=== PATIENT | female | born 1990 | race Two or more races ===

== ENCOUNTER 2023-11-06 07:32 | Outpatient (RCR) | payer MEDICARE, SELFPAY ==
[2023-10-24 14:57] LABS: Basophils Percent Auto 0.4 % (0.2-2.0); Eosinophils Absolute Auto 0.1 10^3/uL (0.0-0.7); Hematocrit 25.8 % (36.0-48.0); Immature Granulocytes Abs Auto 0.04 10^3/uL (0.00-0.03); Immature Granulocytes Pct Auto 0.5 % (0.0-0.5); Lymphocytes Absolute Auto 1.9 10^3/uL (1.2-3.8); Lymphocytes Percent Auto 24.7 % (20.5-60.0); Mean Corpuscular HGB Conc 27.1 g/dL (29.9-35.2); Mean Corpuscular Hemoglobin 18.6 pg (26.7-34.0); Mean Corpuscular Volume 68.6 fL (81.0-99.0); Mean Platelet Volume 9.3 fL (9.5-13.5); Monocytes Absolute Auto 0.7 10^3/uL (0.3-0.8); Monocytes Percent Auto 8.5 % (1.7-12.0); Neutrophils Absolute Auto 5.1 10^3/uL (1.4-6.5); Neutrophils Percent Auto 64.9 % (43.0-75.0); Platelet Count 327 10^3/uL (150-450); Red Blood Count 3.76 10^6/uL (4.20-5.40); Red Cell Distribution Width 21.9 % (11.0-15.0); White Blood Count 7.8 10^3/uL (4.0-11.0)
[2023-10-24 15:08] LABS: Anion Gap 12.4; BUN Creatinine Ratio 12.2; Calcium 8.6 mg/dL (8.5-10.1); Carbon Dioxide 25.1 mmol/L (21.0-32.0); Chloride 103 mmol/L (98-107); Estimated GFR (African America >60 (>=60); Estimated GFR (Non-African Ame >60 (>=60); Glucose 77 mg/dL (74-106); Potassium 3.5 mmol/L (3.5-5.1); Sodium 137 mmol/L (136-145)
[2023-10-24 15:23] LABS: Percent Iron Saturation 3.4 %
[2023-10-25 15:09] LABS: Hgb A 98.2 % (96.4-98.8); Hgb A2 1.8 % (1.8-3.2)
[2023-11-06] MEDS: FERUMOXYTOL 510 MG in 0.9 % SODIUM CHLORIDE 100 ML 234 MG IV (13:17)
[2023-11-06 13:23] VITALS: BP 118/77; PULSE 74; TEMP 37.1; O2SAT 99
== END 2023-11-10 10:50 | disposition home or self-care (01) ==
LOC: INF 07:32
PROVIDERS: Visit Provider Internal Medicine Hematology & Oncology
DX: D64.9 Anemia, unspecified (principal); D50.9 Iron deficiency anemia, unspecified; D51.9 Vitamin B12 deficiency anemia, unspecified; K90.9 Intestinal malabsorption, unspecified
CPT/HCPCS: 36415; 80048; 82306; 82607; 82728; 83020; 83540; 83550; 85025; 96365; G0463; Q0138

== ENCOUNTER 2023-11-21 07:30 | Outpatient (RCR) | payer OTHER, SELFPAY ==
[2023-11-13 13:06] VITALS: BP 104/57; PULSE 75; TEMP 36.8; O2SAT 99
[2023-11-13] MEDS: FERUMOXYTOL 510 MG in 0.9 % SODIUM CHLORIDE 100 ML 234 MG IV (13:12)
[2023-11-21 15:28] LABS: Basophils Percent Auto 0.3 % (0.2-2.0); Eosinophils Percent Auto 0.6 % (0.9-7.0); Hematocrit 31.9 % (36.0-48.0); Hemoglobin 9.3 g/dL (12.0-16.0); Immature Granulocytes Abs Auto 0.03 10^3/uL (0.00-0.03); Immature Granulocytes Pct Auto 0.4 % (0.0-0.5); Lymphocytes Absolute Auto 1.3 10^3/uL (1.2-3.8); Lymphocytes Percent Auto 18.9 % (20.5-60.0); Mean Corpuscular HGB Conc 29.2 g/dL (29.9-35.2); Mean Corpuscular Hemoglobin 22.9 pg (26.7-34.0); Mean Corpuscular Volume 78.6 fL (81.0-99.0); Mean Platelet Volume 9.4 fL (9.5-13.5); Monocytes Absolute Auto 0.5 10^3/uL (0.3-0.8); Monocytes Percent Auto 7.2 % (1.7-12.0); Neutrophils Percent Auto 72.6 % (43.0-75.0); Platelet Count 278 10^3/uL (150-450); White Blood Count 6.8 10^3/uL (4.0-11.0)
[2023-11-21 15:32] LABS: C Reactive Protein <0.50 mg/dL (<=0.50)
[2023-11-21 15:36] LABS: Percent Iron Saturation 22.3 %
[2023-11-21 15:55] LABS: Erythrocyte Sedimentation Rate 74 mm/hr (<=20)
[2023-11-21 16:14] LABS: Red Blood Count 4.06 10^6/uL (4.20-5.40)
== END 2023-11-23 15:29 | disposition home or self-care (01) ==
LOC: HEMC 07:30
PROVIDERS: Visit Provider Internal Medicine Hematology & Oncology
DX: O99.013 Anemia complicating pregnancy, third trimester (principal); D64.9 Anemia, unspecified; D50.9 Iron deficiency anemia, unspecified; D51.9 Vitamin B12 deficiency anemia, unspecified; K90.9 Intestinal malabsorption, unspecified; Z3A.00 Weeks of gestation of pregnancy not specified; Z3A.30 30 weeks gestation of pregnancy; O26.893 Other specified pregnancy related conditions, third trimester
CPT/HCPCS: 36415; 82728; 83540; 83550; 85025; 85652; 86140; G0463; Q0138

== ENCOUNTER 2023-12-16 08:23 | Observation (INO) | payer OTHER, SELFPAY ==
--- OUTSIDE RECORDS SUMMARY | 2023-12-16 08:30 | XMS_ITS | CCD ---
Author Organization [facility] Care Team Providers Care Media Producer Name Role Phone MISC, DOCTOR Admitting Unavailable MISC, DOCTOR Attending Unavailable MISC, DOCTOR Admitting Unavailable MISC, DOCTOR Attending Unavailable SERVICES, [facility] Services, [facility] Primary Care Provider DOCHEVA NIKOLINA P Attending Unavailable SERVICES, [facility] SHIVAM, MOE Referring Unavailable DOCHEVA, NIKOLINA P Referring Unavailable SERVICES, [facility] SHIVAM, MOE Attending Unavailable FLORO, MARIS Referring Unavailable SERVICES, [facility] FLORO, MARIS Referring Unavailable SERVICES, [facility] SHIVAM, MOE Attending Unavailable FLORO, MARIS Referring Unavailable SERVICES, [facility] FLORO, MARIS L Referring Unavailable FLORO, MARIS L Attending Unavailable FLORO, MARIS L Attending Unavailable FLORO, MARIS L Attending Unavailable FLORO, MRAIS L Attending Unavailable FLORO, MARIS L Attending Unavailable FLORO, MARIS L Referring Unavailable FLORO, MARIS L Attending Unavailable Medications Current Medications Medication Drug Class(es) Dates Sig (Normalized) Sig (Original) vit 38-sbnq-pngkg-dha 18-1-350 mg capsule (8 sources) Start: 08-10-2022 take 1 tablet by mouth in the morning vit 76-sahr-tvzhs-dha 18-1-350 mg capsule Indications: Patient desires Take 1 tablet by mouth in the morning. 90 capsule 4 08/10/2022 Active Problems Active Problems Problem Classification Problem Date Documented Da te Episodic/Chronic Deficiency and other anemia (8 sources) Iron deficiency anemia; Translations: [Iron deficiency anemia, unspecified] Onset: 07-04-2023 07-04-2023 Episodic Deficiency and other anemia (2 sources) Anemia Onset: 08-15-2023 Episodic Other complications of (2 sources) Anemia in mother complicating , childbirth AND/OR puerperium; Translations: [Anemia complicating , second trimester] 07-04-2023 Chronic Other complications of (2 sources) Anemia complicating , second trimester; Translations: [Anemia complicating , second trimester] Onset: 07-04-2023 Chronic Other complications of (1 source) Iron deficiency anemia of ; Translations: [Anemia complicating , unspecified trimester] 08-17-2023 Chronic Other complications of (1 source) Anemia complicating , unspecified trimester; Translations: [Anemia complicating , unspecified trimester] Onset: 07-04-2023 Chronic Residual codes; unclassified (1 source) Gestation period, 20 weeks; Translations: [20 weeks gestation of ] 08-14-2023 Episodic Thyroid disorders (2 sources) Hyperthyroidism; Translations: [Hypothyroidism] Onset: 08-15-2023 Chronic Thyroid disorders (1 source) Disorder of thyroid gland; Translations: [Disorder of thyroid, unspecified] 08-17-2023 Episodic Unclassified (1 source) Abnormal Lab Onset: 06-12-2023 Unclassified (1 source) Abnormal Lab, 12 wks preg Onset: 06-12-2023 Past or Other Problems Problem Classification Problem Date Documented Da te Episodic/Chronic Deficiency and other anemia (1 source) Other iron deficiency anemias; Translations: [Other iron deficiency anemias] Onset: 07-04-2023 Episodic Other screening for suspected conditions (not mental disorders or infectious disease) (5 sources) Unspecified abnormal finding in specimens from other organs, systems and tissues; Translations: [Decreased thyroid stimulating hormone level] Onset: 06-12-2023 08-15-2023 Episodic Residual codes; unclassified (2 sources) 20 weeks gestation of ; Translations: [20 weeks gestation of ] Onset: 08-15-2023 Episodic NEGATED: Highlighted row has been ruled out!Unclassified (1 source) No known active problems 08-10-2022 Results Test Name Value Interpretation Reference Range Facility US OB FOLLOW UP TRANSABDOMIN AL APPROACHon 10-23-2023 US OB FOLLOW UP TRANSABDOMINAL APPROACH FINDINGS: A single, live intrauterine is present with normal cardiac rate of 132 beats per minute. Normal activity and amniotic fluid volume. Amniotic fluid index is 14 cm. Morphology is grossly normal. The cervix is long and closed, 4.8 cm. The placenta is anterior, not associated with the cervical os. The current sonographic age is 31 weeks and 3 days, based on the following measurements: BPD 8.0 cm (32 weeks, 0 days) Head Circumference 28.4 cm (31 weeks, 2 days) Abdominal Circumference 27.5 cm (31 weeks, 4 days) Femur Length 5.9 cm (30 weeks, 5 days) Presentation Cephalic Placenta Anterior Grade I Weight (g) by Percentile 59.1 % * These measurements result in an estimated date of delivery of December 22, 2023. The current estimated weight is 1747 grams (3 pounds, 14 ounces). IMPRESSION: Single, live intrauterine , current sonographic age of 31 weeks and 3 days, with an estimated date of delivery of December 22, 2023. * Estimated Weight (g) by Percentile is based upon an accurate estimated age based on last menstrual period. TRANSCRIBED BY: ELECTRONICALLY SIGNED BY: Ravinder Merchant MD Normal Not Available CBC without diffon Erythrocyte distribution width (RBC) [Ratio] 18.9 % High 11.5 - 15.0 % [facility] Hematocrit (Bld) [Volume fraction] 23.1 % Low 35 - 47 % [facility] Hemoglobin (Bld) [Mass/Vol] 7.2 g/dL Low 11.7 - 15.5 g/dL [facility] Interpretation and review of laboratory results Abnormal [facility] MCH (RBC) [Entitic mass] 19.8 pg Low 27 - 34 pg [facility] MCHC (RBC) [Mass/Vol] 31.1 g/dL Low 32 - 36 g/dL [facility] MCV (RBC) [Entitic vol] 64 fL Low 80 - 100 fL [facility] Platelet mean volume (Bld) [Entitic vol] 7.4 fL 7 - 12 fL [facility] Platelets (Bld) [#/Vol] 342 10*3/uL [facility] RBC (Bld) [#/Vol] 3.64 10*6/uL Low [facility] WBC corrected for nucl RBC Auto (Bld) [#/Vol] 7.2 [facility] COMPLETE BLOOD COUNTon 08-14 Erythrocyte distribution width (RBC) [Ratio] 18.9 % High 11.5-15.0 [facility] Comment on above: Performed By: #### C BC, THYR, 3051-0, 2276-4, 2284-8, 2132-01 #### [facility] ([id number]) [address], [address] [place] [address] Hematocrit (Bld) [Volume fraction] 23.1 % Low 35-47 [facility] Comment on above: Performed By: #### C BC, THYR, 3051-0, 2276-4, 2283-8, 2132-01 #### [facility] ([id number]) [address], [address] [place] [address] Hemoglobin (Bld) [Mass/Vol] 7.2 g/dL Low 11.7-15.5 [facility] Comment on above: Performed By: #### C BC, THYR, 3051-0, 2276-4, 2283-8, 2132-01 #### [facility] ([id number]) [address], [address] [place] [address] MCH (RBC) [Entitic mass] 19.8 pg Low 27-34 [facility] Comment on above: Performed By: #### C BC, THYR, 3051-0, 2276-4, 228-8, 2132-01 #### [facility] ([id number]) [address], [address] [place] [address] MCHC (RBC) [Mass/Vol] 31.1 g/dL Low 32-36 [facility] Comment on above: Performed By: #### C BC, THYR, 3051-0, 2276-4, 2284-8, 2132-01 #### [facility] ([id number]) [address], [address] [place] [address] MCV (RBC) [Entitic vol] 64 fL Low 80-100 [facility] Comment on above: Performed By: #### C BC, THYR, 3051-0, 2276-4, 4-8, 2132-01 #### [facility] ([id number]) [address], [address] [place] [address] Platelet mean volume (Bld) [Entitic vol] 7.4 fL Normal 7-12 [facility] Comment on above: Performed By: #### C BC, THYR, 3051-0, 2276-4, 2283-8, 2132-01 #### [facility] ([id number]) [address] [place] [address] Platelets (Bld) [#/Vol] 342 10*3/uL Normal 150-450 [facility] Comment on above: Performed By: #### Anderson BC, THYR, 3051-0, 2276-4, 2283-8, 2132-01 #### [facility] ([id number]) [address] [place] [address] RBC COUNT 3.64 X10E12/L Low 3.80-5.20 [facility] Comment on above: Performed By: #### C BC, THYR, 3051-0, 2276-4, 2283-8, 2132-01 #### [facility] ([id number]) [address] [place] [address] WBC (Bld) [#/Vol] 7.2 10*3/uL Normal 4.0-11.0 [facility] Comment on above: Performed By: #### C BC, THYR, 3051-0, 2276-4, 2284-8, 2132-01 #### [facility] ([id number]) [address], [address] [place] [address] Cobalamin (Vitamin B12) [Mas s/Vol]on 08-15-2023 [facility] FERRITINon 08-15-2023 Ferritin [Mass/Vol] 3 ng/mL Low 11-307 [facility] Comment on above: Performed By: #### C BC, THYR, 3051-0, 2276-4, 2284-8, 9 #### [facility] ([id number]) [address], [address] [place] [address] FREE T3on 08-15-2023 Free T3 [Mass/Vol] 3.96 pg/mL High 2.50-3.90 [facility] Comment on above: Performed By: #### C BC, THYR, 3051-0, 2276-4, 2283-8, 2132-01 #### [facility] ([id number]) [address] [address] [facility] [place] [address] Ferritinon 08-15-2023 Ferritin [Mass/Vol] 3 ng/mL Low 11 - 307 ng/mL [facility] Ferritin [Mass/Vol]on 2023 Interpretation and review of laboratory results Abnormal [facility] Folateon 08-15-2023 Folate [Mass/Vol] ng/mL 5.8 - PINF ng/mL [facility] Comment on above: NEW REFERENCE RANGE Folate [Mass/Vol]on 08-15-19 24 [facility] FOLIC ACID >25.0 Normal >5.8 [facility] Comment on above: Result Comment: NEW REFERENCE RANGE Performed By: #### C BC, THYR, 3051-0, 2276-4, 4-8, 2132-01 #### [facility] ([id number]) [address] [place] [address] Free T3 [Mass/Vol]on Interpretation and review of laboratory results Abnormal [facility] HGB ELECTRO INTERPon HGB ELECTRO INTERP See below Normal [facility] Comment on above: Result Comment: NOTE Hemoglobins were analyzed by capillary electrophoresis. There is a normal hemoglobin capillary electrophoresis pattern. Alpha thalassemia trait is not excluded by the testing performed. Suggest correlation with clinical information, red blood cell indices and serum ferritin test results, if applicable. Performed By: #### C BC, THYR, 3051-0, 2276-4, 2284-8, 9 #### [facility] ([id number]) [address] [place] [address] STAFF REVIEW See below Normal [facility] Comment on above: Result Comment: NOTE Reviewed by Angi Horvath DO Test Performed By: [place] [address] Fire Tower Keeper: Modesto Martin III, M.D. CLIA #[id number] Performed By: #### Anderson BC, THYR, 3051-0, 2276-4, 4-8, 2132-01 #### [facility] ([id number]) [address], [address] [place] [address] HGB ELECTROPHORESISon 2023 Abnormal Hb See below Normal No abnormal hemoglobin identified. [facility] Comment on above: Result Comment: NOTE No abnormal hemoglobin identified. Test Performed By: [place] [address] Fire Tower Keeper: Modesto Martin III, M.D. CLIA #[id number] Performed By: #### Anderson BC, THYR, 3051-0, 2276-4, 2284-8, 2132-01 #### [facility] ([id number]) [address] [facility] [place] [address] Hb A Percent 98.1 % High 96.2-98.0 [facility] Comment on above: Performed By: #### C BC, THYR, 3051-0, 2276-4, 2284-8, 9 #### [facility] ([id number]) [address], [address] [place] [address] Hb A2 Percent 1.9 % Low 2.0-3.1 [facility] Comment on above: Performed By: #### C BC, THYR, 3051-0, 6-4, 8, 2132-01 #### [facility] ([id number]) [address], [address] [place] [address] T3, freeon 08-15-2023 Free T3 [Mass/Vol] 3.96 pg/mL High 2.50 - 3. 90 pg/mL [facility] THYROID PROFILEon 08-15-2023 Free T4 [Mass/Vol] 0.54 ng/dL Low 0.61-1.60 [facility] Comment on above: Performed By: #### C BC, THYR, 3051-0, 2275-4, 8, 2132-01 #### [facility] ([id number]) [address], [address] [place] [address] TSH 0.67 uIU/mL Normal 0.49-4.67 [facility] Comment on above: Performed By: #### C BC, THYR, 3051-0, 2275-4, 2283-12, 2132-01 #### [facility] ([id number]) [address], [address] [place] [address] Thyroid profile includes TSH FT4on 08-15-2023 Free T4 [Mass/Vol] 0.54 ng/dL Low 0.61 - 1. 60 ng/dL [facility] Interpretation and review of laboratory results Abnormal [facility] TSH Qn 0.67 m[IU]/L [facility] VITAMIN B12on 08-15-2023 Cobalamin (Vitamin B12) [Mass/Vol] 183 pg/mL Normal 180-914 [facility] Comment on above: Performed By: #### C BC, THYR, 3051-0, 2276-4, 8, 2132-01 #### [facility] ([id number]) [address], [address] [place] [address] Vitamin B12on 08-15-2023 Cobalamin (Vitamin B12) [Mass/Vol] 183 pg/mL 180 - 914 pg/mL [facility] BASIC METABOLIC PANLon 06-12 Anion gap [Moles/Vol] 9 mmol/L Normal 5-15 [facility] Comment on above: Performed By: #### C BCA, BMP #### [facility] ([id number]) [address] [place] [address] Calcium [Mass/Vol] 9.1 mg/dL Normal 8.5-10.5 [facility] Comment on above: Performed By: #### C NITIN, BMP #### [facility] ([id number]) [address] [place] [address] Chloride [Moles/Vol] 105 mmol/L Normal 98-109 [facility] Comment on above: Performed By: #### C BCA, BMP #### [facility] ([id number]) [address] [place] [address] CO2 [Moles/Vol] 22 mmol/L Normal 22-32 [facility] Comment on above: Performed By: #### C BCA, BMP #### [facility] ([id number]) [address] [place] [address] Creatinine [Mass/Vol] 0.48 mg/dL Normal 0.40-1.00 [facility] Comment on above: Result Comment: METH OD TRACEABLE TO IDMS STANDARD Performed By: #### C BCA, BMP #### [facility] ([id number]) [address] [place] [address] eGFR (CKD-EPI) NON-RACE DEPENDENT >90 Normal >59 [facility] Comment on above: Result Comment: Reported eGFR is based on the CKD-EPI 2020 equation that does not use a race coefficient. Performed By: #### C BCA, BMP #### [facility] ([id number]) [address] [place] [address] Glucose [Mass/Vol] 94 mg/dL Normal 65-99 [facility] Comment on above: Performed By: #### C NITIN, BMP #### [facility] ([id number]) [address] [place] [address] Potassium [Moles/Vol] 3.7 mmol/L Normal 3.5-5.0 [facility] Comment on above: Performed By: #### C NITIN, BMP #### [facility] ([id number]) [address] [place] [address] Sodium [Moles/Vol] 136 mmol/L Normal 134-146 [facility] Comment on above: Performed By: #### C NITIN, BMP #### [facility] ([id number]) [address] [place] [address] Urea nitrogen [Mass/Vol] 11 mg/dL Normal 5-23 [facility] Comment on above: Performed By: #### C NITIN, BMP #### [facility] ([id number]) [address] [place] [address] CBC AND AUTO DIFFon 06-12-19 24 ABSOLUTE BASOPHIL 0.0 X10E9/L Normal 0.0-0.2 [facility] Comment on above: Performed By: #### C NITIN, BMP #### [facility] ([id number]) [address] [place] [address] ABSOLUTE NEUTROPHIL 4.5 X10E9/L Normal 1.5-6.6 [facility] Comment on above: Performed By: #### C BCA, BMP #### [facility] ([id number]) [address] [place] [address] Basophils/100 WBC (Bld) 0.4 % Normal [facility] Comment on above: Performed By: #### C NITIN, BMP #### [facility] ([id number]) [address] [place] [address] Eosinophils (Bld) [#/Vol] 0.1 10*3/uL Normal 0.0-0.4 [facility] Comment on above: Performed By: #### C NITIN, BMP #### [facility] ([id number]) [address] [place] [address] Eosinophils/100 WBC (Bld) 1.0 % Normal [facility] Comment on above: Performed By: #### C NITIN, BMP #### [facility] ([id number]) [address] [place] [address] Erythrocyte distribution width (RBC) [Ratio] 19.3 % High 11.5-15.0 [facility] Comment on above: Performed By: #### C NITIN, BMP #### [facility] ([id number]) [address] [place] [address] Hematocrit (Bld) [Volume fraction] 26.6 % Low 35-47 [facility] Comment on above: Performed By: #### C NITIN, BMP #### [facility] ([id number]) [address] [place] [address] Hemoglobin (Bld) [Mass/Vol] 8.0 g/dL Low 11.7-15.5 [facility] Comment on above: Performed By: #### C NITIN, BMP #### [facility] ([id number]) [address] [place] [address] Lymphocytes (Bld) [#/Vol] 2.0 10*3/uL Normal 1.0-3.5 [facility] Comment on above: Performed By: #### C BCA, BMP #### [facility] ([id number]) [address] [place] [address] Lymphocytes/100 WBC (Bld) 27.5 % Normal [facility] Comment on above: Performed By: #### C NITIN, BMP #### [facility] ([id number]) [address] [place] [address]67 MCH (RBC) [Entitic mass] 19.1 pg Low 27-34 [facility] Comment on above: Performed By: #### C NITIN, BMP #### [facility] ([id number]) [address] [place] [address] MCHC (RBC) [Mass/Vol] 30.2 g/dL Low 32-36 [facility] Comment on above: Performed By: #### C NITIN, BMP #### [facility] ([id number]) [address] [place] [address] MCV (RBC) [Entitic vol] 63 fL Low 80-100 [facility] Comment on above: Performed By: #### C NITIN, BMP #### [facility] ([id number]) [address] [place] [address] Monocytes (Bld) [#/Vol] 0.6 10*3/uL Normal 0-0.9 [facility] Comment on above: Performed By: #### C NITIN, BMP #### [facility] ([id number]) [address] [place] [address]190 Monocytes/100 WBC (Bld) 8.6 % Normal [facility] Comment on above: Performed By: #### C NITIN, BMP #### [facility] ([id number]) [address] [place] [address]154 Neutrophils/100 WBC (Bld) 62.5 % Normal [facility] Comment on above: Performed By: #### C NITIN, BMP #### [facility] ([id number]) [address] [place] [address] [place] [address] Platelet mean volume (Bld) [Entitic vol] 7.6 fL Normal 7-12 [facility] Comment on above: Performed By: #### C NITIN, BMP #### [facility] ([id number]) [address] [place] [address] Platelets (Bld) [#/Vol] 334 10*3/uL Normal 150-450 [facility] Comment on above: Performed By: #### Anderson TAVERAS, BMP #### [facility] ([id number]) [address] [place] [address]40 RBC COUNT 4.20 X10E12/L Normal 3.80-5.20 [facility] Comment on above: Performed By: #### Anderson TAVERAS, BMP #### [facility] ([id number]) [address] [place] [address] WBC (Bld) [#/Vol] 7.3 10*3/uL Normal 4.0-11.0 [facility] Comment on above: Performed By: #### Anderson TAVERAS, BMP #### [facility] ([id number]) [address] [place] [address]72 HIV 1&2 AB/AG Screen (P24 AG )on 05-17-2023 HIV 1&2 AB/AG Non-Reactive [facility] Hepatitis B surface antigeno n 05-17-2023 Hepatitis B Surface Antigen Non-Reactive [facility] Hepatitis C(HCV) Ab w/ Refle x to PCRon 05-17-2023 HCV Ab Ql (S) Non-Reactive [facility] No Panel InformationOrdered By: Riya Veloz on 05-17-2023 [facility] Rubella IGG immune statuson 05-17-2023 Rubella immune IgG [facility] Syphilis Total(Unknown Syphi lis Status)Ordered By: Riya Veloz on 05-17-2023 Syphilis Non-Reactive [facility] US OB < 14 WEEKS EARLYon 01- 03-2024 US OB < 14 WEEKS EARLY CLINICAL HISTORY: Dating. Age by LMP of 8 weeks 0 days COMPARISON: None available for this . TECHNIQUE: Transabdominal and transvaginal ultrasound was performed of the pelvis. RESULT: An approximately 3.08 cm in average dimension gestational sac is present within the central aspect of the uterine body/fundus, without significant surrounding subchorionic hemorrhage. Yolk sac present. Alleman rump length measures 1.85 cm, which corresponds to 8 weeks 2 days. The estimated date of delivery by measurements is: 12/25/2023. The estimated date of delivery by LMP is: 12/27/2023. cardiac activity measures approximately 165, without visualized arrhythmia. The cervix appears closed, measuring approximately 4.0 cm. There is no significant free fluid, or other findings of concern. The uterus measures: 10.6 x 6.8 x 5.4 cm. Ovaries not visualized, obscured by bowel gas. IMPRESSION: SINGLE LIVE INTRAUTERINE CORRESPONDING TO 8 weeks 2 days NO OTHER FINDINGS OF CONCERN. ELECTRONICALLY SIGNED BY: Hi Santiago MD Normal Not Available Vital Signs Date Time Vital Sign Value Performing Clinician Courtney collins 08-15-2023 09:140400 Body height 170.2 cm Glory Rivera MD Work Phone: [facility] Happy [facility] 08-15-2023 09:14-0400 Body mass index (BMI) [Ratio] 21.77 kg/m2 Glory Rivera MD Work Phone: [facility] 08-15-2023 09:14-0400 Body weight 63.05 kg Glory Rivera MD Work Phone: [facility] 08-15-2023 09:14-0400 Diastolic blood pressure 62 mm[Hg] Glory Rivera MD Work Phone: [facility] 08-15-2023 09:14-0400 Heart rate 68 /min Glory Rivera MD Work Phone: [facility] 08-15-2023 09:14-0400 Systolic blood pressure 102 mm[Hg] Glory Rivera MD Work Phone: [facility] 07-04-2023 08:55-0500 Body mass index (BMI) [Ratio] 20.55 kg/m2 Moe Langley MD Work Phone: [facility] 07-04-2023 08:55-0500 Body weight 59.51 kg Moe Langley MD Work Phone: [facility] 07-04-2023 08:55-0500 Diastolic blood pressure 55 mm[Hg] Moe Langley MD Work Phone: [facility] 07-04-2023 08:55-0500 Heart rate 67 /min Moe Langley MD Work Phone: [facility] 07-04-2023 08:55-0500 Systolic blood pressure 100 mm[Hg] Moe Langley MD Work Phone: [facility] Encounters Encounter Date Encounter Type Care Provider Facility Start: 11-14-2023 End: 11-14-[address] [facility] Start: 11-13-2023 End: 11-13-2023 ambulatory MARIS L FLORO Not Available Start: 10-23-2023 End: 10-23-2023 ambulatory MARIS L FLORO Not Available Start: 09-04-2023 End: 09-04-2023 ambulatory MARIS L FLORO Not Available Start: 08-21-2023 Telephone encounter Gladys Cortés RN [facility] Start: 08-18-2023 Telephone encounter Glory Rivera MD Work Phone: [facility] Comment on above: Results Start: 08-17-2023 Orders Only Glory stewart MD Work Phone: [facility] [place] Comment on above: Iron deficiency anem ia during (Primary Dx); Thyroid disease Start: 08-15-2023 End: 08-15-2023 ambulatory GLORY RIVERA [facility] Start: 08-15-2023 End: 08-15-2023 Office outpatient visit 25 minutes Glory Rivera MD Work Phone: [facility] [place] Comment on above: 20 weeks gestation o f (Primary Dx); Low TSH level Start: 08-07-2023 End: 08-07-2023 ambulatory MARIS L FLORO Not Available Start: 07-10-2023 End: 07-10-2023 ambulatory MARIS L FLORO Not Available Start: 07-04-2023 End: 07-04-2023 Orders Only Grace Davis RN Maternal- Medicine at [facility] Comment on above: Anemia affecting pre gnancy in second trimester (Primary Dx) Start: 07-04-2023 End: 07-04-2023 Office consultation new/estab patient 60 min Moe Langlye MD Work Phone: Maternal- Medicine at [facility] Comment on above: Anemia affecting pre gnancy in second trimester (Primary Dx); Other iron deficiency anemia Start: 06-19-2023 Chart abstracting Moe mccormack MD Work Phone: Maternal- Medicine at [facility] Start: 06-13-2023 End: 06-13-2023 ambulatory MARIS L FLORO Not Available Start: 06-12-2023 End: 06-12-2023 Emergency department patient visit [facility] Start: 05-17-2023 End: 05-17-2023 ambulatory MARIS L FLORO Not Available Start: 01-10-2019 Patient encounter procedure DOCTOR MISC Facility:H1 Start: 12-27-2018 Patient encounter procedure DOCTOR MISC Facility:H1 Procedures Date Procedure Procedure Detail Performing Clinician Start: 05-17-2023 Hepatitis c antibody No t In System Ref Prov Start: 05-17-2023 HIV 1&2 AB/AG SCREEN (P24 AG) Not In System Ref Prov Start: 05-17-2023 Iaad ia hepatitis b surface antigen Not In System Ref Prov Start: 08-10-2022 Microscopic observat ion [Identifier] in Cervix by Cyto stain Moe Langley MD Work Phone: Plan of Treatment Date Care Activity Detail Author Start: 08-10-2025 Screening for malign ant neoplasm of cervix Pap Smear [facility] Start: 08-14-2024 Adult BMI Screening Adult BMI Screen ing [facility] Start: 08-14-2024 Tobacco Screening Tobacco Screening [facility] Start: 07-04-2024 Adult BMI Screening Adult BMI Screen ing [facility] Start: 07-04-2024 Tobacco Screening Tobacco Screening [facility] Start: 07-04-2024 End: 07-04-2024 US MFM with or without consult US MFM with or without consult Imaging Routine Anemia affecting in second trimester Expected: 07/04/2024 (Approximate), Expires: 07/04/2024 SET Work Phone: Comment on above: Expected: 07/04/2024 (Approximate), Expires: 07/04/2024 Start: 06-12-2024 Adult BMI Screening Adult BMI Screen ing [facility] Start: 06-12-2024 DTaP,Tdap and Td Vac cines (2 - Td or Tdap) DTaP,Tdap and Td Vaccines (2 - Td or Tdap) [facility] Start: 01-14-2024 Influenza vaccination Influenza Vacc ine [facility] Start: 10-30-2023 End: 10-30-2023 Telemedicine consultation with patient 10/30/2023 11:30 AM EDT Telemedicine Maternal- Medicine at [facility] [address] [place] [id number] Osbaldo Alamo MD [address], [address] [place] [address] [facility] Start: 08-15-2023 End: 08-15-2023 Patient encounter procedure [facility] [place] Start: 08-11-2023 Tobacco Screening Tobacco Screening [facility] Start: 07-04-2023 End: 07-04-2023 Patient encounter procedure [facility] - MFM US Imaging Start: 01-13-2023 COVID-19 Vaccine ( season) COVID-19 Vaccine ( season) [facility] Start: 01-13-2023 Influenza vaccination Influenza Vacc ine [facility] Start: 2004 Depression Screening Depression Scre ening [facility] End: 07-04-2024 Ferritin [Mass/volume] in Serum or Plasma Ferritin Lab Routine Anemia affecting in second trimester 1 Occurrences starting 07/04/2023 until 07/04/2024 SET Work Phone: Comment on above: 1 Occurrences starti ng 07/04/2023 until 07/04/2024 End: 07-04-2024 Hemoglobin Electrophoresis Hemoglobin Electrophoresis Lab Routine Anemia affecting in second trimester 1 Occurrences starting 07/04/2023 until 07/04/2024 [facility] on [facility]: 1 Occurrences starti ng 07/04/2023 until 07/04/2024 End: 08-14-2024 Hemoglobin Electrophoresis Hemoglobin Electrophoresis Lab Routine 20 weeks gestation of 1 Occurrences starting 08/15/2023 until 08/14/2024 SET Work Phone: Comment on above: 1 Occurrences starti ng 08/15/2023 until 08/14/2024 Hemoglobin Electrophoresis Hemoglobin Electrophoresis Lab Routine 20 weeks gestation of 08/15/2023 10:11 AM EDT [facility] End: 10-17-2023 Thyroid profile includes TSH FT4 Thyroid profile includes TSH FT4 Lab Routine Thyroid disease 1 Occurrences starting 08/17/2023 until 10/17/2023 SET Work Phone: Comment on above: 1 Occurrences starti ng 08/17/2023 until 10/17/2023 End: 10-17-2023 Triiodothyronine (T3) Free [Mass/volume] in Serum or Plasma T3, free Lab Routine Thyroid disease 1 Occurrences starting 08/17/2023 until 10/17/2023 [facility] Comment on above: 1 Occurrences starti ng 08/17/2023 until 10/17/2023 End: 08-14-2024 Unlisted Lab Test Unlisted Lab Test Lab Routine 20 weeks gestation of 1 Occurrences starting 08/15/2023 until 08/14/2024 [facility] Comment on above: 1 Occurrences starti ng 08/15/2023 until 08/14/2024 Immunizations Immunization Date Immunization Notes Care Provider [facility] 02-24-2021 influenza virus vaccine, unspecified formulation Moe Langley MD Work Phone: [facility] 08-07-2020 COVID-19, mRNA, LNP- S, PF, 100mcg/0.5mL Dose Moe Langley MD Work Phone: [facility] 07-10-2020 COVID-19, mRNA, LNP- S, PF, 100mcg/0.5mL Dose Moe Langley MD Work Phone: [facility] Payers Date Payer Category Payer Medicaid [employer] [id number] 2023-Present [phone] [address] [place] [address] [id number] 2023 Medicaid [id number] 2022 Medicaid [id number] 1992 Unknown [id number] 1992 Unknown [id number] 1992 Unknown [id number] 1992 Unknown [id number] [id number] 1992 Unknown [id number] [id number] 1992 Unknown [id number] [id number] 1992 Unknown [id number] [id number] 1992 Unknown [id number] [id number] 1992 Unknown [id number] [id number] 1992 Unknown [id number] [id number] 1992 Unknown [id number] [id number] 1992 Unknown [id number] [id number] 1992 Unknown [id number] [id number] 1992 Unknown [id number] [id number] 1992 Unknown [id number] [id number] 1959 Unknown Social History Date Type Detail Facility Start: 12-21-2021 Tobacco smoking stat [facility] Never smoked tobacco [facility] Start: 12-21-2021 Tobacco use and exposure Smokeless tobacco non-user [facility] Start: 06-19-2023 Alcohol intake Current drinke r of alcohol (finding) [facility] Start: 06-25-2020 End: 06-19-2023 Alcohol intake [facility] Start: 06-25-2020 End: 08-10-2022 Tobacco use panel [facility] Childcare Unknown [facility] Start: 04-05-2023 [facility] Start: 1990 Sex Assigned At Not on file P [facility] Start: 07-04-2023 End: 08-15-2023 Alcohol intake Ex-drinker (finding) [facility] Clinical Notes 07-04-2023 to 08-21-2023 Telephone Encounter - Gladys Cortés RN - 08/21/2023 8:49 AM EDTTelephone Encounter - Gladys Cortés RN - 08/21/2023 8:49 AM EDTTelephone Encounter - Glory Rivera MD - 08/18/2023 5:28 PM EDT Note Date & Type Note Facility 08-21-2023 Miscellaneous Notes Formattin g of this note might be different from the original. Attempted to contact patient in regards to thyroid function results per Dr. Rivera. No answer, left VM to call back to office to discuss. documented in this encounter [facility] 08-21-2023 Telephone encount er Note Attempted to contact patient in regards to thyroid function results per Dr. Rivera. No answer, left VM to call back to office to discuss. [facility] 08-18-2023 Miscellaneous Notes Formattin g of this note might be different from the original. Attempted to call patient to discuss her results she did not answer GLORY RIVERA MD documented in this encounter [facility] 08-18-2023 Telephone encount er Note Attempted to call patient to discuss her results she did not answer GLORY RIVERA MD [facility] 08-17-2023 Miscellaneous Notes Formattin g of this note might be different from the original. Left voicemail for pt to call our office to schedule an appointment with Micaela Burnette labs needed documented in this encounter [facility] 08-17-2023 Telephone encount er Note Left voicemail for pt to call our office to schedule an appointment with Micaela Burnette labs needed ast [facility] 08-15-2023 History of Presen t illness Narrative REASON FOR OFFICE VISIT: Follow up HISTORY OF PRESENT ILLNESS: Trish Cardona is a pleasant 33 y.o. G 2 P1 001. at 20w6d due on Estimated Date of Delivery: 12/27/23 . Patient was seen today due to the following 1. Suspected hyperthyroidism based on low TSH performed early in the 1st trimester. This could be due to normal physiological changes. Repeat labs not done yet 2. Microcytic hypochromic anemia. Most likely iron deficiency anemia. Has not been screened for thalassemias or sickle cell. Denies family history Currently the patient has no complaints. The patient denies nausea, vomiting, abdominal pain, vaginal bleeding, SOB or chest pain. Reports good movement. Patient's PMH/PSH,SH,PSYCH Hx, MEDs, ALLERGIES, and ROS were all reviewed and updated in the appropriate sections. Patient Active Problem List Diagnosis Iron (Fe) deficiency anemia Past Medical History: Diagnosis Date Anemia Atypical squamous cells of undetermined significance on cytologic smear of cervix (ASC-US) 2012 Disease of thyroid gland PAST OBSTETRICAL HISTORY: OB History Para Term AB Living 2 1 1 1 SAB IAB Ectopic Multiple Live Births 1 # Outcome Date GA Lbr Holland/2nd Weight Sex Delivery Anes PTL Lv 2 Current 1 Term 2013 M Vag-Spont EPI [place] SURGICAL HISTORY: No past surgical history on file. ALLERGIES: No Known Allergies CURRENT MEDICATIONS: Current Outpatient Medications: vit 21-dzhs-kkars-dha 18-1-350 mg capsule, Take 1 tablet by mouth in the morning., Disp: 90 capsule, Rfl: 4 FAMILY/GENETIC HISTORY: No family history of VTE, cardiac defects and mental retardation . SOCIAL HISTORY:Patient denies tobacco use, alcohol use, or drug use. RECENT HOSPITALIZATION: none I did review all the labs results available in addition to labs which were ordered by the primary care physician, and the other consultants, we search on [employer] and all the available care everywhere epic I did review all the imaging studies of the patient available on EMR, ordered by the primary care physician and the other quality improvement consultant HABITS: Patient activity no restrictions, diet no restrictions REVIEW OF SYSTEM: Head and Neck: Negative for any dizziness and headaches. Cardiovascular and Respiratory System: Denies any chest pain, shortness of breath, and coughing. Abdominal and System: Denies any abdominal pain, nausea, vomiting, vaginal bleeding, and vaginal discharge Social Determinants of Health Financial Resource Strain: n Food Insecurity: n Transportation Needs: n Physical Activity: n Social Connections: y Intimate Partner Violence: n Housing Stability: y PHYSICAL EXAMINATION: LMP 03/22/2023 . Gravid abdomen, Respirations not labored. Well oriented time place person, normal gait Vitals: 08/15/23 0914 BP: 102/62 Pulse: 68 MFM Ultrasound please see report Trish Cardona is 33 y.o. at 20w6d Please refer to prior MFM notes 1. 20 weeks gestation of - Thyroid profile includes TSH FT4; Future - Ferritin; Future - Hemoglobin Electrophoresis; Future - Vitamin B12; Future - Folate; Future - CBC without diff; Future - Unlisted Lab Test; Future 2. Low TSH level - Thyroid profile includes TSH FT4; Future - T3, free; Future 3. Microcytic anemia Ultrasound results from today reviewed with the patient. Reviewed aneuploidy testing that could be performed during . I explained that definitive testing can be obtained by an amniocentesis, which has a 1/800 risk of loss. We also discussed noninvasive screening via cell free DNA testing and its limitations.. This test can be done on maternal blood and detects DNA. After consideration of risks versus benefits, she has declined amniocentesis. The patient declined cell free DNA. Desires evaluation. I recommended that she does repeat thyroid function labs Reviewed causes of anemia. Recommended testing ferritin, b12, folate, CBC, hemoglobin electrophoresis as well as testing for alpha thalasemia. We reviewed carrier screening in the as well. Patient agreed to be screened for CF, SMA and hemoglobinopathies. RECOMMENDATION: 1. Thyroid labs ordered. In case low TSH and high free T4 is noticed with hyperthyroidism and treated accordingly. 2. Anemia workup ordered 3. In case of low ferritin patient is a candidate for IV iron to be coordinated through her OB office. 4. Declined aneuploidy screening/testing 5. Carrier screen as above 6. Patient is low risk and vaginal delivery at or after 39 weeks at her local hospital is anticipated with C section reserve for routine obstetrical indications. 7. If she has hyperthyroidism please perform serial growth ultrasounds and start weekly NST and DVP from 32 weeks until delivery. All her questions and concerns were answered DISPOSITION: At this point the patient is in complete care of her statement services representative. Patient does have ultrasound office visit scheduled with us. Thank you for allowing me to participate in Trish Cardona . If there any questions please do not hesitate to contact us. Sincerely, Glory Rivera MD, FACOG (she/hers) Maternal- Medicine [facility] [address] [place] [address] Headache/epigastric pain/blurry vision/swelling? No Cramping/contractions? No Abnormal vaginal discharge? No Spotting or vaginal bleeding? No Loss of fluid like your water may have broken? No Recent ER visits or hospitalizations? No Any concerns that you would like me to mention to the provider today? Was diagnosed with a UTI by her OB in [place]. They prescribed her an antibiotic, but she lost the antibiotic and is inquiring if we can scientific technical writer her a new script. Blood drawn for carrier testing by PPE lab. Patient tolerated well. documented in this encounter [facility] 07-04-2023 History of Presen t illness Narrative Headache/epigastric pain/blurry vision/swelling? No Cramping/contractions? No Abnormal vaginal discharge? No Spotting/vaginal bleeding? No Loss of fluid like your water may have broken? No Cats in the home? No Do you change the litter box? N/A Flu vaccine? No Genetic testing done this here or other office? No Have you been seen here at [facility] in a previous ? No Recent ER visits or hospitalizations? 06/12/23 sent by primary OB to [place] ED for low hemoglobin Bring blood sugar log or meter with you today? (Please bring them with you for every visit at MFM) N/A Traveled outside the country in the past 6 month No Any concerns that you would like me to mention to the provider today? No REASON FOR CONSULTATION: Suspected hyperthyroidism. HISTORY OF PRESENT ILLNESS: Trish Cardona is a pleasant 33 y.o. G 2 P1 001. at 14w6d due on Estimated Date of Delivery: 12/27/23 . Patient was seen today due to the following 1. Suspected hyperthyroidism based on low TSH performed early in the 1st trimester. This could be due to normal physiological changes. 2. Microcytic hypochromic anemia. Most likely iron deficiency anemia. Currently the patient has no complaints. The patient denies nausea, vomiting, abdominal pain, vaginal bleeding, SOB or chest pain. Patient's PMH/PSH,SH,PSYCH Hx, MEDs, ALLERGIES, and ROS were all reviewed and updated in the appropriate sections. Patient Active Problem List Diagnosis Iron (Fe) deficiency anemia Past Medical History: Diagnosis Date Anemia Atypical squamous cells of undetermined significance on cytologic smear of cervix (ASC-US) 2011 Disease of thyroid gland PAST OBSTETRICAL HISTORY: OB History 2 Para 1 Term 1 AB Living 1 SAB IAB Ectopic Multiple Live Births 1 SURGICAL HISTORY: No past surgical history on file. ALLERGIES: No Known Allergies CURRENT MEDICATIONS: Current Outpatient Medications: vit 73-selj-djzgr-dha 18-1-350 mg capsule, Take 1 tablet by mouth in the morning., Disp: 90 capsule, Rfl: 4 FAMILY/GENETIC HISTORY: No family history of VTE, cardiac defects and mental retardation . SOCIAL HISTORY:Patient denies tobacco use, alcohol use, or drug use. RECENT HOSPITALIZATION: none I did review all the labs results available in addition to labs which were ordered by the primary care physician, and the other consultants, we search on [employer] and all the available care everywhere epic I did review all the imaging studies of the patient available on EMR, ordered by the primary care physician and the other quality improvement consultant HABITS: Patient activity no restrictions, diet no restrictions REVIEW OF SYSTEM: Head and Neck: Negative for any dizziness and headaches. Cardiovascular and Respiratory System: Denies any chest pain, shortness of breath, and coughing. Abdominal and System: Denies any abdominal pain, nausea, vomiting, vaginal bleeding, and vaginal discharge Social Determinants of Health Financial Resource Strain: n Food Insecurity: n Transportation Needs: n Physical Activity: n Social Connections: y Intimate Partner Violence: n Housing Stability: y PHYSICAL EXAMINATION: BP 100/55 Pulse 67 Wt 59.5 kg (131 lb 3.2 oz) LMP 03/22/2023 BMI 20.55 kg/m . Gravid abdomen, Respirations not labored. Well oriented time place person, normal gait MEDICAL DECISION MAKING DISCUSSION: I informed the patient based on hypochromic microcytic anemia most likely diagnosis is iron deficiency anemia. However will obtain hemoglobin electrophoresis along with iron studies. InCase low ferritin is diagnose patient is a candidate for IV iron infusion to be coordinated through her OB office and utilizing bloodless management department. We further discussed low TSH which could be due to normal physiological changes early . Thyroid function testing TSH and free T4 to be obtained through her OB office at 20 weeks gestation. RECOMMENDATION: 1. Normal first-trimester ultrasound. 2. Hemoglobin electrophoresis and ferritin was obtained today. 3. InCase of low ferritin patient is a candidate for IV iron to be coordinated through her OB office. 4. Repeat TSH and free T4 at 20 weeks gestation. InCase low TSH and high free T4 is noticed with hyperthyroidism and treated accordingly. 5. Patient understands first-trimester early TSH can be abnormal due to normal physiological changes of 6. Targeted anatomy at 20 weeks at [facility] office 7. Patient is low risk and vaginal delivery at term at her local hospital is anticipated with C section reserve for routine obstetrical indications. DISPOSITION: At this point the patient is in complete care of her statement services representative. Patient does have ultrasound office visit scheduled with us. Thank you for allowing me to participate in Trish Cardona . If there any questions please do not hesitate to contact us. Sincerely, MOE LANGLEY MD documented in this encounter [facility] Evaluation note Diagnosis Anemia affecting in second trimester- Primary [facility] Diagnosis Anemia affecting in second trimester- Primary Other iron deficiency anemia [facility] Diagnosis 20 weeks gestation of - Primary Low TSH level [facility] Diagnosis Iron deficiency anemia during - Primary Thyroid disease Unspecified disorder of thyroid [facility] filedocumented in this encounter [facility] filedocumented in this encounter [facility] filedocumented in this encounter [facility] on filedocumented in this encounter [facility] on filedocumented in this encounter [facility] (narrative)* Consultation (Routine) - Pending Review Specialty Diagnoses / Procedures Referred By Contac t Referred To Contact Hematology Diagnoses Iron deficiency anemia during Glory Rivera MD [address], [address] [place] [address] [facility] [address] [address] [place] [address] Referral ID Status Reason Start Date Expiration Date V isits Requested Visits Authorized [id number] Pending Review 08/17/2023 08/16/2024 1 1 [facility] Summary Purpose Family History No Family History Records FoundNo Family History Records FoundNo Family History Records FoundNo Family History Records FoundNo Family History Records Found Advance Directives No Advanced Directives Records FoundNo Advanced Directives Records FoundNo Advanced Directives Records FoundNo Advanced Directives Records FoundNo Advanced Directives Records Found Reason for Referral Specialty Diagnoses / Procedures Referred By Contac t Referred To Contact Maternal and Medicine Diagnoses Anemia affecting in second trimester Procedures US MFM with or without consult Moe Langley MD [address] [place] [address] [facility]aternal [facility] [address] [place] [address] Referral ID Status Reason Start Date Expiration Date V isits Requested Visits Authorized [id number] Pending Review 07/04/2023 07/03/2024 1 1 Additional Source Comments INFORMATION SOURCE (unrecogn ized section and content) DATE CREATED AUTHOR 12/26/2018 [facility] DATE CREATED AUTHOR AUTHOR'S ORGANIZ ATION 06/16/2023 [facility] DATE CREATED AUTHOR AUTHOR'S ORGANIZ ATION 08/16/2023 [facility] DATE CREATED AUTHOR AUTHOR'S ORGANIZ ATION 11/15/2023 [facility] DATE CREATED AUTHOR AUTHOR'S ORGANIZ ATION 11/17/[address] [facility] dical Specialists [employer] Care Teams (unrecognized sec tion and content) Media Producer Relationship Specialty Start Date End Date Services, [facility] [address] [place] PCP - General Family Medicine 06/12/23 Media Producer Relationship Specialty Start Date End Date Services, [facility] [address] [place] PCP - General Family Medicine 06/12/23 Media Producer Relationship Specialty Start Date End Date Services, [facility] [address] [place], [place] PCP - General Family Medicine 06/12/23 Media Producer Relationship Specialty Start Date End Date Services, [facility] [address] [place] PCP - General Family Medicine 06/12/23 Media Producer Relationship Specialty Start Date End Date Services, [facility] [address] [place] PCP - General Family Medicine 06/12/23 Media Producer Relationship Specialty Start Date End Date Services, [facility] [address] [place] PCP - General Family Medicine 06/12/23 Reason for Visit (unrecogniz ed section and content) Reason Comments Anemia Hypothyroidism Reason Comments Hyperthyroidism anemia Reason Onset Date Comments Results 08/18/2023 FOR RECORDS PERTAINING TO PATIENTS WHO ARE OR HAVE BEEN ENROLLED IN A CHEMICAL DEPENDENCY/SUBSTANCEABUSE PROGRAM, SOME INFORMATION MAY BE OMITTED. This clinical summary was aggregated from multiple sources. Caution should be exercised in using it in the provision of clinical care. This summary normalizes information from multiple sources, and as a consequence, information in this document may materially change the coding, format and clinical context of patient data. In addition, data may be omitted in some cases. CLINICAL DECISIONS SHOULD BE BASED ON THE PRIMARY CLINICAL RECORDS. [employer] [facility]. provides no warranty or guarantee of the accuracy or completeness of information in this document.
[2023-12-16 09:14] VITALS: BP 112/76; PULSE 66
[2023-12-16 10:26] LABS: Bilirubin Urine NEGATIVE (NEGATIVE); Blood Urine SMALL (NEGATIVE); Clarity Urine CLOUDY (CLEAR); Color Urine LT. YELLOW (YELLOW); Glucose Urine UA NEGATIVE (NEGATIVE); Ketones Urine 15 mg/dL (NEGATIVE); Leukocyte Esterase Urine MODERATE (NEGATIVE); Nitrite Urine POSITIVE (NEGATIVE); Protein Urine NEGATIVE (NEG/TRACE); Urobilinogen Urine 0.2 EU/dL (0.2-1.0); pH Urine 6.5 (5.0-9.0)
[2023-12-16 10:28] LABS: Urine Microscopic Indicated YES
[2023-12-16 10:53] LABS: Bacteria Urine LARGE #/HPF (NONE SEEN); Crystals Seen? None Seen #/HPF (None Seen); Mucus Urine SMALL (NONE SEEN); Squamous Epithelial Cell Urine FEW #/LPF (NONE/RARE); WBC Urine 50-75 #/HPF (NONE SEEN)
[2023-12-16 10:54] LABS: Cast Seen? NONE SEEN #/LPF (NONE SEEN); Urine Culture Indicated YES
[2023-12-16] MEDS: CEFAZOLIN SODIUM/DEXTROSE,ISO 1 GM/50 ML IV.SOLN IV (11:16)
[2023-12-16] MEDS: 0.9 % SODIUM CHLORIDE 500 ML 1000 ML IV (11:16)
[2023-12-16 11:28] LABS: Basophils Percent Auto 0.5 % (0.2-2.0); Eosinophils Absolute Auto 0.1 10^3/uL (0.0-0.7); Eosinophils Percent Auto 0.9 % (0.9-7.0); Hemoglobin 10.8 g/dL (12.0-16.0); Immature Granulocytes Abs Auto 0.04 10^3/uL (0.00-0.03); Immature Granulocytes Pct Auto 0.5 % (0.0-0.5); Lymphocytes Absolute Auto 1.5 10^3/uL (1.2-3.8); Lymphocytes Percent Auto 19.6 % (20.5-60.0); Mean Corpuscular HGB Conc 30.9 g/dL (29.9-35.2); Mean Corpuscular Hemoglobin 25.4 pg (26.7-34.0); Mean Corpuscular Volume 82.4 fL (81.0-99.0); Mean Platelet Volume 9.6 fL (9.5-13.5); Monocytes Absolute Auto 0.5 10^3/uL (0.3-0.8); Monocytes Percent Auto 6.8 % (1.7-12.0); Neutrophils Absolute Auto 5.6 10^3/uL (1.4-6.5); Neutrophils Percent Auto 71.7 % (43.0-75.0); Platelet Count 256 10^3/uL (150-450); White Blood Count 7.8 10^3/uL (4.0-11.0)
[2023-12-16] MEDS: 0.9 % SODIUM CHLORIDE 1,000 ML 125 ML IV (11:46)
[2023-12-16 12:22] LABS: Red Blood Count 4.25 10^6/uL (4.20-5.40)
--- NOTE | 2023-12-16 15:44 | PC.NURSE ---
1518- Pt discharged home. Discharge instructions given and signed per pt.
== END 2023-12-16 15:18 | disposition home or self-care (01) ==
PROVIDERS: Admitting Provider Obstetrics & Gynecology; Visit Provider Obstetrics & Gynecology
DX: O46.93 Antepartum hemorrhage, unspecified, third trimester (principal); Z3A.37 37 weeks gestation of pregnancy
CPT/HCPCS: 36415; 81001; 85025; 86850; 86900; 86901; 87086; 96365; G0378; G0379; J0690

== ENCOUNTER 2023-12-19 09:37 | Observation (INO) | payer OTHER, SELFPAY ==
--- OUTSIDE RECORDS SUMMARY | 2023-12-19 09:43 | XMS_ITS ---
Patient Summarization (C-CDA 2.1 CCD) Created on: December 19, 2023 TRISH CARDONA : 1990 Sex: Undifferentiated Author Organization Sample organization Care Team Providers Care Machine Whitener Name Role Phone MISC, DOCTOR Admitting Unavailable MISC, DOCTOR Attending Unavailable MISC, DOCTOR Admitting Unavailable MISC, DOCTOR Attending Unavailable SERVICES, [facility] Unava ilable Services, [facility] Primary Care Provider GLORY RIVERA Attending Unavailable SERVICES, [facility] Un[facility] il[facility] SHIVAM, MOE Referring Unavailable DOCHEVAGLORY Referring Unavailable SERVICES, [facility] Un[facility] il[facility] SHIVAM, MOE Attending Unavailable FLORO, MARIS Referring Unavailable SERVICES, [facility] FLORO, MARIS Referring Unavailable SERVICES, [facility] SHIVAM, MOE Attending Unavailable FLORO, MARIS Referring Unavailable SERVICES, [facility] FLORO, MARIS L Referring Unavailable FLORO, MARIS L Attending Unavailable FLORO, MARIS L Attending Unavailable FLORO, MARIS L Attending Unavailable FLORO, MARIS L Attending Unavailable FLORO, MARIS L Attending Unavailable FLORO, MARIS L Referring Unavailable FLORO, MARIS L Attending Unavailable Encounters Encounter Date Encounter Type Care Provider Facility Start: 11-14-2023 End: 11-14-2023 ambulatory MOE LANGLEY [facility] Start: 11-13-2023 End: 11-13-2023 ambulatory MARIS L FLORO Not Available Start: 10-23-2023 End: 10-23-2023 ambulatory MARIS L FLORO Not Available Start: 09-04-2023 End: 09-04-2023 ambulatory MARIS L FLORO Not Available Start: 08-21-2023 Telephone encounter Gladys Cortés RN [facility] at [facility] Start: 08-18-2023 Telephone encounter Glory Rivera MD Work Phone: [facility] Comment on above: Results Start: 08-17-2023 Orders Only Glory stewart MD Work Phone: [facility] [place] Comment on above: Iron deficiency anem ia during (Primary Dx); Thyroid disease Start: 08-15-2023 End: 08-15-2023 ambulatory [facility] Adela RIVERA [facility] Start: 08-15-2023 End: 08-15-2023 Office outpatient visit 25 minutes Glory Rivera MD Work Phone: [facility] [place] Comment on above: 20 weeks gestation o f (Primary Dx); Low TSH level Start: 08-07-2023 End: 08-07-2023 ambulatory MARIS L FLORO Not Available Start: 07-10-2023 End: 07-10-2023 ambulatory MARIS L FLORO Not Available Start: 07-04-2023 End: 07-04-2023 Orders Only Grace Davis RN [facility] Comment on above: Anemia affecting pre gnancy in second trimester (Primary Dx) Start: 07-04-2023 End: 07-04-2023 Office consultation new/estab patient 60 min Moe Langley MD Work Phone: [facility] Comment on above: Anemia affecting pre gnancy in second trimester (Primary Dx); Other iron deficiency anemia Start: 06-19-2023 Chart abstracting Moe mccormack MD Work Phone: [facility] Start: 06-13-2023 End: 06-13-2023 ambulatory MARIS L FLORO Not Available Start: 06-12-2023 End: 06-12-2023 Emergency department patient visit [facility] Start: 05-17-2023 End: 05-17-2023 ambulatory MARIS L FLORO Not Available Start: 01-10-2019 Patient encounter procedure DOCTOR MISC Facility: Start: 12-27-2018 Patient encounter procedure DOCTOR MISC Facility:H1 Immunizations Immunization Date Immunization Notes Care Provider Audrey sara 02-24-2021 influenza virus vaccine, unspecified formulation Moe Langley MD Work Phone: [facility] 08-07-2020 COVID-19, mRNA, LNP- S, PF, 100mcg/0.5mL Dose Moe Langley MD Work Phone: [facility] 07-10-2020 COVID-19, mRNA, LNP- S, PF, 100mcg/0.5mL Dose Moe Langley MD Work Phone: [facility] Medications Current Medications Medication Drug Class(es) Dates Sig (Normalized) Sig (Original) vit 67-lkdl-mueyu-dha 18-1-350 mg capsule (8 sources) Start: 08-10-2022 take 1 tablet by mouth in the morning vit 70-aaue-zoflm-dha 18-1-350 mg capsule Indications: Patient desires Take 1 tablet by mouth in the morning. 90 capsule 4 08/10/2022 Active Payers Date Payer Category Payer Medicaid [place] [employer] [place] [employer] [id number] 2023-Present [phone] [place] [id number] 2023 Medicaid [id number] 2022 Medicaid [id number] 1990 Unknown [id number] 1990 Unknown [id number] 2.16.840.1.337883.3.579.2.593 1990 Unknown [id number] 2.16.840.1.278506.3.579.2.1286 1990 Unknown [id number] 2.16.840.1.001200.3.579.2.1286 1990 Unknown [id number] 2.16.840.1.623603.3.579.2.1286 1990 Unknown [id number] 2.16.840.1.037487.3.579.2.6 1990 Unknown [id number] 2.16.840.1.156927.3.579.2.6 1990 Unknown [id number] 2.16.840.1.135396.3.579.2.9 1990 Unknown [id number] 2.16.840.1.035622.3.579.2.9 1990 Unknown [id number] 2.16.840.1.796660.3.579.2.9 1990 Unknown [id number] 2.16.840.1.996075.3.579.2.9 1992 Unknown [id number] 2.16.840.1.517534.3.579.2.9 1990 Unknown [id number] 2.16.840.1.422241.3.579.2.9 1990 Unknown [id number] 2.16.840.1.383540.3.579.2.9 1992 Unknown [id number] 2.16.840.1.790390.3.579.2.1259 1959 Unknown Plan of Treatment Date Care Activity Detail Author Start: 08-10-2025 Screening for malign ant neoplasm of cervix Pap Smear [facility] Start: 08-14-2024 Adult BMI Screening Adult BMI Screen ing [facility] Start: 08-14-2024 Tobacco Screening Tobacco Screening [facility] Start: 07-04-2024 Adult BMI Screening Adult BMI Screen ing [facility] Start: 07-04-2024 Tobacco Screening Tobacco Screening [facility] Start: 07-04-2024 End: 07-04-2024 US MFM with or without consult US MFM with or without consult Imaging Routine Anemia affecting in second trimester Expected: 07/04/2024 (Approximate), Expires: 07/04/2024 [employer] Work Phone: Comment on above: Expected: 07/04/2024 (Approximate), Expires: 07/04/2024 Start: 06-12-2024 Adult BMI Screening Adult BMI Screen ing [facility] Start: 06-12-2024 DTaP,Tdap and Td Vac cines (2 - Td or Tdap) DTaP,Tdap and Td Vaccines (2 - Td or Tdap) [facility] Start: 01-14-2024 Influenza vaccination Influenza Vacc ine [facility] Start: 10-30-2023 End: 10-30-2023 Telemedicine consultation with patient 10/30/2023 11:30 AM EDT Telemedicine [facility] at [facility] [address] [place] [id number] Osbaldo Alamo MD [address] [facility], [address] [place] [address] [phone] [facility] Start: 08-15-2023 End: 08-15-2023 Patient encounter procedure [facility] [place] Start: 08-11-2023 Tobacco Screening Tobacco Screening [facility] Start: 07-04-2023 End: 07-04-2023 Patient encounter procedure [facility] - [facility] Start: 01-13-2023 COVID-19 Vaccine ( season) COVID-19 Vaccine ( season) [facility] Start: 01-13-2023 Influenza vaccination Influenza Vacc ine [facility] Start: 2004 Depression Screening Depression Scre ening [facility] End: 07-04-2024 Ferritin [Mass/volume] in Serum or Plasma Ferritin Lab Routine Anemia affecting in second trimester 1 Occurrences starting 07/04/2023 until 07/04/2024 [employer] Work Phone: Comment on above: 1 Occurrences starti ng 07/04/2023 until 07/04/2024 End: 07-04-2024 Hemoglobin Electrophoresis Hemoglobin Electrophoresis Lab Routine Anemia affecting in second trimester 1 Occurrences starting 07/04/2023 until 07/04/2024 [employer] Comment on above: 1 Occurrences starti ng 07/04/2023 until 07/04/2024 End: 08-14-2024 Hemoglobin Electrophoresis Hemoglobin Electrophoresis Lab Routine 20 weeks gestation of 1 Occurrences starting 08/15/2023 until 08/14/2024 [employer] Work Phone: Comment on above: 1 Occurrences starti ng 08/15/2023 until 08/14/2024 Hemoglobin Electrophoresis Hemoglobin Electrophoresis Lab Routine 20 weeks gestation of 08/15/2023 10:11 AM EDT [employer] End: 10-17-2023 Thyroid profile includes TSH FT4 Thyroid profile includes TSH FT4 Lab Routine Thyroid disease 1 Occurrences starting 08/17/2023 until 10/17/2023 [employer] Work Phone: Comment on above: 1 Occurrences starti ng 08/17/2023 until 10/17/2023 End: 10-17-2023 Triiodothyronine (T3) Free [Mass/volume] in Serum or Plasma T3, free Lab Routine Thyroid disease 1 Occurrences starting 08/17/2023 until 10/17/2023 [employer] Comment on above: 1 Occurrences starti ng 08/17/2023 until 10/17/2023 End: 08-14-2024 Unlisted Lab Test Unlisted Lab Test Lab Routine 20 weeks gestation of 1 Occurrences starting 08/15/2023 until 08/14/2024 [employer] Comment on above: 1 Occurrences starti ng 08/15/2023 until 08/14/2024 Problems Active Problems Problem Classification Problem Date [...] (1 source) No known active problems 08-10-2022 Procedures Date Procedure Procedure Detail Performing Clinician Start: 05-17-2023 Hepatitis c antibody No t In System Ref Prov Start: 05-17-2023 HIV 1&2 AB/AG SCREEN (P24 AG) Not In System Ref Prov Start: 05-17-2023 Iaad ia hepatitis b surface antigen Not In System Ref Prov Start: 08-10-2022 Microscopic observat ion [Identifier] in Cervix by Cyto stain Moe Langley MD Work Phone: Results Test Name Value Interpretation Reference Range Facility US OB FOLLOW UP TRANSABDOMIN AL APPROACHon 06-10-2024 OB FOLLOW UP TRANSABDOMINAL APPROACH FINDINGS: A [...] 18.9 % High 11.5 - 15.0 % [facility] Hematocrit (Bld) [Volume fraction] 23.1 % Low 35 - 47 % [facility] Hemoglobin (Bld) [Mass/Vol] 7.2 g/dL Low 11.7 - 15.5 g/dL [facility] MCH (RBC) [Entitic mass] 19.8 pg Low 27 - 34 pg [facility] MCHC (RBC) [Mass/Vol] 31.1 g/dL Low 32 - 36 g/dL [facility] MCV (RBC) [Entitic vol] 64 fL Low 80 - 100 fL [facility] Platelet mean volume (Bld) [Entitic vol] 7.4 fL 7 - 12 fL [facility] Platelets (Bld) [#/Vol] 342 10*3/uL [facility] RBC (Bld) [#/Vol] 3.64 10*6/uL Low [facility] WBC corrected for nucl RBC Auto (Bld) [#/Vol] 7.2 [facility] COMPLETE BLOOD COUNTon 08-14 Erythrocyte distribution width (RBC) [Ratio] 18.9 % High 11.5-15.0 [facility] Comment on above: Performed By: #### C BC, THYR, 3051-0, 2276-4, 4-8, 2132-01 #### [facility] ([id number]) [address], [address] [place] [address] Hematocrit (Bld) [Volume fraction] 23.1 % Low 35-47 [facility] Comment on above: Performed By: #### C BC, THYR, 3051-0, 2276-4, 2283-8, 2132-01 #### [facility] ([id number]) [address], [address] [place] [address] Hemoglobin (Bld) [Mass/Vol] 7.2 g/dL Low 11.7-15.5 [facility] Comment on above: Performed By: #### C BC, THYR, 3051-0, 2276-4, 2283-, 2132-01 #### [facility] ([id number]) [address], [address] [place] [address] MCH (RBC) [Entitic mass] 19.8 pg Low 27-34 [facility] Comment on above: Performed By: #### C BC, THYR, 3051-0, 2276-4, 2283-8, 2132-01 #### [facility] ([id number]) [address], [address] [place] [address] MCHC (RBC) [Mass/Vol] 31.1 g/dL Low 32-36 [facility] Comment on above: Performed By: #### C BC, THYR, 3051-0, 2276-4, 2283-8, 2132-01 #### [facility] ([id number]) [address], [address] [place] [address] MCV (RBC) [Entitic vol] 64 fL Low 80-100 [facility] Comment on above: Performed By: #### C BC, THYR, 3051-0, 2276-4, 2283-8, 2132-01 #### [facility] ([id number]) [address], [address] [place] [address] Platelet mean volume (Bld) [Entitic vol] 7.4 fL Normal 7-12 [facility] Comment on above: Performed By: #### C BC, THYR, 3051-0, 2275-4, 2283-12, 2132-01 #### [facility] ([id number]) [address], [address] [place] [address] Platelets (Bld) [#/Vol] 342 10*3/uL Normal 150-450 [facility] Comment on above: Performed By: #### C BC, THYR, 3051-0, 6-4, 2283-12, 2132-01 #### [facility] ([id number]) [address], [address] [place] [address] RBC COUNT 3.64 X10E12/L Low 3.80-5.20 [facility] Comment on above: Performed By: #### C BC, THYR, 3051-0, 6-4, 2283-12, 2132-01 #### [facility] ([id number]) [address], [address] [place] [address] WBC (Bld) [#/Vol] 7.2 10*3/uL Normal 4.0-11.0 [facility] Comment on above: Performed By: #### C BC, THYR, 3051-0, 2276-4, 2283-12, 2132-01 #### [facility] ([id number]) [address], [address] [place] [address] FERRITINon 08-15-2023 Ferritin [Mass/Vol] 3 ng/mL Low 11-307 [facility] Comment on above: Performed By: #### C BC, THYR, 3051-0, 6-4, 2283-8, 2132-01 #### [facility] ([id number]) [address], [address] [place] [address] FREE T3on 08-15-2023 Free T3 [Mass/Vol] 3.96 pg/mL High 2.50-3.90 [facility] Comment on above: Performed By: #### C BC, THYR, 3051-0, 2275-4, 8, 2132-01 #### [facility] ([id number]) [address], [address] [place] [address] Ferritinon 08-15-2023 Ferritin [Mass/Vol] 3 ng/mL Low 11 - 307 ng/mL [facility] Folateon 08-15-2023 Folate [Mass/Vol] ng/mL 5.8 - PINF ng/mL [facility] Comment on above: NEW REFERENCE RANGE Folate [Mass/Vol]on 08-15-19 24 FOLIC ACID >25.0 Normal >5.8 [facility] Comment on above: Result Comment: NEW REFERENCE RANGE Performed By: #### C BC, THYR, 3051-0, 2275-4, 8, 2132-01 #### [facility] ([id number]) [address], [address] [place] [address] HGB ELECTRO INTERPon 024 HGB ELECTRO INTERP See below Normal [facility] Comment on above: Result Comment: NOTE Hemoglobins were analyzed by capillary electrophoresis. There is a normal hemoglobin capillary electrophoresis pattern. Alpha thalassemia trait is not excluded by the testing performed. Suggest correlation with clinical information, red blood cell indices and serum ferritin test results, if applicable. Performed By: #### C BC, THYR, 3051-0, 2276-4, 2284-8, 2132-01 #### [facility] ([id number]) [address] [place] [address], [address] [place] [address] STAFF REVIEW See below Normal [facility] Comment on above: Result Comment: NOTE Reviewed by Angi Horvath DO Test Performed By: [place] [address] Stitch Separator: Modesto Martin III, M.D. CLIA #[id number] Performed By: #### C BC, THYR, 3051-0, 2276-4, 2284-8, 2132-01 #### [facility] ([id number]) [address] [place] [address], [address] [address] HGB ELECTROPHORESISon 2023 Abnormal Hb See below Normal No abnormal hemoglobin identified. [facility] Comment on above: Result Comment: NOTE No abnormal hemoglobin identified. Test Performed By: [place] [address] Stitch Separator: Modesto Martin III, M.D. CLIA #[id number] Performed By: #### C BC, THYR, 3051-0, 2276-4, 2283-8, 2132-01 #### [facility] ([id number]) [address] [place] [address], [address] [address] Hb A Percent 98.1 % High 96.2-98.0 [facility] Comment on above: Performed By: #### C BC, THYR, 3051-0, 2276-4, 2284-8, 2132-01 #### [facility] ([id number]) [address] [place] [address], [address] [place] [address] Hb A2 Percent 1.9 % Low 2.0-3.1 [facility] Comment on above: Performed By: #### C BC, THYR, 3051-0, 2276-4, 2284-8, 2132-01 #### [facility] ([id number]) [address], [address] [place] [address] No Panel Informationon 08-14 Interpretation and review of laboratory results Abnormal [facility] T3, freeon 08-15-2023 Free T3 [Mass/Vol] 3.96 pg/mL High 2.50 - 3. 90 pg/mL [facility] THYROID PROFILEon 08-15-2023 Free T4 [Mass/Vol] 0.54 ng/dL Low 0.61-1.60 [facility] Comment on above: Performed By: #### C BC, THYR, 3051-0, 2276-4, 228-8, 2132-01 #### [facility] ([id number]) [address], [address] [place] [address] TSH 0.67 uIU/mL Normal 0.49-4.67 [facility] Comment on above: Performed By: #### C BC, THYR, 3051-0, 2276-4, 2283-8, 2132-01 #### [facility] ([id number]) [address], [address] [place] [address] Thyroid profile includes TSH FT4on 08-15-2023 Free T4 [Mass/Vol] 0.54 ng/dL Low 0.61 - 1. 60 ng/dL [facility] TSH Qn 0.67 m[IU]/L [facility] VITAMIN B12on 08-15-2023 Cobalamin (Vitamin B12) [Mass/Vol] 183 pg/mL Normal 180-914 [facility] Comment on above: Performed By: #### C BC, THYR, 3051-0, 2276-4, 2284-8, 9 #### [facility] ([id number]) [address], [address] [place] [address] Vitamin B12on 08-15-2023 Cobalamin (Vitamin B12) [Mass/Vol] 183 pg/mL 180 - 914 pg/mL [facility] BASIC METABOLIC PANLon 06-12 Anion gap [Moles/Vol] 9 mmol/L Normal 5-15 [facility] Comment on above: Performed By: #### C NITIN, BMP #### [facility] ([id number]) [address] [place] [address] Calcium [Mass/Vol] 9.1 mg/dL Normal 8.5-10.5 [facility] Comment on above: Performed By: #### C NITIN, BMP #### [facility] ([id number]) [address] [place] [address] Chloride [Moles/Vol] 105 mmol/L Normal 98-109 [facility] Comment on above: Performed By: #### C NITIN, BMP #### [facility] ([id number]) [address] [place] [address] CO2 [Moles/Vol] 22 mmol/L Normal 22-32 [facility] Comment on above: Performed By: #### C NITIN, BMP #### [facility] ([id number]) [address] [place] [address] Creatinine [Mass/Vol] 0.48 mg/dL Normal 0.40-1.00 [facility] Comment on above: Result Comment: METH OD TRACEABLE TO IDMS STANDARD Performed By: #### C NITIN, BMP #### [facility] ([id number]) [address] [place] [address] eGFR (CKD-EPI) NON-RACE DEPENDENT >90 Normal >59 [facility] Comment on above: Result Comment: Reported eGFR is based on the CKD-EPI 2020 equation that does not use a race coefficient. Performed By: #### C NITIN, BMP #### [facility] ([id number]) [address] [place] [address] Glucose [Mass/Vol] 94 mg/dL Normal 65-99 [facility] Comment on above: Performed By: #### C BCA, BMP #### [facility] ([id number]) [address] [place] [address] Potassium [Moles/Vol] 3.7 mmol/L Normal 3.5-5.0 [facility] Comment on above: Performed By: #### C NITIN, BMP #### [facility] ([id number]) [address] [place] [address] Sodium [Moles/Vol] 136 mmol/L Normal 134-146 [facility] Comment on above: Performed By: #### C NITIN, BMP #### [facility] ([id number]) [address] [place] [address] Urea nitrogen [Mass/Vol] 11 mg/dL Normal 5-23 [facility] Comment on above: Performed By: #### C NITIN, BMP #### [facility] ([id number]) [address] [place] [address] CBC AND AUTO DIFFon 06-12-19 24 ABSOLUTE BASOPHIL 0.0 X10E9/L Normal 0.0-0.2 [facility] Comment on above: Performed By: #### C NITIN, BMP #### [facility] ([id number]) [address] [place] [address] ABSOLUTE NEUTROPHIL 4.5 X10E9/L Normal 1.5-6.6 [facility] Comment on above: Performed By: #### C NITIN, BMP #### [facility] ([id number]) [address] [place] [address] Basophils/100 WBC (Bld) 0.4 % Normal [facility] Comment on above: Performed By: #### C NITIN, BMP #### [facility] ([id number]) [address] [place] [address] Eosinophils (Bld) [#/Vol] 0.1 10*3/uL Normal 0.0-0.4 [facility] Comment on above: Performed By: #### C NITIN, BMP #### [facility] ([id number]) [address] [place] [address] Eosinophils/100 WBC (Bld) 1.0 % Normal [facility] Comment on above: Performed By: #### C NITIN, BMP #### [facility] ([id number]) [address] [place] [address] Erythrocyte distribution width (RBC) [Ratio] 19.3 % High 11.5-15.0 [facility] Comment on above: Performed By: #### C NTIIN, BMP #### [facility] ([id number]) [address] [place] [address] Hematocrit (Bld) [Volume fraction] 26.6 % Low 35-47 [facility] Comment on above: Performed By: #### C NITIN, BMP #### [facility] ([id number]) [address] [place] [address] Hemoglobin (Bld) [Mass/Vol] 8.0 g/dL Low 11.7-15.5 [facility] Comment on above: Performed By: #### C NITIN, BMP #### [facility] ([id number]) [address] [place] [address] Lymphocytes (Bld) [#/Vol] 2.0 10*3/uL Normal 1.0-3.5 [facility] Comment on above: Performed By: #### C NITIN, BMP #### [facility] ([id number]) [address] [place] [address] Lymphocytes/100 WBC (Bld) 27.5 % Normal [facility] Comment on above: Performed By: #### C BCA, BMP #### [facility] ([id number]) [address] [place] [address] MCH (RBC) [Entitic mass] 19.1 pg Low 27-34 [facility] Comment on above: Performed By: #### C NITIN, BMP #### [facility] ([id number]) [address] [place] [address] MCHC (RBC) [Mass/Vol] 30.2 g/dL Low 32-36 [facility] Comment on above: Performed By: #### C NITIN, BMP #### [facility] ([id number]) [address] [place] [address] MCV (RBC) [Entitic vol] 63 fL Low 80-100 P [facility] Comment on above: Performed By: #### C NITIN, BMP #### [facility] ([id number]) [address] [place] [address] Monocytes (Bld) [#/Vol] 0.6 10*3/uL Normal 0-0.9 [facility] Comment on above: Performed By: #### C NITIN, BMP #### [facility] ([id number]) [address] [place] [address] Monocytes/100 WBC (Bld) 8.6 % Normal [facility] Comment on above: Performed By: #### C NITIN, BMP #### [facility] ([id number]) [address] [place] [address] Neutrophils/100 WBC (Bld) 62.5 % Normal [facility] Comment on above: Performed By: #### C NITIN, BMP #### [facility] ([id number]) [address] [place] [address] Platelet mean volume (Bld) [Entitic vol] 7.6 fL Normal 7-12 [facility] Comment on above: Performed By: #### C NITIN, BMP #### [facility] ([id number]) [address] [place] [id number] Platelets (Bld) [#/Vol] 334 10*3/uL Normal 150-450 [facility] Comment on above: Performed By: #### C NITIN, BMP #### [facility] ([id number]) [address] [place] [id number] RBC COUNT 4.20 X10E12/L Normal 3.80-5.20 [facility] Comment on above: Performed By: #### C NITIN, BMP #### [facility] ([id number]) [address] [place] [id number] WBC (Bld) [#/Vol] 7.3 10*3/uL Normal 4.0-11.0 [facility] Comment on above: Performed By: #### Anderson TAVERAS, BMP #### [facility] ([id number]) [address] [place] [id number] HIV 1&2 AB/AG Screen (P24 AG )on 05-17-2023 HIV 1&2 AB/AG Non-Reactive [facility] Hepatitis B surface antigeno n 05-17-2023 Hepatitis B Surface Antigen Non-Reactive [facility] Hepatitis C(HCV) Ab w/ Refle x to PCRon 05-17-2023 HCV Ab Ql (S) Non-Reactive [facility] No Panel InformationOrdered By: Riya Veloz on 05-17-2023 [facility] Rubella IGG immune statuson 05-17-2023 Rubella immune IgG [facility] Syphilis Total(Unknown Syphi lis Status)Ordered By: Riya Veloz on 05-17-2023 Syphilis Non-Reactive [facility] US OB < 14 WEEKS EARLYon US OB < 14 WEEKS EARLY CLINICAL HISTORY: Dating. Age by LMP of 8 weeks 0 days COMPARISON: None available for this . TECHNIQUE: Transabdominal and transvaginal ultrasound was performed of the pelvis. RESULT: An approximately 3.08 cm in average dimension gestational sac is present within the central aspect of the uterine body/fundus, without significant surrounding subchorionic hemorrhage. Yolk sac present. [place] rump length measures 1.85 cm, which corresponds [...] BY: Hi Santiago MD Normal Not Available Social History Date Type Detail Facility Start: 07-04-2023 End: 08-15-2023 Alcohol intake Ex-drinker (finding) [facility] Start: 06-19-2023 Alcohol intake Current drinke r of alcohol (finding) [facility] Start: 06-25-2020 End: 06-19-2023 Alcohol intake [facility] Start: 04-05-2023 [facility] Start: 06-25-2020 End: 08-10-2022 Tobacco use panel [facility] Start: 12-21-2021 Tobacco smoking stat [facility] Never smoked tobacco [facility] Start: 12-21-2021 Tobacco use and exposure Smokeless tobacco non-user [facility] Start: 1990 Sex Assigned At Not on file P [facility] Childcare Unknown [facility] Vital Signs Date Time Vital Sign Value Performing Clinician Faci lity 08-15-2023 09:140400 Body height 170.2 cm Glory Rivera MD Work Phone: [facility] 08-15-2023 09:14-0400 Body mass index (BMI) [Ratio] 21.77 kg/m2 Glory Rivera MD Work Phone: [facility] 08-15-2023 09:14-0400 Body weight 63.05 kg Glory iRvera MD Work Phone: [facility] 08-15-2023 09:14-0400 Diastolic blood pressure 62 mm[Hg] Glory Rivera MD Work Phone: [facility] 08-15-2023 09:14-0400 Heart rate 68 /min Glory Rivera MD Work Phone: [facility] 08-15-2023 09:14-0400 Systolic blood pressure 102 mm[Hg] Glory Rivera MD Work Phone: [facility] 07-04-2023 08:55-0500 Body mass index (BMI) [Ratio] 20.55 kg/m2 Moe Langley MD Work Phone: [facility] 07-04-2023 08:55-0500 Body weight 59.51 kg Moe Langley MD Work Phone: [facility] 07-04-2023 08:55-0500 Diastolic blood pressure 55 mm[Hg] Moe Langley MD Work Phone: [facility] 07-04-2023 08:55-0500 Heart rate 67 /min Moe Langley MD Work Phone: [facility] 07-04-2023 08:55-0500 Systolic blood pressure 100 mm[Hg] Moe Langley MD Work Phone: [facility] Clinical Notes 07-04-2023 to 08-21-2023 Telephone [...] office to discuss. documented in this encounter [facility] 08-21-2023 Telephone encount er Note Attempted to contact patient in regards to thyroid function results per Dr. Rivera. No answer, left VM to call back to office to discuss. [facility] 08-18-2023 Miscellaneous Notes Formattin g of this note might be different from the original. Attempted to call patient to discuss her results she did not answer GLORY RIVERA MD documented in this encounter [facility] 08-18-2023 Telephone encount er Note Attempted to call patient to discuss her results she did not answer GLORY RIVERA MD [facility] 08-17-2023 Miscellaneous Notes Formattin g of this note might be different from the original. Left voicemail for pt to call our office to schedule an appointment with Micaela solorio needed documented in this encounter [facility] 08-17-2023 Telephone encount er Note Left voicemail for pt to call our office to schedule an appointment with Micaela solorio needed [facility] 08-15-2023 History of Presen t illness Narrative REASON FOR OFFICE VISIT: Follow up HISTORY OF PRESENT ILLNESS: Trish Katelynn Cardona is a pleasant 33 y.o. G [...] Allergies CURRENT MEDICATIONS: Current Outpatient Medications: vit 00-ocwp-ewzde-dha 18-1-350 mg capsule, Take 1 tablet by [...] and the other consultants, we search on [employer] and all the available care everywhere epic I did review all the imaging studies of the patient available on EMR, ordered by the primary care physician and the other training consultant HABITS: Patient activity no restrictions, diet [...] y.o. at 20w6d Please refer to prior [facility] notes 1. 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 Patient does have ultrasound office visit scheduled with us. Thank you for allowing me to participate in Trish Cardona . If there any questions please do not hesitate to contact us. Sincerely, Glory Rivera MD, FACOG (she/hers) Maternal- Medicine [facility] [address] [place] [address] Headache/epigastric pain/blurry vision/swelling? No Cramping/contractions? No Abnormal vaginal discharge? No Spotting or vaginal bleeding? No Loss of fluid like your water may have broken? No Recent ER visits or hospitalizations? No Any concerns that you would like me to mention to the provider today? Was diagnosed with a UTI by her OB in [place]. They prescribed her an antibiotic, but she lost the antibiotic and is inquiring if we can promotion writer her a new script. Blood drawn for carrier testing by PPE lab. Patient tolerated well. documented in this encounter [facility] [employer] 07-04-2023 History of Presen t illness Narrative Headache/epigastric pain/blurry vision/swelling? No Cramping/contractions? No Abnormal vaginal discharge? No Spotting/vaginal bleeding? No Loss of fluid like your water may have broken? No Cats in the home? No Do you change the litter box? N/A Flu vaccine? No Genetic testing done this here or other office? No Have you been seen here at [facility] in a previous ? No Recent ER visits or hospitalizations? 06/12/23 sent by primary OB to [place] ED for low hemoglobin Bring blood sugar log or meter with you today? (Please bring them with you for every visit at [facility]) N/A Traveled outside the country in the [...] Allergies CURRENT MEDICATIONS: Current Outpatient Medications: vit 50-utbw-wnihc-dha 18-1-350 mg capsule, Take 1 tablet by [...] and the other consultants, we search on [employer] and all the available care everywhere epic I did review all the imaging studies of the patient available on EMR, ordered by the primary care physician and the other training consultant HABITS: Patient activity no restrictions, diet [...] 6. Targeted anatomy at 20 weeks at [facility] office 7. Patient is low risk and vaginal delivery at term at her local hospital is anticipated with C section reserve for routine obstetrical indications. 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 Patient does have ultrasound office visit scheduled with us. Thank you for allowing me to participate in Trish Cardona . If there any questions please do not hesitate to contact us. Sincerely, MOE LANGLEY MD documented in this encounter [facility] Evaluation note Diagnosis Anemia affecting in second trimester- Primary [facility]* Diagnosis Anemia affecting in second trimester- Primary Other iron deficiency anemia [facility] in this [facility]* Diagnosis 20 weeks gestation of - Primary Low TSH level documented in this [facility]* Diagnosis Iron deficiency anemia during - Primary Thyroid disease Unspecified disorder of thyroid documented in this encounter [facility] SystemInstructionsNot on filedocumented in this encounter [facility] System[facility]ructionsNot on filedocumented in this encounter [facility] SystemInstructionsNot on filedocumented in this encounter [facility] SystemInstructionsNot on filedocumented in this encounter [facility] SystemInstructionsNot on filedocumented in this encounter [facility] SystemInstructionsNot on filedocumented in this encounter [facility] SystemReason for referral (narrative)* Consultation (Routine) - Pending Review Specialty Diagnoses / Procedures Referred By Contac t Referred To Contact Hematology Diagnoses Iron deficiency anemia during Glory Rivera MD [address] [place] [address] [facility] [address] [place] [address] Referral ID Status Reason Start Date Expiration Date V isits Requested Visits Authorized [id number] Pending Review 08/17/2023 08/16/2024 1 1 [facility] Summary Purpose Family History No Family [...] Anemia affecting in second trimester Procedures US MF with or without consult Moe Langley MD [address] [place] [address] [facility] Maternal Med [address] [place] [address] Referral ID Status Reason Start Date Expiration Date V isits Requested Visits Authorized [id number] Pending Review 07/04/2023 07/03/2024 1 1 Additional Source Comments INFORMATION SOURCE (unrecogn ized section and content) DATE CREATED AUTHOR 12/26/2018 [facility] DATE CREATED AUTHOR AUTHOR'S ORGANIZ ATION 06/16/2023 [facility] DATE CREATED AUTHOR AUTHOR'S ORGANIZ ATION 08/16/2023 [facility] DATE CREATED AUTHOR AUTHOR'S ORGANIZ ATION 11/15/2023 [facility] DATE CREATED AUTHOR AUTHOR'S ORGANIZ ATION 11/17/2023 [facility] [employer] Care Teams (unrecognized sec tion and content) Machine Whitener Relationship Specialty Start Date End Date Services, [facility] [address] [place] PCP - General Family Medicine 06/12/23 Machine Whitener Relationship Specialty Start Date End Date Services, [facility] [address] [place] PCP - General Family Medicine 06/12/23 Machine Whitener Relationship Specialty Start Date End Date Services, [facility] [address] [place] PCP [facility] Family Medicine 06/12/23 Machine Whitener Relationship Specialty Start Date End Date Services, [facility] [address] [place] PCP General Family Medicine 06/12/23 Machine Whitener Relationship Specialty Start Date End Date Services, [facility] [address] [place] PCP - General Family Medicine 06/12/23 Machine Whitener Relationship Specialty Start Date End Date Services, [facility] [address] [place] PCP - General Family Medicine 06/12/23 [...] BE BASED ON THE PRIMARY CLINICAL RECORDS. [employer] [facility]. provides no warranty or guarantee of the accuracy or completeness of information in this document.
[2023-12-19 09:56] VITALS: TEMP 36.7
[2023-12-19 10:08] VITALS: BP 116/66; PULSE 68
[2023-12-19 10:27] LABS: Bilirubin Urine NEGATIVE (NEGATIVE); Blood Urine SMALL (NEGATIVE); Clarity Urine CLEAR (CLEAR); Color Urine YELLOW (YELLOW); Glucose Urine UA NEGATIVE (NEGATIVE); Ketones Urine TRACE mg/dL (NEGATIVE); Leukocyte Esterase Urine TRACE (NEGATIVE); Nitrite Urine NEGATIVE (NEGATIVE); Protein Urine NEGATIVE (NEG/TRACE); Specific Gravity Urine 1.015 (1.005-1.025); pH Urine 6.5 (5.0-9.0)
[2023-12-19 10:28] LABS: Amnisure POSITIVE (NEGATIVE); Internal Control Within Normal Limits
[2023-12-19 10:29] LABS: Urine Microscopic Indicated YES
[2023-12-19 10:44] LABS: Mucus Urine LARGE (NONE SEEN)
[2023-12-19 10:45] LABS: Squamous Epithelial Cell Urine MODERATE #/LPF (NONE/RARE)
[2023-12-19 10:47] LABS: Bacteria Urine TRACE #/HPF (NONE SEEN); Cast Seen? NONE SEEN #/LPF (NONE SEEN); Crystals Seen? None Seen #/HPF (None Seen)
[2023-12-19 10:48] LABS: Urine Culture Indicated NO
[2023-12-19 11:16] VITALS: TEMP 36.4
--- NOTE | 2023-12-19 12:15 | PC.NURSE ---
up in room ambulating and sitting on the birthing ball intermittently, states ctxs unchanged, may be leaking a little
--- NOTE | 2023-12-19 13:43 | US_ITS ---
[address] [address] Patient Name: OLIVERIO CARDONA MRN: [id number] date: 1990 Sex: F Assigned Patient Location: [facility] Current Patient Location: [facility] Accession/Order Number: [id number] Exam Date: 12/19/2023 13:45 Report Date: 12/19/2023 14:13 At the request of: MARIS DYER Procedure: US OB amniotic fluid vol EXAMINATION: US OB amniotic fluid vol HISTORY: possible rupture of membranes COMPARISON: No relevant comparison available. TECHNIQUE: Limited sonographic examination for amniotic fluid volume FINDINGS: Heart rate: 140 bpm Amniotic fluid: 20.1 cm; normal range Presentation: Cephalic GA: 38 weeks 6 days NANCY: 12/27/2023 US/US OB amniotic fluid vol IMPRESSION: 1. Single live intrauterine . 2. Normal amniotic fluid volume. Electronically authenticated by: MANE SCHWARZ Date: 12/19/2023 14:13
--- NOTE | 2023-12-19 14:18 | PM.EN ---
Event Note Event Note: Assessment, SVE performed closed/100/O station. No obvious leaking fluid visualized, small amount of mucous noted with scant amount of blood noted. No active bleeding noted. Patient has category 1 tracing noted. I will observe for a couple more hours.
--- NOTE | 2023-12-19 18:25 | PC.NURSE ---
1700 SVE done, unchanged at closed, 100% and 0 station. Small amt blood noted on chux, no fluid noted. up in room on birthing ball
--- NOTE | 2023-12-19 18:30 | PC.NURSE ---
1745 Alena Tristan CNM in and talks with pt, pt given dc instructions
== END 2023-12-19 17:45 | disposition home or self-care (01) ==
PROVIDERS: Obstetrics & Gynecology; Admitting Provider Midwife; Visit Provider Midwife
DX: Z03.71 Encounter for suspected problem with amniotic cavity and membrane ruled out (principal); Z3A.38 38 weeks gestation of pregnancy
CPT/HCPCS: 76815; 81001; 84112; G0378; G0379

== ENCOUNTER 2023-12-20 13:11 | Inpatient (IN) | payer OTHER, SELFPAY ==
[2023-12-20] VITALS (19 sets, daily range): BP systolic 106–121; BP diastolic 55–73; PULSE 55–85; TEMP 36.1–36.5; O2SAT 100
[2023-12-20 14:26] LABS: Hematocrit 30.9 % (36.0-48.0); Hemoglobin 9.7 g/dL (12.0-16.0); Mean Corpuscular HGB Conc 31.4 g/dL (29.9-35.2); Mean Corpuscular Hemoglobin 25.6 pg (26.7-34.0); Mean Corpuscular Volume 81.5 fL (81.0-99.0); Platelet Count 286 10^3/uL (150-450); Red Blood Count 3.79 10^6/uL (4.20-5.40)
[2023-12-20 14:38] LABS: Amphetamine Screen Urine NEGATIVE (NEGATIVE); Barbiturates Screen Urine NEGATIVE (NEGATIVE); Benzodiazepines Screen Urine NEGATIVE (NEGATIVE); Buprenorphine Screen Urine NEGATIVE (NEGATIVE); Cannabinoid Screen Urine NEGATIVE (NEGATIVE); Cocaine Screen Urine NEGATIVE (NEGATIVE); Methadone Screen Urine NEGATIVE (NEGATIVE); Methamphetamines Screen Urine NEGATIVE (NEGATIVE); Opiate Screen Urine NEGATIVE (NEGATIVE); Oxycodone Screen Urine NEGATIVE (NEGATIVE); Phencyclidine Screen Urine NEGATIVE (NEGATIVE); Tricyclic Antidepressant Urine NEGATIVE (NEGATIVE)
[2023-12-20 14:43] LABS: White Blood Count 5.6 10^3/uL (4.0-11.0)
--- OUTSIDE RECORDS SUMMARY | 2023-12-20 15:17 | XMS_ITS | CCD ---
Author Organization [facility] Care Team Providers Care Inside Upholsterer Name Role Phone MISC, DOCTOR Admitting Unavailable MISC, DOCTOR Attending Unavailable MISC, DOCTOR Admitting Unavailable MISC, DOCTOR Attending Unavailable SERVICES, [facility] Unava ilable Services, Formerly [facility], [facility] Primary Care Provider DOCHEVA NIKOLINA P Attending Unavailable SERVICES, [facility] Unava ilable SHIVAM, MOE Referring Unavailable DOCHEVA, NIKOLINA P Referring Unavailable SERVICES, [facility] Unava ilable SHIVAM, MOE Attending Unavailable FLORO, MARIS Referring Unavailable SERVICES, [facility] Unava ilable FLORO, MARIS Referring Unavailable SERVICES, [facility] Un[facility] il[facility] SHIVAM, MOE Attending Unavailable FLORO, MARIS Referring Unavailable SERVICES, [facility] Unava ilable FLORO, MARIS L Referring Unavailable FLORO, MARIS L Attending Unavailable FLORO, MARIS L Attending Unavailable FLORO, MARIS L Attending Unavailable FLORO, MARIS L Attending Unavailable FLORO, MARIS L Attending Unavailable FLORO, MARIS L Referring Unavailable FLORO, MARIS L Attending Unavailable Medications Current Medications Medication Drug Class(es) Dates Sig (Normalized) Sig (Original) vit 99-noez-iasde-dha 18-1-350 mg capsule (8 sources) Start: 08-10-2022 take 1 tablet by mouth in the morning vit 18-hbqa-nezwz-dha 18-1-350 mg capsule Indications: Patient desires Take [...] 18.9 % High 11.5 - 15.0 % [facility] Hematocrit (Bld) [Volume fraction] 23.1 % Low 35 - 47 % [facility] Hemoglobin (Bld) [Mass/Vol] 7.2 g/dL Low 11.7 - 15.5 g/dL [facility] Interpretation and review of laboratory results Abnormal [facility] MCH (RBC) [Entitic mass] 19.8 pg Low 27 - [address] [facility] MCHC (RBC) [Mass/Vol] 31.1 g/dL Low 32 - 36 g/dL [facility] MCV (RBC) [Entitic vol] 64 fL Low 80 - [address] [facility] Platelet mean volume (Bld) [Entitic vol] 7.4 fL 7 - [address] [facility] Platelets (Bld) [#/Vol] 342 10*3/uL [facility] RBC (Bld) [#/Vol] 3.64 10*6/uL Low [facility] WBC corrected for nucl RBC Auto (Bld) [#/Vol] 7.2 [facility] COMPLETE BLOOD COUNTon 08-14 Erythrocyte distribution width (RBC) [Ratio] 18.9 % High 11.5-15.0 [facility] Comment on above: Performed By: #### C BC, THYR, 3051-0, 2276-4, 2284-8, 2132-01 #### [facility] ([id number]) [address], [address] [place] [address] Hematocrit (Bld) [Volume fraction] 23.1 % Low 35-47 [facility] Comment on above: Performed By: #### C BC, THYR, 3051-0, 2276-4, 2283-8, 2132-01 #### [facility] ([id number]) [address], [address] [place] [address] Hemoglobin (Bld) [Mass/Vol] 7.2 g/dL Low 11.7-15.5 [facility] Comment on above: Performed By: #### C BC, THYR, 3051-0, 2276-4, 2283-8, 2132-01 #### [facility] ([id number]) [address], [address] [place] [address] MCH (RBC) [Entitic mass] 19.8 pg Low 27-34 [facility] Comment on above: Performed By: #### C BC, THYR, 3051-0, 2276-4, 228-8, 2132-01 #### [facility] ([id number]) [address], [address] [place] [address] MCHC (RBC) [Mass/Vol] 31.1 g/dL Low 32-36 [facility] Comment on above: Performed By: #### C BC, THYR, 3051-0, 2276-4, 2284-8, 2132-01 #### [facility] ([id number]) [address], [address] [place] [address] MCV (RBC) [Entitic vol] 64 fL Low 80-100 [facility] Comment on above: Performed By: #### C BC, THYR, 3051-0, 2276-4, 4-8, 2132-01 #### [facility] ([id number]) [address], [address] [place] [address] Platelet mean volume (Bld) [Entitic vol] 7.4 fL Normal 7-12 [facility] Comment on above: Performed By: #### C BC, THYR, 3051-0, 2276-4, 2283-8, 2132-01 #### [facility] ([id number]) [address] [address] [place] [address] Platelets (Bld) [#/Vol] 342 10*3/uL Normal 150-450 [facility] Comment on above: Performed By: #### Anderson BC, THYR, 3051-0, 2276-4, 2283-8, 2132-01 #### [facility] ([id number]) [address] [address] [place] [address] RBC COUNT 3.64 X10E12/L Low 3.80-5.20 [facility] Comment on above: Performed By: #### C BC, THYR, 3051-0, 2276-4, 2283-8, 2132-01 #### [facility] ([id number]) [address] [address] [place] [address] WBC (Bld) [#/Vol] 7.2 10*3/uL Normal 4.0-11.0 [facility] Comment on above: Performed By: #### C BC, THYR, 3051-0, 2276-4, 2284-8, 2132-01 #### [facility] ([id number]) [address] [facility], [address] [place] [address] Cobalamin (Vitamin B12) [Mas s/Vol]on 08-15-2023 [facility] FERRITINon 08-15-2023 Ferritin [Mass/Vol] 3 ng/mL Low 11-307 [facility] Comment on above: Performed By: #### C BC, THYR, 3051-0, 2276-4, 2284-8, 9 #### [facility] ([id number]) [address] [facility], [address] [place] [address] FREE T3on 08-15-2023 Free T3 [Mass/Vol] 3.96 pg/mL High 2.50-3.90 [facility] Comment on above: Performed By: #### C BC, THYR, 3051-0, 2276-4, 2283-8, 2132-01 #### [facility] ([id number]) [address] [facility], [facility] [address] [place] [address] Ferritinon 08-15-2023 Ferritin [Mass/Vol] 3 ng/mL Low 11 - 307 ng/mL [facility] Ferritin [Mass/Vol]on 2023 Interpretation and review of laboratory results Abnormal [facility] Folateon 08-15-2023 Folate [Mass/Vol] ng/mL 5.8 - PINF ng/mL [facility] Comment on above: NEW REFERENCE RANGE Folate [Mass/Vol]on 08-15-[address] [facility] FOLIC ACID >25.0 Normal >5.8 [facility] Comment on above: Result Comment: NEW REFERENCE RANGE Performed By: #### C BC, THYR, 3051-0, 2276-4, 4-8, 2132-01 #### [facility] ([id number]) [address] [facility], [address] [place] [address] Free T3 [Mass/Vol]on Interpretation and review of laboratory results Abnormal [facility] HGB ELECTRO INTERPon HGB ELECTRO INTERP See below Normal [facility] Comment on above: Result Comment: NOTE Hemoglobins were analyzed by capillary electrophoresis. There is a normal hemoglobin capillary electrophoresis pattern. Alpha thalassemia trait is not excluded by the testing performed. Suggest correlation with clinical information, red blood cell indices and serum ferritin test results, if applicable. Performed By: #### C BC, THYR, 3051-0, 2276-4, 2284-8, 9 #### [facility] ([id number]) [address] [facility], [address] [place] [address] STAFF REVIEW See below Normal [facility] Comment on above: Result Comment: NOTE Reviewed by Angi Horvath DO Test Performed By: [place] [address] Pharmacist Manager: Modesto Martin III, M.D. CLIA #[id number] Performed By: #### Anderson BC, THYR, 3051-0, 2276-4, 4-8, 2132-01 #### [facility] ([id number]) [address] [facility], [address] [place] [address] HGB ELECTROPHORESISon 2023 Abnormal Hb See below Normal No abnormal hemoglobin identified. [facility] Comment on above: Result Comment: NOTE No abnormal hemoglobin identified. Test Performed By: [place] [address] Pharmacist Manager: Modesto Martin III, M.D. CLIA #[id number] Performed By: #### Anderson BC, THYR, 3051-0, 2276-4, 2284-8, 2132-01 #### [facility] ([id number]) [address] [facility], [facility] [address] [place] [address] Hb A Percent 98.1 % High 96.2-98.0 [facility] Comment on above: Performed By: #### C BC, THYR, 3051-0, 2276-4, 2284-8, 9 #### [facility] ([id number]) [address], [address] [place] [address] Hb A2 Percent 1.9 % Low 2.0-3.1 [facility] Comment on above: Performed By: #### C BC, THYR, 3051-0, 6-4, 8, 2132-01 #### [facility] ([id number]) [address], [address] [place] [address] T3, freeon 08-15-2023 Free T3 [Mass/Vol] 3.96 pg/mL High 2.50 - 3. 90 pg/mL [facility] THYROID PROFILEon 08-15-2023 Free T4 [Mass/Vol] 0.54 ng/dL Low 0.61-1.60 [facility] Comment on above: Performed By: #### C BC, THYR, 3051-0, 2275-4, 8, 2132-01 #### [facility] ([id number]) [address], [address] [place] [address] TSH 0.67 uIU/mL Normal 0.49-4.67 [facility] Comment on above: Performed By: #### C BC, THYR, 3051-0, 2275-4, 2283-12, 2132-01 #### [facility] ([id number]) [address], [address] [place] [address] Thyroid profile includes TSH FT4on 08-15-2023 Free T4 [Mass/Vol] 0.54 ng/dL Low 0.61 - 1. 60 ng/dL [facility] Interpretation and review of laboratory results Abnormal [facility] TSH Qn 0.67 m[IU]/L [facility] VITAMIN B12on 08-15-2023 Cobalamin (Vitamin B12) [Mass/Vol] 183 pg/mL Normal 180-914 [facility] Comment on above: Performed By: #### C BC, THYR, 3051-0, 2276-4, 8, 2132-01 #### [facility] ([id number]) [address] [facility], [address] [place] [address] Vitamin B12on 08-15-2023 Cobalamin (Vitamin B12) [Mass/Vol] 183 pg/mL 180 - 914 pg/mL [facility] BASIC METABOLIC PANLon 06-12 Anion gap [Moles/Vol] 9 mmol/L Normal 5-15 [facility] Comment on above: Performed By: #### C BCA, BMP #### [facility] ([id number]) [address] [place] [address] Calcium [Mass/Vol] 9.1 mg/dL Normal 8.5-10.5 [facility] Comment on above: Performed By: #### C NITIN, BMP #### [facility] ([id number]) [address] [place] [address] Chloride [Moles/Vol] 105 mmol/L Normal 98-109 [facility] Comment on above: Performed By: #### C BCA, BMP #### [facility] ([id number]) [address] [place] [address] CO2 [Moles/Vol] 22 mmol/L Normal 22-32 [facility] Comment on above: Performed By: #### C BCA, BMP #### [facility] ([id number]) [address] [place] [address] Creatinine [Mass/Vol] 0.48 mg/dL Normal 0.40-1.00 [facility] Comment on above: Result Comment: METH OD TRACEABLE TO IDMS STANDARD Performed By: #### C BCA, BMP #### [facility] ([id number]) [address] [place] [address] eGFR (CKD-EPI) NON-RACE DEPENDENT >90 Normal >59 [facility] Comment on above: Result Comment: Reported eGFR is based on the CKD-EPI 2020 equation that does not use a race coefficient. Performed By: #### C BCA, BMP #### [facility] ([id number]) [address] [place] [address] Glucose [Mass/Vol] 94 mg/dL Normal 65-99 [facility] Comment on above: Performed By: #### C NITIN, BMP #### [facility] ([id number]) [address] [place] [address] Potassium [Moles/Vol] 3.7 mmol/L Normal 3.5-5.0 [facility] Comment on above: Performed By: #### C NITIN, BMP #### [facility] ([id number]) [address] [place] [address] Sodium [Moles/Vol] 136 mmol/L Normal 134-146 [facility] Comment on above: Performed By: #### C NITIN, BMP #### [facility] ([id number]) [address] [place] [address] Urea nitrogen [Mass/Vol] 11 mg/dL Normal 5-23 [facility] Comment on above: Performed By: #### C NITIN, BMP #### [facility] ([id number]) [address] [place] [address] CBC AND AUTO DIFFon 06-12-19 24 ABSOLUTE BASOPHIL 0.0 X10E9/L Normal 0.0-0.2 [facility] Comment on above: Performed By: #### C NITIN, BMP #### [facility] ([id number]) [address] [place] [address] ABSOLUTE NEUTROPHIL 4.5 X10E9/L Normal 1.5-6.6 [facility] Comment on above: Performed By: #### C BCA, BMP #### [facility] ([id number]) [address] [place] [address] Basophils/100 WBC (Bld) 0.4 % Normal [facility] Comment on above: Performed By: #### C NITIN, BMP #### [facility] ([id number]) [address] [place] [address] Eosinophils (Bld) [#/Vol] 0.1 10*3/uL Normal 0.0-0.4 [facility] Comment on above: Performed By: #### C NITIN, BMP #### [facility] ([id number]) [address] [place] [address] Eosinophils/100 WBC (Bld) 1.0 % Normal [facility] Comment on above: Performed By: #### C NITIN, BMP #### [facility] ([id number]) [address] [place] [address] Erythrocyte distribution width (RBC) [Ratio] 19.3 % High 11.5-15.0 [facility] Comment on above: Performed By: #### C NITIN, BMP #### [facility] ([id number]) [address] [place] [address] Hematocrit (Bld) [Volume fraction] 26.6 % Low 35-47 [facility] Comment on above: Performed By: #### C NITIN, BMP #### [facility] ([id number]) [address] [place] [address] Hemoglobin (Bld) [Mass/Vol] 8.0 g/dL Low 11.7-15.5 [facility] Comment on above: Performed By: #### C NITIN, BMP #### [facility] ([id number]) [address] [place] [address] Lymphocytes (Bld) [#/Vol] 2.0 10*3/uL Normal 1.0-3.5 [facility] Comment on above: Performed By: #### C BCA, BMP #### [facility] ([id number]) [address] [place] [address] Lymphocytes/100 WBC (Bld) 27.5 % Normal [facility] Comment on above: Performed By: #### C NITIN, BMP #### [facility] ([id number]) [address] [place] [address] MCH (RBC) [Entitic mass] 19.1 pg Low 27-34 [facility] Comment on above: Performed By: #### C NITIN, BMP #### [facility] ([id number]) [address] [place] [address] MCHC (RBC) [Mass/Vol] 30.2 g/dL Low 32-36 [facility] Comment on above: Performed By: #### C NITIN, BMP #### [facility] ([id number]) [address] [place] [address] MCV (RBC) [Entitic vol] 63 fL Low 80-100 P [facility] Comment on above: Performed By: #### C NITIN, BMP #### [facility] ([id number]) [address] [place] [address] Monocytes (Bld) [#/Vol] 0.6 10*3/uL Normal 0-0.9 [facility] Comment on above: Performed By: #### C NITIN, BMP #### [facility] ([id number]) [address] [place] [address] Monocytes/100 WBC (Bld) 8.6 % Normal [facility] Comment on above: Performed By: #### C NITIN, BMP #### [facility] ([id number]) [address] [place] [address] Neutrophils/100 WBC (Bld) 62.5 % Normal [facility] Comment on above: Performed By: #### C NITIN, BMP #### [facility] ([id number]) [address] [place] [address] [place] [address] Platelet mean volume (Bld) [Entitic vol] 7.6 fL Normal 7-12 [facility] Comment on above: Performed By: #### C NITIN, BMP #### [facility] ([id number]) [address] [place] [address] Platelets (Bld) [#/Vol] 334 10*3/uL Normal 150-450 [facility] Comment on above: Performed By: #### Anderson TAVERAS, BMP #### [facility] ([id number]) [address] [place] [address] RBC COUNT 4.20 X10E12/L Normal 3.80-5.20 [facility] Comment on above: Performed By: #### Anderson TAVERAS, BMP #### [facility] ([id number]) [address] [place] [address] WBC (Bld) [#/Vol] 7.3 10*3/uL Normal 4.0-11.0 [facility] Comment on above: Performed By: #### Anderson TAVERAS, BMP #### [facility] ([id number]) [address] [place] [address] HIV 1&2 AB/AG Screen (P24 AG )on 05-17-2023 HIV 1&2 AB/AG Non-Reactive [facility] Hepatitis B surface antigeno n 05-17-2023 Hepatitis B Surface Antigen Non-Reactive [facility] Hepatitis C(HCV) Ab w/ Refle x to PCRon 05-17-2023 HCV Ab Ql (S) Non-Reactive [facility] No Panel InformationOrdered By: Riya Veloz on 05-17-2023 [facility] Rubella IGG immune statuson 05-17-2023 Rubella immune IgG [facility] Syphilis Total(Unknown Syphi lis Status)Ordered By: Riya Veloz on 05-17-[address] Syphilis Non-Reactive [facility] US OB < 14 WEEKS EARLYon 01- [...] significant surrounding subchorionic hemorrhage. Yolk sac present. [place] rump length measures 1.85 cm, which corresponds [...] 170.2 cm Glory Rivera MD Work Phone: [facility] [facility] 08-15-2023 09:14-0400 Body mass index (BMI) [Ratio] 21.77 kg/m2 Glory Rivera MD Work Phone: [facility] 08-15-2023 09:14-0400 Body weight 63.05 kg Glory Rivera MD Work Phone: [facility] 08-15-2023 09:14-0400 Diastolic blood pressure 62 mm[Hg] Glory Rivera MD Work Phone: [facility] 08-15-2023 09:14-0400 Heart rate 68 /min Glory Rivera MD Work Phone: [facility] 08-15-2023 09:14-0400 Systolic blood pressure 102 mm[Hg] Glory Rivera MD Work Phone: [facility] 07-04-2023 08:55-0500 Body mass index (BMI) [Ratio] 20.55 kg/m2 Moe Langley MD Work Phone: [facility] 07-04-2023 08:55-0500 Body weight 59.51 kg Moe Langley MD Work Phone: [facility] 07-04-2023 08:55-0500 Diastolic blood pressure 55 mm[Hg] Moe Langley MD Work Phone: [facility] 07-04-2023 08:55-0500 Heart rate 67 /min Moe Langley MD Work Phone: [facility] 07-04-2023 08:55-0500 Systolic blood pressure 100 mm[Hg] Moe Langley MD Work Phone: [facility] Encounters Encounter Date Encounter Type Care Provider Facility Start: 11-14-2023 End: 11-14-2023 ambulatory [facility] Start: 11-13-2023 End: 11-13-2023 ambulatory MARIS L FLORO Not Available Start: 10-23-2023 End: 10-23-2023 ambulatory MARIS L FLORO Not Available Start: 09-04-2023 End: 09-04-2023 ambulatory MARIS L FLORO Not Available Start: 08-21-2023 Telephone encounter Gladys Cortés RN [facility] Start: 08-18-2023 Telephone encounter Glory Rivera MD Work Phone: [facility] Comment on above: Results Start: 08-17-2023 Orders Only Glory stewart MD Work Phone: [facility] [place] Comment on above: Iron deficiency anem ia during (Primary Dx); Thyroid disease Start: 08-15-2023 End: 08-15-2023 ambulatory GLORY RIVERA [facility] Start: 08-15-2023 End: 08-15-2023 [...] Only Grace Davis RN [facility] Comment on above: Anemia affecting pre gnancy in second trimester (Primary Dx) Start: 07-04-2023 End: 07-04-2023 Office consultation new/estab patient 60 min Moe Langley MD Work Phone: [facility] Comment on above: Anemia affecting pre gnancy in second trimester (Primary Dx); Other iron deficiency anemia Start: 06-19-2023 Chart abstracting Moe mccormack MD Work Phone: [facility] Start: 06-13-2023 End: 06-13-2023 ambulatory MARIS L FLORO Not Available Start: 06-12-2023 End: 06-12-2023 Emergency department patient visit [facility] Start: 05-17-2023 End: 05-17-2023 ambulatory MARIS L [...] malign ant neoplasm of cervix Pap Smear [facility] Start: 08-14-2024 Adult BMI Screening Adult BMI Screen ing [facility] Start: 08-14-2024 Tobacco Screening Tobacco Screening [facility] Start: 07-04-2024 Adult BMI Screening Adult BMI Screen ing [facility] Start: 07-04-2024 Tobacco Screening Tobacco Screening [facility] Start: 07-04-2024 End: 07-04-2024 US MFM with or without consult US MFM with or without consult Imaging Routine Anemia affecting in second trimester Expected: 07/04/2024 (Approximate), Expires: 07/04/2024 [employer] Work Phone: Comment on above: Expected: 07/04/2024 (Approximate), Expires: 07/04/2024 Start: 06-12-2024 Adult BMI Screening Adult BMI Screen ing [facility] Start: 06-12-2024 DTaP,Tdap and Td Vac cines (2 - Td or Tdap) DTaP,Tdap and Td Vaccines (2 - Td or Tdap) [facility] Start: 01-14-2024 Influenza vaccination Influenza Vacc ine [facility] Start: 10-30-2023 End: 10-30-2023 Telemedicine consultation with patient 10/30/2023 11:30 AM EDT Telemedicine [facility] [address] [place] [id number] Osbaldo Alamo MD [address], [address] [place] [address] [facility] Start: 08-15-2023 End: 08-15-2023 Patient encounter procedure [facility] [place] Start: 08-11-2023 Tobacco Screening Tobacco Screening [facility] Start: 07-04-2023 End: 07-04-2023 Patient encounter procedure [facility] - [facility] Start: 01-13-2023 COVID-19 Vaccine ( season) COVID-19 Vaccine ( season) [facility] Start: 01-13-2023 Influenza vaccination Influenza Vacc ine [facility] Start: 2004 Depression Screening Depression Scre ening [facility] End: 07-04-2024 Ferritin [Mass/volume] in Serum or Plasma Ferritin Lab Routine Anemia affecting in second trimester 1 Occurrences starting 07/04/2023 until 07/04/2024 [employer] Work Phone: Comment on above: 1 Occurrences starti ng 07/04/2023 until 07/04/2024 End: 07-04-2024 Hemoglobin Electrophoresis Hemoglobin Electrophoresis Lab Routine Anemia affecting in second trimester 1 Occurrences starting 07/04/2023 until 07/04/2024 [facility]: 1 Occurrences starti ng 07/04/2023 until 07/04/2024 End: 08-14-2024 Hemoglobin Electrophoresis Hemoglobin Electrophoresis Lab Routine 20 weeks gestation of 1 Occurrences starting 08/15/2023 until 08/14/2024 [employer] Work Phone: Comment on above: 1 Occurrences starti ng 08/15/2023 until 08/14/2024 Hemoglobin Electrophoresis Hemoglobin Electrophoresis Lab Routine 20 weeks gestation of 08/15/2023 10:11 AM EDT [facility] End: 10-17-2023 Thyroid profile includes TSH FT4 Thyroid profile includes TSH FT4 Lab Routine Thyroid disease 1 Occurrences starting 08/17/2023 until 10/17/2023 [employer] Work Phone: Comment on above: 1 Occurrences starti ng 08/17/2023 until 10/17/2023 End: 10-17-2023 Triiodothyronine (T3) Free [Mass/volume] in Serum or Plasma T3, free Lab Routine Thyroid disease 1 Occurrences starting 08/17/2023 until 10/17/[facility]23 [facility]: 1 Occurrences starti ng 08/17/2023 until 10/17/2023 End: 08-14-2024 Unlisted Lab Test Unlisted Lab Test Lab Routine 20 weeks gestation of 1 Occurrences starting 08/15/2023 until 08/14/2024 [facility]: 1 Occurrences starti ng 08/15/2023 until 08/14/2024 Immunizations Immunization Date Immunization Notes Care Provider [facility] 02-24-2021 influenza virus vaccine, unspecified formulation Moe Langley MD Work Phone: [facility] 08-07-2020 COVID-19, mRNA, LNP- S, PF, 100mcg/0.5mL Dose Moe Langley MD Work Phone: [facility] 07-10-2020 COVID-19, mRNA, LNP- S, PF, 100mcg/0.5mL Dose Moe Langley MD Work Phone: [facility] Payers Date Payer Category Payer Medicaid [place] [employer] [place] [employer] [id number] 2023-Present [phone] [address] [place] [address] [id number] 2023 Medicaid [id number] 2022 Medicaid [id number] 1992 Unknown [id number] 1992 Unknown [id number] 1992 Unknown [id number] [id number] 1992 Unknown [id number] [id number]86 1992 Unknown [id number] [id number] 1992 Unknown [id number] [id number] 1992 Unknown [id number] [id number] 1992 Unknown [id number] 2.16.840.1.078561.3.579.2.9 1992 Unknown [id number] 2.16.840.1.515820.3.579.2.9 1992 Unknown [id number] 2.16.840.1.078998.3.579.2.9 1992 Unknown [id number] 2.16.840.1.487683.3.579.2.9 1992 Unknown [id number] 2.16.840.1.124341.3.579.2.9 1992 Unknown [id number] 2.16.840.1.655173.3.579.2.9 1992 Unknown [id number] [id number] 1992 Unknown [id number] 1959 Unknown Social History Date Type Detail Facility Start: 12-21-2021 Tobacco smoking stat [facility] Never smoked tobacco [facility] Start: 12-21-2021 Tobacco use and exposure Smokeless tobacco non-user [facility] Start: 06-19-2023 Alcohol intake Current drinke r of alcohol (finding) [facility] Start: 06-25-2020 End: 06-19-[address] [facility] Start: 06-25-2020 End: 08-10-[address] [facility] Childcare Unknown [facility] Start: 04-05-2023 [facility] Start: 1990 Sex Assigned At Not on file P [facility] Start: 07-04-2023 End: 08-15-2023 Alcohol intake Ex-drinker (finding) [facility] Clinical Notes 07-04-2023 to 08-21-2023 Telephone Encounter [...] office to discuss. documented in this encounter [facility] 08-21-2023 Telephone encount er Note Attempted to contact patient in regards to thyroid function results per Dr. Rivera. No answer, left VM to call back to office to discuss. [facility] 08-18-2023 Miscellaneous Notes Formattin g of this note might be different from the original. Attempted to call patient to discuss her results she did not answer GLORY RIVERA MD documented in this encounter [facility] 08-18-2023 Telephone encount er Note Attempted to call patient to discuss her results she did not answer GLORY RIVERA MD [facility] 08-17-2023 Miscellaneous Notes Formattin g of this note might be different from the original. Left voicemail for pt to call our office to schedule an appointment with Micaela Burnette labs needed documented in this encounter [facility] 08-17-2023 Telephone encount er Note Left voicemail for pt to call our office to schedule an appointment with Micaela Burnette labs needed [facility] 08-15-2023 History of Presen t illness Narrative [...] Allergies CURRENT MEDICATIONS: Current Outpatient Medications: vit 01-kktp-znuwd-dha 18-1-350 mg capsule, Take 1 tablet by [...] and the other consultants, we search on [id number] and all the available care everywhere epic I did review all the imaging studies of the patient available on EMR, ordered by the primary care physician and the other qm consultant HABITS: Patient activity no restrictions, diet [...] 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 Patient does have ultrasound office visit scheduled with us. Thank you for allowing me to participate in Trish Cardona . If there any questions please do not hesitate to contact us. Sincerely, Glory Rivera MD, FACOG (she/hers) Maternal- Medicine [facility] [address] [place] [address] Headache/epigastric pain/blurry vision/swelling? No Cramping/contractions? No Abnormal vaginal discharge? No Spotting or vaginal bleeding? No Loss of fluid like your water may have broken? No Recent ER visits or hospitalizations? No Any concerns that you would like me to mention to the provider today? Was diagnosed with a UTI by her OB in [place]. They prescribed her an antibiotic, but she lost the antibiotic and is inquiring if we can travel writer her a new script. Blood drawn for carrier testing by PPE lab. Patient tolerated well. documented in this encounter [facility] 07-04-2023 History of Presen t illness Narrative Headache/epigastric pain/blurry vision/swelling? No Cramping/contractions? No Abnormal vaginal discharge? No Spotting/vaginal bleeding? No Loss of fluid like your water may have broken? No Cats in the home? No Do you change the litter box? N/A Flu vaccine? No Genetic testing done this here or other office? No Have you been seen here at [facility] in a previous ? No Recent ER visits or hospitalizations? 06/12/23 sent by primary OB to [place] ED for low hemoglobin Bring blood sugar [...] Allergies CURRENT MEDICATIONS: Current Outpatient Medications: vit 06-mkjf-hozks-dha 18-1-350 mg capsule, Take 1 tablet by [...] and the other consultants, we search on [id number] and all the available care everywhere epic I did review all the imaging studies of the patient available on EMR, ordered by the primary care physician and the other qm consultant HABITS: Patient activity no restrictions, diet [...] 6. Targeted anatomy at 20 weeks at [facility] office 7. Patient is low risk and vaginal delivery at term at her local hospital is anticipated with C section reserve for routine obstetrical indications. DISPOSITION: At this point the 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 Patient does have ultrasound office visit scheduled with us. Thank you for allowing me to participate in Trish Cardona . If there any questions please do not hesitate to contact us. Sincerely, MOE LANGLEY MD documented in this encounter [facility] Evaluation note Diagnosis Anemia affecting in second trimester- Primary [facility] Diagnosis Anemia affecting in second trimester- Primary Other iron deficiency anemia [facility] Diagnosis 20 weeks gestation of - Primary Low TSH level [facility]* Diagnosis Iron deficiency anemia [...] Glory Rivera MD [address], [address] [place] [id number] [facility] [address] [facility] [address] [place] [address] Referral ID Status Reason Start Date Expiration Date V isits Requested Visits Authorized [id number] Pending Review 08/17/2023 08/16/[address] [facility] Summary Purpose Family History No Family History [...] Langley MD [address] [place] [address] [facility] [address] [place] [address] Referral ID Status Reason Start Date Expiration Date V isits Requested Visits Authorized [id number] Pending Review 07/04/2023 07/03/2024 1 1 Additional Source Comments INFORMATION SOURCE (unrecogn ized section and content) DATE CREATED AUTHOR 12/26/2018 [facility] DATE CREATED AUTHOR AUTHOR'S ORGANIZ ATION 06/16/2023 [facility] DATE CREATED AUTHOR AUTHOR'S ORGANIZ ATION 08/16/2023 [facility] DATE CREATED AUTHOR AUTHOR'S ORGANIZ ATION 11/15/2023 [facility] DATE CREATED AUTHOR AUTHOR'S ORGANIZ ATION 11/17/2023 [facility] EPIC Care Teams (unrecognized sec tion and content) Inside Upholsterer Relationship Specialty Start Date End Date Services, [facility] [address] [place] PCP - General Family Medicine 06/12/23 Inside Upholsterer Relationship Specialty Start Date End Date Services, [facility] [address] [place] PCP - General Family Medicine 06/12/23 Inside Upholsterer Relationship Specialty Start Date End Date Services, [facility] [address] [place] PCP - General Family Medicine 06/12/23 Inside Upholsterer Relationship Specialty Start Date End Date Services, [facility] [address] [place], [place] PCP - General Family Medicine 06/12/23 Inside Upholsterer Relationship Specialty Start Date End Date Services, [facility] [address] [place] PCP - General Family Medicine 06/12/23 Inside Upholsterer Relationship Specialty Start Date End Date Services, [facility] [address] [place], [place] PCP - General Family Medicine 06/12/23 [...] BE BASED ON THE PRIMARY CLINICAL RECORDS. [facility] [employer] [facility]. provides no warranty or guarantee of the accuracy or completeness of information in this document.
[2023-12-20] MEDS: LACTATED RINGER'S SOLUTION 1,000 ML 125 ML IV ×2 (15:33→19:43)
[2023-12-20] MEDS: OXYTOCIN/0.9 % SODIUM CHLORIDE 10 UNITS/500 ML PLAST..BAG 6 UNIT IV (15:34)
[2023-12-20] MEDS: NALBUPHINE HCL 10 MG/ML AMPULE IV (18:50)
[2023-12-20] MEDS: CEFAZOLIN SODIUM/DEXTROSE,ISO 2 GM/50 ML PIGGYBACK IV (19:30)
--- NOTE | 2023-12-20 20:09 | PM.ONB ---
Brief Operative Note Date of procedure: 12/20/23 Pre-op diagnosis general: iup at 39wks, suspected rom, cervical scar tissue unable to assess dilation, cervical laceration Post-op diagnosis: same as pre-op Procedure: NAME OF PROCEDURE: [ section ] PROCEDURE: Patient was taken back to the Operating Room where she was given a spinal anesthesia with Duramorph without difficulty. She was prepped and draped in the normal sterile fashion. A Pfannenstiel skin incision was then made 2 cm above the symphysis pubis and carried down to underlying rectus fascia using a Bovie. The fascia was incised in the midline and extended laterally using Mota scissors. Two Steve clamps were placed on the superior aspect of the fascia and dissected off the underlying rectus muscles. The same was performed on the inferior aspect as well. The muscles were then in the midline. Peritoneum was identified and entered bluntly. The peritoneum was then extended superiorly and inferiorly with good visualization of the bladder. The bladder blade was inserted. A low transverse incision was made on the patient's uterus and extended laterally digitally. The infant was then delivered atraumatically after the bladder blade was removed in the cephalic position. The cord was clamped and cut. Cord blood was obtained. The infant was handed off to awaiting team. The patient's placenta was spontaneously delivered. The uterus was then exteriorized. The uterus was cleared of all clots and debris. The bladder blade was reinserted. The patient's uterine incision was closed using #0 Vicryl in a running lock fashion. Excellent hemostasis was assured. The uterus was then returned to the patient's abdomen. The patient's abdomen was copiously irrigated using warm saline. Peritoneal gutters were cleared of all clots and debris. Again excellent hemostasis was assured. The patient's peritoneum was closed using 3-0 Vicryl in a running fashion. The patient's fascia was closed using #0 Vicryl in a running fashion. The patient's skin was closed using 4-0 Vicryl subcuticularly. The patient tolerated the procedure well. Sponge, lap, and needle counts were correct x2. The patient was taken to the Recovery Room in stable condition. Anesthesia: spinal Surgeon: Luigi Miguel Shake Loader: Azeb Diaz Estimated blood loss (mL): 575 Pathology: other Condition: stable Disposition: PACU
--- NOTE | 2023-12-20 20:11 | PM.OBPRCCS ---
Procedure Pre-op/Post-op diagnoses: Pre-Op/Post-Op Diagnoses Operation Date: 12/20/23 19:30 <No data on this case meets the specified criteria> Procedure: Procedures Operation Date: 12/20/23 19:30 Actual Procedure Side Surgeon p Not Applicable Luigi Miguel DO Meat Cooler: Azeb Diaz Estimated blood loss (mL): 575 Disposition: PACU Anesthesia type: Spinal
[2023-12-20] MEDS: BUPIVACAINE LIPOSOME/PF 266 MG/13.3 ML VIAL INJ (20:25)
[2023-12-20] MEDS: BUPIVACAINE HCL 0.5% PF 50 MG/10 ML VIAL 20 ML INJ (20:25)
[2023-12-20] MEDS: 0.9 % SODIUM CHLORIDE 10 ML VIAL 20 ML INJ (20:25)
--- NOTE | 2023-12-20 20:45 | PM.EN ---
Event Note Event Note: Container Finisher Note: i first assisted Dr Miguel with primary section as directed. I independently closed the SQ layer with 3-0 vicryl without difficulty. I then independently closed the incision with 4-0 vicryl without difficulty. Hemostasis noted at completion of closure. Patient tolerated procedure well.
[2023-12-20] MEDS: OXYTOCIN/0.9 % SODIUM CHLORIDE 20 UNITS/1,000 ML PLAST..BAG 125 UNIT IV (21:18)
--- NOTE | 2023-12-20 21:26 | PC.NURSE ---
No vaginal drainage noted with fundus check.
--- NOTE | 2023-12-20 21:34 | PC.NURSE ---
No vaginal drainage noted with fundus check
--- NOTE | 2023-12-20 23:56 | W.PC.ACHO ---
Registration Status: ADM IN Primary Language: Gibraltarian Preferred Language: Gibraltarian Report given to Janel HARRIS. Care relinquished. Active Medications Generic Name Dose Route Start Last Admin Trade Name Meghan PRN Reason Stop Dose Admin Carboprost Tromethamine 250 mcg 12/20/23 14:01 Carboprost Tromethamine 250 Mcg/Ml 1 Ml Vial IM 12/22/23 14:01 Q15M PRN Bleeding Tranexamic Acid 1,000 mg/ 110 mls @ 440 mls/hr 12/20/23 14:01 Sodium Chloride IV 12/22/23 14:01 ONCE PRN Uterine Bleeding Lactated Ringer's 1,000 mls @ 125 mls/hr 12/20/23 14:30 12/20/23 19:43 Lactated Ringers IV 125 mls/hr .Q8H KAROLINE Administration Oxytocin/Sodium Chloride 10 units in 500 mls @ 6 mls/hr 12/20/23 14:15 12/20/23 19:18 Pitocin 10 Unit/500 Ml-Ns IV 0 milliunit/min TITR KAROLINE 0 mls/hr Infusion Protocol 2 MILLIUNIT/MIN Lidocaine 1 ml 12/20/23 14:01 Lidocaine Hcl 1% 200 Mg/20 Ml Mdv INJ 12/22/23 14:03 ONCE PRN Pain Lidocaine 5 ml 12/20/23 14:01 Lidocaine Viscous 2% 15 Ml Solution TOPICAL 12/22/23 14:03 ONCE PRN Pain Methylergonovine Maleate 0.2 mg 12/20/23 14:01 Methylergonovine Maleate 0.2 Mg/Ml Ampule IM 12/22/23 14:01 ONCE PRN Uterine Contractility/Contract Methylergonovine Maleate 0.2 mg 12/20/23 14:01 Methylergonovine Maleate 0.2 Mg Tablet PO 12/22/23 14:01 Q4H PRN Uterine Contractility/Contract Misoprostol 600 mcg 12/20/23 14:01 Misoprostol 100 Mcg Tablet PO 12/22/23 14:01 ONCE PRN Uterine Bleeding Misoprostol 800 mcg 12/20/23 14:01 Misoprostol 100 Mcg Tablet SL 12/22/23 14:01 ONCE PRN Uterine Bleeding Misoprostol 1,000 mcg 12/20/23 14:01 Misoprostol 100 Mcg Tablet WV 12/22/23 14:01 ONCE PRN Uterine Bleeding Nalbuphine HCl 10 mg 12/20/23 14:01 Nalbuphine Hcl 10 Mg/Ml Ampule IV Q3H PRN Pain Ondansetron HCl 4 mg 12/20/23 14:01 Ondansetron Pf 4 Mg/2 Ml Vial IV Q6H PRN Nausea And Vomiting Ondansetron HCl 4 mg 12/20/23 14:01 Ondansetron 4 Mg Rapdis Tablet SL Q6H PRN Nausea And Vomiting Oxytocin 10 unit 12/20/23 14:01 Oxytocin 10 Unit/Ml Vial IM 12/22/23 14:01 ONCE PRN Bleeding Diet Category Date Time Status Regular Consistency Diet Diet 12/20/23 14:02 Active Consults Category Date Time Status Consult to Anesthesiology Routine Cons 12/20/23 Ordered IV Insertion/Site Date of IV Line Insertion [ 12/20/23 Short PIV (<1.75 in) 20g left Forearm] IV Insertion Time [Short PIV ( 14:00 <1.75 in) 20g left Forearm] Neurology Patient orientation (short person,place,time,situation list) Respiratory Pulse Oximetry 100 Pulse Oximetry 100 Pulse Oximetry 100 Pulse Oximetry 100 Pulse Oximetry 100 Pulse Oximetry 100 Oxygen Delivery Method Room Air Oxygen Delivery Method Room Air Oxygen Delivery Method Room Air Oxygen Delivery Method Room Air Oxygen Delivery Method Room Air Oxygen Delivery Method Room Air Catheter Urinary Catheter Date of 12/20/23 Insertion [Urethral] Urinary Catheter Date of 12/20/23 Insertion [Urethral] Urinary Catheter Time of 19:20 Insertion [Urethral]
[2023-12-21] VITALS (13 sets, daily range): BP systolic 86–108; BP diastolic 48–57; PULSE 59–71; TEMP 36.3–37.3
[2023-12-21] MEDS: CEFAZOLIN SODIUM/DEXTROSE,ISO 2 GM/50 ML PIGGYBACK IV (02:30)
[2023-12-21] MEDS: KETOROLAC TROMETHAMINE 30 MG/ML VIAL IVP ×3 (02:51→16:19)
--- NOTE | 2023-12-21 08:00 | PM.OBPN ---
OB - PN: Subj Subjective Patient comments: no complaints [place] status: doing well Exam Constitutional Vital Signs, click to edit/add: Last Vital Signs Temp 96.9 F L 12/20/23 20:32 Pulse 59 L 12/21/23 03:06 Resp 16 12/21/23 03:05 BP 103/57 12/21/23 03:06 Pulse Ox 100 12/20/23 21:02 O2 Del Method Room Air 12/21/23 03:05 Documenting provider has reviewed patient's vital signs: yes Common normals: no apparent distress, average body habitus, oriented x3, no limitations, healthy appearing, alert and well nourished HENAK Common normals: normocephalic Eye Common normals: EOMs intact bilaterally Neck & C-Spine Common normals: full ROM General: normal visual inspection Lymph Lymphatic: no lymphadenopathy noted Chest Common normals: inspection of chest normal Respiratory Common normals: normal respiratory effort, no retractions, no use of accessory muscles, clear to auscultation bilaterally and percussion normal Effort & inspection: able to speak in complete sentences Cardio Common normals: regular rate Rate: regular rate Rhythm: regular rhythm GI Common normals: Normal to inspection, nondistended, normoactive bowel sounds present Inspection: normal to inspection Palpation: soft Common normals: no CVA tenderness Back & Pelvis Common normals: no CVA tenderness Extremity Common normals: normal to inspection, full ROM, normal capillary refill, no joint enlargement, no clubbing, cyanosis or edema, no calf tenderness and no pedal edema Neuro Common normals: oriented x3 Sensorium/orientation: awake, alert, oriented to person, oriented to place and oriented to time Psych Common normals: mental status grossly normal, thought process normal and cooperative Appearance: grossly normal Attitude: calm Results Labs Labs: Short CBC 12/20/23 Range/Units 14:08 WBC 5.6 (4.0-11.0) 10^3/uL Hgb 9.7 L (12.0-16.0) g/dL Hct 30.9 L (36.0-48.0) % Plt Count 286 (150-450) 10^3/uL Urinary Catheter Management Urinary Catheter Management Urethral: Cath placed during this visit: yes Urethral indwelling: Yes Reason for continuing: prolonged immobilization Insertion date: 12/20/23 Insertion time: 19:20 OB - PN: A/P Plan - day: 1 Plan: routine postop care Time Spent with Patient Time: Total time spent is greater than 50% in coordination of care (as documented) at patient's floor/unit and/or counseling patient: Total time spent with greater than 50% in coordination of care (as documented) at patient's floor/unit and/or counseling patient: less than 15 minutes
[2023-12-21] MEDS: ENOXAPARIN SODIUM 40 MG/0.4 ML SYRINGE SUBQ (08:12)
[2023-12-21] MEDS: DOCUSATE SODIUM 100 MG CAPSULE PO ×2 (08:12→21:14)
[2023-12-21 09:26] LABS: Basophils Percent Auto 0.2 % (0.2-2.0); Hematocrit 24.8 % (36.0-48.0); Hemoglobin 7.9 g/dL (12.0-16.0); Immature Granulocytes Abs Auto 0.04 10^3/uL (0.00-0.03); Immature Granulocytes Pct Auto 0.4 % (0.0-0.5); Lymphocytes Percent Auto 9.4 % (20.5-60.0); Mean Corpuscular HGB Conc 31.9 g/dL (29.9-35.2); Mean Corpuscular Hemoglobin 26.2 pg (26.7-34.0); Mean Corpuscular Volume 82.1 fL (81.0-99.0); Monocytes Absolute Auto 0.7 10^3/uL (0.3-0.8); Monocytes Percent Auto 6.4 % (1.7-12.0); Neutrophils Absolute Auto 8.7 10^3/uL (1.4-6.5); Neutrophils Percent Auto 83.6 % (43.0-75.0); Platelet Count 232 10^3/uL (150-450); Red Blood Count 3.02 10^6/uL (4.20-5.40)
[2023-12-21 09:56] LABS: White Blood Count 10.4 10^3/uL (4.0-11.0)
[2023-12-21] MEDS: IBUPROFEN 400 MG TABLET 800 MG PO (22:51)
[2023-12-21] MEDS: ACETAMINOPHEN 500 MG TABLET 1000 MG PO (23:55)
[2023-12-22 04:38] VITALS: BP 90/55; PULSE 74; TEMP 36.9
[2023-12-22 07:45] VITALS: TEMP 36.2
[2023-12-22 07:48] VITALS: BP 91/50; PULSE 68
[2023-12-22] MEDS: IBUPROFEN 400 MG TABLET 800 MG PO ×2 (07:48→15:57)
[2023-12-22] MEDS: ACETAMINOPHEN 500 MG TABLET 1000 MG PO ×3 (07:48→22:39)
[2023-12-22] MEDS: ENOXAPARIN SODIUM 40 MG/0.4 ML SYRINGE SUBQ (07:49)
[2023-12-22] MEDS: DOCUSATE SODIUM 100 MG CAPSULE PO ×2 (07:49→22:40)
--- NOTE | 2023-12-22 07:49 | PM.OBPN ---
OB - PN: Subj Subjective Patient comments: no complaints [place] status: doing well [place] feeding status: exclusively Exam Constitutional Vital Signs, click to edit/add: Last Vital Signs Temp 98.5 F 12/22/23 04:38 Pulse 68 12/22/23 07:48 Resp 12 12/22/23 04:38 BP 91/50 12/22/23 07:48 Pulse Ox 100 12/20/23 21:02 O2 Del Method Room Air 12/22/23 04:38 Documenting provider has reviewed patient's vital signs: yes Common normals: no apparent distress General appearance: cooperative and comfortable Orientation/consciousness: Yes awake, Yes oriented to person, Yes oriented to place and Yes oriented to time HENMT Common normals: normocephalic Eye Common normals: EOMs intact bilaterally General eye: normal appearance of both eyes Neck & C-Spine Common normals: full ROM Lymph Lymphatic: no lymphadenopathy noted Chest Common normals: inspection of chest normal Respiratory Common normals: normal respiratory effort Auscultation: clear to auscultation bilaterally Cardio Common normals: regular rate and regular rhythm Rate: regular rate Rhythm: regular rhythm GI Common normals: Normal to inspection, nondistended, normoactive bowel sounds present Palpation: soft, firm and tender Common normals: no CVA tenderness Back & Pelvis Common normals: no CVA tenderness Extremity Common normals: normal to inspection Neuro Common normals: oriented x3 Sensorium/orientation: awake, alert, oriented to person, oriented to place and oriented to time Psych Common normals: mental status grossly normal, thought process normal, cooperative, affect normal, speech normal, activity/motor behavior normal, denies hallucinations, denies homicidal ideation and denies suicidal ideation Appearance: grossly normal Attitude: calm Speech: normal speech Results Labs Labs: Short CBC 12/21/23 Range/Units 09:07 WBC 10.4 (4.0-11.0) 10^3/uL Hgb 7.9 L (12.0-16.0) g/dL Hct 24.8 L (36.0-48.0) % Plt Count 232 (150-450) 10^3/uL Urinary Catheter Management Urinary Catheter Management Urethral: Cath placed during this visit: yes, but has since been removed by the nurse Urethral indwelling: Yes Insertion date: 12/20/23 Insertion time: 19:20 Removal date: 12/21/23 Removal time: 16:20 OB - PN: A/P Assessment and Plan (1) Delivery by section: Plan - day: 2 Plan: routine postop care Time Spent with Patient Time: Total time spent is greater than 50% in coordination of care (as documented) at patient's floor/unit and/or counseling patient: Total time spent with greater than 50% in coordination of care (as documented) at patient's floor/unit and/or counseling patient: less than 15 minutes
[2023-12-22] MEDS: FERROUS SULFATE 325 MG TABLET PO ×2 (10:06→22:40)
[2023-12-22 15:55] VITALS: TEMP 36.4
[2023-12-22 15:57] VITALS: BP 108/58; PULSE 76
[2023-12-23 00:54] VITALS: BP 116/59; PULSE 68
[2023-12-23] MEDS: IBUPROFEN 400 MG TABLET 800 MG PO ×2 (00:54→08:12)
[2023-12-23 08:05] VITALS: BP 112/59; PULSE 62; TEMP 36.6
[2023-12-23 08:09] VITALS: BP 112/59; PULSE 62
[2023-12-23] MEDS: ENOXAPARIN SODIUM 40 MG/0.4 ML SYRINGE SUBQ (08:10)
[2023-12-23] MEDS: FERROUS SULFATE 325 MG TABLET PO (08:10)
[2023-12-23] MEDS: DOCUSATE SODIUM 100 MG CAPSULE PO (08:10)
--- NOTE | 2023-12-23 09:14 | PM.OBPN ---
OB - PN: Subj Subjective Patient comments: no complaints and pain well controlled [place] status: doing well Exam Constitutional Vital Signs, click to edit/add: Last Vital Signs Temp 97.6 F 12/22/23 15:55 Pulse 62 12/23/23 08:09 Resp 16 12/23/23 00:50 BP 112/59 12/23/23 08:09 Pulse Ox 100 12/20/23 21:02 O2 Del Method Room Air 12/23/23 00:50 Documenting provider has reviewed patient's vital signs: yes Common normals: no apparent distress Respiratory Common normals: normal respiratory effort and clear to auscultation bilaterally Cardio Common normals: regular rate and regular rhythm GI Common normals: Normal to inspection, nondistended, normoactive bowel sounds present Extremity Common normals: normal to inspection and no clubbing, cyanosis or edema Urinary Catheter Management Urinary Catheter Management Urethral: Cath placed during this visit: yes, but has since been removed by the nurse Urethral indwelling: Yes Insertion date: 12/20/23 Insertion time: 19:20 Removal date: 12/21/23 Removal time: 16:20 OB - PN: A/P Assessment and Plan (1) Delivery by section: Plan - day: 3 Plan: routine postop care, discharge home and other (fu 1wk) Time Spent with Patient Time: Total time spent is greater than 50% in coordination of care (as documented) at patient's floor/unit and/or counseling patient: Total time spent with greater than 50% in coordination of care (as documented) at patient's floor/unit and/or counseling patient: less than 15 minutes
== END 2023-12-23 13:30 | disposition home or self-care (01) | DRG 540 ==
PROVIDERS: Obstetrics & Gynecology; Admitting Provider Midwife; Visit Provider Midwife
PROC: 10D00Z1 Extraction of Products of Conception, Low, Open Approach (ICD-10-PCS; CPT 59514; principal; 2023-12-20 19:30)
DX: O34.43 Maternal care for other abnormalities of cervix, third trimester (principal); N88.1 Old laceration of cervix uteri; Z3A.39 39 weeks gestation of pregnancy; Z37.0 Single live birth
CPT/HCPCS: 36415; 51702; 59050; 64488; 76815; 80307; 81001; 84112; 85025; 85027; 86850; 86900; 86901; 96365; 96366; 96372; 96375; 96376; G0378; G0379; J0665; J0690; J1100; J1650; J1885; J2274; J2300; J2405; J2590

== ENCOUNTER 2023-12-27 08:10 | Outpatient (OUT) | payer OTHER, SELFPAY ==
--- OUTSIDE RECORDS SUMMARY | 2023-12-27 08:20 | XMS_ITS | CCD ---
Author Organization [facility] Care Team Providers Care Equestrian Trainer Name Role Phone MISC, DOCTOR Admitting Unavailable MISC, DOCTOR Attending Unavailable MISC, DOCTOR Admitting Unavailable MISC, DOCTOR Attending Unavailable SERVICES, [facility] Care Unava ilable Services, [facility] Primary Care Provider MARI RIVERAOLINA P Attending Unavailable SERVICES, [facility] Unava ilable SHIVAM, MOE Referring Unavailable DOCHEVA, NIKOLINA P Referring Unavailable SERVICES, [facility] Unava ilable SHIVAM, MOE Attending Unavailable FLORO, MARIS Referring Unavailable SERVICES, [facility] Care Unava ilable FLORO, MARIS Referring Unavailable SERVICES, [facility] Care Unava ilable SHIVAM, MOE Attending Unavailable FLORO, MARIS Referring Unavailable SERVICES, [facility] Unava ilable FLORO, MARIS L Referring Unavailable FLORO, MARIS L Attending Unavailable FLORO, MARIS L Attending Unavailable FLORO, MARIS L Attending Unavailable FLORO, MARIS L Attending Unavailable FLORO, MARIS L Attending Unavailable FLORO, MARIS L Referring Unavailable FLORO, MARIS L Attending Unavailable FLORO, MARIS L Attending Unavailable FLORO, MARIS L Referring Unavailable Medications Current Medications Medication Drug Class(es) Dates Sig (Normalized) Sig (Original) vit 50-urls-fqnhb-dha 18-1-350 mg capsule (8 sources) Start: 08-10-2022 take 1 tablet by mouth in the morning vit 83-bigj-foyyz-dha 18-1-350 mg capsule Indications: Patient desires Take [...] Value Interpretation Reference Range Facility US OB LIMITED 1+ FETUSESon 0 12-20-2023 US OB LIMITED 1+ FETUSES TITLE OF EXAM: US - US OB LIMITED 1 PLUS FETUS REASON FOR EXAM: Leaking fluid TECHNIQUE: Grayscale, color, and M-mode Doppler sonographic evaluation of the fetus and maternal pelvis. COMPARISON: None. FINDINGS: LMP: 03/22/2023 Gestational age by LMP: 39 weeks, 0 days Estimated date of delivery by LMP: 12/27/2023 Single live intrauterine gestation in cephalic position. Heart rate 134 bpm. Amniotic fluid index 12.3 cm (45%). Anteriorly positioned placenta, features consistent with grade 2, which appears to be remote from the internal cervical os. Cervical length 2.7 cm. IMPRESSION: Single live intrauterine gestation. Normal amniotic fluid index, 12.3 cm. DICTATED ON: 12/20/2023 10:55 AM This report has been electronically signed and approved by the interpreting radiologist. Electronically Signed Luis Alberto Mcfadden M.D. 2023-12-20 10:57:39 Normal Not Available US OB FOLLOW UP TRANSABDOMIN AL APPROACHon [...] 18.9 % High 11.5 - 15.0 % [facility] Hematocrit (Bld) [Volume fraction] 23.1 % Low 35 - 47 % [facility] Hemoglobin (Bld) [Mass/Vol] 7.2 g/dL Low 11.7 - 15.5 g/dL [facility] Interpretation and review of laboratory results Abnormal [facility] MCH (RBC) [Entitic mass] 19.8 pg Low 27 - 34 pg [facility] MCHC (RBC) [Mass/Vol] 31.1 g/dL Low 32 - 36 g/dL [facility] MCV (RBC) [Entitic vol] 64 fL Low 80 - 100 fL [facility] Platelet mean volume (Bld) [Entitic vol] 7.4 fL 7 - 12 fL [facility] Platelets (Bld) [#/Vol] 342 10*3/uL [facility] RBC (Bld) [#/Vol] 3.64 10*6/uL Low [facility] WBC corrected for nucl RBC Auto (Bld) [#/Vol] 7.2 [facility] COMPLETE BLOOD COUNTon 08-14 Erythrocyte distribution width (RBC) [Ratio] 18.9 % High 11.5-15.0 [facility] Comment on above: Performed By: #### C BC, THYR, 3051-0, 6-4, 2283-8, 2132-01 #### [facility] ([id number]) [address], [address] [place] [address] Hematocrit (Bld) [Volume fraction] 23.1 % Low 35-47 [facility] Comment on above: Performed By: #### C BC, THYR, 3051-0, 6-4, 2283-8, 2132-01 #### [facility] ([id number]) [address], [address] [place] [address] Hemoglobin (Bld) [Mass/Vol] 7.2 g/dL Low 11.7-15.5 [facility] Comment on above: Performed By: #### C BC, THYR, 3051-0, 6-4, 8, 2132-01 #### [facility] ([id number]) [address], [address] [place] [address] MCH (RBC) [Entitic mass] 19.8 pg Low 27-34 [facility] Comment on above: Performed By: #### C BC, THYR, 3051-0, 6-4, 8, 2132-01 #### [facility] ([id number]) [address], [address] [place] [address] MCHC (RBC) [Mass/Vol] 31.1 g/dL Low 32-36 [facility] Comment on above: Performed By: #### C BC, THYR, 305-0, 2275-4, 2283-12, 2132-01 #### [facility] ([id number]) [address], [address] [place] [address] MCV (RBC) [Entitic vol] 64 fL Low 80-100 [facility] Comment on above: Performed By: #### C BC, THYR, 3051-0, 2275-4, 2283-12, 2132-01 #### [facility] ([id number]) [address], [address] [place] [address] Platelet mean volume (Bld) [Entitic vol] 7.4 fL Normal 7-12 [facility] Comment on above: Performed By: #### C BC, THYR, 3051-0, 6-4, 2283-12, 2132-01 #### [facility] ([id number]) [address], [address] [place] [address] Platelets (Bld) [#/Vol] 342 10*3/uL Normal 150-450 [facility] Comment on above: Performed By: #### C BC, THYR, 3051-0, 2276-4, 2283-8, 2132-01 #### [facility] ([id number]) [address], [address] [place] [address] RBC COUNT 3.64 X10E12/L Low 3.80-5.20 [facility] Comment on above: Performed By: #### C BC, THYR, 3051-0, 2276-4, 2283-8, 2132-01 #### [facility] ([id number]) [address], [address] [place] [address] WBC (Bld) [#/Vol] 7.2 10*3/uL Normal 4.0-11.0 [facility] Comment on above: Performed By: #### C BC, THYR, 3051-0, 6-4, 2283-12, 2132-01 #### [facility] ([id number]) [address], [address] [place] [address] Cobalamin (Vitamin B12) [Mas s/Vol]on 08-15-2023 [facility] FERRITINon 08-15-2023 Ferritin [Mass/Vol] 3 ng/mL Low 11-307 [facility] Comment on above: Performed By: #### C BC, THYR, 3051-0, 6-4, 2283-12, 2132-01 #### [facility] ([id number]) [address], [address] [place] [address] FREE T3on 08-15-2023 Free T3 [Mass/Vol] 3.96 pg/mL High 2.50-3.90 [facility] Comment on above: Performed By: #### C BC, THYR, 3051-0, 2276-4, 2283-8, 2132-01 #### [facility] ([id number]) [address], [address] [place] [address] Ferritinon 08-15-2023 Ferritin [Mass/Vol] 3 ng/mL Low 11 - 307 ng/mL [facility] Ferritin [Mass/Vol]on 2023 Interpretation and review of laboratory results Abnormal [facility] Folateon 08-15-2023 Folate [Mass/Vol] ng/mL 5.8 - PINF ng/mL [facility] Comment on above: NEW REFERENCE RANGE Folate [Mass/Vol]on 08-15-19 [facility] FOLIC ACID >25.0 Normal >5.8 [facility] Comment on above: Result Comment: NEW REFERENCE RANGE Performed By: #### C BC, THYR, 3051-0, 2276-4, 2283-8, 2132-01 #### [facility] ([id number]) [address] [place] [address], [facility] [address] [place] [address] Free T3 [Mass/Vol]on Interpretation and review of laboratory results Abnormal [facility] HGB ELECTRO INTERPon HGB ELECTRO INTERP See below Normal [facility] Comment on above: Result Comment: NOTE Hemoglobins were analyzed by capillary electrophoresis. There is a normal hemoglobin capillary electrophoresis pattern. Alpha thalassemia trait is not excluded by the testing performed. Suggest correlation with clinical information, red blood cell indices and serum ferritin test results, if applicable. Performed By: #### C BC, THYR, 3051-0, 2276-4, 2283-8, 2132-01 #### [facility] ([id number]) [address] [place] [address], [address] [place] [address] STAFF REVIEW See below Normal [facility] Comment on above: Result Comment: NOTE Reviewed by Angi Horvath DO Test Performed By: [facility] [employer] [address] [place] [address] Mechanical Test Engineer: Lyle Abel III #[id number] Performed By: #### C BC, THYR, 3051-0, 2276-4, 2283-8, 2132-01 #### [facility] ([id number]) [address], [address] [place] [address] HGB ELECTROPHORESISon 2023 Abnormal Hb See below Normal No abnormal hemoglobin identified. [facility] Comment on above: Result Comment: NOTE No abnormal hemoglobin identified. Test Performed By: [facility] [address] [place] [address] Mechanical Test Engineer: Lyle Abel IIIIA #[id number] Performed By: #### C BC, THYR, 3051-0, 2276-4, 2284-8, 2132-01 #### [facility] ([id number]) [address] [facility] [place] [address] Hb A Percent 98.1 % High 96.2-98.0 [facility] Comment on above: Performed By: #### C BC, THYR, 3051-0, 2276-4, 2283-8, 2132-01 #### [facility] ([id number]) [address], [address] [place] [address] Hb A2 Percent 1.9 % Low 2.0-3.1 [facility] Comment on above: Performed By: #### C BC, THYR, 3051-0, 2276-4, 4-8, 2132-01 #### [facility] ([id number]) [address], [address] [place] [address] T3, freeon 08-15-2023 Free T3 [Mass/Vol] 3.96 pg/mL High 2.50 - 3. 90 pg/mL [facility] THYROID PROFILEon 08-15-2023 Free T4 [Mass/Vol] 0.54 ng/dL Low 0.61-1.60 [facility] Comment on above: Performed By: #### C BC, THYR, 3051-0, 2276-4, 4-8, 2132-01 #### [facility] ([id number]) [address], [address] [place] [address] TSH 0.67 uIU/mL Normal 0.49-4.67 [facility] Comment on above: Performed By: #### C BC, THYR, 3051-0, 6-4, 2283-8, 2132-01 #### [facility] ([id number]) [address] [facility], [address] [place] [address] Thyroid profile includes TSH FT4on 08-15-2023 Free T4 [Mass/Vol] 0.54 ng/dL Low 0.61 - 1. 60 ng/dL [facility] Interpretation and review of laboratory results Abnormal [facility] TSH Qn 0.67 m[IU]/L [facility] VITAMIN B12on 08-15-2023 Cobalamin (Vitamin B12) [Mass/Vol] 183 pg/mL Normal 180-914 [facility] Comment on above: Performed By: #### C BC, THYR, 3051-0, 6-4, 8, 2132-01 #### [facility] ([id number]) [address] [facility], [address] [place] [address] Vitamin B12on 08-15-2023 Cobalamin (Vitamin B12) [Mass/Vol] 183 pg/mL 180 - 914 pg/mL [facility] BASIC METABOLIC PANLon 06-12 Anion gap [Moles/Vol] 9 mmol/L Normal 5-15 [facility] Comment on above: Performed By: #### C NITIN, BMP #### [facility] ([id number]) [address] [place] [address] Calcium [Mass/Vol] 9.1 mg/dL Normal 8.5-10.5 [facility] Comment on above: Performed By: #### C NITIN, BMP #### [facility] ([id number]) [address] [place] [address] Chloride [Moles/Vol] 105 mmol/L Normal 98-109 [facility] Comment on above: Performed By: #### C NITIN, BMP #### [facility] ([id number]) [address] [place] [address] CO2 [Moles/Vol] 22 mmol/L Normal 22-32 [facility] Comment on above: Performed By: #### C BCA, BMP #### [facility] ([id number]) [address] [place] [address] Creatinine [Mass/Vol] 0.48 mg/dL Normal 0.40-1.00 [facility] Comment on above: Result Comment: METH OD TRACEABLE TO IDMS STANDARD Performed By: #### C NITIN, BMP #### [facility] ([id number]) [address] [place] [address] eGFR (CKD-EPI) NON-RACE DEPENDENT >90 Normal >59 [facility] Comment on above: Result Comment: Reported eGFR is based on the CKD-EPI 2020 equation that does not use a race coefficient. Performed By: #### C BCA, BMP #### [facility] ([id number]) [address] [place] [address] Glucose [Mass/Vol] 94 mg/dL Normal 65-99 [facility] Comment on above: Performed By: #### C BCA, BMP #### [facility] ([id number]) [address] [place] [address] Potassium [Moles/Vol] 3.7 mmol/L Normal 3.5-5.0 [facility] Comment on above: Performed By: #### C BCA, BMP #### [facility] ([id number]) [address] [place] [address] Sodium [Moles/Vol] 136 mmol/L Normal 134-146 [facility] Comment on above: Performed By: #### C BCA, BMP #### [facility] ([id number]) [address] [place] [address] Urea nitrogen [Mass/Vol] 11 mg/dL Normal 5-23 [facility] Comment on above: Performed By: #### C NITIN, BMP #### [facility] ([id number]) [address] [place] [address] CBC AND AUTO DIFFon 06-12-19 24 ABSOLUTE BASOPHIL 0.0 X10E9/L Normal 0.0-0.2 [facility] Comment on above: Performed By: #### C NITIN, BMP #### [facility] ([id number]) [address] [place] [address] ABSOLUTE NEUTROPHIL 4.5 X10E9/L Normal 1.5-6.6 [facility] Comment on above: Performed By: #### C NITIN, BMP #### [facility] ([id number]) [address] [place] [address] Basophils/100 WBC (Bld) 0.4 % Normal [facility] Comment on above: Performed By: #### C NITIN, BMP #### [facility] ([id number]) [address] [place] [address] Eosinophils (Bld) [#/Vol] 0.1 10*3/uL Normal 0.0-0.4 [facility] Comment on above: Performed By: #### C NITIN, BMP #### [facility] ([id number]) [address] [place] [address] Eosinophils/100 WBC (Bld) 1.0 % Normal [facility] Comment on above: Performed By: #### C NITIN, BMP #### [facility] ([id number]) [address] [place] [address] Erythrocyte distribution width (RBC) [Ratio] 19.3 % High 11.5-15.0 [facility] Comment on above: Performed By: #### C NITIN, BMP #### [facility] ([id number]) [address] [place] [address] Hematocrit (Bld) [Volume fraction] 26.6 % Low 35-47 [facility] Comment on above: Performed By: #### C NITIN, BMP #### [facility] ([id number]) [address] [place] [address] Hemoglobin (Bld) [Mass/Vol] 8.0 g/dL Low 11.7-15.5 [facility] Comment on above: Performed By: #### C NITIN, BMP #### [facility] ([id number]) [address] [place] [address] Lymphocytes (Bld) [#/Vol] 2.0 10*3/uL Normal 1.0-3.5 [facility] Comment on above: Performed By: #### C NITIN, BMP #### [facility] ([id number]) [address] [place] [address] Lymphocytes/100 WBC (Bld) 27.5 % Normal [facility] Comment on above: Performed By: #### C NITIN, BMP #### [facility] ([id number]) [address] [place] [address] MCH (RBC) [Entitic mass] 19.1 pg Low 27-34 [facility] Comment on above: Performed By: #### C NITIN, BMP #### [facility] ([id number]) [address] [place] [address] MCHC (RBC) [Mass/Vol] 30.2 g/dL Low 32-36 [facility] Comment on above: Performed By: #### C NITIN, BMP #### [facility] ([id number]) [address] [place] [address] MCV (RBC) [Entitic vol] 63 fL Low 80-100 [facility] Comment on above: Performed By: #### C BCA, BMP #### [facility] ([id number]) [address] [place] [address] Monocytes (Bld) [#/Vol] 0.6 10*3/uL Normal 0-0.9 [facility] Comment on above: Performed By: #### C BCA, BMP #### [facility] ([id number]) [address] [place] [address]238 Monocytes/100 WBC (Bld) 8.6 % Normal [facility] Comment on above: Performed By: #### C NITIN, BMP #### [facility] ([id number]) [address] [place] [address] Neutrophils/100 WBC (Bld) 62.5 % Normal [facility] Comment on above: Performed By: #### C NITIN, BMP #### [facility] ([id number]) [address] [place] [address] Platelet mean volume (Bld) [Entitic vol] 7.6 fL Normal 7-12 [facility] Comment on above: Performed By: #### C NITIN, BMP #### [facility] ([id number]) [address] [place] [address] Platelets (Bld) [#/Vol] 334 10*3/uL Normal 150-450 [facility] Comment on above: Performed By: #### C BCA, BMP #### [facility] ([id number]) [address] [place] [address]12 RBC COUNT 4.20 X10E12/L Normal 3.80-5.20 [facility] Comment on above: Performed By: #### C BCA, BMP #### [facility] ([id number]) [address] [place] [address] WBC (Bld) [#/Vol] 7.3 10*3/uL Normal 4.0-11.0 [facility] Comment on above: Performed By: #### C NITIN, [facility] #### [facility] ([id number]) [address] [facility] [place] [address] HIV 1&2 AB/AG Screen (P24 AG )on 05-17-2023 HIV 1&2 AB/AG Non-Reactive [facility] Hepatitis B surface antigeno n 05-17-2023 Hepatitis B Surface Antigen Non-Reactive [facility] Hepatitis C(HCV) Ab w/ Refle x to PCRon 05-17-2023 HCV Ab Ql (S) Non-Reactive [facility] No Panel InformationOrdered By: Riya Veloz on 05-17-2023 [facility] Rubella IGG immune statuson 05-17-2023 Rubella immune IgG [facility] Syphilis Total(Unknown Syphi lis Status)Ordered By: Riya Veloz on 05-17-2023 Syphilis Non-Reactive [facility] US OB < 14 WEEKS EARLYon US [...] significant surrounding subchorionic hemorrhage. Yolk sac present. [place] rump length measures 1.85 cm, which corresponds [...] Sign Value Performing Clinician Faci lity 08-15-2023 09:14-0400 Body height 170.2 cm Glory Rivera MD Work Phone: [facility] 08-15-2023 09:14-0400 Body mass index (BMI) [Ratio] 21.77 kg/m2 Glory Rivera MD Work Phone: [facility] 08-15-2023 09:14-0400 Body weight 63.05 kg Glory Rivera MD Work Phone: [facility] 08-15-2023 09:14-0400 Diastolic blood pressure 62 mm[Hg] Glory Rivera MD Work Phone: [facility] 08-15-2023 09:14-0400 Heart rate 68 /min Glory Rivera MD Work Phone: [facility] 08-15-2023 09:14-0400 Systolic blood pressure 102 mm[Hg] Glory Rivera MD Work Phone: [facility] 07-04-2023 08:55-0500 Body mass index (BMI) [Ratio] 20.55 kg/m2 Moe Langley MD Work Phone: [facility] 07-04-2023 08:55-0500 Body weight 59.51 kg Moe Langley MD Work Phone: [facility] 07-04-2023 08:55-0500 Diastolic blood pressure 55 mm[Hg] Moe Langley MD Work Phone: [facility] 07-04-2023 08:55-0500 Heart rate 67 /min Moe Langley MD Work Phone: [facility] 07-04-2023 08:55-0500 Systolic blood pressure 100 mm[Hg] Moe Langley MD Work Phone: [facility] Encounters Encounter Date Encounter Type Care Provider Facility Start: 12-20-2023 End: 12-20-2023 ambulatory MARIS DYER Not Available Start: 11-14-2023 End: 11-14-2023 ambulatory MOE WEINERHID [facility] Start: 11-13-2023 End: 11-13-2023 ambulatory MARIS L FLORO Not Available Start: 10-23-2023 End: 10-23-2023 ambulatory MARIS L FLORO Not Available Start: 09-04-2023 End: 09-04-2023 ambulatory MARIS L FLORO Not Available Start: 08-21-2023 Telephone encounter Gladys Cortés RN [facility] Start: 08-18-2023 Telephone encounter Glory Rivera MD Work Phone: [facility] Comment on above: Results Start: 08-17-2023 Orders Only Glory stewart MD Work Phone: [facility] [place] Comment on above: Iron deficiency anem ia during (Primary Dx); Thyroid disease Start: 08-15-2023 End: 08-15-2023 [facility] Start: 08-15-2023 End: 08-15-2023 Office outpatient visit 25 minutes Glory Rivera MD Work Phone: [facility] [place] Comment on above: 20 weeks gestation o f (Primary Dx); Low TSH level Start: 08-07-2023 End: 08-07-2023 ambulatory MARIS L FLORO Not Available Start: 07-10-2023 End: 07-10-2023 ambulatory MARIS L FLORO Not Available Start: 07-04-2023 End: 07-04-2023 Orders Only Grace Davis RN [facility] Comment on above: Anemia affecting pre gnancy in second trimester (Primary Dx) Start: 07-04-2023 End: 07-04-2023 Office consultation new/estab patient 60 min Moe Langley MD Work Phone: [facility] Comment on above: Anemia affecting pre gnancy in second trimester (Primary Dx); Other iron deficiency anemia Start: 06-19-2023 Chart abstracting Moe mccormack MD Work Phone: [facility] Start: 06-13-2023 End: 06-13-2023 ambulatory MARIS DYER Not Available Start: 06-12-2023 End: 06-12-2023 Emergency department patient visit [facility] Start: 05-17-2023 End: 05-17-2023 ambulatory MARIS Markie DYER Not Available Start: 01-10-2019 Patient encounter procedure DOCTOR MISC Facility:[facility] Start: 12-27-2018 Patient encounter procedure DOCTOR MIS Facility:[facility] Procedures Date Procedure Procedure Detail Performing [...] malign ant neoplasm of cervix Pap Smear [facility] Start: 08-14-2024 Adult BMI Screening Adult BMI Screen ing [facility] Start: 08-14-2024 Tobacco Screening Tobacco Screening [facility] Start: 07-04-2024 Adult BMI Screening Adult BMI Screen ing [facility] Start: 07-04-2024 Tobacco Screening Tobacco Screening [facility] Start: 07-04-2024 End: 07-04-2024 US MFM with or without consult US MFM with or without consult Imaging Routine Anemia affecting in second trimester Expected: 07/04/2024 (Approximate), Expires: 07/04/2024 [employer] Work Phone: Comment on above: Expected: 07/04/2024 (Approximate), Expires: 07/04/2024 Start: 06-12-2024 Adult BMI Screening Adult BMI Screen ing [facility] Start: 06-12-2024 DTaP,Tdap and Td Vac cines (2 - Td or Tdap) DTaP,Tdap and Td Vaccines (2 - Td or Tdap) [facility] Start: 01-14-2024 Influenza vaccination Influenza Vacc ine [facility] Start: 10-30-2023 End: 10-30-2023 Telemedicine consultation with patient 10/30/2023 11:30 AM EDT Telemedicine [facility] [address] [place] [id number] Osbaldo Alamo MD [address], [facility] [place] [address] [facility] Start: 08-15-2023 End: 08-15-2023 Patient encounter procedure [facility] [place] Start: 08-11-2023 Tobacco Screening Tobacco Screening [facility] Start: 07-04-2023 End: 07-04-2023 [facility] [facility] Start: 01-13-2023 COVID-19 Vaccine ( season) COVID-19 Vaccine ( season) [facility] Start: 01-13-2023 Influenza vaccination Influenza Vacc ine [facility] Start: 2004 Depression Screening Depression Scre [facility] End: 07-04-2024 Ferritin [Mass/volume] in Serum or Plasma Ferritin Lab Routine Anemia affecting in second trimester 1 Occurrences starting 07/04/2023 until 07/04/2024 [employer] Work Phone: Comment on above: 1 Occurrences starti ng 07/04/2023 until 07/04/2024 End: 07-04-2024 Hemoglobin Electrophoresis Hemoglobin Electrophoresis Lab Routine Anemia affecting in second trimester 1 Occurrences starting 07/04/2023 until 07/04/[facility]24 [facility] on [facility]: 1 Occurrences starti ng 07/04/2023 until 07/04/2024 End: 08-14-2024 Hemoglobin Electrophoresis Hemoglobin Electrophoresis Lab Routine 20 weeks gestation of 1 Occurrences starting 08/15/2023 until 08/14/2024 [employer] Work Phone: Comment on above: 1 Occurrences starti ng 08/15/2023 until 08/14/2024 Hemoglobin Electrophoresis Hemoglobin Electrophoresis Lab Routine 20 weeks gestation of 08/15/2023 10:11 AM EDT [facility] End: 10-17-2023 Thyroid profile includes TSH FT4 Thyroid profile includes TSH FT4 Lab Routine Thyroid disease 1 Occurrences starting 08/17/2023 until 10/17/2023 [employer] Work Phone: Comment on above: 1 Occurrences starti ng 08/17/2023 until 10/17/2023 End: 10-17-2023 Triiodothyronine (T3) Free [Mass/volume] in Serum or Plasma T3, free Lab Routine Thyroid disease 1 Occurrences starting 08/17/2023 until 10/17/2023 [facility] Comment on above: 1 Occurrences starti ng 08/17/2023 until 10/17/2023 End: 08-14-2024 Unlisted Lab Test Unlisted Lab Test Lab Routine 20 weeks gestation of 1 Occurrences starting 08/15/2023 until 08/14/2024 [facility] Comment on above: 1 Occurrences starti ng 08/15/2023 until 08/14/2024 Immunizations Immunization Date Immunization Notes Care Provider [facility] 02-24-2021 influenza virus vaccine, unspecified formulation Moe Langley MD [facility] 08-07-2020 COVID-19, mRNA, LNP- S, PF, 100mcg/0.5mL Dose Moe Langley MD [facility] 07-10-2020 COVID-19, mRNA, LNP- S, PF, 100mcg/0.5mL Dose Moe Langley MD Work Phone: [facility] Payers Date Payer Category Payer Medicaid [employer] [employer] [place] [employer] [id number] 2023-[facility] [phone] [place] [id number] 2023 Medicaid [id number] 2022 Medicaid [id number] 1992 Unknown [id number] [id number]3 1992 Unknown [id number] 2.16.840.1.198834.3.579.2.593 1992 Unknown [id number] 2.16.840.1.892379.3.579.2.1286 1992 Unknown [id number] 2.16.840.1.676013.3.579.2.1286 1992 Unknown [id number] 2.16.840.1.579688.3.579.2.1286 1992 Unknown [id number] 2.16840.1.301635.3.579.2.1286 1992 Unknown [id number] 2.16.840.1.202595.3.579.2.1286 1992 Unknown [id number] 2.16.840.1.940988.3.579.2.9 1992 Unknown [id number] 2.16.840.1.647442.3.579.2.1259 1992 Unknown [id number] 2.16840.1.162661.3.579.2.9 1992 Unknown [id number] 2.16.840.1.944601.3.579.2.1259 1992 Unknown [id number] 2.16.840.1.502856.3.579.2.9 1992 Unknown [id number] 2.16.840.1.126729.3.579.2.1259 1992 Unknown [id number] 2.16.840.1.560952.3.579.2.9 1992 Unknown [id number] 2.16.840.1.092406.3.579.2.1259 1992 Unknown [id number] 2.16.840.1.988167.3.579.2.1259 1992 Unknown [id number] 2.16.840.1.722445.3.579.2.1259 1959 Unknown Social History Date Type Detail Facility [facility] Start: 12-21-2021 Tobacco use and exposure Smokeless tobacco non-user [facility] Start: 06-19-2023 Alcohol intake Current drinke r of alcohol (finding) [facility] Start: 06-25-2020 End: 06-19-2023 Alcohol intake [facility] Start: 06-25-2020 End: 08-10-2022 Tobacco use panel [facility] Childcare Unknown [facility] Start: 04-05-2023 [facility] Start: 1990 Sex Assigned At Not on file [facility] Start: 07-04-2023 End: 08-15-2023 Alcohol intake Ex-drinker (finding) [facility] Clinical Notes 07-04-2023 to 08-21-2023 Telephone Encounter [...] office to discuss. documented in this encounter [facility] 08-21-2023 Telephone encount er Note Attempted to contact patient in regards to thyroid function results per Dr. Rivera. No answer, left VM to call back to office to discuss. [facility] 08-18-2023 Miscellaneous Notes Formattin g of this note might be different from the original. Attempted to call patient to discuss her results she did not answer GLORY RIVERA MD documented in this encounter [facility] 08-18-2023 Telephone encount er Note Attempted to call patient to discuss her results she did not answer GLORY RIVERA MD [facility] 08-17-2023 Miscellaneous Notes Formattin g of this note might be different from the original. Left voicemail for pt to call our office to schedule an appointment with Micaela solorio needed documented in this encounter [facility] 08-17-2023 Telephone encount er Note Left voicemail for pt to call our office to schedule an appointment with Micaela Burnette labs needed [facility] 08-15-2023 History of Presen t [...] Allergies CURRENT MEDICATIONS: Current Outpatient Medications: vit 29-[id number]-[id number]-dha 18-1-350 mg capsule, Take 1 tablet by [...] and the other consultants, we search on [employer] and all the available care everywhere epic I did review all the imaging studies of the patient available on EMR, ordered by the primary care physician and the other data consultant HABITS: Patient activity no restrictions, diet [...] patient is in complete care of her bench hand. Patient does have ultrasound office visit scheduled with us. Thank you for allowing me to participate in Trish Cardona . If there any questions please do not hesitate to contact us. Sincerely, Glory Rivera MD, FACOG (she/hers) Maternal- Medicine [place] [id number] [facility] [address] [place] [address] Headache/epigastric pain/blurry vision/swelling? No Cramping/contractions? No Abnormal vaginal discharge? No Spotting or vaginal bleeding? No Loss of fluid like your water may have broken? No Recent ER visits or hospitalizations? No Any concerns that you would like me to mention to the provider today? Was diagnosed with a UTI by her OB in [place]. They prescribed her an antibiotic, but she lost the antibiotic and is inquiring if we can group underwriter her a new script. Blood drawn for carrier testing by PPE lab. Patient tolerated well. documented in this encounter [facility] 07-04-2023 History of Presen t illness Narrative Headache/epigastric pain/blurry vision/swelling? No Cramping/contractions? No Abnormal vaginal discharge? No Spotting/vaginal bleeding? No Loss of fluid like your water may have broken? No Cats in the home? No Do you change the litter box? N/A Flu vaccine? No Genetic testing done this here or other office? No Have you been seen here at [facility] in a previous ? No Recent ER visits or hospitalizations? 06/12/23 sent by primary OB to [place] ED for low hemoglobin Bring blood sugar log or meter with you today? (Please bring them with you for every visit at [facility]) N/A Traveled outside the country in the [...] Allergies CURRENT MEDICATIONS: Current Outpatient Medications: vit 48-mxlk-[id number]-dha 18-1-350 mg capsule, Take 1 tablet by [...] and the other consultants, we search on [employer] and all the available care everywhere epic I did review all the imaging studies of the patient available on EMR, ordered by the primary care physician and the other data consultant HABITS: Patient activity no restrictions, diet [...] 6. Targeted anatomy at 20 weeks at [facility] office 7. Patient is low risk and vaginal delivery at term at her local hospital is anticipated with C section reserve for routine obstetrical indications. DISPOSITION: At this point the patient is in complete care of her bench hand. Patient does have ultrasound office visit scheduled with us. Thank you for allowing me to participate in Trish Katelynn Cardona . If there any questions please do not hesitate to contact us. Sincerely, MOE LANGLEY MD documented in this encounter [facility] Evaluation note Diagnosis Anemia affecting in second trimester- Primary [facility] Diagnosis Anemia affecting in second trimester- Primary Other iron deficiency anemia [facility] Diagnosis 20 weeks gestation of - Primary Low TSH level [facility] Diagnosis Iron deficiency anemia during - Primary Thyroid disease Unspecified disorder of thyroid documented in this [facility] filedocumented in this encounter [facility] System[facility]ructionsNot on filedocumented in this encounter [facility] filedocumented in this encounter [facility] on filedocumented in this encounter [facility] SystemInstructionsNot on filedocumented in this encounter [facility] SystemInstructionsNot on filedocumented in this encounter [facility] (narrative)* Consultation (Routine) - Pending Review Specialty Diagnoses / Procedures Referred By Floyd platt Referred To Contact Hematology Diagnoses Iron deficiency anemia during Glory Rivera MD [address] [place] [address] [facility] [address] [place] [address] Referral ID Status Reason Start Date Expiration Date V isits Requested Visits Authorized [id number] Pending Review 08/17/2023 08/16/2024 1 1 [facility] Summary Purpose Family History No Family History [...] with or without consult Moe Langley MD [address] [place] [address] [facility] [address] [place] [address] Referral ID Status Reason Start Date Expiration Date V isits Requested Visits Authorized [id number] Pending Review 07/04/2023 07/03/2024 1 1 Additional Source Comments INFORMATION SOURCE (unrecogn ized section and content) DATE CREATED AUTHOR 12/26/2018 [facility] DATE CREATED AUTHOR AUTHOR'S ORGANIZ ATION 06/16/2023 [facility] DATE CREATED AUTHOR AUTHOR'S ORGANIZ ATION 08/16/2023 [facility] DATE CREATED AUTHOR AUTHOR'S ORGANIZ ATION 11/15/2023 [facility] DATE CREATED AUTHOR AUTHOR'S ORGANIZ ATION 12/25/2023 [facility] EPIC Care Teams (unrecognized sec tion and content) [employer] Relationship Specialty Start Date End Date Services, [place] [address] [place], [place] PCP - General Family Medicine 06/12/23 [employer] Relationship Specialty Start Date End Date Services, [facility] [address] [place], [place] PCP - General Family Medicine 06/12/23 [employer]er Relationship Specialty Start Date End Date Services, [facility] [address] [place], [place] PCP - General Family Medicine 06/12/23 [employer]er Relationship Specialty Start Date End Date Services, [facility] [address] [place], [place] PCP General Family Medicine 06/12/23 [employer]rian Trainer Relationship Specialty Start Date End Date Services, [facility] [address] [place] PCP General Family Medicine 06/12/23 [employer]questrian Trainer Relationship Specialty Start Date End Date Services, [facility] [address] [place], [place] PCP - General Family Medicine 06/12/23 [...] BE BASED ON THE PRIMARY CLINICAL RECORDS. [employer] [facility]. provides no warranty or guarantee of the accuracy or completeness of information in this document.
--- NOTE | 2023-12-27 12:47 | PC.NURSE ---
Trish, and 7 day old Jas arrive for follow up visit. Trish walking slowly as right side of incision very tender and sore. Dad attends appointment with family. Trish with VSS and assessment unremarkable. Incision with steri strips intact , right 1/3 of area with increased old bloody drainage, minimal redness noted but pt winces and vocalizes discomfort. Pt to be seen later today by [facility] for post op visit. Baby Jas with VSS and assessment WNL. Baby eating every 2-3 hours, some breast and some pumped milk via bottle. Dad states just trying to help her because she is so sore, hurts when he feeds . Baby to breast, shallow latch as mom does not bring baby deeper onto breast. Demo of deeper latch and exclaims with surprise it doesn't hurt . Parents notice change in sucking and swallowing pattern of baby. Mom able to return demo deeper latch for increased comfort, better milk removal and healing nipples. Baby to Dr Kelsey office for 1st NB visit with PCP. Trish will then be seen by her own PCP. Prefers to return 01/03/2024 for support.
[2023-12-27 12:49] VITALS: BP 108/73; PULSE 83; TEMP 36.8; O2SAT 98
== END 2023-12-27 11:45 | disposition home or self-care (01) ==
LOC: FBCO 08:12
PROVIDERS: Visit Provider Midwife
DX: Z39.2 Encounter for routine postpartum follow-up (principal)

== ENCOUNTER 2024-01-03 08:08 | Outpatient (OUT) | payer OTHER, SELFPAY ==
--- OUTSIDE RECORDS SUMMARY | 2024-01-03 08:27 | XMS_ITS | CCD ---
Author Organization [facility] Care Team Providers Care 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 Name Role Phone MISC, DOCTOR Admitting Unavailable MISC, DOCTOR Attending Unavailable MISC, DOCTOR Admitting Unavailable MISC, DOCTOR Attending Unavailable SERVICES, [facility] Care Unava ilable Services, [facility] Primary Care Provider GLORY RIVERA Attending Unavailable SERVICES, [facility] Unava ilable SHIVAM, MOE Referring Unavailable DOCHEVA, NIKOLINA P Referring Unavailable SERVICES, [facility] Unava ilable SHIVAM, MOE Attending Unavailable FLORO, MARIS Referring Unavailable SERVICES, [facility] Care Unava ilable FLORO, MARIS Referring Unavailable SERVICES, [facility] Care Unava ilable SHIVAM, MOE Attending Unavailable FLORO, MARIS Referring Unavailable SERVICES, [facility] Care Unava ilable FLORO, MARIS L Referring Unavailable [...] Class(es) Dates Sig (Normalized) Sig (Original) vit 77-lpda-bngxy-dha 18-1-350 mg capsule (8 sources) Start: 08-10-2022 take 1 tablet by mouth in the morning vit 97-dkfi-teyzy-dha 18-1-350 mg capsule Indications: Patient desires Take [...] 18.9 % High 11.5 - 15.0 % [facility] Hematocrit (Bld) [Volume fraction] 23.1 % Low 35 - 47 % [facility] Hemoglobin (Bld) [Mass/Vol] 7.2 g/dL Low 11.7 - 15.5 g/dL [facility] Interpretation and review of laboratory results Abnormal [facility] MCH (RBC) [Entitic mass] 19.8 pg Low 27 - 34 pg [facility] MCHC (RBC) [Mass/Vol] 31.1 g/dL Low 32 - 36 g/dL P [facility] MCV (RBC) [Entitic vol] 64 fL Low 80 - 100 fL [facility] Platelet mean volume (Bld) [Entitic vol] 7.4 fL 7 - 12 fL [facility] Platelets (Bld) [#/Vol] 342 10*3/uL [facility] RBC (Bld) [#/Vol] 3.64 10*6/uL Low [facility] WBC corrected for nucl RBC Auto (Bld) [#/Vol] 7.2 [facility] COMPLETE BLOOD COUNTon 08-14 Erythrocyte distribution width (RBC) [Ratio] 18.9 % High 11.5-15.0 [facility] Comment on above: Performed By: #### C BC, THYR, 3051-0, 2276-4, 4-8, 2132-01 #### [facility] ([id number]) [address], [address] [place] [address] Hematocrit (Bld) [Volume fraction] 23.1 % Low 35-47 [facility] Comment on above: Performed By: #### C BC, THYR, 3051-0, 2276-4, 2284-8, 9 #### [facility] ([id number]) [address], [address] [place] [address] Hemoglobin (Bld) [Mass/Vol] 7.2 g/dL Low 11.7-15.5 [facility] Comment on above: Performed By: #### C BC, THYR, 3051-0, 6-4, 8, 2132-01 #### [facility] ([id number]) [address], [address] [place] [address] MCH (RBC) [Entitic mass] 19.8 pg Low 27-34 [facility] Comment on above: Performed By: #### C BC, THYR, 3051-0, 6-4, 8, 2132-01 #### [facility] ([id number]) [address], [address] [place] [address] MCHC (RBC) [Mass/Vol] 31.1 g/dL Low 32-36 [facility] Comment on above: Performed By: #### C BC, THYR, 3051-0, 2275-4, 2283-12, 2132-01 #### [facility] ([id number]) [address], [address] [place] [address] MCV (RBC) [Entitic vol] 64 fL Low 80-100 [facility] Comment on above: Performed By: #### C BC, THYR, 3051-0, 2275-4, 2283-12, 2132-01 #### [facility] ([id number]) [address], [address] [place] [address] Platelet mean volume (Bld) [Entitic vol] 7.4 fL Normal 7-12 [facility] Comment on above: Performed By: #### C BC, THYR, 3051-0, 2275-4, 2283-12, 2132-01 #### [facility] ([id number]) [address], [address] [place] [address] Platelets (Bld) [#/Vol] 342 10*3/uL Normal 150-450 [facility] Comment on above: Performed By: #### C BC, THYR, 3051-0, 2276-4, 2283-8, 2132-01 #### [facility] ([id number]) [address], [address] [place] [address] RBC COUNT 3.64 X10E12/L Low 3.80-5.20 [facility] Comment on above: Performed By: #### C BC, THYR, 3051-0, 2276-4, 2283-8, 2132-01 #### [facility] ([id number]) [address], [address] [place] [address] WBC (Bld) [#/Vol] 7.2 10*3/uL Normal 4.0-11.0 [facility] Comment on above: Performed By: #### C BC, THYR, 3051-0, 2275-4, 2283-12, 2132-01 #### [facility] ([id number]) [address], [address] [place] [address] Cobalamin (Vitamin B12) [Mas s/Vol]on 08-15-2023 [facility] FERRITINon 08-15-2023 Ferritin [Mass/Vol] 3 ng/mL Low 11-307 [facility] Comment on above: Performed By: #### C BC, THYR, 3051-0, 2275-4, 2283-12, 2132-01 #### [facility] ([id number]) [address], [address] [place] [address] FREE T3on 08-15-2023 Free T3 [Mass/Vol] 3.96 pg/mL High 2.50-3.90 [facility] Comment on above: Performed By: #### C BC, THYR, 3051-0, 2276-4, 2283-8, 2132-01 #### [facility] ([id number]) [address], [address] [place] [address] Ferritinon 08-15-2023 Ferritin [Mass/Vol] 3 ng/mL Low 11 - 307 ng/mL [facility] Ferritin [Mass/Vol]on 2023 Interpretation and review of laboratory results Abnormal [facility] Folateon 08-15-2023 Folate [Mass/Vol] ng/mL 5.8 - PINF ng/mL [facility] Comment on above: NEW REFERENCE RANGE Folate [Mass/Vol]on 08-15-19 24 [facility] FOLIC ACID >25.0 Normal >5.8 [facility] Comment on above: Result Comment: NEW REFERENCE RANGE Performed By: #### C JOANA, THYR, 3051-0, 6-4, 2283-12, 2132-01 #### [facility] ([id number]) [facility], [address] [address] Free T3 [Mass/Vol]on Interpretation and review of laboratory results Abnormal [facility] HGB ELECTRO INTERPon HGB ELECTRO INTERP See below Normal [facility] Comment on above: Result Comment: NOTE Hemoglobins were analyzed by capillary electrophoresis. There is a normal hemoglobin capillary electrophoresis pattern. Alpha thalassemia trait is not excluded by the testing performed. Suggest correlation with clinical information, red blood cell indices and serum ferritin test results, if applicable. Performed By: #### C BC, THYR, 3051-0, 2275-4, 8, 2132-01 #### [facility] ([id number]) [address] [facility] [address] [place] [address] STAFF REVIEW See below Normal [facility] Comment on above: Result Comment: NOTE Reviewed by Angi Horvath DO Test Performed By: [facility] [employer] (Inspect Manager) [address] [place] [address] Superintendent Operating: Modesto Martin III, M.D. CLIA #[id number] Performed By: #### Anderson BC, THYR, 3051-0, 6-4, 8, 2132-01 #### [facility] ([id number]) [address], [address] [place] [address] HGB ELECTROPHORESISon 2023 Abnormal Hb See below Normal No abnormal hemoglobin identified. [facility] Comment on above: Result Comment: NOTE No abnormal hemoglobin identified. Test Performed By: [place] [address] Superintendent Operating: Lyle Abel III #[id number] Performed By: #### C BC, THYR, 3051-0, 2276-4, 2283-8, 2132-01 #### [facility] ([id number]) [address] [place] [address] Hb A Percent 98.1 % High 96.2-98.0 [facility] Comment on above: Performed By: #### C BC, THYR, 3051-0, 2276-4, 8, 2132-01 #### [facility] ([id number]) [address] [place] [address] Hb A2 Percent 1.9 % Low 2.0-3.1 [facility] Comment on above: Performed By: #### C BC, THYR, 3051-0, 2276-4, 2283-8, 2132-01 #### [facility] ([id number]) [address], [address] [place] [address] T3, freeon 08-15-2023 Free T3 [Mass/Vol] 3.96 pg/mL High 2.50 - 3. 90 pg/mL [facility] THYROID PROFILEon 08-15-2023 Free T4 [Mass/Vol] 0.54 ng/dL Low 0.61-1.60 [facility] Comment on above: Performed By: #### C BC, THYR, 3051-0, 2276-4, 2283-8, 2132-01 #### [facility] ([id number]) [address], [address] [place] [address] TSH 0.67 uIU/mL Normal 0.49-4.67 [facility] Comment on above: Performed By: #### C BC, THYR, 3051-0, 6-4, 2283-8, 2132-01 #### [facility] ([id number]) [address] [place] [address] Thyroid profile includes TSH FT4on 08-15-2023 Free T4 [Mass/Vol] 0.54 ng/dL Low 0.61 - 1. 60 ng/dL [facility] Interpretation and review of laboratory results Abnormal [facility] TSH Qn 0.67 m[IU]/L [facility] VITAMIN B12on 08-15-2023 Cobalamin (Vitamin B12) [Mass/Vol] 183 pg/mL Normal 180-914 [facility] Comment on above: Performed By: #### C BC, THYR, 3051-0, 6-4, 2283-8, 2132-01 #### [facility] ([id number]) [address] [place] [address] Vitamin B12on 08-15-2023 Cobalamin (Vitamin B12) [Mass/Vol] 183 pg/mL 180 - 914 pg/mL [facility] BASIC METABOLIC PANLon 06-12 Anion gap [Moles/Vol] 9 mmol/L Normal 5-15 [facility] Comment on above: Performed By: #### C NITIN, BMP #### [facility] ([id number]) [address] [place] [address] Calcium [Mass/Vol] 9.1 mg/dL Normal 8.5-10.5 [facility] Comment on above: Performed By: #### C BCA, BMP #### [facility] ([id number]) [address] [place] [address] Chloride [Moles/Vol] 105 mmol/L Normal 98-109 [place] Comment on above: Performed By: #### C BCA, BMP #### [facility] ([id number]) [address] [place] [address] CO2 [Moles/Vol] 22 mmol/L Normal 22-32 [facility] Comment on above: Performed By: #### C BCA, BMP #### [facility] ([id number]) [address] [place] [address] Creatinine [Mass/Vol] 0.48 mg/dL Normal 0.40-1.00 [facility] Comment on above: Result Comment: METH OD TRACEABLE TO IDMS STANDARD Performed By: #### C NITIN, BMP #### [facility] ([id number]) [address] [place] [address] eGFR (CKD-EPI) NON-RACE DEPENDENT >90 Normal >59 [facility] Comment on above: Result Comment: Reported eGFR is based on the CKD-EPI 2020 equation that does not use a race coefficient. Performed By: #### C BCA, BMP #### [facility] ([id number]) [address] [place] [address] Glucose [Mass/Vol] 94 mg/dL Normal 65-99 [facility] Comment on above: Performed By: #### C BCA, BMP #### [facility] ([id number]) [address] [place] [address] Potassium [Moles/Vol] 3.7 mmol/L Normal 3.5-5.0 [facility] Comment on above: Performed By: #### C BCA, BMP #### [facility] ([id number]) [address] [place] [address] Sodium [Moles/Vol] 136 mmol/L Normal 134-146 [facility] Comment on above: Performed By: #### C BCA, BMP #### [facility] ([id number]) [address] [place] [address] Urea nitrogen [Mass/Vol] 11 mg/dL Normal 5-23 [facility] Comment on above: Performed By: #### C NITIN, BMP #### [facility] ([id number]) [address] [place] [address] CBC AND AUTO DIFFon 06-12-19 ABSOLUTE BASOPHIL 0.0 X10E9/L Normal 0.0-0.2 [facility] Comment on above: Performed By: #### C NITIN, BMP #### [facility] ([id number]) [address] [place] [address] ABSOLUTE NEUTROPHIL 4.5 X10E9/L Normal 1.5-6.6 [place] Comment on above: Performed By: #### C NITIN, BMP #### [facility] ([id number]) [address] [place] [address] Basophils/100 WBC (Bld) 0.4 % Normal [facility] Comment on above: Performed By: #### C NITIN, BMP #### [facility] ([id number]) [address] [place] [address] Eosinophils (Bld) [#/Vol] 0.1 10*3/uL Normal 0.0-0.4 [facility] Comment on above: Performed By: #### C NITIN, BMP #### [facility] ([id number]) [address] [place] [address] Eosinophils/100 WBC (Bld) 1.0 % Normal [facility] Comment on above: Performed By: #### C NITIN, BMP #### [facility] ([id number]) [address] [place] [address] Erythrocyte distribution width (RBC) [Ratio] 19.3 % High 11.5-15.0 [facility] Comment on above: Performed By: #### C NITIN, BMP #### [facility] ([id number]) [address] [place] [address] Hematocrit (Bld) [Volume fraction] 26.6 % Low 35-47 [facility] Comment on above: Performed By: #### C NITIN, BMP #### [facility] ([id number]) [address] [place] [address] Hemoglobin (Bld) [Mass/Vol] 8.0 g/dL Low 11.7-15.5 [facility] Comment on above: Performed By: #### C NITIN, BMP #### [facility] ([id number]) [address] [place] [address] Lymphocytes (Bld) [#/Vol] 2.0 10*3/uL Normal 1.0-3.5 [facility] Comment on above: Performed By: #### C NITIN, BMP #### [facility] ([id number]) [address] [place] [address] Lymphocytes/100 WBC (Bld) 27.5 % Normal [facility] Comment on above: Performed By: #### C NITIN, BMP #### [facility] ([id number]) [address] [place] [address] MCH (RBC) [Entitic mass] 19.1 pg Low 27-34 [facility] Comment on above: Performed By: #### C NITIN, BMP #### [facility] ([id number]) [address] [place] [address] MCHC (RBC) [Mass/Vol] 30.2 g/dL Low 32-36 [facility] Comment on above: Performed By: #### C NITIN, BMP #### [facility] ([id number]) [address] [place] [address] MCV (RBC) [Entitic vol] 63 fL Low 80-100 [facility] Comment on above: Performed By: #### C BCA, BMP #### [facility] ([id number]) [address] [place] [address] Monocytes (Bld) [#/Vol] 0.6 10*3/uL Normal 0-0.9 [facility] Comment on above: Performed By: #### C NITIN, BMP #### [facility] ([id number]) [address] [place] [address] Monocytes/100 WBC (Bld) 8.6 % Normal [facility] Comment on above: Performed By: #### C NITIN, BMP #### [facility] ([id number]) [address] [place] [address] Neutrophils/100 WBC (Bld) 62.5 % Normal [facility] Comment on above: Performed By: #### C NITIN, BMP #### [facility] ([id number]) [address] [place] [address] Platelet mean volume (Bld) [Entitic vol] 7.6 fL Normal 7-12 [facility] Comment on above: Performed By: #### C NITIN, BMP #### [facility] ([id number]) [address] [place] [address] Platelets (Bld) [#/Vol] 334 10*3/uL Normal 150-450 [facility] Comment on above: Performed By: #### C BCA, BMP #### [facility] ([id number]) [address] [place] [address] RBC COUNT 4.20 X10E12/L Normal 3.80-5.20 [facility] Comment on above: Performed By: #### C BCA, BMP #### [facility] ([id number]) [address] [place] [address] WBC (Bld) [#/Vol] 7.3 10*3/uL Normal 4.0-11.0 [facility] Comment on above: Performed By: #### C СВЕТЛАНА TAVERAS #### [facility] ([id number]) [address] [facility] [facility] [facility] [place] [address] HIV 1&2 AB/AG Screen (P24 AG )on 05-17-2023 HIV 1&2 AB/AG Non-Reactive [facility] Hepatitis B surface antigeno n 05-17-2023 Hepatitis B Surface Antigen Non-Reactive [facility] Hepatitis C(HCV) Ab w/ Refle x to PCRon 05-17-2023 HCV Ab Ql (S) Non-Reactive [facility] No Panel InformationOrdered By: Riya Veloz on 05-17-2023 [facility] Rubella IGG immune statuson 05-17-2023 Rubella immune IgG [facility] Syphilis Total(Unknown Syphi lis Status)Ordered By: Riya Veloz on 05-17-2023 Syphilis Non-Reactive [facility] US OB < 14 WEEKS EARLYon [...] significant surrounding subchorionic hemorrhage. Yolk sac present. [place] rump length measures 1.85 cm, which corresponds [...] 170.2 cm Glory Rivera MD Work Phone: [facility] 08-15-2023 09:14-0400 Body mass index (BMI) [Ratio] 21.77 kg/m2 Glory Rivera MD Work Phone: [facility] 08-15-2023 09:14-0400 Body weight 63.05 kg Glory Rivera MD Work Phone: [facility] 08-15-2023 09:14-0400 Diastolic blood pressure 62 mm[Hg] Glory Rivera MD Work Phone: [facility] 08-15-2023 09:14-0400 Heart rate 68 /min Glory Rivera MD Work Phone: [facility] 08-15-2023 09:14-0400 Systolic blood pressure 102 mm[Hg] Glory Rivera MD Work Phone: [facility] 07-04-2023 08:55-0500 Body mass index (BMI) [Ratio] 20.55 kg/m2 Moe Langley MD Work Phone: [facility] 07-04-2023 08:55-0500 Body weight 59.51 kg Moe Langley MD Work Phone: [facility] 07-04-2023 08:55-0500 Diastolic blood pressure 55 mm[Hg] Moe Langley MD Work Phone: [facility] 07-04-2023 08:55-0500 Heart rate 67 /min Meo Langley MD Work Phone: [facility] 07-04-2023 08:55-0500 Systolic blood pressure 100 mm[Hg] Moe Langley MD Work Phone: [facility] Encounters Encounter Date Encounter Type Care Provider Facility Start: 12-27-2023 End: 12-27-2023 ambulatory MARIS L FLORO Not Available Start: 12-20-2023 End: 12-20-2023 ambulatory MARIS L FLORO Not Available Start: 11-14-2023 End: 11-14-2023 ambulatory MOE WEINERHID [facility] Start: 11-13-2023 End: 11-13-2023 ambulatory MARIS L FLORO Not Available Start: 10-23-2023 End: 10-23-2023 ambulatory MARIS L FLORO Not Available Start: 09-04-2023 End: 09-04-2023 ambulatory MARIS L FLORO Not Available Start: 08-21-2023 Telephone encounter Gladys Cortés RN [facility] Start: 08-18-2023 Telephone encounter Glory Rivera MD Work Phone: [facility] Comment on above: Results Start: 08-17-2023 Orders Only Glory stewart MD Work Phone: [facility] Comment on above: Iron deficiency anem ia during (Primary Dx); Thyroid disease Start: 08-15-2023 End: 08-15-2023 ambulatory [facility] Start: 08-15-2023 End: 08-15-2023 Office outpatient visit 25 minutes Glory Rivera MD Work Phone: [facility] Comment on above: 20 weeks gestation o f (Primary Dx); Low TSH level Start: 08-07-2023 End: 08-07-2023 ambulatory MARIS L FLORO Not Available Start: 07-10-2023 End: 07-10-2023 ambulatory MARIS L FLORO Not Available Start: 07-04-2023 End: 07-04-2023 Orders Only Grace Davis RN [facility] Comment on above: Anemia affecting pre gnancy in second trimester (Primary Dx) Start: 07-04-2023 End: 07-04-2023 Office consultation new/estab patient 60 min Moe Langley MD Work Phone: [facility] Comment on above: Anemia affecting pre gnancy in second trimester (Primary Dx); Other iron deficiency anemia Start: 06-19-2023 Chart abstracting Moe mccormack MD Work Phone: [facility] Start: 06-13-2023 End: 06-13-2023 ambulatory MARIS L FLORO Not Available Start: 06-12-2023 End: 06-12-2023 Emergency department patient visit [facility] Start: 05-17-2023 End: 05-17-2023 ambulatory MARIS L FLORO Not Available Start: 01-10-2019 Patient encounter procedure DOCTOR MISC Facility:[facility] Start: 12-27-2018 Patient encounter procedure DOCTOR MISC Facility: Procedures Date Procedure Procedure Detail Performing Clinician [...] malign ant neoplasm of cervix Pap Smear [facility] Start: 08-14-2024 Adult BMI Screening Adult BMI Screen ing [facility] Start: 08-14-2024 Tobacco Screening Tobacco Screening [facility] Start: 07-04-2024 Adult BMI Screening Adult BMI Screen ing [facility] Start: 07-04-2024 Tobacco Screening Tobacco Screening [facility] Start: 07-04-2024 End: 07-04-2024 US MFM with or without consult US MFM with or without consult Imaging Routine Anemia affecting in second trimester Expected: 07/04/2024 (Approximate), Expires: 07/04/2024 [facility] Work Phone: Comment on above: Expected: 07/04/2024 (Approximate), Expires: 07/04/2024 Start: 06-12-2024 Adult BMI Screening Adult BMI Screen ing [facility] Start: 06-12-2024 DTaP,Tdap and Td Vac cines (2 - Td or Tdap) DTaP,Tdap and Td Vaccines (2 - Td or Tdap) [facility] Start: 01-14-2024 Influenza vaccination Influenza Vacc ine [facility] Start: 10-30-2023 End: 10-30-2023 Telemedicine consultation with patient 10/30/2023 11:30 AM EDT Telemedicine [facility] [address] [place] [id number] Osbaldo Alamo MD [address], [address] [place] [address] [facility] Start: 08-15-2023 End: 08-15-2023 Patient encounter procedure [facility] Start: 08-11-2023 Tobacco Screening Tobacco Screening [facility] Start: 07-04-2023 End: 07-04-2023 Patient encounter procedure [facility] Start: 01-13-2023 COVID-19 Vaccine ( season) COVID-19 Vaccine ( season) [facility] Start: 01-13-2023 Influenza vaccination Influenza Vacc ine [facility] Start: 2004 [facility] End: 07-04-2024 Ferritin [Mass/volume] in Serum or Plasma Ferritin Lab Routine Anemia affecting in second trimester 1 Occurrences starting 07/04/2023 until 07/04/2024 [employer] Work Phone: Comment on above: 1 Occurrences starti ng 07/04/2023 until 07/04/2024 End: 07-04-2024 Hemoglobin Electrophoresis Hemoglobin Electrophoresis Lab Routine Anemia affecting in second trimester 1 Occurrences starting 07/04/2023 until 07/04/2024 [facility] Comment on above: 1 Occurrences starti ng 07/04/2023 until 07/04/2024 End: 08-14-2024 Hemoglobin Electrophoresis Hemoglobin Electrophoresis Lab Routine 20 weeks gestation of 1 Occurrences starting 08/15/2023 until 08/14/2024 [employer] Work Phone: Comment on above: 1 Occurrences starti ng 08/15/2023 until 08/14/2024 Hemoglobin Electrophoresis Hemoglobin Electrophoresis Lab Routine 20 weeks gestation of 08/15/2023 10:11 AM EDT [facility] End: 10-17-2023 Thyroid profile includes TSH FT4 Thyroid profile includes TSH FT4 Lab Routine Thyroid disease 1 Occurrences starting 08/17/2023 until 10/17/2023 [employer] Work Phone: Comment on above: 1 Occurrences starti ng 08/17/2023 until 10/17/2023 End: 10-17-2023 Triiodothyronine (T3) Free [Mass/volume] in Serum or Plasma T3, free Lab Routine Thyroid disease 1 Occurrences starting 08/17/2023 until 10/17/2023 [facility] Comment on above: 1 Occurrences starti ng 08/17/2023 until 10/17/2023 End: 08-14-2024 Unlisted Lab Test Unlisted Lab Test Lab Routine 20 weeks gestation of 1 Occurrences starting 08/15/2023 until 08/14/2024 [facility]: 1 Occurrences starti ng 08/15/2023 until 08/14/2024 Immunizations Immunization Date Immunization Notes Care Provider [facility] 02-24-2021 influenza virus vaccine, unspecified formulation [facility]2020 COVID-19, mRNA, LNP- S, PF, 100mcg/0.5mL Dose Moe Langley MD Work Phone: [facility]2020 COVID-19, mRNA, LNP- S, PF, 100mcg/0.5mL Dose Moe Langley MD [facility] Phone[facility] Payers Date Payer Category Payer Medicaid [place] [employer] [place] [employer] [id number] 2023-Present [phone] [address] [place] [address] [id number] 2023 Medicaid [id number] 2022 Medicaid [id number] 1992 Unknown [id number] 2.16.840.1.843839.3.579.2.593 1992 Unknown [id number] 2.16.840.1.048028.3.579.2.593 1992 Unknown [id number] 2.16.840.1.158262.3.579.2.1286 1992 Unknown [id number] 2.16.840.1.486231.3.579.2.1286 1992 Unknown [id number] 2.16.840.1.322563.3.579.2.1286 1992 Unknown [id number] 2.16.840.1.928977.3.579.2.1286 1992 Unknown [id number] 2.16.840.1.865950.3.579.2.1286 1992 Unknown [id number] 2.16.840.1.447785.3.579.2.1259 1992 Unknown [id number] 2.16.840.1.912085.3.579.2.9 1992 Unknown [id number] 2.16.840.1.150880.3.579.2.1259 1992 Unknown [id number] 2.16.840.1.893080.3.579.2.9 1992 Unknown [id number] 2.16.840.1.540315.3.579.2.9 1992 Unknown [id number] 2.16.840.1.449237.3.579.2.9 1992 Unknown [id number] 2.16.840.1.627603.3.579.2.9 1992 Unknown [id number] 2.16.840.1.028011.3.579.2.9 1992 Unknown [id number] 2.16.840.1.467345.3.579.2.9 1992 Unknown [id number] 2.16.840.1.876642.3.579.2.9 1992 Unknown [id number] 2.16.840.1.387402.3.579.2.1259 1959 Unknown Social History Date Type Detail Facility Start: 12-21-2021 Tobacco smoking stat [facility] Never smoked tobacco [facility] Start: 12-21-2021 Tobacco use and exposure Smokeless tobacco non-user [facility] Start: 06-19-2023 Alcohol intake Current drinke r of alcohol (finding) [facility] Start: 06-25-2020 End: 06-19-2023 Alcohol intake [facility] Start: 06-25-2020 End: 08-10-2022 Tobacco use panel [facility] Childcare Unknown [facility] Start: 04-05-2023 [facility] Start: 1990 Sex Assigned At Not on file P [facility] Start: 07-04-2023 End: 08-15-2023 Alcohol intake Ex-drinker (finding) [facility] Clinical Notes 07-04-2023 to 08-21-2023 Telephone [...] office to discuss. documented in this encounter [facility] 08-21-2023 Telephone encount er Note Attempted to contact patient in regards to thyroid function results per Dr. Rivera. No answer, left VM to call back to office to discuss. [facility] 08-18-2023 Miscellaneous Notes Formattin g of this note might be different from the original. Attempted to call patient to discuss her results she did not answer GLORY RIVERA MD documented in this encounter [facility] 08-18-2023 Telephone encount er Note Attempted to call patient to discuss her results she did not answer GLORY RIVERA MD [facility] 08-17-2023 Miscellaneous Notes Formattin g of this note might be different from the original. Left voicemail for pt to call our office to schedule an appointment with Micaela solorio needed documented in this encounter [facility] 08-17-2023 Telephone encount er Note Left voicemail for pt to call our office to schedule an appointment with Micaela Burnette labs needed [facility] 08-15-2023 History of Presen t illness Narrative REASON FOR OFFICE VISIT: Follow up HISTORY OF PRESENT ILLNESS: Trish Esquivelpe Cordell is a pleasant 33 y.o. G 2 [...] Allergies CURRENT MEDICATIONS: Current Outpatient Medications: vit 75-tais-vukmz-dha 18-1-350 mg capsule, Take 1 tablet by [...] and the other consultants, we search on [employer] and all the available care everywhere epic I did review all the imaging studies of the patient available on EMR, ordered by the primary care physician and the other water resource consultant HABITS: Patient activity no restrictions, diet [...] y.o. at 20w6d Please refer to prior [facility] notes 1. 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 Patient does have ultrasound office visit scheduled with us. Thank you for allowing me to participate in Trish Carodna . If there any questions please do not hesitate to contact us. Sincerely, Glory Rivera MD, FACOG (she/hers) Maternal- Medicine [facility] [address] [place] [address] Headache/epigastric pain/blurry vision/swelling? No Cramping/contractions? No Abnormal vaginal discharge? No Spotting or vaginal bleeding? No Loss of fluid like your water may have broken? No Recent ER visits or hospitalizations? No Any concerns that you would like me to mention to the provider today? Was diagnosed with a UTI by her OB in [place]. They prescribed her an antibiotic, but she lost the antibiotic and is inquiring if we can law writer her a new script. Blood drawn for carrier testing by PPE lab. Patient tolerated well. documented in this encounter [facility] 07-04-2023 History of Presen t illness Narrative Headache/epigastric pain/blurry vision/swelling? No Cramping/contractions? No Abnormal vaginal discharge? No Spotting/vaginal bleeding? No Loss of fluid like your water may have broken? No Cats in the home? No Do you change the litter box? N/A Flu vaccine? No Genetic testing done this here or other office? No Have you been seen here at [facility] in a previous ? No Recent ER visits or hospitalizations? 06/12/23 sent by primary OB to [place] ED for low hemoglobin Bring blood sugar log or meter with you today? (Please bring them with you for every visit at [facility]) N/A Traveled outside the country in the past 6 month No Any concerns that you would like me to mention to the provider today? No REASON FOR CONSULTATION: Suspected hyperthyroidism. HISTORY OF PRESENT ILLNESS: Trish Katelynn Cardona [...] Allergies CURRENT MEDICATIONS: Current Outpatient Medications: vit 62-datd-kzjtw-dha 18-1-350 mg capsule, Take 1 tablet by [...] and the other consultants, we search on [employer] and all the available care everywhere epic I did review all the imaging studies of the patient available on EMR, ordered by the primary care physician and the other water resource consultant HABITS: Patient activity no restrictions, diet [...] 6. Targeted anatomy at 20 weeks at [facility] office 7. Patient is low risk and vaginal delivery at term at her local hospital is anticipated with C section reserve for routine obstetrical indications. 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 Patient does have ultrasound office visit scheduled with us. Thank you for allowing me to participate in Trish Cardona . If there any questions please do not hesitate to contact us. Sincerely, MOE LANGLEY MD documented in this encounter [facility] Evaluation note Diagnosis Anemia affecting in second trimester- Primary [facility] Diagnosis Anemia affecting in second trimester- Primary Other iron deficiency anemia [facility] Diagnosis 20 weeks gestation of - Primary Low TSH level [facility] Diagnosis Iron deficiency anemia during - Primary Thyroid disease Unspecified disorder of thyroid documented [facility] filedocumented in this encounter [facility] filedocumented in this encounter [facility] filedocumented in this encounter [facility] on filedocumented in this encounter [facility] on filedocumented in this encounter [facility] filedocumented [facility] Consultation (Routine) - Pending Review Specialty Diagnoses / Procedures Referred By Floyd platt Referred To Contact Hematology Diagnoses Iron deficiency anemia during Glory Rivera MD [address] [place] [address] [facility] [address] [place] [address] Referral ID Status Reason Start Date Expiration Date V isits Requested Visits Authorized [id number] Pending Review 08/17/2023 08/16/2024 1 1 [facility] Summary Purpose Family History No Family History Records FoundNo Family History Records FoundNo Family History Records FoundNo Family History Records FoundNo Family History Records Found Advance Directives No Advanced Directives Records FoundNo Advanced Directives Records FoundNo Advanced Directives Records FoundNo Advanced Directives Records FoundNo Advanced Directives Records Found Reason for Referral Specialty Diagnoses / Procedures Referred By Floyd platt Referred To Contact Maternal and Medicine Diagnoses Anemia affecting in second trimester Procedures [facility] with or without consult Moe Langley MD [address] [place] [address] [facility] Maternal Med [address] [place] [address] Referral ID Status Reason Start Date Expiration Date V isits Requested Visits Authorized [id number] Pending Review 07/04/2023 07/03/2024 1 1 Additional Source Comments INFORMATION SOURCE (unrecogn ized section and content) DATE CREATED AUTHOR [facility]/26/2018 [facility] DATE CREATED AUTHOR AUTHOR'S ORGANIZ ATION 06/16/2023 [facility] DATE CREATED AUTHOR AUTHOR'S ORGANIZ ATION 08/16/2023 [facility] DATE CREATED AUTHOR AUTHOR'S ORGANIZ ATION 11/15/2023 [facility] DATE CREATED AUTHOR AUTHOR'S ORGANIZ ATION 01/01/2024 [facility] Care Teams (unrecognized sec tion and content) 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 Relationship Specialty Start Date End Date Services, [facility] [address] [place] PCP - General Family Medicine 06/12/23 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 Relationship Specialty Start Date End Date Services, [facility] [address] [place] PCP - [facility] Family Medicine 06/12/23 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 Relationship Specialty Start Date End Date Services, [facility] [address] [place] PCP [facility] Medicine 06/12/23 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 Relationship Specialty Start Date End Date Services, [facility] [address] PCP [facility] Medicine 06/12/23 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 Relationship Specialty Start Date End Date Services, [facility] [address] PCP [facility] Medicine 06/12/23 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 Relationship Specialty Start Date End Date Services, [facility] [address] PCP - General Family Medicine 06/12/23 [...] BE BASED ON THE PRIMARY CLINICAL RECORDS. [facility] provides no warranty or guarantee of the accuracy or completeness of information in this document.
== END 2024-01-03 11:15 | disposition home or self-care (01) ==
LOC: FBCO 08:10
PROVIDERS: Visit Provider Midwife
DX: Z39.1 Encounter for care and examination of lactating mother (principal)

== ENCOUNTER 2024-02-07 12:05 | Outpatient (OUT) | payer OTHER, SELFPAY ==
--- OUTSIDE RECORDS SUMMARY | 2024-02-07 12:12 | XMS_ITS | CCD ---
Author Organization [facility] Care Team Providers Care Podopediatrician Name Role Phone MISC, DOCTOR Admitting Unavailable MISC, DOCTOR Attending Unavailable MISC, DOCTOR Admitting Unavailable MISC, DOCTOR Attending Unavailable SERVICES, [facility] Unava ilable Services, [facility] Primary Care Provider GLORY RIVERA Attending Unavailable SERVICES, [facility] Unava ilable SHIVAM, MOE Referring Unavailable DOCHEVA, NIKOLINA P Referring Unavailable SERVICES, [facility] SHIVAM, OME Attending Unavailable FLORO, MARIS Referring Unavailable SERVICES, [facility] FLORO, MARIS Referring Unavailable SERVICES, [facility] SHIVAM, MOE Attending Unavailable FLORO, MARIS Referring Unavailable SERVICES, [facility] FLORO, MARIS L Referring [...] Class(es) Dates Sig (Normalized) Sig (Original) vit 85-pnwu-msdou-dha 18-1-350 mg capsule (8 sources) Start: 08-10-2022 take 1 tablet by mouth in the morning vit 12-xnwe-gpsdb-dha 18-1-350 mg capsule Indications: Patient desires Take [...] 18.9 % High 11.5 - 15.0 % [facility] Hematocrit (Bld) [Volume fraction] 23.1 % Low 35 - 47 % [facility] Hemoglobin (Bld) [Mass/Vol] 7.2 g/dL Low 11.7 - 15.5 g/dL [facility] Interpretation and review of laboratory results Abnormal [facility] MCH (RBC) [Entitic mass] 19.8 pg Low 27 - 34 pg [facility] MCHC (RBC) [Mass/Vol] 31.1 g/dL Low 32 - 36 g/dL P [facility] MCV (RBC) [Entitic vol] 64 fL Low 80 - 100 fL [facility] Platelet mean volume (Bld) [Entitic vol] 7.4 fL 7 - 12 fL [facility] Platelets (Bld) [#/Vol] 342 10*3/uL [facility] RBC (Bld) [#/Vol] 3.64 10*6/uL Low [facility] WBC corrected for nucl RBC Auto (Bld) [#/Vol] 7.2 [facility] COMPLETE BLOOD COUNTon 08-14 Erythrocyte distribution width (RBC) [Ratio] 18.9 % High 11.5-15.0 [facility] Comment on above: Performed By: #### C BC, THYR, 3051-0, 2276-4, 4-8, 2132-01 #### [facility] ([id number]) [address], [address] [place] [address] Hematocrit (Bld) [Volume fraction] 23.1 % Low 35-47 [facility] Comment on above: Performed By: #### C BC, THYR, 3051-0, 2276-4, 2284-8, 9 #### [facility] ([id number]) [address], [address] [place] [address] Hemoglobin (Bld) [Mass/Vol] 7.2 g/dL Low 11.7-15.5 [facility] Comment on above: Performed By: #### C BC, THYR, 3051-0, 6-4, 8, 2132-01 #### [facility] ([id number]) [address], [address] [place] [address] MCH (RBC) [Entitic mass] 19.8 pg Low 27-34 [facility] Comment on above: Performed By: #### C BC, THYR, 3051-0, 6-4, 8, 2132-01 #### [facility] ([id number]) [address], [address] [place] [address] MCHC (RBC) [Mass/Vol] 31.1 g/dL Low 32-36 [facility] Comment on above: Performed By: #### C BC, THYR, 3051-0, 2275-4, 2283-12, 2132-01 #### [facility] ([id number]) [address], [address] [place] [address] MCV (RBC) [Entitic vol] 64 fL Low 80-100 P [facility] Comment on above: Performed By: #### C BC, THYR, 3051-0, 2275-4, 2283-12, 2132-01 #### [facility] ([id number]) [address], [address] [place] [address] Platelet mean volume (Bld) [Entitic vol] 7.4 fL Normal 7-12 [facility] Comment on above: Performed By: #### C BC, THYR, 3051-0, 2275-4, 2283-12, 2132-01 #### [facility] ([id number]) [address], [address] [place] [address] Platelets (Bld) [#/Vol] 342 10*3/uL Normal 150-450 [facility] Comment on above: Performed By: #### C BC, THYR, 3051-0, 2276-4, 2283-8, 2132-01 #### [facility] ([id number]) [address], [address] [place] [address] RBC COUNT 3.64 X10E12/L Low 3.80-5.20 [facility] Comment on above: Performed By: #### C BC, THYR, 3051-0, 2276-4, 2283-8, 2132-01 #### [facility] ([id number]) [address], [address] [place] [address] WBC (Bld) [#/Vol] 7.2 10*3/uL Normal 4.0-11.[address] [facility] Comment on above: Performed By: #### C BC, THYR, 3051-0, 2275-4, 2283-12, 2132-01 #### [facility] ([id number]) [address], [address] [place] [address] Cobalamin (Vitamin B12) [Mas s/Vol]on 08-15-2023 [facility] FERRITINon 08-15-2023 Ferritin [Mass/Vol] 3 ng/mL Low 11-307 [facility] Comment on above: Performed By: #### C BC, THYR, 3051-0, 2275-4, 2283-12, 2132-01 #### [facility] ([id number]) [address], [address] [place] [address] FREE T3on 08-15-2023 Free T3 [Mass/Vol] 3.96 pg/mL High 2.50-3.[address] [facility] Comment on above: Performed By: #### C BC, THYR, 3051-0, 2276-4, 2283-8, 2132-01 #### [facility] ([id number]) [address], [address] [place] [address] Ferritinon 08-15-2023 Ferritin [Mass/Vol] 3 ng/mL Low 11 - 307 ng/mL [facility] Ferritin [Mass/Vol]on 2023 Interpretation and review of laboratory results Abnormal [facility] Folateon 08-15-2023 Folate [Mass/Vol] ng/mL 5.8 - PINF ng/mL [facility] Comment on above: NEW REFERENCE RANGE Folate [Mass/Vol]on 08-15-19 24 [facility] FOLIC ACID >25.0 Normal >5.8 [facility] Comment on above: Result Comment: NEW REFERENCE RANGE Performed By: #### C JOANA, THYR, 3051-0, 6-4, 2283-12, 2132-01 #### [facility] ([id number]) On license of [facility], [address] [address] Free T3 [Mass/Vol]on Interpretation and review of laboratory results Abnormal [facility] HGB ELECTRO INTERPon HGB ELECTRO INTERP See below Normal [facility] Comment on above: Result Comment: NOTE Hemoglobins were analyzed by capillary electrophoresis. There is a normal hemoglobin capillary electrophoresis pattern. Alpha thalassemia trait is not excluded by the testing performed. Suggest correlation with clinical information, red blood cell indices and serum ferritin test results, if applicable. Performed By: #### C BC, THYR, 3051-0, 2275-4, 8, 2132-01 #### [facility] ([id number]) [address] [facility] [address] [place] [address] STAFF REVIEW See below Normal [facility] Comment on above: Result Comment: NOTE Reviewed by Angi Horvath DO Test Performed By: [facility] [employer] [address] [place] [address] [place] Operator: Modesto Martin III, M.D. CLIA #[id number] Performed By: #### Anderson BC, THYR, 3051-0, 6-4, 8, 2132-01 #### [facility] ([id number]) [address], [address] [place] [address] HGB ELECTROPHORESISon 2023 Abnormal Hb See below Normal No abnormal hemoglobin identified. [facility] Comment on above: Result Comment: NOTE No abnormal hemoglobin identified. Test Performed By: [place] [address] [place] Operator: Lyle Abel III #[id number] Performed By: #### C BC, THYR, 3051-0, 2276-4, 2283-8, 2132-01 #### [facility] ([id number]) [address] [facility], [address] [place] [address] Hb A Percent 98.1 % High 96.2-98.0 [facility] Comment on above: Performed By: #### C BC, THYR, 3051-0, 2276-4, 8, 2132-01 #### [facility] ([id number]) [address] [facility], [address] [place] [address] Hb A2 Percent 1.9 % Low 2.0-3.1 [facility] Comment on above: Performed By: #### C BC, THYR, 3051-0, 2276-4, 2283-8, 2132-01 #### [facility] ([id number]) [address], [address] [place] [address] T3, freeon 08-15-2023 Free T3 [Mass/Vol] 3.96 pg/mL High 2.50 - 3. 90 pg/mL [facility] THYROID PROFILEon 08-15-2023 Free T4 [Mass/Vol] 0.54 ng/dL Low 0.61-1.[address] [facility] Comment on above: Performed By: #### C BC, THYR, 3051-0, 2276-4, 2283-8, 2132-01 #### [facility] ([id number]) [address], [address] [place] [address] TSH 0.67 uIU/mL Normal 0.49-4.67 [facility] Comment on above: Performed By: #### C BC, THYR, 3051-0, 6-4, 2283-8, 2132-01 #### [facility] ([id number]) [address] [facility], [address] [place] [address] Thyroid profile includes TSH FT4on 08-15-2023 Free T4 [Mass/Vol] 0.54 ng/dL Low 0.61 - 1. 60 ng/dL [facility] Interpretation and review of laboratory results Abnormal [facility] TSH Qn 0.67 m[IU]/L [facility] VITAMIN B12on 08-15-2023 Cobalamin (Vitamin B12) [Mass/Vol] 183 pg/mL Normal 180-914 [facility] Comment on above: Performed By: #### C BC, THYR, 3051-0, 6-4, 2283-8, 2132-01 #### [facility] ([id number]) [address] [facility], [address] [place] [address] Vitamin B12on 08-15-2023 Cobalamin (Vitamin B12) [Mass/Vol] 183 pg/mL 180 - 914 pg/mL [facility] BASIC METABOLIC PANLon 06-12 Anion gap [Moles/Vol] 9 mmol/L Normal 5-15 [facility] Comment on above: Performed By: #### C NITIN, BMP #### [facility] ([id number]) [address] [place] [address] Calcium [Mass/Vol] 9.1 mg/dL Normal 8.5-10.5 [facility] Comment on above: Performed By: #### C BCA, BMP #### [facility] ([id number]) [address] [place] [address] Chloride [Moles/Vol] 105 mmol/L Normal 98-109 [facility] Comment on above: Performed By: #### C BCA, BMP #### [facility] ([id number]) [address] [place] [address] CO2 [Moles/Vol] 22 mmol/L Normal 22-32 [facility] Comment on above: Performed By: #### C BCA, BMP #### [facility] ([id number]) [address] [place] [address] Creatinine [Mass/Vol] 0.48 mg/dL Normal 0.40-1.00 [facility] Comment on above: Result Comment: METH OD TRACEABLE TO IDMS STANDARD Performed By: #### C NITIN, BMP #### [facility] ([id number]) [address] [place] [address] eGFR (CKD-EPI) NON-RACE DEPENDENT >90 Normal >59 [facility] Comment on above: Result Comment: Reported eGFR is based on the CKD-EPI 2020 equation that does not use a race coefficient. Performed By: #### C BCA, BMP #### [facility] ([id number]) [address] [place] [address] Glucose [Mass/Vol] 94 mg/dL Normal 65-99 [facility] Comment on above: Performed By: #### C BCA, BMP #### [facility] ([id number]) [address] [place] [address] Potassium [Moles/Vol] 3.7 mmol/L Normal 3.5-5.0 [facility] Comment on above: Performed By: #### C BCA, BMP #### [facility] ([id number]) [address] [place] [address] Sodium [Moles/Vol] 136 mmol/L Normal 134-146 [facility] Comment on above: Performed By: #### C BCA, BMP #### [facility] ([id number]) [address] [place] [address] Urea nitrogen [Mass/Vol] 11 mg/dL Normal 5-23 [facility] Comment on above: Performed By: #### C NITIN, BMP #### [facility] ([id number]) [address] [place] [address] CBC AND AUTO DIFFon 06-12-19 ABSOLUTE BASOPHIL 0.0 X10E9/L Normal 0.0-0.2 [facility] Comment on above: Performed By: #### C NITIN, BMP #### [facility] ([id number]) [address] [place] [address] ABSOLUTE NEUTROPHIL 4.5 X10E9/L Normal 1.5-6.6 [facility] Comment on above: Performed By: #### C NITIN, BMP #### [facility] ([id number]) [address] [place] [address] Basophils/100 WBC (Bld) 0.4 % Normal [facility] Comment on above: Performed By: #### C NITIN, BMP #### [facility] ([id number]) [address] [place] [address] Eosinophils (Bld) [#/Vol] 0.1 10*3/uL Normal 0.0-0.4 [facility] Comment on above: Performed By: #### C NITIN, BMP #### [facility] ([id number]) [address] [place] [address] Eosinophils/100 WBC (Bld) 1.0 % Normal [facility] Comment on above: Performed By: #### C NITIN, BMP #### [facility] ([id number]) [address] [place] [address] Erythrocyte distribution width (RBC) [Ratio] 19.3 % High 11.5-15.0 [facility] Comment on above: Performed By: #### C NITIN, BMP #### [facility] ([id number]) [address] [place] [address] Hematocrit (Bld) [Volume fraction] 26.6 % Low 35-47 [facility] Comment on above: Performed By: #### C NITIN, BMP #### [facility] ([id number]) [address] [place] [address] Hemoglobin (Bld) [Mass/Vol] 8.0 g/dL Low 11.7-15.5 [facility] Comment on above: Performed By: #### C NITIN, BMP #### [facility] ([id number]) [address] [place] [address] Lymphocytes (Bld) [#/Vol] 2.0 10*3/uL Normal 1.0-3.5 [facility] Comment on above: Performed By: #### C NITIN, BMP #### [facility] ([id number]) [address] [place] [address] Lymphocytes/100 WBC (Bld) 27.5 % Normal [facility] Comment on above: Performed By: #### C NITIN, BMP #### [facility] ([id number]) [address] [place] [address] MCH (RBC) [Entitic mass] 19.1 pg Low 27-34 [facility] Comment on above: Performed By: #### C NITIN, BMP #### [facility] ([id number]) [address] [place] [address] MCHC (RBC) [Mass/Vol] 30.2 g/dL Low 32-36 [facility] Comment on above: Performed By: #### C NITIN, BMP #### [facility] ([id number]) [address] [place] [address] MCV (RBC) [Entitic vol] 63 fL Low 80-100 [facility] Comment on above: Performed By: #### C BCA, BMP #### [facility] ([id number]) [address] [place] [address] Monocytes (Bld) [#/Vol] 0.6 10*3/uL Normal 0-0.9 [facility] Comment on above: Performed By: #### C NITIN, BMP #### [facility] ([id number]) [address] [place] [address] Monocytes/100 WBC (Bld) 8.6 % Normal [facility] Comment on above: Performed By: #### C NITIN, BMP #### [facility] ([id number]) [address] [place] [address] Neutrophils/100 WBC (Bld) 62.5 % Normal [facility] Comment on above: Performed By: #### C NITIN, BMP #### [facility] ([id number]) [address] [place] [address] Platelet mean volume (Bld) [Entitic vol] 7.6 fL Normal 7-12 [facility] Comment on above: Performed By: #### C NITIN, BMP #### [facility] ([id number]) [address] [place] [address] Platelets (Bld) [#/Vol] 334 10*3/uL Normal 150-450 [facility] Comment on above: Performed By: #### C BCA, BMP #### [facility] ([id number]) [address] [place] [address] RBC COUNT 4.20 X10E12/L Normal 3.80-5.20 [facility] Comment on above: Performed By: #### C BCA, BMP #### [facility] ([id number]) [address] [place] [address] WBC (Bld) [#/Vol] 7.3 10*3/uL Normal 4.0-11.0 [facility] Comment on above: Performed By: #### C СВЕТЛАНА TAVERAS #### [facility] ([id number]) [address] [facility] [place] [address] HIV 1&2 AB/AG Screen (P24 AG )on 05-17-2023 HIV 1&2 AB/AG Non-Reactive [facility] Hepatitis B surface antigeno n 05-17-2023 Hepatitis B Surface Antigen Non-Reactive [facility] Hepatitis C(HCV) Ab w/ Refle x to PCRon 05-17-2023 HCV Ab Ql (S) Non-Reactive [facility] No Panel InformationOrdered By: Riya Veloz on 05-17-2023 [facility] Rubella IGG immune statuson 05-17-2023 Rubella immune IgG [facility] Syphilis Total(Unknown Syphi lis Status)Ordered By: Riya Veloz on 05-17-2023 Syphilis Non-Reactive [facility] US OB < 14 WEEKS EARLYon US [...] significant surrounding subchorionic hemorrhage. Yolk sac present. Galliano rump length measures 1.85 cm, which corresponds [...] 170.2 cm Glory Rivera MD Work Phone: [facility] 08-15-2023 09:14-0400 Body mass index (BMI) [Ratio] 21.77 kg/m2 Glory Rivera MD Work Phone: [facility] 08-15-2023 09:14-0400 Body weight 63.05 kg Glory Rivera MD Work Phone: [facility] 08-15-2023 09:14-0400 Diastolic blood pressure 62 mm[Hg] Glory Rivera MD Work Phone: [facility] 08-15-2023 09:14-0400 Heart rate 68 /min Glory Rivera MD Work Phone: [facility] 08-15-2023 09:14-0400 Systolic blood pressure 102 mm[Hg] Glory Rivera MD Work Phone: [facility] 07-04-2023 08:55-0500 Body mass index (BMI) [Ratio] 20.55 kg/m2 Moe Langley MD Work Phone: [facility] 07-04-2023 08:55-0500 Body weight 59.51 kg Moe Langley MD Work Phone: [facility] 07-04-2023 08:55-0500 Diastolic blood pressure 55 mm[Hg] Moe Langley MD Work Phone: [facility] 07-04-2023 08:55-0500 Heart rate 67 /min Moe Langley MD Work Phone: [facility] 07-04-2023 08:55-0500 Systolic blood pressure 100 mm[Hg] Moe Langley MD Work Phone: [facility] Encounters Encounter Date Encounter Type Care Provider Facility Start: 12-27-2023 End: 12-27-2023 ambulatory MARIS L FLORO Not Available Start: 12-20-2023 End: 12-20-2023 ambulatory MARIS L FLORO Not Available Start: 11-14-2023 End: 11-14-2023 ambulatory MOE WEINERHID [facility] Start: 11-13-2023 End: 11-13-2023 ambulatory MARIS L FLORO Not Available Start: 10-23-2023 End: 10-23-2023 ambulatory MARIS L FLORO Not Available Start: 09-04-2023 End: 09-04-2023 ambulatory MARIS L FLORO Not Available Start: 08-21-2023 Telephone encounter Gladys Cortés RN [facility] Start: 08-18-2023 Telephone encounter Glory Rivera MD Work Phone: [facility] Comment on above: Results Start: 08-17-2023 Orders Only Glory stewart MD Work Phone: [facility] [place] Comment on above: Iron deficiency anem ia during (Primary Dx); Thyroid disease Start: 08-15-2023 End: 08-15-2023 ambulatory [facility] Start: 08-15-2023 End: 08-15-2023 Office outpatient visit 25 minutes Glory Rivera MD Work Phone: [facility] [place] Comment on above: 20 weeks gestation o f (Primary Dx); Low TSH level Start: 08-07-2023 End: 08-07-2023 ambulatory MARIS L FLORO Not Available Start: 07-10-2023 End: 07-10-2023 ambulatory MARIS L FLORO Not Available Start: 07-04-2023 End: 07-04-2023 Orders Only Grace Davis RN [facility] Comment on above: Anemia affecting pre gnancy in second trimester (Primary Dx) Start: 07-04-2023 End: 07-04-2023 Office consultation new/estab patient 60 min Moe Langley MD Work Phone: [facility] Comment on above: Anemia affecting pre gnancy in second trimester (Primary Dx); Other iron deficiency anemia Start: 06-19-2023 Chart abstracting Moe mccormack MD Work Phone: [facility] Start: 06-13-2023 End: 06-13-2023 ambulatory MARIS L FLORO Not Available Start: 06-12-2023 End: 06-12-2023 Emergency department patient visit [facility] Start: 05-17-2023 End: 05-17-2023 ambulatory MARIS [...] malign ant neoplasm of cervix Pap Smear [facility] Start: 08-14-2024 Adult BMI Screening Adult BMI Screen ing [facility] Start: 08-14-2024 Tobacco Screening Tobacco Screening [facility] Start: 07-04-2024 Adult BMI Screening Adult BMI Screen ing [facility] Start: 07-04-2024 Tobacco Screening Tobacco Screening [facility] Start: 07-04-2024 End: 07-04-2024 US MFM with or without consult US MFM with or without consult Imaging Routine Anemia affecting in second trimester Expected: 07/04/2024 (Approximate), Expires: 07/04/2024 [facility] Work Phone: Comment on above: Expected: 07/04/2024 (Approximate), Expires: 07/04/2024 Start: 06-12-2024 Adult BMI Screening Adult BMI Screen ing [facility] Start: 06-12-2024 DTaP,Tdap and Td Vac cines (2 - Td or Tdap) DTaP,Tdap and Td Vaccines (2 - Td or Tdap) [facility] Start: 01-14-2024 Influenza vaccination Influenza Vacc ine [facility] Start: 10-30-2023 End: 10-30-2023 Telemedicine consultation with patient 10/30/2023 11:30 AM EDT Telemedicine [facility] [address] [place] [id number] Osbaldo Alamo MD [address], [address] [place] [address] [facility] Start: 08-15-2023 End: 08-15-2023 Patient encounter procedure [facility] Start: 08-11-2023 Tobacco Screening Tobacco Screening [facility] Start: 07-04-2023 End: 07-04-2023 Patient encounter procedure [facility] Start: 01-13-2023 COVID-19 Vaccine ( season) COVID-19 Vaccine ( season) [facility] Start: 01-13-2023 Influenza vaccination Influenza Vacc ine [facility] Start: 2004 [facility] End: 07-04-2024 Ferritin [Mass/volume] in Serum or Plasma Ferritin Lab Routine Anemia affecting in second trimester 1 Occurrences starting 07/04/2023 until 07/04/2024 [employer] Work Phone: Comment on above: 1 Occurrences starti ng 07/04/2023 until 07/04/2024 End: 07-04-2024 Hemoglobin Electrophoresis Hemoglobin Electrophoresis Lab Routine Anemia affecting in second trimester 1 Occurrences starting 07/04/2023 until 07/04/2024 [facility] Comment on above: 1 Occurrences starti ng 07/04/2023 until 07/04/2024 End: 08-14-2024 Hemoglobin Electrophoresis Hemoglobin Electrophoresis Lab Routine 20 weeks gestation of 1 Occurrences starting 08/15/2023 until 08/14/2024 [employer] Work Phone: Comment on above: 1 Occurrences starti ng 08/15/2023 until 08/14/2024 Hemoglobin Electrophoresis Hemoglobin Electrophoresis Lab Routine 20 weeks gestation of 08/15/2023 10:11 AM EDT [employer] End: 10-17-2023 Thyroid profile includes TSH FT4 Thyroid profile includes TSH FT4 Lab Routine Thyroid disease 1 Occurrences starting 08/17/2023 until 10/17/2023 [employer] Work Phone: Comment on above: 1 Occurrences starti ng 08/17/2023 until 10/17/2023 End: 10-17-2023 Triiodothyronine (T3) Free [Mass/volume] in Serum or Plasma T3, free Lab Routine Thyroid disease 1 Occurrences starting 08/17/2023 until 10/17/2023 [facility] Comment on above: 1 Occurrences starti ng 08/17/2023 until 10/17/2023 End: 08-14-2024 Unlisted Lab Test Unlisted Lab Test Lab Routine 20 weeks gestation of 1 Occurrences starting 08/15/2023 until 08/14/2024 [facility]: 1 Occurrences starti ng 08/15/2023 until 08/14/2024 Immunizations Immunization Date Immunization Notes Care Provider [facility] 02-24-2021 influenza virus vaccine, unspecified formulation [facility] Langley MD [facility] 08-07-2020 COVID-19, mRNA, LNP- S, PF, 100mcg/0.5mL Dose Moe Langley MD [facility] 07-10-2020 COVID-19, mRNA, LNP- S, PF, 100mcg/0.5mL Dose Moe Langley MD [facility] Payers Date Payer Category Payer Medicaid [place] [employer] [employer] [id number] 2023-Present [phone] [address] [place] [address] [id number] 2023 Medicaid [id number] 2022 Medicaid [id number] 1992 Unknown [id number] 1992 Unknown [id number] 1992 Unknown [id number] 2.16.840.1.344764.3.579.2.1286 1990 Unknown [id number] 2.16.840.1.965253.3.579.2.1286 1990 Unknown [id number] 2.16.840.1.737595.3.579.2.1286 1992 Unknown [id number] 2.16.840.1.190606.3.579.2.1286 1992 Unknown [id number] 2.16.840.1.643521.3.579.2.1286 1992 Unknown [id number] 2.16.840.1.549701.3.579.2.1259 1992 Unknown [id number] 2.16.840.1.898069.3.579.2.9 1992 Unknown [id number] 2.16.840.1.562888.3.579.2.1259 1992 Unknown [id number] 2.16.840.1.919838.3.579.2.9 1992 Unknown [id number] 2.16.840.1.025822.3.579.2.9 1992 Unknown [id number] 2.16.840.1.375880.3.579.2.9 1992 Unknown [id number] 2.16.840.1.966634.3.579.2.9 1992 Unknown [id number] 2.16.840.1.464579.3.579.2.9 1992 Unknown [id number] 2.16.840.1.292994.3.579.2.9 1992 Unknown [id number] 2.16.840.1.099032.3.579.2.9 1992 Unknown [id number] 2.16.840.1.566987.3.579.2.1259 1957 Unknown Social History Date Type Detail Facility Start: 12-21-2021 Tobacco smoking stat [facility] Never smoked tobacco [facility] Start: 12-21-2021 Tobacco use and exposure Smokeless tobacco non-user [facility] Start: 06-19-2023 Alcohol intake Current drinke r of alcohol (finding) [facility] Start: 06-25-2020 End: 06-19-2023 Alcohol intake [facility] Start: 06-25-2020 End: 08-10-2022 Tobacco use panel [facility] Childcare Unknown [facility] Start: 04-05-2023 [facility] Start: 1990 Sex Assigned At Not on file P [facility] Start: 07-04-2023 End: 08-15-2023 Alcohol intake Ex-drinker (finding) [facility] Clinical Notes 07-04-2023 to 08-21-2023 Telephone Encounter [...] office to discuss. documented in this encounter [facility] 08-21-2023 Telephone encount er Note Attempted to contact patient in regards to thyroid function results per Dr. Rivera. No answer, left VM to call back to office to discuss. [facility] 08-18-2023 Miscellaneous Notes Formattin g of this note might be different from the original. Attempted to call patient to discuss her results she did not answer GLORY RIVERA MD documented in this encounter [facility] 08-18-2023 Telephone encount er Note Attempted to call patient to discuss her results she did not answer GLORY RIVERA MD [facility] 08-17-2023 Miscellaneous Notes Formattin g of this note might be different from the original. Left voicemail for pt to call our office to schedule an appointment with Micaela solorio needed documented in this encounter [facility] 08-17-2023 Telephone encount er Note Left voicemail for pt to call our office to schedule an appointment with Micaela Burnette labs needed [facility] 08-15-2023 History of Presen t illness Narrative [...] Allergies CURRENT MEDICATIONS: Current Outpatient Medications: vit 07-qsrr-yoxqc-dha 18-1-350 mg capsule, Take 1 tablet by [...] and the other consultants, we search on [employer] and all the available care everywhere epic I did review all the imaging studies of the patient available on EMR, ordered by the primary care physician and the other senior telecommunications consultant HABITS: Patient activity no restrictions, diet [...] y.o. at 20w6d Please refer to prior [facility] notes 1. 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 Patient does have ultrasound office visit scheduled with us. Thank you for allowing me to participate in Trish Cardona . If there any questions please do not hesitate to contact us. Sincerely, Glory Rivera MD, FACOG (she/hers) Maternal- Medicine [facility] [address] [facility] [address] [place] [address] Headache/epigastric pain/blurry vision/swelling? No Cramping/contractions? No Abnormal vaginal discharge? No Spotting or vaginal bleeding? No Loss of fluid like your water may have broken? No Recent ER visits or hospitalizations? No Any concerns that you would like me to mention to the provider today? Was diagnosed with a UTI by her OB in [place]. They prescribed her an antibiotic, but she lost the antibiotic and is inquiring if we can principal technical writer her a new script. Blood drawn for carrier testing by PPE lab. Patient tolerated well. documented in this encounter [facility] 07-04-2023 History of Presen t illness Narrative Headache/epigastric pain/blurry vision/swelling? No Cramping/contractions? No Abnormal vaginal discharge? No Spotting/vaginal bleeding? No Loss of fluid like your water may have broken? No Cats in the home? No Do you change the litter box? N/A Flu vaccine? No Genetic testing done this here or other office? No Have you been seen here at [facility] in a previous ? No Recent ER visits or hospitalizations? 06/12/23 sent by primary OB to [place] ED for low hemoglobin Bring blood sugar log or meter with you today? (Please bring them with you for every visit at [facility]) N/A Traveled outside the country in [...] Allergies CURRENT MEDICATIONS: Current Outpatient Medications: vit 66-gfzr-aryzc-dha 18-1-350 mg capsule, Take 1 tablet by [...] and the other consultants, we search on [employer] and all the available care everywhere epic I did review all the imaging studies of the patient available on EMR, ordered by the primary care physician and the other senior telecommunications consultant HABITS: Patient activity no restrictions, diet [...] 6. Targeted anatomy at 20 weeks at [facility] office 7. Patient is low risk and vaginal delivery at term at her local hospital is anticipated with C section reserve for routine obstetrical indications. 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 Patient does have ultrasound office visit scheduled with us. Thank you for allowing me to participate in Trish Cardona . If there any questions please do not hesitate to contact us. Sincerely, MOE LANGLEY MD documented in this encounter [facility] Evaluation note Diagnosis Anemia affecting in second trimester- Primary [facility] Diagnosis Anemia affecting in second trimester- Primary Other iron deficiency anemia documented [facility] Diagnosis 20 weeks gestation of - Primary Low TSH level documented in [facility] Diagnosis Iron deficiency anemia during - Primary Thyroid disease Unspecified disorder of thyroid documented in this encounter [facility] on filedocumented in this encounter [facility] on filedocumented in this encounter [facility]ructionsNot on filedocumented in this encounter [facility]ructionsNot on filedocumented in this encounter [facility]ructionsNot on filedocumented in this encounter [facility] filedocumented in [facility] Consultation (Routine) - Pending Review Specialty Diagnoses / Procedures Referred By Floyd platt Referred To Contact Hematology Diagnoses Iron deficiency anemia during Glory Rivera MD [address] [place] [address] [facility] [address] [place] [address] Referral ID Status Reason Start Date Expiration Date V isits Requested Visits Authorized [id number] Pending Review 08/17/2023 08/16/2024 1 1 [facility] Summary Purpose Family History No Family History [...] Diagnoses Anemia affecting in second trimester Procedures [facility] with or without consult Moe Langley MD [address] [place] [address] [facility] Maternal Med [address] [place] [address] Referral ID Status Reason Start Date Expiration Date V isits Requested Visits Authorized [id number] Pending Review 07/04/2023 07/03/2024 1 1 Additional Source Comments INFORMATION SOURCE (unrecogn ized section and content) DATE CREATED AUTHOR 12/26/2018 [facility] DATE CREATED AUTHOR AUTHOR'S ORGANIZ ATION 06/16/[address] [facility] DATE CREATED AUTHOR AUTHOR'S ORGANIZ ATION 08/16/2023 [facility] DATE CREATED AUTHOR AUTHOR'S ORGANIZ ATION 11/15/2023 [facility] DATE CREATED AUTHOR AUTHOR'S ORGANIZ ATION 01/01/2024 [facility] Care Teams (unrecognized sec tion and content) Podopediatrician Relationship Specialty Start Date End Date Services, [facility] [address] [place] PCP - General Family Medicine 06/12/23 Podopediatrician Relationship Specialty Start Date End Date Services, [facility] [address] [place] PCP - [facility] Family Medicine 06/12/23 Podopediatrician Relationship Specialty Start Date End Date Services, [facility] [address] [place] PCP [facility] Medicine 06/12/23 Podopediatrician Relationship Specialty Start Date End Date Services, [facility] [address] PCP [facility] Medicine 06/12/23 Podopediatrician Relationship Specialty Start Date End Date Services, [facility] [address] PCP [facility] Medicine 06/12/23 Podopediatrician Relationship Specialty Start Date End Date Services, [facility] [address] [place] PCP - General Family Medicine 06/12/23 [...] BE BASED ON THE PRIMARY CLINICAL RECORDS. [facility]. provides no warranty or guarantee of the accuracy or completeness of information in this document.
[2024-02-07 12:27] LABS: Basophils Percent Auto 0.5 % (0.2-2.0); Eosinophils Absolute Auto 0.1 10^3/uL (0.0-0.7); Eosinophils Percent Auto 1.4 % (0.9-7.0); Hemoglobin 12.1 g/dL (12.0-16.0); Immature Granulocytes Abs Auto 0.01 10^3/uL (0.00-0.03); Immature Granulocytes Pct Auto 0.2 % (0.0-0.5); Lymphocytes Absolute Auto 1.8 10^3/uL (1.2-3.8); Lymphocytes Percent Auto 31.2 % (20.5-60.0); Mean Corpuscular HGB Conc 31.8 g/dL (29.9-35.2); Mean Corpuscular Hemoglobin 27.6 pg (26.7-34.0); Mean Corpuscular Volume 86.6 fL (81.0-99.0); Mean Platelet Volume 9.2 fL (9.5-13.5); Monocytes Absolute Auto 0.4 10^3/uL (0.3-0.8); Monocytes Percent Auto 6.8 % (1.7-12.0); Neutrophils Absolute Auto 3.4 10^3/uL (1.4-6.5); Neutrophils Percent Auto 59.9 % (43.0-75.0); Platelet Count 215 10^3/uL (150-450); Red Blood Count 4.39 10^6/uL (4.20-5.40); Red Cell Distribution Width 16.8 % (11.0-15.0); White Blood Count 5.7 10^3/uL (4.0-11.0)
[2024-02-07 12:59] LABS: Anion Gap 7.4; BUN Creatinine Ratio 20.3; Calcium 9.9 mg/dL (8.5-10.1); Carbon Dioxide 31.2 mmol/L (21.0-32.0); Chloride 102 mmol/L (98-107); Estimated GFR (African America >60 (>=60); Estimated GFR (Non-African Ame >60 (>=60); Glucose 73 mg/dL (74-106); Potassium 3.6 mmol/L (3.5-5.1); Sodium 137 mmol/L (136-145)
[2024-02-07 14:02] LABS: Percent Iron Saturation 18.5 %
[2024-02-08 03:07] LABS: Vitamin B12 517 pg/mL (232-1245)
== END 2024-02-07 12:06 | disposition home or self-care (01) ==
LOC: LAB 12:08
PROVIDERS: Visit Provider Internal Medicine Hematology & Oncology
DX: D64.9 Anemia, unspecified (principal); D50.9 Iron deficiency anemia, unspecified; D51.9 Vitamin B12 deficiency anemia, unspecified; K90.9 Intestinal malabsorption, unspecified
CPT/HCPCS: 36415; 80048; 82306; 82607; 82728; 82746; 83540; 83550; 85025

== ENCOUNTER 2024-02-21 07:37 | Outpatient (RCR) | payer OTHER, SELFPAY ==
[2024-02-13 11:10] VITALS: BP 103/66; PULSE 61; TEMP 36.8; O2SAT 97
[2024-02-13] MEDS: FERUMOXYTOL 510 MG in 0.9 % SODIUM CHLORIDE 100 ML 234 MG IV (11:48)
--- NOTE | 2024-02-13 12:57 | PC.NURSE ---
1110: Pt. to [facility] amb. for M.D. visit and iron infusion. Weight obtained. Seated in recliner. VSS. IV initiated without difficulty, see documentation. Pt. denies c/o. 1135: Dr. Hernandez in to see pt. at chairside. 1148: IV Feraheme initiated at this time. Snack and beverage offered, pt. declines. 1125: Feraheme completed at this time without s&s of adverse reaction. IV d/c'd pressure to site. 1130: D/c'd amb. to home.
[2024-02-21 10:13] VITALS: BP 98/65; PULSE 56; TEMP 36.3; O2SAT 97
[2024-02-21] MEDS: FERUMOXYTOL 510 MG in 0.9 % SODIUM CHLORIDE 100 ML 351 MG IV (10:18)
== END 2024-03-14 23:59 | disposition home or self-care (01) ==
LOC: HEMC 07:37
PROVIDERS: Visit Provider Internal Medicine Hematology & Oncology
DX: D50.9 Iron deficiency anemia, unspecified (principal); D51.9 Vitamin B12 deficiency anemia, unspecified; K90.9 Intestinal malabsorption, unspecified
CPT/HCPCS: 96365; G0463; Q0138

== ENCOUNTER 2024-06-24 11:19 | Outpatient (OUT) | payer OTHER, SELFPAY ==
[2024-06-24 11:42] LABS: Basophils Percent Auto 0.3 % (0.2-2.0); Eosinophils Absolute Auto 0.1 10^3/uL (0.0-0.7); Hematocrit 36.9 % (36.0-48.0); Hemoglobin 12.9 g/dL (12.0-16.0); Immature Granulocytes Abs Auto 0.01 10^3/uL (0.00-0.03); Immature Granulocytes Pct Auto 0.2 % (0.0-0.5); Lymphocytes Absolute Auto 2.2 10^3/uL (1.2-3.8); Lymphocytes Percent Auto 36.3 % (20.5-60.0); Mean Corpuscular Hemoglobin 31.5 pg (26.7-34.0); Monocytes Absolute Auto 0.4 10^3/uL (0.3-0.8); Monocytes Percent Auto 6.9 % (1.7-12.0); Neutrophils Absolute Auto 3.3 10^3/uL (1.4-6.5); Neutrophils Percent Auto 55.3 % (43.0-75.0); Platelet Count 200 10^3/uL (150-450); Red Cell Distribution Width 12.8 % (11.0-15.0)
--- OUTSIDE RECORDS SUMMARY | 2024-06-24 11:43 | XMS_ITS | CCD ---
Author Organization [facility] Care Team Providers Care Archeology Faculty Member Name Role Phone MISC, DOCTOR Admitting Unavailable MISC, DOCTOR Attending Unavailable MISC, DOCTOR Admitting Unavailable MISC, DOCTOR Attending Unavailable SERVICES, [facility] Primary Care Unava ilable Services, [facility] Primary Care Provider GLORY RIVERA P Attending Unavailable SERVICES, [facility] Care Unava ilable SHIVAM, MOE Referring Unavailable DOCHEVA, NIKOLINA P Referring Unavailable SERVICES, [facility] Primary Care Unava ilable SHIVAM MOE Attending Unavailable FLORO, MARIELLE Referring Unavailable SERVICES, [facility] Primary Care Unava ilable FLORO, MARIELLE Referring Unavailable SERVICES, [facility] Primary Care Unava ilable SHIVAM, MOE Attending Unavailable FLORO, MARIELLE Referring Unavailable SERVICES, [facility] Care Unava ilable Jelly Santiago DO Primary Care Provider MANISHA MARIELLE L Referring Unavailable FLORO, MARIELLE L Attending Unavailable FLORO, MARIELLE L Attending Unavailable FLORO, MARIELLE L Attending Unavailable FLORO, MARIELLE L Attending Unavailable FLORO, MARIELLE L Attending Unavailable FLORO, MARIELLE L Referring Unavailable FLORO, MARIELLE L Attending Unavailable FLORO, MARIELLE L Attending Unavailable FLORO, MARIELLE L Referring Unavailable FLORO, MARIELLE L Attending Unavailable FLORO, MARIELLE L Attending Unavailable FLORO, MARIELLE L Attending Unavailable Medications Current Medications Medication Drug Class(es) Dates Sig (Normalized) Sig (Original) ferrous sulfate 325 mg delayed release oral tablet (11 sources) Start: 07-10-2023 take 1 tablet by mouth in the morning ferrous sulfate (Fe Tabs) 325 (65 Fe) MG EC tablet Indications: Other iron deficiency anemia Take 1 tablet (325 mg) by mouth in the morning and 1 tablet (325 mg) in the evening. Take after meals. Do not crush, chew, or split.. 60 tablet 4 07/10/2023 Active ibuprofen 800 mg oral tablet (9 sources) Nonsteroidal Anti-inflammatory Drug Start: 12-23-2023 take 1 tablet by mouth every eight hours ibuprofen 800 MG tablet Take 800 mg by mouth every 8 (eight) hours 12/23/2023 Active norethindrone 0.35 mg oral tablet (3 sources) Start: 03-05-2024 take 1 tablet by mouth once daily norethindrone (Micronor) 0.35 MG tablet Indications: Unwanted fertility Take 1 tablet (0.35 mg) by mouth Daily 90 tablet 3 03/05/2024 Active Start: 03-05-2024 take 1 tablet by kwesi th once daily norethindrone (Micronor) 0.35 MG tablet Indications: Unwanted fertility Take 1 tablet (0.35 mg) by mouth Daily 90 tablet 3 03/05/2024 Active vit 83-ksmf-ijhsp-dha 18-1-350 mg capsule (10 sources) Start: 08-10-2022 take 1 tablet by mouth in the morning vit 81-uuef-[id number]-dha 18-1-350 mg capsule Indications: Patient desires Take 1 tablet by mouth in the morning. 90 capsule 4 08/10/2022 Active vitamin (Prenatabs Rx) 29-1 MG tablet (11 sources) Start: 05-17-2023 take 1 tablet by mouth in the morning vitamin (Prenatabs Rx) 29-1 MG tablet Indications: examination or test, positive result Take 1 tablet by mouth in the morning. 30 tablet 11 05/17/2023 Active sertraline 50 mg oral tablet (4 sources) Serotonin Reuptake Inhibitor Start: 02-13-2024 End: 03-05-2024 take 1 tablet by mouth once daily sertraline (Zoloft) 50 MG tablet Indications: Current 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 (HCC) (CMS/HCC) , Post depression (CMS/HCC) Take 1 tablet (50 mg) by mouth Daily 30 tablet 1 02/13/2024 03/05/2024 Discontinued (Side effects) Problems Active Problems Problem Classification Problem Date Documented Da te Episodic/Chronic Contraceptive and procreative management (2 sources) Unwanted fertility ; Translations: [Encounter for other general counseling and advice on contraception] 03-05-2024 Episodic Deficiency and other anemia (12 sources) Iron deficiency anemia; Translations: [Iron deficiency anemia, unspecified] Onset: 07-04-2023 07-04-2023 Episodic Deficiency and other anemia (2 sources) Anemia Onset: 08-15-2023 Episodic Miscellaneous mental health disorders (4 sources) depression; Translations: [ depression] 02-13-2024 Episodic Mood disorders (2 sources) Mild major depression, single episode; Translations: [Major depressive disorder, single episode, mild] 02-13-2024 Chronic Other complications of (2 sources) Anemia in [...] complicating , unspecified trimester] Onset: 07-04-2023 Chronic Other and delivery including normal (10 sources) care status; Translations: [Encounter for routine follow-up] 02-13-2024 Episodic Residual codes; unclassified (1 source) Gestation period, [...] stimulating hormone level] Onset: 06-12-2023 08-15-2023 Episodic Polyhydramnios and other problems of amniotic cavity (2 sources) Amniotic fluid leaking; Translations: [Premature rupture of membranes, unspecified as to length of time between rupture and onset of labor, unspecified weeks of gestation] 12-20-2023 Episodic Residual codes; unclassified (2 sources) 20 [...] M.D. 2023-12-20 10:57:39 Normal Not Available US for pregnancyon TITLE OF EXAM: US - US OB [...] Signed Luis Alberto Mcfadden M.D. 2023-12-20 10:57:39 IMAGING John Mcfadden MD - 12/20/2023 TITLE OF EXAM: US - US OB [...] Signed Luis Alberto Mcfadden M.D. 2023-12-20 10:57:39 [facility] Radiology Study observation (narrative) [facility] US for pregnancyOrdered By: John Mcfadden on 12-20-2023 [facility] Real Time Tomography Work Phone: US OB FOLLOW UP TRANSABDOMIN AL APPROACHon [...] 18.9 % High 11.5 - 15.0 % [facility] Hematocrit (Bld) [Volume fraction] 23.1 % Low 35 - 47 % [facility] Hemoglobin (Bld) [Mass/Vol] 7.2 g/dL Low 11.7 - 15.5 g/dL [facility] Interpretation and review of laboratory results Abnormal [facility] MCH (RBC) [Entitic mass] 19.8 pg Low 27 - 34 pg [facility] MCHC (RBC) [Mass/Vol] 31.1 g/dL Low 32 - 36 g/dL [facility] MCV (RBC) [Entitic vol] 64 fL Low 80 - 100 fL [facility] Platelet mean volume (Bld) [Entitic vol] 7.4 fL 7 - 12 fL [facility] Platelets (Bld) [#/Vol] 342 10*3/uL [facility] RBC (Bld) [#/Vol] 3.64 10*6/uL Low [facility] WBC corrected for nucl RBC Auto (Bld) [#/Vol] 7.2 [facility] COMPLETE BLOOD COUNTon 08-14 Erythrocyte distribution width (RBC) [Ratio] 18.9 % High 11.5-15.0 [facility] Comment on above: Performed By: #### C BC, THYR, 3051-0, 6-4, 2283-8, 2132-01 #### [facility] ([id number]) [address], [address] [place] [address] Hematocrit (Bld) [Volume fraction] 23.1 % Low 35-47 [facility] Comment on above: Performed By: #### C BC, THYR, 3051-0, 6-4, 8, 2132-01 #### [facility] ([id number]) [address], [address] [place] [address] Hemoglobin (Bld) [Mass/Vol] 7.2 g/dL Low 11.7-15.5 [facility] Comment on above: Performed By: #### C BC, THYR, 305-0, 2275-4, 2283-12, 2132-01 #### [facility] ([id number]) [address], [address] [place] [address] MCH (RBC) [Entitic mass] 19.8 pg Low 27-34 [facility] Comment on above: Performed By: #### C BC, THYR, 305-0, 2275-4, 2283-12, 2132-01 #### [facility] ([id number]) [address], [address] [place] [address] MCHC (RBC) [Mass/Vol] 31.1 g/dL Low 32-36 [facility] Comment on above: Performed By: #### C BC, THYR, 3051-0, 2275-4, 2283-12, 2132-01 #### [facility] ([id number]) [address], [address] [place] [address] MCV (RBC) [Entitic vol] 64 fL Low 80-100 [facility] Comment on above: Performed By: #### C BC, THYR, 3051-0, 2276-4, 4-8, 2132-01 #### [facility] ([id number]) [address], [address] [place] [address] Platelet mean volume (Bld) [Entitic vol] 7.4 fL Normal 7-12 [facility] Comment on above: Performed By: #### C BC, THYR, 3051-0, 2276-4, 4-8, 2132-01 #### [facility] ([id number]) [address], [address] [place] [address] Platelets (Bld) [#/Vol] 342 10*3/uL Normal 150-450 [facility] Comment on above: Performed By: #### C BC, THYR, 3051-0, 2276-4, 2283-8, 2132-01 #### [facility] ([id number]) [address], [address] [place] [address] RBC COUNT 3.64 X10E12/L Low 3.80-5.20 [facility] Comment on above: Performed By: #### C BC, THYR, 3051-0, 2276-4, 2283-8, 2132-01 #### [facility] ([id number]) [address], [facility] [address] [place] [address] WBC (Bld) [#/Vol] 7.2 10*3/uL Normal 4.0-11.0 [facility] Comment on above: Performed By: #### C BC, THYR, 3051-0, 2276-4, 2284-8, 2132-01 #### [facility] ([id number]) [address], [address] [place] [address] Cobalamin (Vitamin B12) [Mas s/Vol]on 08-15-2023 [facility] FERRITINon 08-15-2023 Ferritin [Mass/Vol] 3 ng/mL Low 11-307 [facility] Comment on above: Performed By: #### C BC, THYR, 3051-0, 2276-4, 2284-8, 9 #### [facility] ([id number]) [address] [facility] [facility] [facility], [address] [place] [address] FREE T3on 08-15-2023 Free T3 [Mass/Vol] 3.96 pg/mL High 2.50-3.90 [facility] Comment on above: Performed By: #### C BC, THYR, 3051-0, 2276-4, 2284-8, 9 #### [facility] ([id number]) [address] [facility] [facility], [address] [place] [address] Ferritinon 08-15-2023 Ferritin [Mass/Vol] 3 ng/mL Low 11 - 307 ng/mL [facility] Ferritin [Mass/Vol]on 2023 Interpretation and review of laboratory results Abnormal [facility] Folateon 08-15-2023 Folate [Mass/Vol] ng/mL 5.8 - PINF ng/mL [facility] Comment on above: NEW REFERENCE RANGE Folate [Mass/Vol]on 08-15-19 [facility] FOLIC ACID >25.0 Normal >5.8 [facility] Comment on above: Result Comment: NEW REFERENCE RANGE Performed By: #### C BC, THYR, 3051-0, 2276-4, 4-8, 2132-01 #### [facility] ([id number]) [address] [facility] [facility], [address] [place] [address] Free T3 [Mass/Vol]on Interpretation and review of laboratory results Abnormal [facility] HGB ELECTRO INTERPon HGB ELECTRO INTERP See below Normal [facility] Comment on above: Result Comment: NOTE Hemoglobins were analyzed by capillary electrophoresis. There is a normal hemoglobin capillary electrophoresis pattern. Alpha thalassemia trait is not excluded by the testing performed. Suggest correlation with clinical information, red blood cell indices and serum ferritin test results, if applicable. Performed By: #### C BC, THYR, 3051-0, 2276-4, 2284-8, 2132-01 #### [facility] ([id number]) [address] [facility] [facility], [address] [place] [address] STAFF REVIEW See below Normal [facility] Comment on above: Result Comment: NOTE Reviewed by Angi Horvath DO Test Performed By: [place] [address] [employer] Carriage Operator: Modesto Martin III, M.D. CLIA #[id number] Performed By: #### C BC, THYR, 3051-0, 2276-4, 2283-8, 2132-01 #### [facility] ([id number]) [address] [facility], [address] [place] [address] HGB ELECTROPHORESISon 2023 Abnormal Hb See below Normal No abnormal hemoglobin identified. [facility] Comment on above: Result Comment: NOTE No abnormal hemoglobin identified. Test Performed By: [place] [address] [employer] Carriage Operator: Modesto Martin III, M.D. CLIA #[id number] Performed By: #### C BC, THYR, 3051-0, 2276-4, 2283-8, 2132-01 #### [facility] ([id number]) [address] [facility] [facility], [address] [place] [address] Hb A Percent 98.1 % High 96.2-98.0 [facility] Comment on above: Performed By: #### C BC, THYR, 3051-0, 2276-4, 2284-8, 2132-01 #### [facility] ([id number]) [address], [address] [place] [address] Hb A2 Percent 1.9 % Low 2.0-3.1 [facility] Comment on above: Performed By: #### C BC, THYR, 3051-0, 2276-4, 2284-8, 2132-01 #### [facility] ([id number]) [address], [address] [place] [address] T3, freeon 08-15-2023 Free T3 [Mass/Vol] 3.96 pg/mL High 2.50 - 3. 90 pg/mL [facility] THYROID PROFILEon 08-15-2023 Free T4 [Mass/Vol] 0.54 ng/dL Low 0.61-1.60 [facility] Comment on above: Performed By: #### C BC, THYR, 3051-0, 6-4, 2283-8, 2132-01 #### [facility] ([id number]) [address], [address] [place] [address] TSH 0.67 uIU/mL Normal 0.49-4.67 [facility] Comment on above: Performed By: #### C BC, THYR, 3051-0, 2275-4, 2283-12, 2132-01 #### [facility] ([id number]) [address], [address] [place] [address] Thyroid profile includes TSH FT4on 08-15-2023 Free T4 [Mass/Vol] 0.54 ng/dL Low 0.61 - 1. 60 ng/dL [facility] Interpretation and review of laboratory results Abnormal [facility] TSH Qn 0.67 m[IU]/L [facility] VITAMIN B12on 08-15-2023 Cobalamin (Vitamin B12) [Mass/Vol] 183 pg/mL Normal 180-914 [facility] Comment on above: Performed By: #### C BC, THYR, 3051-0, 2276-4, 2283-8, 2132-01 #### [facility] ([id number]) [address], [address] [place] [address] Vitamin B12on 08-15-2023 Cobalamin (Vitamin B12) [Mass/Vol] 183 pg/mL 180 - 914 pg/mL [facility] BASIC METABOLIC PANLon 06-12 Anion gap [Moles/Vol] 9 mmol/L Normal 5-15 [facility] Comment on above: Performed By: #### C NITIN, BMP #### [facility] ([id number]) [address] [place] [address] Calcium [Mass/Vol] 9.1 mg/dL Normal 8.5-10.5 [facility] Comment on above: Performed By: #### C NITIN, BMP #### [facility] ([id number]) [address] [place] [address] Chloride [Moles/Vol] 105 mmol/L Normal 98-109 [facility] Comment on above: Performed By: #### C NITIN, BMP #### [facility] ([id number]) [address] [place] [address] CO2 [Moles/Vol] 22 mmol/L Normal 22-32 [facility] Comment on above: Performed By: #### C NITIN, BMP #### [facility] ([id number]) [address] [place] [address] Creatinine [Mass/Vol] 0.48 mg/dL Normal 0.40-1.00 [facility] Comment on above: Result Comment: METH OD TRACEABLE TO IDMS STANDARD Performed By: #### C NITIN, BMP #### [facility] ([id number]) [address] [place] [address] eGFR (CKD-EPI) NON-RACE DEPENDENT >90 Normal >59 [facility] Comment on above: Result Comment: Reported eGFR is based on the CKD-EPI 2020 equation that does not use a race coefficient. Performed By: #### C NITIN, BMP #### [facility] ([id number]) [address] [place] [address] Glucose [Mass/Vol] 94 mg/dL Normal 65-99 [facility] Comment on above: Performed By: #### C BCA, BMP #### [facility] ([id number]) [address] [place] [address] Potassium [Moles/Vol] 3.7 mmol/L Normal 3.5-5.0 [facility] Comment on above: Performed By: #### C BCA, BMP #### [facility] ([id number]) [address] [place] [address] Sodium [Moles/Vol] 136 mmol/L Normal 134-146 [facility] Comment on above: Performed By: #### C NITIN, BMP #### [facility] ([id number]) [address] [place] [address] Urea nitrogen [Mass/Vol] 11 mg/dL Normal 5-23 [facility] Comment on above: Performed By: #### C NITIN, BMP #### [facility] ([id number]) [address] [place] [address] CBC AND AUTO DIFFon 06-12-19 24 ABSOLUTE BASOPHIL 0.0 X10E9/L Normal 0.0-0.2 [facility] Comment on above: Performed By: #### C NITIN, BMP #### [facility] ([id number]) [address] [place] [address] ABSOLUTE NEUTROPHIL 4.5 X10E9/L Normal 1.5-6.6 [facility] Comment on above: Performed By: #### C BCA, BMP #### [facility] ([id number]) [address] [place] [address] Basophils/100 WBC (Bld) 0.4 % Normal [facility] Comment on above: Performed By: #### C BCA, BMP #### [facility] ([id number]) [address] [place] [address] Eosinophils (Bld) [#/Vol] 0.1 10*3/uL Normal 0.0-0.4 [facility] Comment on above: Performed By: #### C NITIN, BMP #### [facility] ([id number]) [address] [place] [address] Eosinophils/100 WBC (Bld) 1.0 % Normal [facility] Comment on above: Performed By: #### C NITIN, BMP #### [facility] ([id number]) [address] [place] [address] Erythrocyte distribution width (RBC) [Ratio] 19.3 % High 11.5-15.0 [facility] Comment on above: Performed By: #### C NITIN, BMP #### [facility] ([id number]) [address] [place] [address] Hematocrit (Bld) [Volume fraction] 26.6 % Low 35-47 [facility] Comment on above: Performed By: #### C NITIN, BMP #### [facility] ([id number]) [address] [place] [address] Hemoglobin (Bld) [Mass/Vol] 8.0 g/dL Low 11.7-15.5 [facility] Comment on above: Performed By: #### C NITIN, BMP #### [facility] ([id number]) [address] [place] [address] Lymphocytes (Bld) [#/Vol] 2.0 10*3/uL Normal 1.0-3.5 [facility] Comment on above: Performed By: #### C NITIN, BMP #### [facility] ([id number]) [address] [place] [address]92 Lymphocytes/100 WBC (Bld) 27.5 % Normal [facility] Comment on above: Performed By: #### C NITIN, BMP #### [facility] ([id number]) [address] [place] [address] MCH (RBC) [Entitic mass] 19.1 pg Low 27-34 [facility] Comment on above: Performed By: #### C NITIN, BMP #### [facility] ([id number]) [address] [place] [address] MCHC (RBC) [Mass/Vol] 30.2 g/dL Low 32-36 [facility] Comment on above: Performed By: #### C NITIN, BMP #### [facility] ([id number]) [address] [place] [address] MCV (RBC) [Entitic vol] 63 fL Low 80-100 [facility] Comment on above: Performed By: #### Anderson TAVERAS, BMP #### [facility] ([id number]) [address] [place] [address] Monocytes (Bld) [#/Vol] 0.6 10*3/uL Normal 0-0.9 [facility] Comment on above: Performed By: #### C NITIN, BMP #### [facility] ([id number]) [address] [place] [address]055 Monocytes/100 WBC (Bld) 8.6 % Normal [facility] Comment on above: Performed By: #### Anderson TAVERAS, BMP #### [facility] ([id number]) [address] [place] [address] Neutrophils/100 WBC (Bld) 62.5 % Normal [facility] Comment on above: Performed By: #### C NITIN, BMP #### [facility] ([id number]) [address] [place] [address] Platelet mean volume (Bld) [Entitic vol] 7.6 fL Normal 7-12 [facility] Comment on above: Performed By: #### Anderson TAVERAS, BMP #### [facility] ([id number]) [address] [place] [address] Platelets (Bld) [#/Vol] 334 10*3/uL Normal 150-450 [facility] Comment on above: Performed By: #### C NITIN, BMP #### [facility] ([id number]) [address] [place] [address] RBC COUNT 4.20 X10E12/L Normal 3.80-5.20 [facility] Comment on above: Performed By: #### C NITIN, BMP #### [facility] ([id number]) [address] [place] [address] WBC (Bld) [#/Vol] 7.3 10*3/uL Normal 4.0-11.0 [facility] Comment on above: Performed By: #### Anderson TAVERAS, BMP #### [facility] ([id number]) [address] [place] [address] HIV 1&2 AB/AG Screen (P24 AG )on 05-17-2023 HIV 1&2 AB/AG Non-Reactive [facility] Hepatitis B surface antigeno n 05-17-2023 Hepatitis B Surface Antigen Non-Reactive [facility] Hepatitis C(HCV) Ab w/ Refle x to PCRon 05-17-2023 HCV Ab Ql (S) Non-Reactive [facility] No Panel InformationOrdered By: Riya Veloz on 05-17-2023 [facility] Rubella IGG immune statuson 05-17-2023 Rubella immune IgG [facility] Syphilis Total(Unknown Syphi lis Status)Ordered By: Riya Veloz on 05-17-2023 Syphilis Non-Reactive [facility] US OB < 14 WEEKS EARLYon [...] significant surrounding subchorionic hemorrhage. Yolk sac present. [place] rump length measures 1.85 cm, which corresponds [...] Vital Sign Value Performing Clinician Courtney collins 03-05-2024 09:05-0400 Body mass index (BMI) [Ratio] 20.2 kg/m2 Marielle [facility] Work Phone: [facility] 03-05-2024 09:05-0400 Body weight 58.51 kg Marielle [facility] Work Phone: [facility] 02-13-2024 08:35-0400 Body mass index (BMI) [Ratio] 20.36 kg/m2 [facility] Work Phone: [facility] 02-13-2024 08:35-0400 Body weight 58.97 kg [facility] Work Phone: [facility] 02-13-2024 08:35-0400 Diastolic blood pressure 60 mm[Hg] [facility] Work [facility]: [facility] 02-13-2024 08:35-0400 Systolic blood pressure 100 mm[Hg] [facility] Work Phone: [facility] 01-18-2024 11:43-0400 Body mass index (BMI) [Ratio] 19.89 kg/m2 [facility] Work [facility]: [facility] 01-18-2024 11:43-0400 Body weight 57.61 kg Marielle Reeveso CNM Work Phone: [facility] 01-18-2024 11:43-0400 Diastolic blood pressure 70 mm[Hg] Marielle Lalao CNM Work Phone: [facility] 01-18-2024 11:43-0400 Systolic blood pressure 108 mm[Hg] Marielle Lalao CNM Work Phone: [facility] 12-27-2023 13:04-0400 Body mass index (BMI) [Ratio] 20.83 kg/m2 Marielle Reeveso CNM Work Phone: [facility] 12-27-2023 13:04-0400 Body weight 60.33 kg Marielle Reeveso CNM Work Phone: [facility] 12-27-2023 13:04-0400 Diastolic blood pressure 70 mm[Hg] Marielle Lalao CNM Work Phone: [facility] 12-27-2023 13:04-0400 Systolic blood pressure 110 mm[Hg] Marielle Lalao CNM Work Phone: [facility] 08-15-2023 09:14-0400 Body height 170.2 cm Glory Rivera MD Work Phone: [facility] 08-15-2023 09:14-0400 Body mass index (BMI) [Ratio] 21.77 kg/m2 Glory Rivera MD Work Phone: [facility] 08-15-2023 09:14-0400 Body weight 63.05 kg Glory Rivera MD Work Phone: [facility] 08-15-2023 09:14-0400 Diastolic blood pressure 62 mm[Hg] Glory Rivera MD Work Phone: [facility] 08-15-2023 09:14-0400 Heart rate 68 /min Glory Rivera MD Work Phone: [facility] 08-15-2023 09:14-0400 Systolic blood pressure 102 mm[Hg] Glory Rivera MD Work Phone: [place] 07-04-2023 08:55-0500 Body mass index (BMI) [Ratio] 20.55 kg/m2 Moe Langley MD Work Phone: [facility] 07-04-2023 08:55-0500 Body weight 59.51 kg Moe Langley MD [facility] 07-04-2023 08:55-0500 Diastolic blood pressure 55 mm[Hg] Moe Langley MD Work Phone: [facility] 07-04-2023 08:55-0500 Heart rate 67 /min Moe Langley MD Work Phone: [place] 07-04-2023 08:55-0500 Systolic blood pressure 100 mm[Hg] Moe Langley MD [facility] En[facility] Encounter Date Encounter Type Care Provider Facility Start: 03-11-2024 End: 03-11-2024 Telephone encounter Marielle L Floro CNM Work Phone: [facility] Start: 03-05-2024 End: 03-05-2024 ambulatory MARIELLE L FLORO Not Available Start: 03-05-2024 End: 03-05-2024 Office outpatient visit 15 minutes Marielle L Floro CNM Work Phone: [facility] Comment on above: Unwanted fertility ( Primary Dx); Post depression (CMS/HCC); examination following delivery Start: 02-13-2024 End: 02-13-2024 ambulatory MARIELLE L FLORO Not Available Start: 02-13-2024 End: 02-13-2024 Office outpatient visit 15 minutes Marielle L Floro CNM Work Phone: [facility] Comment on above: Current 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 (HCC) (CMS/HCC) (Primary Dx); examination following delivery; Post depression (CMS/HCC); Other iron deficiency anemia Start: 01-18-2024 End: 01-18-2024 Office outpatient visit 15 minutes Marielle L Floro CNM Work Phone: [facility] Comment on above: examinati on following delivery (Primary Dx) Start: 12-27-2023 End: 12-27-2023 Office outpatient visit 15 minutes Marielle L Floro CNM Work Phone: [facility] Comment on above: examinati on following delivery (Primary Dx) Start: 12-27-2023 End: 12-27-2023 ambulatory MARIELLE L FLORO Not Available Start: 12-20-2023 End: 12-20-2023 Office outpatient visit 15 minutes Marielle L Floro CNM Work Phone: [facility] Comment on above: Encounter for superv ision of other normal , third trimester (Primary Dx); Amniotic fluid leaking Start: 12-20-2023 End: 12-20-2023 ambulatory MARIELLE L FLORO Not Available Start: 11-14-2023 End: 11-14-2023 ambulatory [facility] Start: 11-13-2023 End: 11-13-2023 ambulatory MARIELLE L FLORO Not Available Start: 10-23-2023 End: 10-23-2023 ambulatory MARIELLE L FLORO Not Available Start: 09-04-2023 End: 09-04-2023 ambulatory MARIELLE L FLORO Not Available Start: 08-28-2023 End: 08-28-2023 Telephone encounter Gladys Cortés RN [facility] Start: 08-22-2023 End: 08-22-2023 Telephone encounter Stephanie Garcia RN [facility] [place] Start: 08-21-2023 Telephone encounter Gladys Cortés RN Mat ernal- Medicine at [facility] Start: 08-18-2023 Telephone encounter Glory Rivera MD Work Phone: [facility] Comment on above: Results Start: 08-17-2023 Orders Only Glory stewart MD Work Phone: [facility] [place] Comment on above: Iron deficiency anem ia during (Primary Dx); Thyroid disease Start: 08-15-2023 End: 08-15-2023 ambulatory GLORY RIVERA [facility] Start: 08-15-2023 End: 08-15-2023 Office outpatient visit 25 minutes Glory Rivera MD Work Phone: [facility] [place] Comment on above: 20 weeks gestation o f (Primary Dx); Low TSH level Start: 08-07-2023 End: 08-07-2023 ambulatory MARIELLE L FLORO Not Available Start: 07-10-2023 End: 07-10-2023 ambulatory MARIELLE L FLORO Not Available Start: 07-04-2023 End: 07-04-2023 Orders Only Grace Davis RN [facility] at [facility] Comment on above: Anemia affecting pre gnancy in second trimester (Primary Dx) Start: 07-04-2023 End: 07-04-2023 Office consultation new/estab patient 60 min Moe Langley MD Work Phone: [facility] Comment on above: Anemia affecting pre gnancy in second trimester (Primary Dx); Other iron deficiency anemia Start: 06-19-2023 Chart abstracting Moe mccormack MD Work Phone: [facility] Start: 06-13-2023 End: 06-13-2023 ambulatory MARIELLE L FLORO Not Available Start: 06-12-2023 End: 06-12-2023 Emergency department patient visit [facility] Start: 05-17-2023 End: 05-17-2023 ambulatory MARIELLE L FLORO Not Available Start: 01-10-2019 Patient [...] Treatment Date Care Activity Detail Author Start: 08-11-2027 Screening for malign ant neoplasm of cervix [facility] Start: 08-10-2025 Screening for malign ant neoplasm of cervix Pap Smear [facility] Start: 08-14-2024 Adult BMI Screening [facility] Start: 08-14-2024 Tobacco Screening [facility] Start: 07-04-2024 Adult BMI Screening Adult [facility] Screen ing [facility] Start: 07-04-2024 Tobacco Screening [facility]ening [facility] Start: 07-04-2024 End: 07-04-2024 US MFM with or without consult US MFM with or without consult Imaging Routine Anemia affecting in second trimester Expected: 07/04/2024 (Approximate), Expires: 07/04/2024 [place] Work Phone: Comment on above: Expected: 07/04/2024 (Approximate), Expires: 07/04/2024 Start: 06-12-2024 Adult BMI Screening Adult [facility] ing [facility] Start: 06-12-2024 DTaP,Tdap and Td Vac cines (2 - Td or Tdap) DTaP,Tdap and Td Vaccines (2 - Td or Tdap) [facility] Start: 04-03-2024 End: 04-03-2024 ambulatory 04/03/2024 9:30 AM EST Visit [facility] [address] [place] [address] Marielle Tristan CNM [address] [place] [address] [facility] Start: 03-05-2024 End: 03-05-2024 ambulatory 03/05/2024 8:30 AM EDT Visit [facility] [address] [place] [id number] Marielle Tristan, CNM [address] [place] [address] [facility] Start: 02-13-2024 End: 02-12-2025 TSH W/REFLEX TO FT4 TSH W/REFLEX TO FT4 Lab Routine Other iron deficiency anemia Expected: 02/13/2024 (Approximate), Expires: 02/12/2025 [facility] Work Phone: Comment on above: Expected: 02/13/2024 (Approximate), Expires: 02/12/2025 Start: 02-13-2024 End: 02-13-2024 ambulatory 02/13/2024 10:30 AM EDT Visit [facility] [address] [facility] [place] [phone] Marielle Tristan, CN [address] [place] [address] [facility] Start: 01-18-2024 End: 01-18-2024 ambulatory 01/18/2024 11:30 AM EDT Visit [facility] [address] [facility] [place] [phone] Marielle Tristan, CN [address] [place] [address] [facility] Start: 01-14-2024 Influenza vaccination [facility] Start: 10-30-2023 End: 10-30-2023 Telemedicine consultation with patient 10/30/2023 11:30 AM EDT Telemedicine [facility] at [facility] [address] [place] [phone] Osbaldo Alamo MD [address] [facility], [address] [place] [address], [place] [id number] [facility] Start: 08-15-2023 End: 08-15-2023 Patient encounter procedure [facility] [place] Start: 08-11-2023 Tobacco Screening Tobacco Screening [facility] Start: 07-04-2023 End: 07-04-2023 Patient encounter procedure [facility] Start: 01-13-2023 COVID-19 Vaccine () COVID-19 Vaccine () [facility] Start: 01-13-2023 Influenza vaccination Influenza Vacc ine [facility] Start: 2013 Screening for malign ant neoplasm of cervix Pap Smear [facility] Start: 2004 [facility] - Blood by Automated count CBC Lab Routine Other iron deficiency anemia Ordered: 02/13/2024 [facility] Comment on above: Ordered: 02/13/2024 End: 07-04-2024 Ferritin [Mass/volume] in Serum or Plasma Ferritin Lab Routine Anemia affecting in second trimester 1 Occurrences starting 07/04/2023 until 07/04/2024 [employer] Phone: Comment on above: 1 Occurrences starti ng 07/04/2023 until 07/04/2024 End: 07-04-2024 Hemoglobin Electrophoresis Hemoglobin Electrophoresis Lab Routine Anemia affecting in second trimester 1 Occurrences starting 07/04/2023 until 07/04/2024 [facility] Comment on above: 1 Occurrences starti ng 07/04/2023 until 07/04/2024 End: 08-14-2024 Hemoglobin Electrophoresis Hemoglobin Electrophoresis Lab Routine 20 weeks gestation of 1 Occurrences starting 08/15/2023 until 08/14/2024 [employer] Phone: Comment on above: 1 Occurrences starti ng 08/15/2023 until 08/14/2024 Hemoglobin Electrophoresis Hemoglobin Electrophoresis Lab Routine 20 weeks gestation of 08/15/2023 10:11 AM EDT [facility] [employer] [facility] End: 10-17-2023 Thyroid profile includes TSH FT4 Thyroid profile includes TSH FT4 Lab Routine Thyroid disease 1 Occurrences starting 08/17/2023 until 10/17/2023 [employer] Phone: Comment on above: 1 Occurrences starti ng 08/17/2023 until 10/17/2023 End: 10-17-2023 Triiodothyronine (T3) Free [Mass/volume] in Serum or Plasma T3, free Lab Routine Thyroid disease 1 Occurrences starting 08/17/2023 until 10/17/2023 [facility] Comment on above: 1 Occurrences starti ng 08/17/2023 until 10/17/2023 End: 08-14-2024 Unlisted Lab Test Unlisted Lab Test Lab Routine 20 weeks gestation of 1 Occurrences starting 08/15/2023 until 08/14/2024 [email or web address] Comment on above: 1 Occurrences starti ng 08/15/2023 until 08/14/2024 Immunizations Immunization Date Immunization Notes Care Provider Fa [facility] 02-24-2021 influenza virus vaccine, unspecified formulation Moe Langley MD Work Phone: [facility] 08-07-2020 COVID-19, mRNA, LNP- S, PF, 100mcg/0.5mL Dose Moe Langley MD Work Phone: [facility] 07-10-2020 COVID-19, mRNA, LNP- S, PF, 100mcg/0.5mL Dose Moe Langley MD Work Phone: [facility] Payers Date Payer Category Payer Medicaid [id number] 2023 Medicaid (Managed Care) [facility] MEDICAID [id number] 2023 Medicaid [id number] 2022 Medicaid [id number] 1992 Unknown [id number] 2.16.840.1.991014.3.579.2. 593 1992 Unknown [id number] 2.16.840.1.472117.3.579.2. 593 1992 Unknown [id number] 2.16.840.1.990504.3.579.2. 1286 1992 Unknown [id number] 2.16.840.1.034751.3.579.2. 1286 1992 Unknown [id number] 2.16.840.1.655635.3.579.2. 1286 1992 Unknown [id number] 2.16840.1.851546.3.579.2. 1286 1992 Unknown [id number] 2.16.840.1.746564.3.579.2. 1286 1992 Unknown [id number] 2.16.840.1.839375.3.579.2. 1258 1992 Unknown [id number] 2.16.840.1.163605.3.579.2. 9 1992 Unknown [id number] 2.16.840.1.137036.3.579.2. 9 1992 Unknown [id number] 2.16.840.1.188696.3.579.2. 1259 1992 Unknown [id number] 2.16.840.1.978739.3.579.2. 9 1992 Unknown [id number] 2.16.840.1.423171.3.579.2. 9 1992 Unknown [id number] 2.16.840.1.495197.3.579.2. 9 1992 Unknown [id number] 2.16.840.1.443306.3.579.2. 1259 1992 Unknown [id number] 2.16.840.1.535593.3.579.2. 9 1992 Unknown [id number] 2.16.840.1.791241.3.579.2. 1259 1992 Unknown [id number] 2.16.840.1.502131.3.579.2. 9 1992 Unknown [id number] 2.16.840.1.216020.3.579.2. 1259 1992 Unknown [id number] 2.16.840.1.889163.3.579.2. 1259 1959 Unknown Social History Date Type Detail Facility Start: 12-21-2021 End: 05-17-2023 Tobacco smoking status NHIS Never smoked tobacco [facility] Start: 12-21-2021 End: 05-17-2023 Tobacco use and exposure Smokeless tobacco non-user [facility] Start: 06-19-2023 Alcohol intake Current drinker of alcohol (finding) [facility] Start: 06-25-2020 End: 06-19-2023 Alcohol intake [facility] Start: 06-25-2020 End: 08-10-2022 Tobacco use panel [facility] Childcare Unknown [facility] Start: 04-05-2023 [facility] Start: 1990 Sex Assigned At Not on file [facility] Start: 07-04-2023 End: 08-15-2023 Alcohol intake Ex-drinker (finding) [facility] Start: 1990 Sex assigned at Female [facility] Start: 05-17-2023 Gender identity Identifies as female gender (finding) [facility] Start: 05-17-2023 Sexual orientation Heterosexual (finding) [facility] The thought of harmi ng myself has occurred to me Never [facility] Clinical Notes 07-04-2023 to 03-11-2024 Telephone Encounter - Loyd Jeff - 03/11/2024 9:39 AM EDTTelephone Encounter - [facility] - 03/11/2024 9:39 AM EDTMarielle Tristan CNM - 03/05/2024 9:00 AM EDT Note Date & Type Note Facility 03-11-2024 Telephone encount er Note Pt called and left a vm at 9:35 am She said she *needs* to speak with Maricruz Ontiveros. [facility] 03-11-2024 Miscellaneous Notes Formattin g of this note might be different from the original. Pt called and left a vm at 9:35 am She said she *needs* to speak with Maricruz Ontiveros. documented in this encounter [facility] 03-05-2024 History of Presen t illness Narrative Trish Landa is here for visit. She is 10 weeks . Complaints: has no unusual complaints Weeks at delivery: 39 week Type of delivery: , Low Transverse; primary Gender: male Baby is healthy: yes Breast or bottle feeding: breast Complaints or complications: no complications mood: well EPDS score at 10 weeks pp Contraception: OCPs will send orthomicronor to pharmacy Resumed Sexual activity: yes Resumed Menses: no EXAM: GENERAL APPEARANCE: alert, well appearing, in no apparent distress Patient states she was having headaches taking the Zoloft and then the headaches went away after she discontinued the med. She is doing well and states she feels better and doesn't feel as anxious.l EPDS score today at 10 weeks pp is 5. I do want to see her in 4 weeks to reassess her and also follow up on the control. She denies post blues, crying, depression and also denies suicidal ideations and no homicidal ideations. ASSESSMENT/PLAN: There are no diagnoses linked to this encounter. Has follow up with hematology in May for anemia. Thyroid is coming up in post Patient has no c/o feels good, no c/o tired normal exam documented in this encounter [facility] 02-13-2024 History of Presen t illness Narrative Trish Landa is here for visit. She is 7 weeks . Complaints: has no unusual complaints Weeks at delivery: 39 week Type of delivery: , Low Transverse; primary Gender: male Baby is healthy: yes Breast or bottle feeding: breast Complaints or complications: no complications mood: well EPDS score at 6 weeks pp 13 Contraception: OCPs- ortho micronor sent to pharmacy patient is Resumed Sexual activity: yes Resumed Menses: no EXAM: GENERAL APPEARANCE: alert, well appearing, in no apparent distress ASSESSMENT/PLAN: There are no diagnoses linked to this encounter. Abdomen: Incision is healing and all edges are well approximated, no redness discharge or bleeding noted. Patient states after reviewing her EPDS score with her that she is feeling down and overwhelmed I feel like I'm trying to do more than I am able to do. She states she awoke one night at 5:00 am and couldn't breathe, chest heaviness, arms tingling and short of breath. Had her boyfriend take her to the hospital and on the way there she states that she felt better so they went home. She states she is bonding with her baby and loves her baby and her other child as well. She does not feel like she's disconnected from them. She denies suicidal ideations and denies homicidal ideations as well. We did discuss meds and counseling in great detail. At this time she is willing to start med but does not agree to counseling. I did discuss mental changes and a plan to go to the ER if needed. PVU and agrees with the plan of care. She is also seeing hematology in follow up for anemia and s/p iron infusion before delivery. I do want to order labs today and recheck her thyroid. Orders placed. Ortho micronor RX sent for control. Patient does want OCPs at this time normal exam documented in this encounter [facility] 01-18-2024 History of Presen t illness Narrative Trish Landa is here for visit. She is 4 weeks . Complaints: has no unusual complaints Weeks at delivery: 39 week Type of delivery: , Low Transverse; primary Gender: male Baby is healthy: yes Breast or bottle feeding: breast Complaints or complications: no complications mood: well She states she a day last week that she was irritable, frustrated and started to cry. She went into the bathroom and stayed for a few minutes and then returned to the family. She said she had not had much sleep, baby was fussy and her 9 yo son wouldn't do his homework and wouldn't listen to her. She just got frustrated and her boy friend asked if she was ok and what could he do. She has denied feeling like that since that time. She states she is happy, bonding well with her baby, and nursing well. She was a little constipated but that has resolved since she stopped the pain pills. Incision looks good, well healed, all edges well approximated, no discharge, drainage, bleeding or odor noted. Contraception: NA Resumed Sexual activity: no Resumed Menses: no EXAM: GENERAL APPEARANCE: alert, well appearing, in no apparent distress ASSESSMENT/PLAN: There are no diagnoses linked to this encounter. normal exam documented in this encounter [facility] 12-27-2023 History of Presen t illness Narrative Trish Landa is here for visit. She is 1 weeks . Complaints: has no unusual complaints Weeks at delivery: 39 week Type of delivery: , Low Transverse; primary Gender: male Baby is healthy: yes Breast or bottle feeding: breast and bottle Complaints or complications: no complications mood: well Incision: incisions looks great, healing nicely. All edges approximated, no redness, discharge, tenderness or bleeding noted Contraception: NA Resumed Sexual activity: no Resumed Menses: no EXAM: GENERAL APPEARANCE: alert, well appearing, in no apparent distress ASSESSMENT/PLAN: There are no diagnoses linked to this encounter. normal exam documented in this encounter [facility] 12-20-2023 History of Presen t illness Narrative Subjective No chief complaint on file. Trish Landa is a 33 y.o. at 39w0d with a working estimated date of delivery of 12/27/2023, by Last Menstrual Period who presents for a routine visit. She denies vaginal bleeding, leakage of fluid, decreased movements, or contractions. OB History Para Term AB Living 2 2 2 0 0 2 SAB IAB Ectopic Multiple Live Births 2 # Outcome Date GA Lbr Holland/2nd Weight Sex Type Anes PTL Lv 2 Term 12/20/23 39w0d 10 lb 2 oz M CS-LTranv ROCK 1 Term M Vag-Spont EPI N ROCK Comments: with ML episiotomy- Dr Mujica Obstetric Comments Childbirth Her is complicated by: anemia, low thyroid early Objective Physical Exam Expected Total Weight Gain: 25 lb-35 lb Pregravid BMI: 19.89 Urine protein negative Urine glucose negative Assessment/Plan Diagnoses and all orders for this visit: Encounter for supervision of other normal , third trimester Amniotic fluid leaking - US OB limited 1+ fetuses; Future Speculum exam performed, negative pooling, Nitrazine negative Continue vitamin. Labs reviewed. GBS taken. Expected mode of delivery Follow up in 1 week for a routine visit. documented in this encounter [facility] 08-28-2023 Miscellaneous Notes Formattin g of this note might be different from the original. Patient called back to office in regards to testing results. Updated on thyroid function and Dr. Rivera recommendations. Updated on carrier screen results. Patient verbalized understanding and no further questions. documented in this encounter [facility] 08-28-2023 Telephone encount er Note Patient called back to office in regards to testing results. Updated on thyroid function and Dr. Rivera recommendations. Updated on carrier screen results. Patient verbalized understanding and no further questions. [facility] 08-22-2023 Miscellaneous Notes Formattin g of this note might be different from the original. TC to patient to discuss Carrier screen testing results. Patient did not answer so a voicemail was left for her to call back to discuss her results. Office number was provided. documented in this encounter [facility] 08-22-2023 Telephone encount er Note TC to patient to discuss Carrier screen testing results. Patient did not answer so a voicemail was left for her to call back to discuss her results. Office number was provided. [facility] 08-21-2023 Miscellaneous Notes Formattin g of this note might be different from the original. Attempted to contact patient in regards to thyroid function results per Dr. Rivera. No answer, left VM to call back to office to discuss. documented in this encounter [facility] 08-21-2023 Telephone encount er Note Attempted to contact patient in regards to thyroid function results per Dr. Rivera. No answer, left VM to call back to office to discuss. [facility] 08-18-2023 Miscellaneous Notes Formattin g of this note might be different from the original. Attempted to call patient to discuss her results she did not answer GLORY RIVERA MD documented in this encounter [facility] 08-18-2023 Telephone encount er Note Attempted to call patient to discuss her results she did not answer GLORY RIVERA MD [facility] 08-17-2023 Miscellaneous Notes Formattin g of this note might be different from the original. Left voicemail for pt to call our office to schedule an appointment with Micaela Burnette labs needed documented in this encounter [facility] 08-17-2023 Telephone encount er Note Left voicemail for pt to call our office to schedule an appointment with Micaela Burnette labs needed [facility] 08-15-2023 History of Presen t illness Narrative REASON FOR OFFICE VISIT: Follow up HISTORY OF PRESENT ILLNESS: Trish Landa is a pleasant 33 y.o. G 2 [...] Allergies CURRENT MEDICATIONS: Current Outpatient Medications: vit [id number] 18-1-350 mg capsule, Take 1 tablet by [...] and the other consultants, we search on epic and all the available care everywhere epic I did review all the imaging studies of the patient available on EMR, ordered by the primary care physician and the other independent consultant HABITS: Patient activity no restrictions, diet [...] 68 MFM Ultrasound please see report Trish Landa is 33 y.o. at 20w6d Please refer to prior [facility] notes 1. 20 weeks gestation of [...] patient is in complete care of her senior tax manager. Patient does have ultrasound office visit scheduled with us. Thank you for allowing me to participate in Trish Lanad . If there any questions please do not hesitate to contact us. Sincerely, Glory Rivera MD, FACOG (she/hers) Maternal- Medicine [address] [place] [address] Headache/epigastric pain/blurry vision/swelling? No Cramping/contractions? No Abnormal vaginal discharge? No Spotting or vaginal bleeding? No Loss of fluid like your water may have broken? No Recent ER visits or hospitalizations? No Any concerns that you would like me to mention to the provider today? Was diagnosed with a UTI by her OB in [place]. They prescribed her an antibiotic, but she lost the antibiotic and is inquiring if we can typewriter repairer her a new script. Blood drawn for carrier testing by PPE lab. Patient tolerated well. documented in this encounter [facility] 07-04-2023 History of Presen t illness Narrative Headache/epigastric pain/blurry vision/swelling? No Cramping/contractions? No Abnormal vaginal discharge? No Spotting/vaginal bleeding? No Loss of fluid like your water may have broken? No Cats in the home? No Do you change the litter box? N/A Flu vaccine? No Genetic testing done this here or other office? No Have you been seen here at [facility] in a previous ? No Recent ER visits or hospitalizations? 06/12/23 sent by primary OB to [place] [facility] for low hemoglobin Bring blood sugar log or meter with you today? (Please bring them with you for every visit at [facility]) N/A Traveled outside the country in the past 6 month No Any concerns that you would like me to mention to the provider today? No REASON FOR CONSULTATION: Suspected hyperthyroidism. HISTORY OF PRESENT ILLNESS: Trish Landa is a pleasant 33 y.o. G 2 [...] Allergies CURRENT MEDICATIONS: Current Outpatient Medications: vit [id number] 18-1-350 mg capsule, Take 1 tablet by [...] and the other consultants, we search on epic and all the available care everywhere epic I did review all the imaging studies of the patient available on EMR, ordered by the primary care physician and the other independent consultant HABITS: Patient activity no restrictions, diet [...] 6. Targeted anatomy at 20 weeks at [facility] office 7. Patient is low risk and vaginal delivery at term at her local hospital is anticipated with C section reserve for routine obstetrical indications. DISPOSITION: At this point the patient is in complete care of her senior tax manager. Patient does have ultrasound office visit scheduled with us. Thank you for allowing me to participate in Trish Landa . If there any questions please do not hesitate to contact us. Sincerely, MOE LANGLEY MD documented in this encounter [facility] Evaluation note Diagnosis Anemia affecting in second trimester- Primary [facility] Diagnosis Anemia affecting in second trimester- Primary Other iron deficiency anemia [facility] Diagnosis 20 weeks gestation of - Primary Low TSH level documented in this [facility] Diagnosis Iron deficiency anemia during - Primary Thyroid disease Unspecified disorder of thyroid [facility] in this [facility] Diagnosis Current 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 (HCC) (CMS/HCC)- Primary examination following delivery Post depression (CMS/HCC) Mental disorders of mother, complicating , childbirth, or the puerperium, unspecified as to episode of care Other iron deficiency anemia documented in this encounter [facility] HealthcareEvaluation note* Diagnosis Unwanted fertility- Primary Post depression (CMS/HCC) Mental disorders of mother, complicating , childbirth, or the puerperium, unspecified as to episode of care examination following delivery [facility] Diagnosis Encounter for supervision of other normal , third trimester- Primary Amniotic fluid leaking Amniotic fluid leaking [facility]* Diagnosis examination following delivery- Primary documented in this encounter [facility] HealthcareInstructionsNot on filedocumented in this [facility]Pro[facility] SystemInstructionsNot on filedocumented in this encounterProDale [facility] SystemInstructionsNot on filedocumented in this encounterProPeoples [facility] SystemInstructionsNot on filedocumented in this encounterProPeoples Hospital System InstructionsNot on filedocumented in this encounterProPeoples [facility] InstructionsNot on filedocumented in this encounterProPeoples Hospital SystemReason for referral (narrative)* Consultation (Routine) - Pending Review Specialty Diagnoses / Procedures Referred By Floyd t Referred To Contact Hematology Diagnoses Iron deficiency anemia during Glory Rivera MD [address], [address] [place] [address] [facility] Hematology [address] [place] [address] Referral ID Status Reason Start Date Expiration Date V isits Requested Visits Authorized [id number] Pending Review 08/17/2023 08/16/2024 1 1 [facility] Summary Purpose Family History No Family [...] with or without consult Moe Langley MD [address] [place] [address] [facility]aternal [facility] [address] [place] [address] Referral ID Status Reason Start Date Expiration Date V isits Requested Visits Authorized [id number] Pending Review 07/04/2023 07/03/2024 1 1 Additional Source Comments INFORMATION SOURCE (unrecogn ized section and content) DATE CREATED AUTHOR 12/26/2018 [facility] DATE CREATED AUTHOR AUTHOR'S ORGANIZ ATION 06/16/2023 [facility] DATE CREATED AUTHOR AUTHOR'S ORGANIZ ATION 08/16/2023 [facility] Ambulatory [facility] DATE CREATED AUTHOR AUTHOR'S ORGANIZ ATION 11/15/2023 [facility] DATE CREATED AUTHOR AUTHOR'S ORGANIZ ATION 03/10/2024 [facility] dical Specialists EPIC Care Teams (unrecognized sec tion and content) Archeology Faculty Member Relationship Specialty Start Date End Date Services, [facility] [address] [place] PCP - General Family Medicine 06/12/23 Archeology Faculty Member Relationship Specialty Start Date End Date Services, [facility] [address] [place] PCP - General Family Medicine 06/12/23 Archeology Faculty Member Relationship Specialty Start Date End Date Services, [facility] [address] [place] PCP - General Family Medicine 06/12/23 Archeology Faculty Member Relationship Specialty Start Date End Date Services, [facility] [address] [place] PCP - General Family Medicine 06/12/23 Archeology Faculty Member Relationship Specialty Start Date End Date Services, [facility] [address] PCP - General Family Medicine 06/12/23 Archeology Faculty Member Relationship Specialty Start Date End Date Services, [facility] [address] PCP - General Family Medicine 06/12/23 Archeology Faculty Member Relationship Specialty Start Date End Date Jelly Santiago DO [address] [place] [address] PCP - General Family Medicine 07/10/23 Archeology Faculty Member Relationship Specialty Start Date End Date Jelly Santiago DO [address] [place] [address] PCP - General Family Medicine 07/10/23 Archeology Faculty Member Relationship Specialty Start Date End Date Jelly Santiago DO [address] [place] [address] PCP - General Family Medicine 07/10/23 Archeology Faculty Member Relationship Specialty Start Date End Date Jelly Santiago DO [address] [place] [address] PCP - General Family Medicine 07/10/23 Reason for Visit (unrecogniz ed section and content) Reason Comments Anemia Hypothyroidism Reason Comments Hyperthyroidism anemia Reason Onset Date Comments Results 08/18/2023 Reason Comments Care FOR RECORDS PERTAINING TO PATIENTS WHO ARE [...] BE BASED ON THE PRIMARY CLINICAL RECORDS. [facility] [employer] [facility]. provides no warranty or guarantee of the accuracy or completeness of information in this document.
[2024-06-24 12:31] LABS: Percent Iron Saturation 41.9 %
[2024-06-24 12:33] LABS: Alanine Aminotransferase 20 U/L (14-59); Albumin Globulin Ratio 1.1; Albumin Level 3.9 g/dL (3.4-5.0); Alkaline Phosphatase 84 U/L (46-116); Anion Gap 14.6; Aspartate Amino Transferase 11 U/L (15-37); BUN Creatinine Ratio 24.1; Bilirubin Total 0.4 mg/dL (0.2-1.0); Carbon Dioxide 27.2 mmol/L (21.0-32.0); Chloride 107 mmol/L (98-107); Estimated GFR (African America >60 (>=60 mL/min/1.73m^2); Estimated GFR (Non-African Ame >60 (>=60 mL/min/1.73m^2); Globulin 3.4 g/dL; Glucose 80 mg/dL (74-106); Potassium 3.8 mmol/L (3.5-5.1); Sodium 145 mmol/L (136-145); Total Protein 7.3 g/dL (6.4-8.2)
[2024-06-25 08:15] LABS: Vitamin B12 380 pg/mL (232-1245)
== END 2024-06-24 11:20 | disposition home or self-care (01) ==
PROVIDERS: Visit Provider Internal Medicine Hematology & Oncology
DX: D64.9 Anemia, unspecified (principal); D50.9 Iron deficiency anemia, unspecified; D51.9 Vitamin B12 deficiency anemia, unspecified; K90.9 Intestinal malabsorption, unspecified
CPT/HCPCS: 36415; 80053; 82607; 82728; 83540; 83550; 85025

== ENCOUNTER 2025-02-17 11:49 | Emergency (ER) | payer OTHER, SELFPAY ==
--- OUTSIDE RECORDS SUMMARY | 2024-02-13 07:15 | XMS_ITS ---
Author Organization [facility] in [place] Address [address] [place] [address] Care Team Providers Care Cotton Cleaner Name Role Phone None, Unknown or Primary Care Provider Unavailab Veronica Lyons Unavailable [phone] REASON FOR VISIT MD Encounters Encounter Location Date Provider Diagnosis [facility] Oncology [address] [place] [address] 02/13/2024 Veronica Hernandez Plan Of Treatment No Information Progress Notes * Trish CARDONADOB: 2 (34 yo F)Acc No.[id number]:02/13/2024 UNLOCKED PROGRESS NOTE Progress Notes Patient: Trish CUBA Provider: Zakia Hernandez M.D. :1990 A ge:33 Y S ex:Female Date:02/13/2024 Address:[address] [place], [place] [id number] Pcp:Unknown or None Subjective: * Chief Complaints: * 1 . MD. * Medical History: Objective: * Vitals: Assessment: Plan: * Treatment: * * Electronic signature of Jono Hernandez MD, [id number] on 02/17/2025 at 12:11 PM EDT Sign off status: Pending Visit Status: A [facility] (Voice) * Provider: Zakia Hernandez M.D. Date: Generated for Printi ng/Faxing/eTransmitting on: 12:11 PM EDT
--- OUTSIDE RECORDS SUMMARY | 2024-02-20 07:00 | XMS_ITS ---
Author Organization [facility] [place] Address [address] [place] [place] [address] Care Team Providers Care Occupational Health Nursing Director Name Role Phone None, Unknown or Primary Care Provider Unavailab Veronica Lyons Unavailable [phone] REASON FOR VISIT CL1 Encounters Encounter Location Date Provider Diagnosis [facility] On[facility] [place] [address] 02/20/2024 Veronica Hernandez Plan Of Treatment No Information Progress Notes * Trish LANDADOB: 2 (34 yo F)Acc No.[id number]:02/20/2024 UNLOCKED PROGRESS NOTE Progress Note Patient: Trish CUBA Provider: Zakia Hernandez M.D. :1990 A ge:33 Y S ex:Female Date:02/20/2024 Address:[address] [place], [place] [id number] Pcp:Unknown or None Subjective: * Chief Complaints: * 1 . CL1. * Medical History: Objective: * Vitals: Assessment: Plan: * Treatment: * * Electronic signature of Jono Hernandez MD, [id number] on 02/17/2025 at 12:12 PM EDT Sign off status: Pending Visit Status: C ANC (Cancelled) * Provider: Zakia Hernandez M.D. Date: Generated for Glenisi ng/Faabag/eTransmitting on: 1 12:12 PM EDT
--- OUTSIDE RECORDS SUMMARY | 2024-06-25 04:30 | XMS_ITS ---
Author Organization The [facility] [place] Address [address] [place] [place] [address] Care Team Providers Care Estimation Manager Name Role Phone None, Unknown or Primary Care Provider Unavailab Veronica Lyons Unavailable [phone] REASON FOR VISIT MD TELEHEALTH Encounters Encounter Location Date Provider Diagnosis [facility] Oncology [address] [place] [phone] 06/25/2024 Veronica Hernandez Plan Of Treatment No Information Progress Notes * Trish LANDADOB: 2 (34 yo F)Acc No.[id number]:06/25/2024 UNLOCKED PROGRESS NOTE Progress Notes Patient: Trish CUBA Provider: Zakia Hernandez M.D. :1990 A ge:34 Y S ex:Female Date:06/25/2024 Address:[address] [place], [place] [id number] Pcp:Unknown or None Subjective: * Chief Complaints: * 1 . TELEHEALTH. * Medical History: Objective: * Vitals: Assessment: Plan: * Treatment: * * Electronic signature of Jono Hernandez MD, [id number] on 02/17/2025 at 12:12 PM EDT Sign off status: Pending Visit Status: P EN (Pending) * Provider: Zakia Hernandez M.D. Date: 0 06/25/2024 Generated for Printi ng/Faabag/eTransmitting on: 1 12:12 PM EDT
--- OUTSIDE RECORDS SUMMARY | 2024-06-25 09:00 | XMS_ITS ---
Author Organization The [facility] in [place] Address [address] [place] [address] Care Team Providers Care Animal Caretaker Supervisor Name Role Phone None, Unknown or Primary Care Provider Unavailab Veronica Lyons Unavailable [phone] REASON FOR VISIT MD TELEHEALTH Encounters Encounter Location Date Provider Diagnosis [facility] Oncology [address] [place] [phone] 06/25/2024 Veronica Hernandez Plan Of Treatment No Information Progress Notes * Trish LANDADOB: 2 (34 yo F)Acc No.[id number]:06/25/2024 UNLOCKED PROGRESS NOTE Progress Notes Patient: Trish CUBA Provider: Zakia Hernandez M.D. :1990 A ge:34 Y S ex:Female Date:06/25/2024 Address:[address] [place], [place] [phone] Pcp:Unknown or None Subjective: * Chief Complaints: * 1 . TELEHEALTH. * Medical History: Objective: * Vitals: Assessment: Plan: * Treatment: * * Electronic signature of Jono Hernandez MD, [id number] on 02/17/2025 at 12:12 PM EDT Sign off status: Pending Visit Status: C ANC (Cancelled) * Provider: Zakia Hernandez M.D. Date: 0 06/25/2024 Generated for Printi ng/Faabag/eTransmitting on: 1 12:12 PM EDT
--- OUTSIDE RECORDS SUMMARY | 2024-12-31 11:15 | XMS_ITS ---
Author Organization The [facility] [place] Address [address] [place] [address] Care Team Providers Care Alcohol Law Enforcement Agent Name Role Phone None, Unknown or Primary Care Provider Unavailab Veronica Lyons Unavailable [phone] REASON FOR VISIT MD Encounters Encounter Location Date Provider Diagnosis The [facility] Oncology [address] [place] [address] 12/31/2024 Veronica Hernandez Plan Of Treatment No Information Progress Notes * Trish CARDONADOB: 2 (34 yo F)Acc No.[id number]:12/31/2024 UNLOCKED PROGRESS NOTE Progress Notes Patient: Trish CUBA Provider: Zakia Hernandez M.D. :1990 A ge:34 Y S ex:Female Date:12/31/2024 Address:[address] [place], [place] [phone] Pcp:Unknown or None Subjective: * Chief Complaints: * 1 . MD. * Medical History: Objective: * Vitals: Assessment: Plan: * Treatment: * * Electronic signature of Jono Hernandez MD, [id number] on 02/17/2025 at 12:12 PM EDT Sign off status: Pending Visit Status: C ANC (Cancelled) * Provider: Zakia Hernandez M.D. Date: 12/31/2024 Generated for Printi ng/Faabag/eTransmitting on: 1 12:12 PM EDT
[2025-02-17] VITALS (11 sets, daily range): BP systolic 107–130; BP diastolic 66–77; PULSE 52–72; TEMP 36.7; O2SAT 98–100; BMI 19.6
--- OUTSIDE RECORDS SUMMARY | 2025-02-17 12:12 | XMS_ITS | Patient Health Record ---
Author Organization The [facility] [place] Address [address] [place] [address] Care Team Providers Care Senior Net C Developer Name Role Phone None, Unknown or Primary Care Provider Unavailab Veronica Lyons Unavailable [phone] Results Component Value Reference Range Notes IRON AND TIBC (Not yet revie wed by provider) Interpretation: Performing Lab: Notes/Report: [facility] , Iron 103.0 50.0-170.0 ug/dL Total Iron Binding Capacity 246.0 250.0-450.0 u g/dL Percent Iron Saturation 41.9 Performing Lab: see note ML - [facility] LB PROF 14(COMP METB) (Not yet reviewed by provider) Interpretation: Performing Lab: Notes/Report: [facility] , Sodium 145 136-145 mmol/L Potassium 3.8 3.5-5.1 mmol/L Chloride 107 98-107 mmol/L Carbon Dioxide 27.2 21.0-32.0 mmol/L Anion Gap 14.6 Glucose 80 74-106 mg/dL Blood Urea Nitrogen 14.0 7.0-18.0 mg/dL Creatinine 0.58 0.55-1.02 mg/dL Estimated GFR ( Rhonda >60 >=60 mL/mi n/1.73m 2 Estimated GFR (Non- Daija >60 >=60 mL/mi n/1.73m 2 BUN Creatinine Ratio 24.1 Calcium 9.0 8.5-10.1 mg/dL Bilirubin Total 0.4 0.2-1.0 mg/dL Aspartate Amino Transferase 11 15-37 U/L Alanine Aminotransferase 20 14-59 U/L Alkaline Phosphatase 84 46-116 U/L Total Protein 7.3 6.4-8.2 g/dL Albumin Level 3.9 3.4-5.0 g/dL Globulin 3.4 Albumin Globulin Ratio 1.1 Performing Lab: see note ML - [facility] LB Vitamin B12 (Not yet reviewe d by provider) Interpretation: Performing Lab: Notes/Report: [facility] , Vitamin B12 927 701-7577 pg/mL [facility]formed at: [facility] Track Surfacing Machine Operator: Turner Locke PhD, Phone: [phone] [address] [place], [place] [id number] Performing Lab: see note - [facility] LB FERRITIN (Not yet reviewed b y provider) Interpretation: Performing Lab: Notes/Report: [facility] , Ferritin 159.0 8.0-252.0 ng/mL Performing Lab: see note - [facility] LB CBC AUTO DIFF (Not yet revie wed by provider) Interpretation: Performing Lab: Notes/Report: [facility] , White Blood Count 6.0 4.0-11.0 10 3/uL Red Blood Count 4.10 4.20-5.40 10 6/uL Hemoglobin 12.9 12.0-16.0 g/dL Hematocrit 36.9 36.0-48.0 % Mean Corpuscular Volume 90.0 81.0-99.0 fL Mean Corpuscular Hemoglobin 31.5 26.7-34.0 pg Mean Corpuscular HGB Conc 35.0 29.9-35.2 g/dL Red Cell Distribution Width 12.8 11.0-15.0 % Platelet Count 200 150-450 10 3/uL Mean Platelet Volume 10.0 9.5-13.5 fL Neutrophils Percent Auto 55.3 43.0-75.0 % Lymphocytes Percent Auto 36.3 20.5-60.0 % Monocytes Percent Auto 6.9 1.7-12.0 % Eosinophils Percent Auto 1.0 0.9-7.0 % Basophils Percent Auto 0.3 0.2-2.0 % Immature Granulocytes Pct Auto 0.2 0.0-0.5 % Neutrophils Absolute Auto 3.3 1.4-6.5 10 3/uL Lymphocytes Absolute Auto 2.2 1.2-3.8 10 3/uL Monocytes Absolute Auto 0.4 0.3-0.8 10 3/uL Eosinophils Absolute Auto 0.1 0.0-0.7 10 3/uL Basophils Absolute Auto 0.0 0.0-0.1 10 3/uL Immature Granulocytes Abs Auto 0.01 0.00-0.03 10 3/uL Performing Lab: see note ML - [facility] LB Reason For Referral No Information Encounters Encounter Location Date Provider Diagnosis [facility] Oncology [address] [place] [address] 06/25/2024 Veronica Mary Plan Of Treatment Pending Test Test Name Order Date CBC AUTO DIFF 10/24/2023 CBC AUTO DIFF 11/21/2023 CBC AUTO DIFF 02/07/2024 CBC AUTO DIFF 06/24/2024 CRP 11/21/2023 FERRITIN 10/24/2023 FERRITIN 11/21/2023 FERRITIN 02/07/2024 FERRITIN 06/24/2024 FOLATE 02/07/2024 IRON AND TIBC 06/24/2024 IRON AND TIBC 10/24/2023 IRON AND TIBC 02/07/2024 IRON AND TIBC 11/21/2023 PROF 14(COMP METB) 06/24/2024 PROF CHEM 8 (BAS METB) 10/24/2023 PROF CHEM 8 (BAS METB) 02/07/2024 VITAMIN D 25 [place] 02/07/2024 VITAMIN D 25 [place] 10/24/2023 Erythrocyte Sedimentation Rate Vitamin B12 10/24/2023 Hgb Fractionation [place] 10/24/2023 Vitamin B12 02/07/2024 Vitamin B12 06/24/2024 Insurance Providers Payer Name Payer Address Payer Phone Subscriber Number Group Number Insured Name Patient Relationship to Insured Coverage Start Date Coverage End Date [employer] [place] [employer] [address] [place] [address] [id number] Trish Landa Self - patient is the insured
--- OUTSIDE RECORDS SUMMARY | 2025-02-17 12:12 | XMS_ITS | Encounter Summary ---
Author Organization [facility] Address [address] [place] [address] Care Team Providers Care Financial Services Internship Name Role Phone Jelly Santiago DO Primary Care Provider [phone] Encounter Details Date Type Department Care Team (Late st Contact Info) Description 12/20/2023 Abstract SAMI Barron OBAKILAHN [address] [place] [phone] Marielle Tristan CNM [address] [place] [address] Social History Tobacco Use Types Packs/Day Years Used Date Smoking Tobacco: Never Smokeless Tobacco: Never Alcohol Use Standard Drinks/Week Comments Not Currently 0 (1 standard drink = 0.6 oz pur e alcohol) PHQ-2 Answer Date Recorded Patient Health Questionnaire-2 Score 0 05/17/2023 Comments Yes Sex and Gender Information Value Date Recorded Sex Assigned at Female 05/17/2023 12:37 PM EST Legal Sex Female 11:46 PM EDT Gender Identity Female 05/17/2023 12:37 PM EST Sexual Orientation Straight 05/17/2023 12 :37 PM EST documented as of this encounter Plan of Treatment Not on file documented as of this encounter Visit Diagnoses Not on filedocumented in this encounter Care Teams Financial Services Internship Relationship Specialty Start Date End Date Jelly Santiago DO [address] [place], [place] [phone] PCP - General Family Medicine 07/10/23 documented as of this encounter
--- OUTSIDE RECORDS SUMMARY | 2025-02-17 12:12 | XMS_ITS | Encounter Summary ---
Author Organization [facility] tem Address [id number] [address] [place] [address] Care Team Providers Care Mild Disabilities Teacher Name Role Phone Services, [facility] Primary Care Provider Encounter Details Date Type Department Care Team (Late st Contact Info) Description 06/19/2023 Orders Only Maternal- Medicine at [facility] [address] [place] [phone] Marielle Tristan, SENIOR RESEARCH SCIENTIST-PARAMM [address] [place] [address] Social History Tobacco Use Types Packs/Day Years Used Date Smoking Tobacco: Never Smokeless Tobacco: Never Alcohol Use Standard Drinks/Week Comments Yes 1 (1 standard drink = 0.6 oz pur e alcohol) Childcare Answer Date Recorded Childcare Unknown 10/24/2018 Employment Answer Date Recorded Employment Unknown 10/24/2018 Purpose - Life Answer Date Recorded Purpose and direction in life Unknown Comments Yes Sex and Gender Information Value Date Recorded Sex Assigned at Not on file Legal Sex Female 11:46 AM EDT Gender Identity Not on file Sexual Orientation Not on file documented as of this encounter Plan of Treatment Not on file documented as of this encounter Procedures Procedure Name Priority Date/Time Associated Diagnosis Comments HEMOGLOBIN A1C Routine 05/17/2023 12:44 PM EST documented in this encounter Results * Hemoglobin A1c (05/17/2023 12:44 PM EST) us Marielle Tristan SENIOR RESEARCH SCIENTIST-CNM LAB BLOOD ORDERABLES Mady l Result MANUALLY TRANSCRIBED RESULTS documented in this encounter Visit Diagnoses Not on filedocumented in this encounter Care Teams Mild Disabilities Teacher Relationship Specialty Start Date End Date Services, [facility] [address] [place], [place] PCP - General Family Medicine 06/12/23 documented as of this encounter
--- OUTSIDE RECORDS SUMMARY | 2025-02-17 12:12 | XMS_ITS | Clinical Summary ---
Author Organization [facility] Address [address] [place] [address] Care Team Providers Care Plug Wirer Name Role Phone SegundoJelly cisse Primary Care Provider [phone] Allergies No known active allergies Medications ferrous sulfate (Fe Tabs) 325 (65 Fe) MG EC tabletIndication s:Other iron deficiency anemia Take 1 tablet (325 mg) by mouth in the morning and 1 tablet (325 mg) in the evening. Take after meals. Do not crush, chew, or split.. 60 tablet 4 07/10/2023 Active ibuprofen 800 MG tablet Take 800 mg by mouth every 8 (eight) hours 12/23/2023 Active norethindrone (Micronor) 0.35 MG tabletIndication s:Unwanted fertility Take 1 tablet (0.35 mg) by mouth Daily 90 tablet 3 03/05/2024 Active Vit-Iron Carbonyl-FA (Thrivite Rx) 29-1 MG tabletIndication s: examination or test, positive result ([facility]) TAKE 1 TABLET BY MOUTH EVERY MORNING 30 tablet 11 07/04/2024 Active Family History Medical History Relation Name Comments Diabetes Maternal Grandfather Diabetes Mother Stomach cancer Mother Relation Name Status Comments Maternal Grandfather Alive Mother Alive Social History Tobacco Use Types Packs/Day Years Used Date Smoking Tobacco: Never Smokeless Tobacco: Never Tobacco Cessation:Counseling Given: Not Answered Alcohol Use Standard Drinks/Week Comments Not Currently 0 (1 standard drink = 0.6 oz pur e alcohol) PHQ-2 Answer Date Recorded Patient Health Questionnaire-2 Score 0 05/17/2023 Morganza Depression Scale Answer Date Recorded Morganza Depression Scale Total 5 03/05/2024 The thought of harming myself has occurred to me . Never 03/05/2024 Comments No Sex and Gender Information Value Date Recorded Sex Assigned at Female 05/17/2023 12:37 PM EST Legal Sex Female 11:46 PM EDT Gender Identity Female 05/17/2023 12:37 PM EST Sexual Orientation Straight 05/17/2023 12 :37 PM EST Last Filed Vital Signs Vital Sign Reading Time Taken Comments Blood Pressure 100/60 02/13/2024 8:35 AM EDT Pulse - - Temperature - - Respiratory Rate - - Oxygen Saturation - - Inhaled Oxygen Concentration - - Weight 58.5 kg (129 lb) 03/05/2024 9:05 AM EDT Height 170.2 cm (5' 7 ) 03/10/2022 12:00 PM EDT Body Mass Index 20.2 03/10/2022 12:00 PM EDT Plan of Treatment Health Maintenance Due Date Last Done Comments Pap Smear 2013 Influenza Vaccine (#1) 2025 02/24/2021 Cervical Cancer Screening 08/11/2027 HPV/Cotest 08/11/2027 08/10/2022 Insurance [employer] [place] [phone] Care Teams Plug Wirer Relationship Specialty Start Date End Date Jelly Santiago DO [address] [place] [address] PCP - General Family Medicine 07/10/23
--- OUTSIDE RECORDS SUMMARY | 2025-02-17 12:12 | XMS_ITS | Encounter Summary ---
Author Organization [facility] Address [address] [place] [address] Care Team Providers Care Lighting Fixture Installer Name Role Phone Jelly Santiago DO Primary Care Provider [phone] Encounter Details Date Type Department Care Team (Late st Contact Info) Description 12/19/2023 Clinisync Result Encounter [facility] External Department Unsolicited Maris Tristan, [place] [address] [place] [address] Social History Tobacco Use Types Packs/Day Years [...] Procedure Name Priority Date/Time Associated Diagnosis Comments US AMNIOTIC FLUID VOLUME 12/19/2023 2:13 PM EDT documented in this encounter Results * US AMNIOTIC FLUID VOLUME (12/19/2023 2:13 PM EDT) Anatomical Region Laterality Modality Radiographic Vanessa ging 12/19/2023 2:13 PM EDT Narrative 12/19/2023 2:15 [place] [address] Ultrasound Report Signed Patient: TRISH CARDONA MR#: [id number] : 1990 Acct:[id number] Age/Sex: 33 / F ADM Date: Loc: [facility] 254-[address]: MARIS TRISTAN APRN, CNM Ordering Physician: MARIS TRISTAN APRN, CNM Date of Service: 12/19/23 Procedure(s): US OB amniotic fluid vol Accession Number(s): [id number] cc: MARIS TRISTAN APRN, CNM; Physician,Non-Staff M.DSánchez [place] [address] Patient Name: TRISH CARDONA MRN: [id number] date: 1990 Sex: F Assigned Patient Location: [facility] Current Patient Location: [facility] Accession/Order Number: [id number] Exam Date: 12/19/2023 13:45 Report Date: 12/19/2023 14:13 At the request of: MARIS TRISTAN Procedure: US OB amniotic fluid vol EXAMINATION: US OB amniotic fluid vol HISTORY: possible rupture of membranes COMPARISON: No relevant comparison available. TECHNIQUE: Limited sonographic examination for amniotic fluid volume FINDINGS: Heart rate: 140 bpm Amniotic fluid: 20.1 cm; normal range Presentation: Cephalic GA: 38 weeks 6 days NANCY: 12/27/2023 US/US OB amniotic fluid vol IMPRESSION: 1. Single live intrauterine . 2. Normal amniotic fluid volume. Electronically authenticated by: MORRO PORTILLO Date: 12/19/2023 14:13 Dictated By: Morro Portillo M.D. Signed By: 12/19/23 1415 DD/ 1413 TD/TT: Field Cashier: Procedure Note Radiology, Radiologist, MD - 12/19/2023 [place] [address] Ultrasound Report Signed Patient: TRISH CARDONA GMR#: [id number] : 1990Acct:[id number] Age/Sex: 33 / FADM Date: Loc: [facility] 254-[address]: MARIS TRISTAN APRN, CNM Ordering Physician: MARIS TRISTAN APRN, CNM Date of Service: 12/19/23 Procedure(s): US OB amniotic fluid vol Accession Number(s): [id number] cc: MARIS TRISTAN APRN, CNM; Physician,Non-Staff M.DSánchez [place] [address] Patient Name: TRISH CARDONA MRN: [id number] date: 1990 Sex: F Assigned Patient Location: [facility] Current Patient Location: [facility] Accession/Order Number: [id number] Exam Date: 12/19/2023 13:45 Report Date: 12/19/2023 14:13 At the request of: MARIS TRISTAN Procedure: US OB amniotic fluid vol EXAMINATION: US OB amniotic fluid vol HISTORY: possible rupture of membranes COMPARISON: No relevant comparison available. TECHNIQUE: Limited sonographic examination for amniotic fluid volume FINDINGS: Heart rate: 140 bpm Amniotic fluid: 20.1 cm; normal range Presentation: Cephalic GA: 38 weeks 6 days NANCY: 12/27/2023 US/US OB amniotic fluid vol IMPRESSION: 1. Single live intrauterine . 2. Normal amniotic fluid volume. Electronically authenticated by: MORRO PORTILLO Date: 12/19/2023 14:13 Dictated By: Morro Portillo M.D. Signed By:12/19/23 1415 DD/ 1413 TD/TT: Field Cashier: Maris Tristan CNM IMG XR PROCEDURES Final Resu lt documented in this encounter Visit Diagnoses Not on filedocumented in this encounter Care Teams Lighting Fixture Installer Relationship Specialty Start Date End Date Jelly Santiago DO [address] [place] [address] PCP - General Family Medicine 07/10/23 documented as of this encounter
--- OUTSIDE RECORDS SUMMARY | 2025-02-17 12:12 | XMS_ITS | Patient Health Record ---
Author Organization [facility] Address [address] [place], [place] [address] Support Name Relationship Address Phone Zulema Sim Emergency Contact [place], [place] [id number] Trish Landa Guarantor Unknown [phone] Allergies No Known Allergies Reason For Referral No Information Medications Medication SIG (Take, Route, Fr equency, Duration) Notes Start Date End Date Status Thrivite Rx 29-1 MG TAKE 1 TABLET BY LEROY TH EVERY MORNING Oral; Duration: 30 Days Active Immunizations Vaccine Route Administration Date Status Comme nts *Hep B, adult dosage-Private IM Intramuscular 11/09/2021 Administered *Hep B, adult dosage-Private IM Intramuscular 12/20/2021 Administered HPV (human papillomavirus), quadrivalent, 3 dose schedule OTH Other/Miscellaneous 05/23/2018 Administered Status:Complet e ,Reason:Vaccin e Efficacy Concern Influenza, quadrivalent, split, preservative free, 3 years or older IM Intramuscular 02/24/2021 Administered Status:Complet e ,Reason:Given or N/A Social History Tobacco Use: Social History Observation Description Date Details (start date - stop date) Never Smoker NA - NA Sex Assigned At : Social History Observation Description Sex Assigned At Female Household Question Answer Notes Number of adults in household: 2 Number of children in household: 1 Tobacco Use/Smoking Question Answer Notes Tobacco use: nonsmoker Problems Problem Type SNOMED Code ICD Code Onset Dates Problem Status W/U Status Risk Notes Problem Eczema (83967205) Eczema (L30.9) Active confirmed Problem Cervical high risk HPV (human papillomavirus) test positive (691174189) Cervical high risk HPV (human papillomavirus) test positive (R87.810) Active confirmed Comment:Patient is concerned about, and wants to know her risk of cancer - discussed that we need to have records, before we can discuss this further. She wants to follow up in person, and discuss the results. Obtain records from previous provider. Currently, asymptomatic - no indication for pelvic exam today. She was offered Garadasil, and stated that she has never recieved. However, then she is unsure if she could have reiceved this at Dr. Mujica's office. She will await till the records are recieved.,Story: per patient, Problem Depression screening (601360290) Screening for depression (Z13.31) Active confirmed Description:Dep r ession screening Problem History of abnormal cervical Papanicolaou smear (684057032) History of abnormal cervical Pap smear (Z87.42) Active confirmed Comment:1. Discussed most recent pap results done w/ FP provider Dr. Zee. Since she has had multiple negative pap smears, can return to routine screening. 2. Encouraged pt to obtain gardasil vaccine from health dept.,Story:2014: ASC-US, +ve HR HPV December 2014: Colpo- LSIL @ 3 o'clock & 6 o'clock. July 2015: LSIL August 2015: Colpo- LSIL @ 12 o'clock & 2 o'clock. CIN2/HSIL @ 6 o'clock. ECC negative October 2015: Cold knife cone- CIN2 w/ negative margins. Jan 2016: ASC-US, neg HR HPV July 2016: NILM, neg HR HPV Feb 2017: NILM, neg HR HPV Jun 2018: NILM neg HR HPV., Problem Annual wellness visit (471279181400984 ) Wellness examination (Z00.00) Active confirmed Problem Requires vaccination (496560172) Need for prophylactic vaccination against human papillomavirus (Z23) Active confirmed Comment:Patient then denied , because she is not sure if she recieved this at Dr. Mujica's office.,Descript ion:Need for HPV vaccination Problem Candidiasis of vagina (disorder) (13638435) Yeast vaginitis (B37.3) Active confirmed Comment:genital culture grew out moderate yeast Rx printed - will notify patient - will either fax to her pharmacy of choice or she can steel pickler Rx. 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 CROSS - for PAP and possible COLPOSCOPY, Problem Nexplanon insertion (Z30.017) Active confirmed Problem Skin rash (916765561) Skin rash (R21) Active confirmed Comment: Rash responded to Medium potency steroid - DDx still includes psoriasis vs eczema still. Since the rash has resolve - adviced patient that when it returns: she will call our office, and we can set up dermatology referral for possible biopsy of the rash. PVU. Also, discussed disease pathology, and other systemic signs of psoriasis - PVU. Also, counselled on side effect of using topical steroid - and to use it sparingly. PVU., Problem Contraception care education (620498629) control counseling (Z30.09) Active confirmed Comment:Nexplan o n, Problem Genital warts (030987703) Genital warts (A63.0) Active confirmed Comment:Patient has visible warts discussed the options for removal such as laser, podophylox, aldara, etc She has been referred to Dr. CROSS - HIGH PRESSURE KETTLE OPERATOR for a pap and possible COLPO on her cervix there was a visible faint lesion from 11 to 2 oclock - leukoplakia She was informed at the visit, Problem Postprocedural state finding (703774387) History of loop electrical excision procedure (LEEP) (Z98.890) Active confirmed Problem Varicose veins of lower extremity (50233827) Varicose veins of left lower extremity (I83.92) Active confirmed Comment:No concern for superficial thrombophlebitis - she has had this for about a year now. No concern for DVT either. Discussed with patient signs of above complications - PVU. Also, adviced to use compression stocking - PVU. Set up vascular surgery appointment for possible varicose veins ablation., Problem Requires vaccination (885582132) Need for immunization against influenza (Z23) Active confirmed Description: Infl uenza vaccine needed Problem Acute bronchitis (35889133) Acute bronchitis (J20.9) Active confirmed Problem Acute pharyngitis (185604980) Acute pharyngitis (J02.9) Active confirmed Problem Cervical intraepithelial neoplasia grade 2 (961209345) Cervical intraepithelial neoplasia II (N87.1) Active confirmed Comment:Patient needs cotesting at 12 and 24 months - if that is normal then she can return to routine screening. Dsicussed with Dr. Mantilla,Story: per cone biopsy in 10/2015 Repeat cotesting was negative in 02/2017 Above per records from Dr. Mujica's office., Plan Of Treatment No Information Insurance Providers Payer Name Payer Address Payer Phone Subscriber Number Group Number Insured Name Patient Relationship to Insured Coverage Start Date Coverage End Date zzDUnited HC-Dentaqu est [facility] [address] [place] [address] [id number] Trish Landa Self - patient is the insured 3 3 [place] [facility] [address] [place] [address] [id number] Trish Landa Self - patient is the insured DMedicaid C after [employer] [address] [place], [place] [id number] Trish Landa Self - patient is the insured 3 3 Medicaid CFC after [place] [address] [place] [address] [id number] Trish Landa Self - patient is the insured Medical (General) History Medical History History ICD Code History of abnormal cervical Pap smear, COMMENTS: December 2014: ASC-US, +ve HR HPV December 2014: Colpo- LSIL @ 3 o'clock & 6 o'clock. July 2015: LSIL August 2015: Colpo- LSIL @ 12 o'clock & 2 o'clock. CIN2/HSIL @ 6 o'clock. ECC negative October 2015: Cold knife cone- CIN2 w/ nega tive margins. Jan 2016: ASC-US, neg HR HPV July 2016: NILM, neg HR HPV Feb 2017: NILM, neg HR HPV Jun 2018: NILM neg HR HPV Surgical History Surgery Date(Month/Year) Colposcopy Vaginal surgery after 2014
--- OUTSIDE RECORDS SUMMARY | 2025-02-17 12:12 | XMS_ITS | Encounter Summary ---
Author Organization [facility] Address [address] [place] [address] Care Team Providers Care Travel Specialist Name Role Phone Jelly Santiago DO Primary Care Provider [phone] Encounter Details Date Type Department Care Team (Late st Contact Info) Description 07/04/2023 External Result Encounter [facility] OBGYN [address] [place] [phone] Marielle Tristan CNM [address] [place], [place] [phone] Social History Tobacco Use Types Packs/Day Years [...] Name Priority Date/Time Associated Diagnosis Comments US OB 14+ WEEKS ANATOMY SCAN 07/04/2023 1:42 PM EST documented in this encounter Results * US OB 14+ weeks anatomy scan (07/04/2023 1:42 PM EST) Anatomical Region Laterality Modality Body Ultrasound 07/04/2023 1:42 PM EST Narrative 07/04/2023 1:41 PM EST THIS EXAM WAS PERFORMED AT [facility] REPORT (Signed Final 07/04/2023 13:41) PATIENT INFO: ID #: [id number] : [birth year] (33 yrs)(F) Name: TRISH CALLOWAY Visit Date: 07/04/2023 09:33 BRENDAN PERFORMED BY: Attending: Moe Ibrahim MD Performed By: Malka Arceo RDSD Referred By: Alena Tristan [facility] Ref. Address: [address] [place], [place] [address] Location: [facility] SERVICE(S) PROVIDED: Basic OB >/= 14 weeks, 1 fetus [id number] INDICATIONS: Screening for anatomic survey Z36.89 Hyperthyroidism O99.280, E05.90 Maternal anemia, antepartum O99.019 VITAL SIGNS: Weight (lb): 131 Height: 5'7 BMI: 20.52 EVALUATION: Num Of Fetuses: 1 Heart Rate(bpm): 148 Cardiac Activity: Present appears normal Lie: Variable Presentation: Variable Placenta: Anterior P. Cord Insertion: Eccentric (>2cm from edge) Amniotic Fluid BRYANT FV: Subjectively within normal limits BIOMETRY: BPD: 32.2 mm G.Age: 16w 0d OFD: 41.5 mm HC: 118.1 mm G.Age: 15w 6d AC: 102.8 mm G.Age: 16w 2d FL: 16 mm G.Age: 14w 5d HUM: 17.5 mm G.Age: 15w 0d CER: 15.1 mm G.Age: 15w 6d NFT: 1.96 mm CM: 3.6 mm TIB: 15 mm G.Age: 15w 1d CI: 77.6 % 70 - 86 FL/HC: 13.5 % 15.3 - 17.1 HC/AC: 1.15 1.05 - 1.39 FL/BPD: 49.7 % FL/AC: 15.6 % 20 - 24 Est. FW: 128 gm 0 lb 5 oz OB HISTORY: : 2 Term: 1 Livin GESTATIONAL AGE: LMP: 14w 6d Date: 03/22/23 NANCY: 12/27/23 U/S Today: 15w 5d NANCY: 12/21/23 Best: 14w 6d Det. By: LMP (03/22/23) NANCY: 12/27/23 ANATOMY: Cranium: Appears normal Choroid Plexus: Appears normal Cerebellum: Appears normal Posterior Fossa: Appears normal Nuchal Fold: Appears normal (neck, nuchal fold) Heart: Not well visualized Diaphragm: Not well visualized Stomach: Appears normal, left sided Abdomen: Appears normal Abdominal Wall: Appears nml (cord insert, abd wall) Cord Vessels: Appears normal (3 vessel cord) Kidneys: Appear normal Bladder: Appears normal Spine: Could not document Upper Extremities: Not well visualized Lower Extremities: Not well visualized CERVIX UTERUS ADNEXA: Cervix Normal appearance by abdominal scan Uterus Gravid uterus Right Ovary Not visualized Left Ovary Not visualized Cul De Sac No fluid seen Adnexa No adnexal masses identified COMMENTS: 1. Ultrasound is not diagnostic for chromosomal abnormalities, will not detect all structural abnormalities, and is not diagnostic for genetic disorders even if multiple exams are performed during a given . 2. anatomic survey is incomplete due to early gestational age. Moe Ibrahim MD Electronically Signed Final Report 07/04/2023 13:41 IMPRESSION: 1. Single intrauterine size consistent with dates. AC measures greater than the 90th percentile. RECOMMENDATIONS: 1. Please see [facility] consultation documentation from today's encounter. 2. Patient is scheduled in six weeks for the anatomic survey, cervical length. 3. Subsequent follow up or other follow up as clinically determined by primary OB provider unless otherwise specified by [facility]. 4. Results forwarded to ordering provider so they can follow up with the patient as necessary. Procedure Note Radiology, MD Lillian - 07/04/2023 [facility] (Signed Final 07/04/2023 13:41) PATIENT INFO: ID #: [id number] : [birth year] (33 yrs)(F) Name: TRISH CALLOWAY Visit Date: 07/04/2023 09:33 BRENDAN PERFORMED BY: Attending: Moe Ibrahim MD Performed By: Malka Arceo RDSD Referred By: Alena Tristan [facility] Ref. Address: [address] [place] [address] Location: [facility] SERVICE(S) PROVIDED: Basic OB >/= 14 weeks, 1 fetus [id number] INDICATIONS: Screening for anatomic survey Z36.89 Hyperthyroidism O99.280, E05.90 Maternal anemia, antepartum O99.019 VITAL SIGNS: Weight (lb): 131 Height: 5'7 BMI: 20.52 EVALUATION: Num Of Fetuses: 1 Heart Rate(bpm): 148 Cardiac Activity: Present appears normal Lie: Variable Presentation: Variable Placenta: Anterior P. Cord Insertion: Eccentric (>2cm from edge) Amniotic Fluid BRYANT FV: Subjectively within normal limits BIOMETRY: BPD: 32.2 mm G.Age: 16w 0d OFD: 41.5 mm HC: 118.1 mm G.Age: 15w 6d AC: 102.8 mm G.Age: 16w 2d FL: 16 mm G.Age: 14w 5d HUM: 17.5 mm G.Age: 15w 0d CER: 15.1 mm G.Age: 15w 6d NFT: 1.96 mm CM: 3.6 mm TIB: 15 mm G.Age: 15w 1d CI: 77.6 % 70 - 86 FL/HC: 13.5 % 15.3 - 17.1 HC/AC: 1.15 1.05 - 1.39 FL/BPD: 49.7 % FL/AC: 15.6 % 20 - 24 Est. FW: 128 gm 0 lb 5 oz OB HISTORY: : 2 Term: 1 Livin GESTATIONAL AGE: LMP: 14w 6d Date: 03/22/23 NANCY: 12/27/23 U/S Today: 15w 5d NANCY: 12/21/23 Best: 14w 6d Det. By: LMP (03/22/23) NANCY: 12/27/23 ANATOMY: Cranium: Appears normal Choroid Plexus: Appears normal Cerebellum: Appears normal Posterior Fossa: Appears normal Nuchal Fold: Appears normal (neck, nuchal fold) Heart: Not well visualized Diaphragm: Not well visualized Stomach: Appears normal, left sided Abdomen: Appears normal Abdominal Wall: Appears nml (cord insert, abd wall) Cord Vessels: Appears normal (3 vessel cord) Kidneys: Appear normal Bladder: Appears normal Spine: Could not document Upper Extremities: Not well visualized Lower Extremities: Not well visualized CERVIX UTERUS ADNEXA: Cervix Normal appearance by abdominal scan Uterus Gravid uterus Right Ovary Not visualized Left Ovary Not visualized Cul De Sac No fluid seen Adnexa No adnexal masses identified COMMENTS: 1. Ultrasound is not diagnostic for chromosomal abnormalities, will not detect all structural abnormalities, and is not diagnostic for genetic disorders even if multiple exams are performed during a given . 2. anatomic survey is incomplete due to early gestational age. Moe Ibrahim MD Electronically Signed Final Report 07/04/2023 13:41 IMPRESSION: 1. Single intrauterine size consistent with dates. AC measures greater than the 90th percentile. RECOMMENDATIONS: 1. Please see [facility] consultation documentation from today's encounter. 2. Patient is scheduled in six weeks for the anatomic survey, cervical length. 3. Subsequent follow up or other follow up as clinically determined by primary OB provider unless otherwise specified by [facility]. 4. Results forwarded to ordering provider so they can follow up with the patient as necessary. us Marielle VIRGEN IMG OB US PROCEDURES Final R esult documented in this encounter Visit Diagnoses Not on filedocumented in this encounter Care Teams Travel Specialist Relationship Specialty Start Date End Date Jelly Santiago DO [address] [place] [address] PCP - General Family Medicine 07/10/23 documented as of this encounter
--- OUTSIDE RECORDS SUMMARY | 2025-02-17 12:13 | XMS_ITS | Clinical Summary ---
Author Organization [facility] Address [facility] [id number] [address] [place] [address] Care Team Providers Care Swinging Cut Off Saw Operator Name Role Phone Services, [facility] Primary Care Provider Allergies No known active allergies Medications vit 85-qybl-vjijf-dh a 18-1-350 mg capsuleIndicatio ns:Patient desires Take 1 tablet by mouth in the morning. 90 capsule 4 08/10/2022 Active Active Problems Problem Noted Date Diagnosed Date Iron (Fe) deficiency anemia 07/04/2023 Immunizations Immunization Administration Dates Next Due COVID-19, mRNA, LNP-S, PF, 100mcg/0.5mL Dose ,07/10/2020 Family History Medical History Relation Name Comments Diabetes Maternal Grandfather Cancer Mother STOMACH Diabetes Mother Relation Name Status Comments Maternal Grandfather Mother Social History Tobacco Use Types Packs/Day Years Used Date Smoking Tobacco: Never Smokeless Tobacco: Never Tobacco Cessation:Counseling Given: Not Answered Alcohol Use Standard Drinks/Week Comments Not Currently 1 (1 standard drink = 0.6 oz pur e alcohol) Childcare Answer Date Recorded Childcare Unknown 10/24/2018 Employment Answer Date Recorded Employment Unknown 10/24/2018 Hunger Screening Answer Date Recorded Within the past 12 months we worried whether our food would run out before we got money to buy more. Never True 11/14/2023 Within the past 12 months th e food we bought just didn't last and we didn't have money to get more. Never True 11/14/2023 Purpose - Life Answer Date Recorded Purpose and direction in life Unknown Comments No Sex and Gender Information Value Date Recorded Sex Assigned at Not on file Legal Sex Female 11:46 AM EDT Gender Identity Not on file Sexual Orientation Not on file Last Filed Vital Signs Vital Sign Reading Time Taken Comments Blood Pressure 108/52 11/14/2023 8:45 AM EDT Pulse 73 11/14/2023 8:45 AM EDT Temperature 37.1 C (98.7 F) 06/12/2023 5:37 PM EST Respiratory Rate 20 06/12/2023 5:37 PM EST Oxygen Saturation 99% 06/12/2023 5:37 PM EST Inhaled Oxygen Concentration - - Weight 67.5 kg (148 lb 12.8 oz) 11/14/2023 8:45 AM EDT Height 170.2 cm (5' 7.01 ) 11/14/2023 8:45 AM ED T Body Mass Index 23.3 11/14/2023 8:45 AM EDT Plan of Treatment Health Maintenance Due Date Last Done Comments Depression Screening 2004 DTaP,Tdap and Td Vaccines (2 - Td or Tdap) 06/12/2024 06/12/2014 Adult BMI Screening 11/13/2024 11/14/2023 Tobacco Screening 11/13/2024 11/14/2023 COVID-19 Vaccine (3 - 2024-2 6 season) 2025 08/07/2020, 07/10/2020 Influenza Vaccine 01/13/2025 02/24/2021 Pap Smear 08/10/2025 08/10/2022, 07/14, 08/10/2022 Medical Devices Not on file Procedures Procedure Name Priority Date/Time Associated Diagnosis Comments PAP SMEAR Routine 08/10/2022 5:57 AM EDT Cervical smear, as part of routine gynecological examination from Last 3 Months or Most Recently Relevant to Health Maintenance Results * Pap Smear (08/10/2022 5:57 AM EDT) 08/10/2022 5:57 AM EDT 08/10/2022 5:59 AM EDT Narrative COPATH - 08/11/2022 11:34 AM EDT [facility] [address] [place] [address] Gynecologic Cytology Consultation Patient Name:TRISH CARDONA:1990 (Age: 32)Gender:FTaken:08/10/2022Reported:08/11/2022hysician(s):ABIODUN Cast ([phone])Copy To: Rec. #:[id number]: #[id number] Final Cytologic Interpretation ThinPrep Pap Test (Cervical): Satisfactory for evaluation. A transformation zone component was not noted. NEGATIVE FOR INTRAEPITHELIAL LESION OR MALIGNANCY. tm/08/11/2022 Interpretation performed at [facility], [address] [place] [address], License number: [id number]. Electronically Signed Out By Irma PORTILLO(ASCP) Date of Last Menstrual Period: 07/13/22 Other Clinical Conditions: Z01.419 Return To Vendor exam wo/abn findings Source of Specimen ThinPrep Pap Test (Cervical) Thin Prep Pap (PRODUCTION ENGINE REPAIRER) Fee Code(s): G0145 us Tory Cota [facility]OLOGY ORDER ALEXANDRA Final Result COPATH from Last 3 Months or Most Recently Relevant to Health Maintenance Insurance MEDICAID Member Subscriber Plan / Payer (Ef fective 2023-Present) Name:Trish Cardona Relation to Subscriber:Self Name:Cordell Trish Pace Payer ID:[id number] (NAIC) Group ID:Not on file Type:Not on file Address: [place] [phone] Care Teams Swinging Cut Off Saw Operator Relationship Specialty Start Date End Date Services, [facility] [address] [place], [place] PCP - General Family Medicine 06/12/23
--- OUTSIDE RECORDS SUMMARY | 2025-02-17 12:13 | XMS_ITS | Encounter Summary ---
Author Organization [facility] Address [address] [place] [address] Care Team Providers Care Secretary Bookkeeper Name Role Phone Jelly Santiago DO Primary Care Provider [phone] Encounter Details Date Type Department Care Team (Late st Contact Info) Description 10/03/2023 Orders Only [facility] OBGYN [address] [place] [id number] Marielle Tristan CNM [address] [place] [address] Anemia during in second trimester ([facility]) (Primary Dx) Social History Tobacco Use Types Packs/Day Years [...] documented as of this encounter Visit Diagnoses Diagnosis Anemia during in second trimester ([facility])- Primary documented in this encounter Care Teams Secretary Bookkeeper Relationship Specialty Start Date End Date Jelly Santiago DO [address] [place] [address] PCP - General Family Medicine 07/10/23 documented as of this encounter
--- OUTSIDE RECORDS SUMMARY | 2025-02-17 12:13 | XMS_ITS | Encounter Summary ---
Author Organization [facility] Address [address] [place] [address] Care Team Providers Care Stove Fitter Name Role Phone Jelly Santiago DO Primary Care Provider [phone] Encounter Details Date Type Department Care Team (Late st Contact Info) Description 11/23/2023 Abstract SAMI Rice OBAKILAHN [address] [place] [phone] Marielle Tristan CNM [address] [place] [address] Social History Tobacco Use Types Packs/Day Years [...] on filedocumented in this encounter Care Teams Stove Fitter Relationship Specialty Start Date End Date Jelly Santiago DO [address] [facility] [place], [place] [id number] PCP - General Family Medicine 07/10/23 documented as of this encounter
--- OUTSIDE RECORDS SUMMARY | 2025-02-17 12:14 | XMS_ITS | CCD ---
Author Organization [facility] Care Team Providers Care Social Worker Palliative Care Name Role Phone MISC, DOCTOR Admitting Unavailable MISC, DOCTOR Attending Unavailable MISC, DOCTOR Admitting Unavailable MISC, DOCTOR Attending Unavailable SERVICES, [facility] Care Unava ilable DOCHEVA, NIKOLINA P Attending Unavailable SERVICES, [facility] Unava ilable SHIVAM, MOE Referring Unavailable DOCHEVA, NIKOLINA P Referring Unavailable SERVICES, [facility] Unava ilable SHIVAM, MOE Attending Unavailable FLORO, MARIELLE Referring Unavailable SERVICES, [facility] Care Unava ilable FLORO, MARIELLE Referring Unavailable SERVICES, [facility] Care Unava ilable SHIVAM, MOE Attending Unavailable FLORO, MARIELLE Referring Unavailable SERVICES, [facility] Care Unava ilable Jelly Santiago DO Primary Care Provider FLORO, MARIELLE L Referring Unavailable FLORO, MARIELLE [...] Attending Unavailable FLORO, MARIELLE L Attending Unavailable Services, [facility] Primary Care Provider Medications Current Medications Medication Drug Class(es) Dates [...] Daily 90 tablet 3 03/05/2024 Active vit 05-cfdu-ysway-dha 18-1-350 mg capsule (13 sources) Start: 08-10-2022 take 1 tablet by mouth in the morning vit 77-afij-xzipl-dha 18-1-350 mg capsule Indications: Patient desires Take [...] contraception] 03-05-2024 Episodic Deficiency and other anemia (2 sources) Anemia Onset: 08-15-2023 Episodic Deficiency and other anemia (15 sources) Iron deficiency anemia; Translations: [Other iron deficiency anemias] Onset: 07-04-2023 02-13-2024 Episodic Miscellaneous mental health disorders (4 sources) depression; Translations: [ depression] 02-13-2024 Episodic Mood disorders (2 sources) Mild major depression, single episode; Translations: [Major depressive disorder, single episode, mild] 02-13-2024 Chronic Other complications of (2 sources) Anemia complicating , second trimester; Translations: [Anemia complicating , second trimester] Onset: 07-04-2023 Chronic Other complications of (1 source) Anemia complicating , unspecified trimester; Translations: [Anemia complicating , unspecified trimester] Onset: 07-04-2023 Chronic Other complications of (2 sources) Anemia in mother complicating , childbirth AND/OR puerperium; Translations: [Anemia complicating , second trimester] 07-04-2023 Chronic Other complications of (1 source) Iron deficiency anemia of ; Translations: [Anemia complicating , unspecified trimester] 08-17-2023 Chronic Other and delivery including normal (10 sources) care status; Translations: [Encounter for routine follow-up] 02-13-2024 Episodic Thyroid disorders (2 sources) Hyperthyroidism; Translations: [Hypothyroidism] Onset: 08-15-2023 Chronic Unclassified (1 source) Abnormal Lab Onset: 06-12-2023 Unclassified (1 source) Abnormal Lab, 12 wks preg Onset: 06-12-2023 Past or Other Problems Problem Classification Problem Date Documented Da te Episodic/Chronic Deficiency and other anemia (1 source) Other iron deficiency anemias; Translations: [Other iron deficiency anemias] Onset: 07-04-2023 Episodic Deficiency and other anemia (1 source) Iron deficiency anemia secondary to inadequate dietary iron intake; Translations: [Other iron deficiency anemias] 11-14-2023 Episodic Other screening for suspected conditions (not mental disorders or infectious disease) (5 sources) Unspecified abnormal finding in specimens from other organs, systems and tissues; Translations: [Other specified abnormal findings of blood chemistry] Onset: 06-12-2023 08-15-2023 Episodic Polyhydramnios and other problems of amniotic cavity (2 sources) Amniotic fluid leaking; Translations: [Premature rupture of membranes, unspecified as to length of time between rupture and onset of labor, unspecified weeks of gestation] 12-20-2023 Episodic Residual codes; unclassified (2 sources) 20 weeks gestation of ; Translations: [20 weeks gestation of ] Onset: 08-15-2023 Episodic Residual codes; unclassified (2 sources) Gestation period, 20 weeks; Translations: [20 weeks gestation of ] 08-14-2023 Episodic Thyroid disorders (1 source) Disorder of thyroid gland; Translations: [Disorder of thyroid, unspecified] 08-17-2023 Episodic NEGATED: Highlighted row has been ruled [...] Signed Luis Alberto Mcfadden M.D. 2023-12-20 10:57:39 [facility] Radiology Study observation (narrative) [facility] US for pregnancyOrdered By: John Mcfadden on 12-20-2023 [facility] [employer] Work Phone: US OB FOLLOW UP TRANSABDOMIN [...] BY: Ravinder Merchant MD Normal Not Available Unlisted Lab Teston 08-22-19 24 Unlisted lab test see scanned report [facility] CBC without diffon Erythrocyte distribution width (RBC) [Ratio] 18.9 % High 11.5 - 15.0 % [facility] Hematocrit (Bld) [Volume fraction] 23.1 % Low 35 - 47 % [facility] Hemoglobin (Bld) [Mass/Vol] 7.2 g/dL Low 11.7 - 15.5 g/dL [facility] Interpretation and review of laboratory results Abnormal [facility] MCH (RBC) [Entitic mass] 19.8 pg Low 27 - 34 pg [facility] MCHC (RBC) [Mass/Vol] 31.1 g/dL Low 32 - 36 g/dL [facility] MCV (RBC) [Entitic vol] 64 fL Low 80 - 100 fL [facility] Platelet mean volume (Bld) [Entitic vol] 7.4 fL 7 - 12 fL [facility] Platelets (Bld) [#/Vol] 342 10*3/uL [facility] RBC (Bld) [#/Vol] 3.64 10*6/uL Low [facility] WBC corrected for nucl RBC Auto (Bld) [#/Vol] 7.2 [facility] COMPLETE BLOOD COUNTon 08-14 Erythrocyte distribution width (RBC) [Ratio] 18.9 % High 11.5-15.0 [facility] Comment on above: Performed By: #### C BC, THYR, 3051-0, 2276-4, 2284-8, 2132-01 #### [facility] ([id number]) [address], [address] [place] [address] Hematocrit (Bld) [Volume fraction] 23.1 % Low 35-47 [facility] Comment on above: Performed By: #### C BC, THYR, 3051-0, 2276-4, 2283-8, 2132-01 #### [facility] ([id number]) [address], [address] [place] [address] Hemoglobin (Bld) [Mass/Vol] 7.2 g/dL Low 11.7-15.5 [facility] Comment on above: Performed By: #### C BC, THYR, 3051-0, 2276-4, 2283-8, 2132-01 #### [facility] ([id number]) [address], [address] [place] [address] MCH (RBC) [Entitic mass] 19.8 pg Low 27-34 [facility] Comment on above: Performed By: #### C BC, THYR, 3051-0, 2276-4, 2284-8, 2132-01 #### [facility] ([id number]) [address], [address] [place] [address] MCHC (RBC) [Mass/Vol] 31.1 g/dL Low 32-36 [facility] Comment on above: Performed By: #### C BC, THYR, 3051-0, 2276-4, 2284-8, 2132-01 #### [facility] ([id number]) [address], [address] [place] [address] MCV (RBC) [Entitic vol] 64 fL Low 80-100 [facility] Comment on above: Performed By: #### C BC, THYR, 3051-0, 2276-4, 2283-8, 2132-01 #### [facility] ([id number]) [address], [address] [place] [address] Platelet mean volume (Bld) [Entitic vol] 7.4 fL Normal 7-12 [facility] Comment on above: Performed By: #### C BC, THYR, 3051-0, 2276-4, 2283-8, 2132-01 #### [facility] ([id number]) [address] [place] [address] Platelets (Bld) [#/Vol] 342 10*3/uL Normal 150-450 [facility] Comment on above: Performed By: #### C BC, THYR, 3051-0, 2276-4, 2283-8, 2132-01 #### [facility] ([id number]) [address] [address] [place] [address] RBC COUNT 3.64 X10E12/L Low 3.80-5.20 [facility] Comment on above: Performed By: #### Anderson BC, THYR, 3051-0, 2276-4, 2283-8, 2132-01 #### [facility] ([id number]) [address], [address] [place] [address] WBC (Bld) [#/Vol] 7.2 10*3/uL Normal 4.0-11.0 [facility] Comment on above: Performed By: #### Anderson BC, THYR, 3051-0, 2276-4, 4-8, 2132-01 #### [facility] ([id number]) [address], [address] [place] [address] Cobalamin (Vitamin B12) [Mas s/Vol]on 08-15-2023 [facility] FERRITINon 08-15-2023 Ferritin [Mass/Vol] 3 ng/mL Low 11-307 [facility] Comment on above: Performed By: #### C BC, THYR, 3051-0, 2276-4, 4-8, 2132-01 #### [facility] ([id number]) [address] [place] [address] FREE T3on 08-15-2023 Free T3 [Mass/Vol] 3.96 pg/mL High 2.50-3.90 [facility] Comment on above: Performed By: #### C BC, THYR, 3051-0, 2276-4, 2283-8, 2132-01 #### [facility] ([id number]) [address] [facility], [address] [place] [address] Ferritinon 08-15-2023 Ferritin [Mass/Vol] 3 ng/mL Low 11 - 307 ng/mL [facility] Ferritin [Mass/Vol]on 2023 Interpretation and review of laboratory results Abnormal [facility] Folateon 08-15-2023 Folate [Mass/Vol] ng/mL 5.8 - PINF ng/mL [facility] Comment on above: NEW REFERENCE RANGE Folate [Mass/Vol]on 08-15-19 24 [facility] FOLIC ACID >25.0 Normal >5.8 [facility] Comment on above: Result Comment: NEW REFERENCE RANGE Performed By: #### C BC, THYR, 3051-0, 2276-4, 2283-8, 2132-01 #### [facility] ([id number]) [address] [place] [address] Free T3 [Mass/Vol]on Interpretation and review of laboratory results Abnormal [facility] HGB ELECTRO INTERPon HGB ELECTRO INTERP See below Normal [facility] Comment on above: Result Comment: NOTE Hemoglobins were analyzed by capillary electrophoresis. There is a normal hemoglobin capillary electrophoresis pattern. Alpha thalassemia trait is not excluded by the testing performed. Suggest correlation with clinical information, red blood cell indices and serum ferritin test results, if applicable. Performed By: #### C BC, THYR, 3051-0, 2276-4, 2284-8, 9 #### [facility] ([id number]) [address] [facility], [address] [place] [address] STAFF REVIEW See below Normal [facility] Comment on above: Result Comment: NOTE Reviewed by Angi Horvath DO Test Performed By: [place] [address] Implementation Manager: Modesto Martin III, M.D. CLIA #[id number] Performed By: #### Anderson BC, THYR, 3051-0, 2276-4, 4-8, 2132-01 #### [facility] ([id number]) [address] [place] [address], [facility] [address] [place] [address] HGB ELECTROPHORESISon 2023 Abnormal Hb See below Normal No abnormal hemoglobin identified. [facility] Comment on above: Result Comment: NOTE No abnormal hemoglobin identified. Test Performed By: [place] [address] Implementation Manager: Modesto Martin III, M.D. CLIA #[id number] Performed By: #### C BC, THYR, 3051-0, 2276-4, 2284-8, 2132-01 #### [facility] ([id number]) [address] [facility], [facility] [address] [place] [address] Hb A Percent 98.1 % High 96.2-98.0 [facility] Comment on above: Performed By: #### C BC, THYR, 3051-0, 2276-4, 2284-8, 9 #### [facility] ([id number]) [address], [address] [place] [address] Hb A2 Percent 1.9 % Low 2.0-3.1 [facility] Comment on above: Performed By: #### C BC, THYR, 3051-0, 6-4, 8, 2132-01 #### [facility] ([id number]) [address], [address] [place] [address] T3, freeon 08-15-2023 Free T3 [Mass/Vol] 3.96 pg/mL High 2.50 - 3. 90 pg/mL [facility] THYROID PROFILEon 08-15-2023 Free T4 [Mass/Vol] 0.54 ng/dL Low 0.61-1.60 [facility] Comment on above: Performed By: #### C BC, THYR, 3051-0, 2275-4, 2283-12, 2132-01 #### [facility] ([id number]) [address], [address] [place] [address] TSH 0.67 uIU/mL Normal 0.49-4.67 [facility] Comment on above: Performed By: #### C BC, THYR, 3051-0, 2275-4, 2283-12, 2132-01 #### [facility] ([id number]) [address] [place] [address] Thyroid profile includes TSH FT4on 08-15-2023 Free T4 [Mass/Vol] 0.54 ng/dL Low 0.61 - 1. 60 ng/dL [facility] Interpretation and review of laboratory results Abnormal [facility] TSH Qn 0.67 m[IU]/L [facility] VITAMIN B12on 08-15-2023 Cobalamin (Vitamin B12) [Mass/Vol] 183 pg/mL Normal 180-914 [facility] Comment on above: Performed By: #### C BC, THYR, 3051-0, 2276-4, 2283-12, 2132-01 #### [facility] ([id number]) [address] [facility], [address] [place] [address] Vitamin B12on 08-15-2023 Cobalamin (Vitamin B12) [Mass/Vol] 183 pg/mL 180 - 914 pg/mL [facility] BASIC METABOLIC PANLon 06-12 Anion gap [Moles/Vol] 9 mmol/L Normal 5-15 [facility] Comment on above: Performed By: #### C BCA, BMP #### [facility] ([id number]) [address] [place] [address] Calcium [Mass/Vol] 9.1 mg/dL Normal 8.5-10.5 [facility] Comment on above: Performed By: #### C NITIN, BMP #### [facility] ([id number]) [address] [place] [address] Chloride [Moles/Vol] 105 mmol/L Normal 98-109 [facility] Comment on above: Performed By: #### C BCA, BMP #### [facility] ([id number]) [address] [place] [address] CO2 [Moles/Vol] 22 mmol/L Normal 22-32 [facility] Comment on above: Performed By: #### C BCA, BMP #### [facility] ([id number]) [address] [place] [address] Creatinine [Mass/Vol] 0.48 mg/dL Normal 0.40-1.00 [facility] Comment on above: Result Comment: METH OD TRACEABLE TO IDMS STANDARD Performed By: #### C NITIN, BMP #### [facility] ([id number]) [address] [place] [address]327 eGFR (CKD-EPI) NON-RACE DEPENDENT >90 Normal >59 [facility] Comment on above: Result Comment: Reported eGFR is based on the CKD-EPI 2020 equation that does not use a race coefficient. Performed By: #### C BCA, BMP #### [facility] ([id number]) [address] [place] [address] Glucose [Mass/Vol] 94 mg/dL Normal 65-99 [facility] Comment on above: Performed By: #### C BCA, BMP #### [facility] ([id number]) [address] [place] [address]691 Potassium [Moles/Vol] 3.7 mmol/L Normal 3.5-5.0 [facility] Comment on above: Performed By: #### C NITIN, BMP #### [facility] ([id number]) [address] [place] [address] Sodium [Moles/Vol] 136 mmol/L Normal 134-146 [facility] Comment on above: Performed By: #### C NITIN, BMP #### [facility] ([id number]) [address] [place] [address]28 Urea nitrogen [Mass/Vol] 11 mg/dL Normal 5-23 [facility] Comment on above: Performed By: #### C NITNI, BMP #### [facility] ([id number]) [address] [place] [address] CBC AND AUTO DIFFon 06-12-19 24 ABSOLUTE BASOPHIL 0.0 X10E9/L Normal 0.0-0.2 [facility] Comment on above: Performed By: #### C BCA, BMP #### [facility] ([id number]) [address] [place] [address]58[address] ABSOLUTE NEUTROPHIL 4.5 X10E9/L Normal 1.5-6.6 [facility] Comment on above: Performed By: #### C BCA, BMP #### [facility] ([id number]) [address] [place] [address] 96952 Basophils/100 WBC (Bld) 0.4 % Normal [facility] Comment on above: Performed By: #### C NITIN, BMP #### [facility] ([id number]) [address] [place] [address] Eosinophils (Bld) [#/Vol] 0.1 10*3/uL Normal 0.0-0.4 [facility] Comment on above: Performed By: #### C NITIN, BMP #### [facility] ([id number]) [address] [place] [address] Eosinophils/100 WBC (Bld) 1.0 % Normal [facility] Comment on above: Performed By: #### C NITIN, BMP #### [facility] ([id number]) [address] [place] [address] 69566 Erythrocyte distribution width (RBC) [Ratio] 19.3 % High 11.5-15.0 [facility] Comment on above: Performed By: #### C NITIN, BMP #### [facility] ([id number]) [address] [place] [address] Hematocrit (Bld) [Volume fraction] 26.6 % Low 35-47 [facility] Comment on above: Performed By: #### C NITIN, BMP #### [facility] ([id number]) [address] [place] [address]642 Hemoglobin (Bld) [Mass/Vol] 8.0 g/dL Low 11.7-15.5 [facility] Comment on above: Performed By: #### C NITIN, BMP #### [facility] ([id number]) [address] [place] [address]1787 Lymphocytes (Bld) [#/Vol] 2.0 10*3/uL Normal 1.0-3.5 [facility] Comment on above: Performed By: #### C BCA, BMP #### [facility] ([id number]) [address] [place] [address] [place] [address] Lymphocytes/100 WBC (Bld) 27.5 % Normal [facility] Comment on above: Performed By: #### C NITIN, BMP #### [facility] ([id number]) [address] [place] [address] MCH (RBC) [Entitic mass] 19.1 pg Low 27-34 [facility] Comment on above: Performed By: #### C NITIN, BMP #### [facility] ([id number]) [address] [place] [address]98 MCHC (RBC) [Mass/Vol] 30.2 g/dL Low 32-36 [facility] Comment on above: Performed By: #### C NITIN, BMP #### [facility] ([id number]) [address] [place] [address]82 MCV (RBC) [Entitic vol] 63 fL Low 80-100 [facility] Comment on above: Performed By: #### C NITIN, BMP #### [facility] ([id number]) [address] [place] [address] 74749 Monocytes (Bld) [#/Vol] 0.6 10*3/uL Normal 0-0.9 [facility] Comment on above: Performed By: #### C NITIN, BMP #### [facility] ([id number]) [address] [place] [address] 74976 Monocytes/100 WBC (Bld) 8.6 % Normal [facility] Comment on above: Performed By: #### C NITIN, BMP #### [facility] ([id number]) [address] [place] [address] 76769 Neutrophils/100 WBC (Bld) 62.5 % Normal [facility] Comment on above: Performed By: #### C NITIN, BMP #### [facility] ([id number]) [address] [place] [address] Platelet mean volume (Bld) [Entitic vol] 7.6 fL Normal 7-12 [facility] Comment on above: Performed By: #### C NITIN, BMP #### [facility] ([id number]) [address] [place] [address] 96469 Platelets (Bld) [#/Vol] 334 10*3/uL Normal 150-450 [facility] Comment on above: Performed By: #### Anderson TAVERAS, BMP #### [facility] ([id number]) [address] [place] [address] 77545 RBC COUNT 4.20 X10E12/L Normal 3.80-5.20 [facility] Comment on above: Performed By: #### Anderson TAVERAS, BMP #### [facility] ([id number]) [address] [place] [address] 38538 WBC (Bld) [#/Vol] 7.3 10*3/uL Normal 4.0-11.0 [facility] Comment on above: Performed By: #### Anderson TAVERAS, BMP #### [facility] ([id number]) [address] [place] [address]37 HIV 1&2 AB/AG Screen (P24 AG )on 05-17-2023 HIV 1&2 AB/AG Non-Reactive [facility] Hepatitis B surface antigeno n 05-17-2023 Hepatitis B Surface Antigen Non-Reactive [facility] Hepatitis C(HCV) Ab w/ Refle x to PCRon 05-17-2023 HCV Ab Ql (S) Non-Reactive [facility] No Panel InformationOrdered By: Riya Veloz on 05-17-2023 [facility] Rubella IGG immune statuson 05-17-2023 Rubella immune IgG [facility] Syphilis Total(Unknown Syphi lis Status)Ordered By: Riya Veloz on 05-17-2023 Syphilis Non-Reactive [facility] US OB < 14 WEEKS EARLYon [...] significant surrounding subchorionic hemorrhage. Yolk sac present. [place] rump length measures 1.85 cm, which corresponds [...] Body mass index (BMI) [Ratio] 20.2 kg/m2 [facility] Work Phone: [facility] 03-05-2024 09:05-0400 Body weight 58.51 kg [facility] 02-13-2024 08:35-0400 Body mass index (BMI) [Ratio] 20.36 kg/m2 [facility] Work Phone: [facility] 02-13-2024 08:35-0400 Body weight 58.[address] [facility] Work Phone: [facility] 02-13-2024 08:35-0400 Diastolic blood pressure 60 mm[Hg] Marielle [facility] Work Phone: [facility] 02-13-2024 08:35-0400 Systolic blood pressure 100 mm[Hg] [facility] Work Phone: [facility] 01-18-2024 11:43-0400 Body mass index (BMI) [Ratio] 19.89 kg/m2 Marielle Floro CNM Work Phone: [facility] 01-18-2024 11:43-0400 Body weight 57.61 kg Marielle Floro CNM Work Phone: [facility] 01-18-2024 11:43-0400 Diastolic blood pressure 70 mm[Hg] Marielle Floro CNM Work Phone: [facility] 01-18-2024 11:43-0400 Systolic blood pressure 108 mm[Hg] Marielle Floro CNM Work Phone: [facility] 12-27-2023 13:04-0400 Body mass index (BMI) [Ratio] 20.83 kg/m2 Marielle Floro CNM Work Phone: [facility] 12-27-2023 13:04-0400 Body weight 60.33 kg Marielle Floro CNM Work Phone: [facility] 12-27-2023 13:04-0400 Diastolic blood pressure 70 mm[Hg] Marielle Floro CNM Work Phone: [facility] 12-27-2023 13:04-0400 Systolic blood pressure 110 mm[Hg] Marielle Floro CNM Work Phone: [facility] 11-14-2023 08:45-0400 Body height 170.2 cm Moe Langley MD Work Phone: [facility] 11-14-2023 08:45-0400 Body mass index (BMI) [Ratio] 23.3 kg/m2 Moe Langley MD Work Phone: [facility] 11-14-2023 08:45-0400 Body weight 67.5 kg Moe Langley MD Work Phone: [facility] 11-14-2023 08:45-0400 Diastolic blood pressure 52 mm[Hg] Moe Langley MD Work Phone: [facility] 11-14-2023 08:45-0400 Heart rate 73 /min Moe Langley MD Work Phone: [facility] 11-14-2023 08:45-0400 Systolic blood pressure 108 mm[Hg] Moe Langley MD Work Phone: [facility] 08-15-2023 09:14-0400 Body height 170.2 cm Glory Rivera MD Work Phone: [facility] 08-15-2023 09:14-0400 Body mass index (BMI) [Ratio] 21.77 kg/m2 Glory Rivera MD Work Phone: [facility] 08-15-2023 09:14-0400 Body weight 63.05 kg Glory Rivera MD Work Phone: [facility] 08-15-2023 09:14-0400 Diastolic blood pressure 62 mm[Hg] Glory Rivera MD Work Phone: [facility] 08-15-2023 09:14-0400 Heart rate 68 /min Glory Rivera MD Work Phone: [facility] 08-15-2023 09:14-0400 Systolic blood pressure 102 mm[Hg] Glory Rivera MD Work Phone: [facility] 07-04-2023 08:55-0500 Body mass index (BMI) [Ratio] 20.55 kg/m2 Moe Langley MD Work Phone: [facility] 07-04-2023 08:55-0500 Body weight 59.51 kg Moe Langley MD Work Phone: [facility] 07-04-2023 08:55-0500 Diastolic blood pressure 55 mm[Hg] Moe Langley MD Work Phone: [facility] 07-04-2023 08:55-0500 Heart rate 67 /min Moe Langley MD Work Phone: [employer] 07-04-2023 08:55-0500 Systolic blood pressure 100 mm[Hg] Moe Langley MD Work Phone: [employer] Encounters Encounter Date Encounter Type Care Provider [...] Start: 11-14-2023 End: 11-14-2023 ambulatory MOE WEINERHID [facility] Start: 11-14-2023 End: 11-14-2023 Office outpatient visit 15 minutes Osbaldo Alamo MD Work Phone: [facility] Comment on above: Iron deficiency anem ia secondary to inadequate dietary iron intake (Primary Dx) Start: 11-13-2023 End: 11-13-2023 ambulatory MARIELLE L FLORO Not Available Start: 10-30-2023 End: 10-30-2023 Telephone encounter Maricruz Strauss RN [facility] Start: 10-23-2023 End: 10-23-2023 ambulatory MARIELLE L FLORO Not Available Start: 09-04-2023 End: 09-04-2023 ambulatory MARIELLE L FLORO Not Available Start: 08-28-2023 End: 08-28-2023 Telephone encounter Gladys Cortés RN [facility] Start: 08-22-2023 End: 08-22-2023 Orders Only Kaylie Recinos CMA [facility] Comment on above: 20 weeks gestation o f Start: 08-21-2023 Telephone encounter Gladys Cortés RN [facility] Start: 08-18-2023 Telephone encounter Glory Rivera MD Work Phone: [facility] Comment on above: Results Start: 08-17-2023 Orders Only Glory stewart MD Work Phone: [facility] Comment on above: Iron deficiency anem ia during (Primary Dx); Thyroid disease Start: 08-15-2023 End: 08-15-2023 ambulatory GLORY RIVERA [facility] Start: 08-15-2023 End: 08-15-2023 Office outpatient visit 25 minutes Glory Rivrea MD Work Phone: [facility] Comment on above: 20 weeks gestation o f (Primary Dx); Low TSH level Start: 08-07-2023 End: 08-07-2023 ambulatory MARIELLE L FLORO Not Available Start: 07-10-2023 End: 07-10-2023 ambulatory MARIELLE L FLORO Not Available Start: 07-04-2023 End: 07-04-2023 ambulatory MARIELLE FLORO [facility] Comment on above: Anemia affecting pre gnancy in second trimester (Primary Dx) Start: 07-04-2023 End: 07-04-2023 Office consultation new/estab patient 60 min Moe Langley MD Work Phone: [facility] Comment on above: Anemia affecting pre gnancy in second trimester (Primary Dx); Other iron deficiency anemia Start: 06-19-2023 Chart abstracting Moe mccormack MD Work Phone: [facility] Start: 06-13-2023 End: 06-13-2023 ambulatory MARIELLE L FLORO Not Available Start: 06-12-2023 End: 06-12-2023 Emergency department patient visit [facility] Start: 05-17-2023 End: 05-17-2023 ambulatory MARIELLE L FLORO Not Available Start: 01-10-2019 Patient encounter procedure DOCTOR MISC Facility:[facility] Start: 12-27-2018 Patient encounter procedure DOCTOR MISC Facility:[facility] Procedures Date Procedure Procedure Detail Performing Clinician Start: 08-15-2023 UNLISTED LAB TEST Joaquín Rivera MD Work Phone: Start: 05-17-2023 Hepatitis c antibody No t [...] Screening for malign ant neoplasm of cervix [facility] Start: 08-10-2025 Screening for malign ant neoplasm of cervix Pap Smear [facility] Start: 08-14-2024 Adult BMI Screening Adult BMI Screen ing [facility] Start: 08-14-2024 Tobacco Screening Tobacco Screening [facility] Start: 07-04-2024 Adult BMI Screening Adult BMI Screen ing [facility] Start: 07-04-2024 Tobacco Screening Tobacco Screening [facility] Start: 07-04-2024 End: 07-04-2024 US MFM with or without consult US MFM with or without consult Imaging Routine Anemia affecting in second trimester Expected: 07/04/2024 (Approximate), Expires: 07/04/2024 [employer] Work Phone: Comment on above: Expected: 07/04/2024 (Approximate), Expires: 07/04/2024 Start: 06-12-2024 Adult BMI Screening Adult BMI Screen ing [facility] Start: 06-12-2024 DTaP,Tdap and Td Vac cines (2 - Td or Tdap) DTaP,Tdap and Td Vaccines (2 - Td or Tdap) [facility] Start: 04-03-2024 End: 04-03-2024 ambulatory 04/03/2024 9:30 AM EST Visit [facility] [address] [place] [address] Marielle Tristan, CNM [address] [place] [address] [facility] Start: 03-05-2024 End: 03-05-2024 ambulatory 03/05/2024 8:30 AM EDT Visit [facility] [address] [place] [address] Marielle Tristan, CNM [address] [place] [address] [facility] Start: 02-13-2024 End: 02-12-2025 TSH W/REFLEX TO FT4 TSH W/REFLEX TO FT4 Lab Routine Other iron deficiency anemia Expected: 02/13/2024 (Approximate), Expires: 02/12/2025 [facility] Work Phone: Comment on above: Expected: 02/13/2024 (Approximate), Expires: 02/12/2025 Start: 02-13-2024 End: 02-13-2024 ambulatory 02/13/2024 10:30 AM EDT Visit [facility] [address] [facility] [place] [id number] Marielle Tristan, CNM [address] [place] [address] [facility] Start: 01-18-2024 End: 01-18-2024 ambulatory 01/18/2024 11:30 AM EDT Visit [facility] [address] [facility] [place] [id number] Marielle Tristan, CNM [address] [place] [address] [facility] Start: 01-14-2024 Influenza vaccination [facility] Start: 10-30-2023 End: 10-30-2023 Telemedicine consultation with patient 10/30/2023 11:30 AM EDT Telemedicine [facility] [address] [place] [id number] Osbaldo Alamo MD [address], [address] [place] [address] [place] [address] [facility] Start: 08-15-2023 End: 08-15-2023 Patient encounter procedure [facility] Start: 08-11-2023 Tobacco Screening Tobacco Screening [facility] Start: 07-04-2023 End: 07-04-2023 Patient encounter [facility] Start: 01-13-2023 COVID-19 Vaccine ( season) COVID-19 Vaccine ( season) [facility] Start: 01-13-2023 Influenza vaccination Influenza Vacc ine [facility] Start: 2013 Screening for malign ant neoplasm of cervix Pap Smear [facility] Start: 2004 [facility] by Automated count CBC Lab Routine Other iron deficiency anemia Ordered: 02/13/2024 [facility] Comment on above: Ordered: 02/13/2024 End: 07-04-2024 Ferritin [Mass/volume] in Serum or Plasma Ferritin Lab Routine Anemia affecting in second trimester 1 Occurrences starting 07/04/2023 until 07/04/2024 [employer] Work Phone: Comment on above: 1 Occurrences starti ng 07/04/2023 until 07/04/2024 End: 07-04-2024 Hemoglobin Electrophoresis Hemoglobin Electrophoresis Lab Routine Anemia affecting in second trimester 1 Occurrences starting 07/04/2023 until 07/04/2024 [facility] Comment on above: 1 Occurrences starti ng 07/04/2023 until 07/04/2024 End: 08-14-2024 Hemoglobin Electrophoresis Hemoglobin Electrophoresis Lab Routine 20 weeks gestation of 1 Occurrences starting 08/15/2023 until 08/14/2024 [employer] Work Phone: Comment on above: 1 Occurrences starti ng 08/15/2023 until 08/14/2024 Hemoglobin Electrophoresis Hemoglobin Electrophoresis Lab Routine 20 weeks gestation of 08/15/2023 10:11 AM EDT [facility] End: 10-17-2023 Thyroid profile includes TSH FT4 Thyroid profile includes TSH FT4 Lab Routine Thyroid disease 1 Occurrences starting 08/17/2023 until 10/17/2023 [employer] Work Phone: Comment on above: 1 Occurrences starti ng 08/17/2023 until 10/17/2023 End: 10-17-2023 Triiodothyronine (T3) Free [Mass/volume] in Serum or Plasma T3, free Lab Routine Thyroid disease 1 Occurrences starting 08/17/2023 until 10/17/2023 [facility] Comment on above: 1 Occurrences starti ng 08/17/2023 until 10/17/2023 End: 08-14-2024 Unlisted Lab Test Unlisted Lab Test Lab Routine 20 weeks gestation of 1 Occurrences starting 08/15/2023 until 08/14/2024 [facility] Comment on above: 1 Occurrences starti ng 08/15/2023 until 08/14/2024 Immunizations Immunization Date Immunization Notes Care Provider Fa [facility] 02-24-2021 influenza virus vaccine, unspecified formulation Moe Langley MD Work Phone: [facility] 08-07-2020 COVID-19, mRNA, LNP- S, PF, 100mcg/0.5mL Dose Moe Langley MD Work Phone: [facility] 07-10-2020 COVID-19, mRNA, LNP- S, PF, 100mcg/0.5mL Dose Moe Langley MD Work Phone: [facility] Payers Date Payer Category Payer Medicaid [id number] 2023 Medicaid (Managed Care) [employer] [facility] [id number] 2023 Medicaid [id number] 2022 Medicaid [id number] 1992 Unknown [id number] 2.16.840.1.546960.3.579.2. 593 1992 Unknown [id number] 2.16.840.1.709502.3.579.2. 593 1992 Unknown [id number] 2.16.840.1.139063.3.579.2. 1286 1992 Unknown [id number] 2.16.840.1.605977.3.579.2. 1286 1992 Unknown [id number] 2.16.840.1.800830.3.579.2. 1285 1992 Unknown [id number] 2.16.840.1.228711.3.579.2. 1286 1992 Unknown [id number] 2.16.840.1.444415.3.579.2. 1286 1992 Unknown [id number] 2.16.840.1.662240.3.579.2. 1259 1992 Unknown [id number] 2.16.840.1.921920.3.579.2. 1258 1992 Unknown [id number] 2.16.840.1.594463.3.579.2. 9 1992 Unknown [id number] 2.16.840.1.260938.3.579.2. 1259 1992 Unknown [id number] 2.16.840.1.909188.3.579.2. 1259 1992 Unknown [id number] 2.16.840.1.095529.3.579.2. 9 1992 Unknown [id number] 2.16.840.1.008188.3.579.2. 9 1992 Unknown [id number] 2.16.840.1.562978.3.579.2. 9 1992 Unknown [id number] 2.16.840.1.365539.3.579.2. 1259 1992 Unknown [id number] 2.16.840.1.245717.3.579.2. 1259 1992 Unknown [id number] 2.16.840.1.038320.3.579.2. 1259 1992 Unknown [id number] 2.16.840.1.654699.3.579.2. 9 1992 Unknown [id number] 2.16.840.1.831209.3.579.2. 1259 1959 Unknown Social History Date Type Detail Facility Start: 12-21-2021 End: 05-17-2023 Tobacco smoking status NHIS Never smoked tobacco [facility] Start: 12-21-2021 End: 05-17-2023 Tobacco use and exposure Smokeless tobacco non-user [facility] Start: 08-15-2023 End: 02-13-2024 Alcoholic beverage intake Ex-drinker (finding) [facility] Start: 06-25-2020 End: 02-13-2024 History of Social function [facility] Start: 06-25-2020 End: 02-13-2024 Tobacco use panel [facility] Start: 1990 Sex assigned at Female [facility] Start: 05-17-2023 Gender identity Identifies as female gender (finding) [facility] Start: 05-17-2023 Sexual orientation Heterosexual (finding) [facility] The thought of harmi ng myself has occurred to me Never [facility] Start: 06-19-2023 Alcohol intake Current drinker of alcohol (finding) [facility] Unknown [facility] Start: 04-05-2023 [facility] Start: 1990 Sex Assigned At Not on file [facility] Clinical Notes 07-04-2023 to 03-11-2024 Telephone Encounter - [facility] - 03/11/2024 9:39 AM EDTTelephone Encounter - [facility] - 03/11/2024 9:39 AM EDTMarielle Tristan CNM - 03/05/2024 9:00 AM EDT Note Date & Type Note Facility 03-11-2024 Telephone encount er Note Pt called and left a vm at 9:35 am She said she *needs* to speak with Maricruz Ontiveros. [facility] 03-11-2024 Miscellaneous Notes Formattin g of this note might be different from the original. Pt called and left a vm at 9:35 am She said she *needs* to speak with Maricruz Ontiveros. documented in this encounter [facility] 03-05-2024 History of Presen [...] tired normal exam documented in this encounter [facility] 02-13-2024 History of Presen [...] time normal exam documented in this encounter [facility] 01-18-2024 History of Presen [...] encounter. normal exam documented in this encounter [facility] 12-27-2023 History of Presen [...] encounter. normal exam documented in this encounter [facility] 12-20-2023 History of Presen [...] a routine visit. documented in this encounter [facility] 11-14-2023 History of Presen t illness Narrative Headache/epigastric pain/blurry vision/swelling? No Cramping/contractions? No Abnormal vaginal discharge? No Spotting or vaginal bleeding? No Loss of fluid like your water may have broken? No Recent ER visits or hospitalizations? No Any concerns that you would like me to mention to the provider today? No REASON FOR OFFICE VISIT: Iron deficiency anemia HISTORY OF PRESENT ILLNESS: Trish Landa is a pleasant 33 y.o. G 2 P1 001 at 33w6d due on Estimated Date of Delivery: 12/27/23 . has been complicated with 1. Iron deficiency anemia status post IV iron. 2. Suspected hyperthyroidism which has been ruled out. Normal thyroid function tests with slightly low free T4 which most likely is due to normal physiological changes during . Currently the patient has no complaints. The patient denies nausea, vomiting, abdominal pain, vaginal bleeding, SOB or chest pain. Patient Active Problem List Diagnosis Iron (Fe) deficiency anemia ALLERGIES: No Known Allergies CURRENT MEDICATIONS: Current Outpatient Medications: vit 03-uzyn-zrjsm-dha 18-1-350 mg capsule, Take 1 tablet by mouth in the morning., Disp: 90 capsule, Rfl: 4 Past Medical History: Diagnosis Date Anemia Atypical squamous cells of undetermined significance on cytologic smear of cervix (ASC-US) 2012 Disease of thyroid gland REVIEW OF SYSTEMS: Head and Neck: Negative for any dizziness and headaches. Cardiovascular and Respiratory System: Denies any chest pain, shortness of breath, and coughing. Abdominal and System: Denies any abdominal pain, nausea, vomiting, vaginal bleeding, and vaginal discharge REVIEW OF ULTRASOUND. Pertinent Ultrasound findings are see report. PHYSICAL EXAMINATION: BP 108/52 Pulse 73 Ht 170.2 cm (5' 7.01 ) Wt 67.5 kg (148 lb 12.8 oz) LMP 03/22/2023 BMI 23.30 kg/m . Gravid abdomen, Respirations not labored. Normal gait well oriented in time place and person. RECOMMENDATION: 1. Growth ultrasound at 37 weeks gestation at her OB office. 2. No indication for medical induction of labor. Spontaneous vaginal delivery at local hospital is anticipated with C section reserve for routine obstetrical indications. 3. Patient is considered low risk and can be delivered at her local hospital. 4. Patient does not have any future appointment scheduled with us. Thank you for allowing me to participate in [facility]. If there are any questions, please do not hesitate to call me. Sincerely, MOE LANGLEY MD documented in this encounter [employer] 10-30-2023 Miscellaneous Notes Formattin g of this note might be different from the original. Car Dumper left for patient. Patient has an appointment with Dr. Alamo today at 11:30 am via [employer]. Car Dumper encouraged patient to get onto the call if possible and left call back number if patient needs to reschedule. documented in this encounter [facility] 10-30-2023 Telephone encount er Note Car Dumper left VM for patient. Patient has an appointment with Dr. Alamo today at 11:30 am via [employer]. Car Dumper encouraged patient to get onto the call if possible and left call back number if patient needs to reschedule. [facility] 08-28-2023 Miscellaneous Notes Formattin g of this note might be different from the original. Patient called back to office in regards to testing results. Updated on thyroid function and Dr. Rivera recommendations. Updated on carrier screen results. Patient verbalized understanding and no further questions. documented in this encounter [facility] 08-28-2023 Telephone encount er Note Patient called back to office in regards to testing results. Updated on thyroid function and Dr. Rivera recommendations. Updated on carrier screen results. Patient verbalized understanding and no further questions. [facility] 08-22-2023 Miscellaneous Notes Formattin g of this note might be different from the original. TC to patient to discuss Carrier screen testing results. Patient did not answer so a voicemail was left for her to call back to discuss her results. Office number was provided. documented in this encounter [facility] 08-22-2023 Telephone encount er Note TC to patient to discuss Carrier screen testing results. Patient did not answer so a voicemail was left for her to call back to discuss her results. Office number was provided. [facility] 08-21-2023 Miscellaneous Notes Formattin g of this note might be different from the original. Attempted to contact patient in regards to thyroid function results per Dr. Rivera. No answer, left VM to call back to office to discuss. documented in this encounter [facility] 08-21-2023 Telephone encount er Note Attempted to contact patient in regards to thyroid function results per Dr. Rivera. No answer, left VM to call back to office to discuss. [facility] 08-18-2023 Miscellaneous Notes Formattin g of this note might be different from the original. Attempted to call patient to discuss her results she did not answer GLORY RIVERA MD documented in this encounter [facility] 08-18-2023 Telephone encount er Note Attempted to call patient to discuss her results she did not answer GLORY RIVERA MD [facility] 08-17-2023 Miscellaneous Notes Formattin g of this note might be different from the original. Left voicemail for pt to call our office to schedule an appointment with Micaela solorio needed documented in this encounter [facility] 08-17-2023 Telephone encount er Note Left voicemail for pt to call our office to schedule an appointment with Micaela solorio needed [facility] 08-15-2023 History of Presen t illness [...] Allergies CURRENT MEDICATIONS: Current Outpatient Medications: vit 11-ilmr-xpiho-dha 18-1-350 mg capsule, Take 1 tablet by [...] and the other consultants, we search on [employer] and all the available care everywhere epic I did review all the imaging studies of the patient available on EMR, ordered by the primary care physician and the other actuarial consultant HABITS: Patient activity no restrictions, diet [...] patient is in complete care of her magistrate judge. Patient does have ultrasound office visit scheduled with us. Thank you for allowing me to participate in [facility] . If there any questions please do not hesitate to contact us. Sincerely, Glory Rivera MD, FACOG (she/hers) [facility] [address] [place] [address] Headache/epigastric pain/blurry vision/swelling? No Cramping/contractions? No Abnormal vaginal discharge? No Spotting or vaginal bleeding? No Loss of fluid like your water may have broken? No Recent ER visits or hospitalizations? No Any concerns that you would like me to mention to the provider today? Was diagnosed with a UTI by her OB in [place]. 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 Blood drawn for carrier testing by [facility] lab. Patient tolerated well. documented in this encounter [facility] 07-04-2023 History of Presen t illness Narrative Headache/epigastric pain/blurry vision/swelling? No Cramping/contractions? No Abnormal vaginal discharge? No Spotting/vaginal bleeding? No Loss of fluid like your water may have broken? No Cats in the home? No Do you change the litter box? N/A Flu vaccine? No Genetic testing done this here or other office? No Have you been seen here at [facility] in a previous ? No Recent ER visits or hospitalizations? 06/12/23 sent by primary OB to [place] ED for low hemoglobin Bring blood sugar log or meter with you today? (Please bring them with you for every visit at [facility]) N/A Traveled outside the country in [...] Allergies CURRENT MEDICATIONS: Current Outpatient Medications: vit 56-assz-xnaam-dha 18-1-350 mg capsule, Take 1 tablet by [...] and the other consultants, we search on [employer] and all the available care everywhere epic I did review all the imaging studies of the patient available on EMR, ordered by the primary care physician and the other actuarial consultant HABITS: Patient activity no restrictions, diet [...] 6. Targeted anatomy at 20 weeks at [facility] office 7. Patient is low risk and vaginal delivery at term at her local hospital is anticipated with C section reserve for routine obstetrical indications. DISPOSITION: At this point the patient is in complete care of her magistrate judge. Patient does have ultrasound office visit scheduled with us. Thank you for allowing me to participate in [facility] . If there any questions please do not hesitate to contact us. Sincerely, MOE LANGLEY MD documented in this encounter [facility] Evaluation note Diagnosis Current 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 (HCC) (CMS/HCC)- Primary examination following delivery Post depression (CMS/HCC) Mental disorders of mother, complicating , childbirth, or the puerperium, unspecified as to episode of care Other iron deficiency anemia [facility] Diagnosis Unwanted fertility- Primary Post depression (CMS/HCC) Mental disorders of mother, complicating , childbirth, or the puerperium, unspecified as to episode of care examination following delivery [facility] Diagnosis Encounter for supervision of other normal , third trimester- Primary Amniotic fluid leaking Amniotic fluid leaking documented in this encounter [facility]* Diagnosis examination following delivery- Primary documented in this encounter [facility]* Diagnosis Anemia affecting in second trimester- Primary Other iron deficiency anemia [facility] Diagnosis Anemia affecting in second trimester- Primary [facility] Diagnosis Iron deficiency anemia secondary to inadequate dietary iron intake- Primary [facility]* Diagnosis 20 weeks gestation of - Primary Low TSH level documented [facility]* Diagnosis Iron deficiency anemia during - Primary Thyroid disease Unspecified disorder of thyroid documented [facility]* Diagnosis 20 weeks gestation of [facility] in [facility] on filedocumented in this encounter [facility] System[facility]ructionsNot on filedocumented in this encounter [facility]Not on filedocumented in this encounter [facility] SystemInstructionsNot on filedocumented in this encounter [facility] SystemInstructionsNot on filedocumented in this encounter [facility] System[facility]ructionsNot on filedocumented in this encounter [facility] System[facility]ructionsNot on filedocumented in this encounter [facility] SystemReason for referral (narrative)* Consultation (Routine) - Pending Review Specialty Diagnoses / Procedures Referred By Floyd t Referred To Contact Hematology Diagnoses Iron deficiency anemia during Glory Rivera MD [address] [facility], [address] [place] [id number] [facility] [address] [address] [place] [address] Referral ID Status Reason Start Date Expiration Date V isits Requested Visits Authorized [id number] Pending Review 08/17/2023 08/16/2024 1 1 [facility] Summary Purpose Family History No Family History [...] or without consult Moe Langley MD [address] [place] [address] [facility] [address] [place] [address] Referral ID Status Reason Start Date Expiration Date V isits Requested Visits Authorized [id number] Pending Review 07/04/2023 07/03/2024 1 1 Additional Source Comments INFORMATION SOURCE (unrecogn ized section and content) DATE CREATED AUTHOR 12/26/2018 [facility] DATE CREATED AUTHOR AUTHOR'S ORGANIZ ATION 06/16/[address] [facility] DATE CREATED AUTHOR AUTHOR'S ORGANIZ ATION 08/16/2023 [facility] DATE CREATED AUTHOR AUTHOR'S ORGANIZ ATION 11/15/2023 [facility] DATE CREATED AUTHOR AUTHOR'S ORGANIZ ATION 03/10/2024 [facility] EPIC Reason for Visit (unrecogniz ed section and content) Reason Comments Care Reason Comments Anemia Hypothyroidism Reason Comments Hyperthyroidism anemia Reason Onset Date Comments Results 08/18/2023 Care Teams (unrecognized sec tion and content) Social Worker Palliative Care Relationship Specialty Start Date End Date Jelly Santiago DO [address] [place], [place] [id number] PCP - General Family Medicine 07/10/23 Social Worker Palliative Care Relationship Specialty Start Date End Date Jelly Santiago DO [address] [place] [id number] PCP - General Family Medicine 07/10/23 Social Worker Palliative Care Relationship Specialty Start Date End Date Shannan SantiagotyDO [address] [place] [address] PCP - General Family Medicine 07/10/23 Social Worker Palliative Care Relationship Specialty Start Date End Date Shannan SantiagotyDO [address] [place] [address] PCP - General Family Medicine 07/10/23 Social Worker Palliative Care Relationship Specialty Start Date End Date Services, [facility] [address] [place] PCP - General Family Medicine 06/12/23 Social Worker Palliative Care Relationship Specialty Start Date End Date Services, [facility] [address] [place] PCP - General Family Medicine 06/12/23 Social Worker Palliative Care Relationship Specialty Start Date End Date Services, [facility] [address] [place] PCP - General Family Medicine 06/12/23 Social Worker Palliative Care Relationship Specialty Start Date End Date Services, [facility] [address] [place] PCP - General Family Medicine 06/12/23 Social Worker Palliative Care Relationship Specialty Start Date End Date Services, [facility] [address] [place] PCP - General Family Medicine 06/12/23 Social Worker Palliative Care Relationship Specialty Start Date End Date Services, [facility] [address] [place] PCP - General Family Medicine 06/12/23 Social Worker Palliative Care Relationship Specialty Start Date End Date Services, [facility] [address] [place] PCP - General Family Medicine 06/12/23 Social Worker Palliative Care Relationship Specialty Start Date End Date [address] [place], [place] PCP - General Family Medicine 06/12/23 FOR RECORDS PERTAINING TO PATIENTS WHO ARE [...] BE BASED ON THE PRIMARY CLINICAL RECORDS. [facility] [employer] [facility]. provides no warranty or guarantee of the accuracy or completeness of information in this document.
--- NOTE | 2025-02-17 12:21 | ED.WEAKNESS1 ---
HPI - Weakness General Chief complaint: Weakness Stated complaint: SYNCOPE, R SIDED HEAVINESS, CHEST PAIN, Time Seen by Provider: 02/17/25 12:07 Source: patient Mode of arrival: walk-in History of Present Illness HPI Narrative: The patient is a 34-year-old female who presented to the ED with a complaint of near syncope. 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 She experienced chest pressure (right-sided), felt as though she was breathing heavily (without true shortness of breath), and became dizzy with near-blackout vision, as if she was going to pass out. She sat back down and did not lose consciousness. Following the episode, she developed a frontal, throbbing, and achy headache, which was not her worst ever and came on gradually. She describes her weakness as generalized but remains ambulatory. She continues to have right-sided chest pressure but denies shortness of breath, nausea, or vomiting. She has not been ill recently and denies any recent trauma or head injury. She has no personal history of headaches. Her past medical history is notable for depression several years ago, which is no longer an issue and for which she is not on medication. She takes no daily medications. She felt well yesterday and this morning prior to the event. She did not eat breakfast today, which is her usual routine. She is currently menstruating and denies any possibility of . Related Data Home Medications ?Medication ?Instructions ?Recorded ?Confirmed No Known Home Medications 02/17/25 02/17/25 Allergies Allergy/AdvReac Type Severity Reaction Status Date / Time No Known Drug Allergies Allergy Verified 12/20/23 15:58 [facility] Medical History (Updated 02/17/25 @ 14:14 by ISMAEL VORA) hemorrhage ?O72.1 - Other immediate hemorrhage (ICD-10) UTI (urinary tract infection) ?N39.0 - Urinary tract infection, site not specified (ICD-10) Anemia ?D64.9 - Anemia, unspecified (ICD-10) Family History (Updated 12/20/23 @ 13:46 by Yesenia Vargas) Grandfather Family history of diabetes mellitus Family history of hypertension Family history of stroke Social History (Updated 12/20/23 @ 13:47 by Yesenia Vargas) Within the past year, how often did you have a drink containing alcohol: never Score interpretation: A score less than 3 is consistent with normal alcohol consumption. Smoking status: Never smoker Non-prescribed substance use: denies use Highest level of school completed/degree received: Associate degree: academic program Are you now , , , , never or living with a partner: living with partner In a typical week, how many times do you talk on the telephone with family, friends, or neighbors: 3 or more times per week How often do you get together with friends or relatives: 3 or more times per week How often do you attend moravian or mandaeism services: 4 or more times per year Little interest or pleasure in doing things: not at all Feeling down, depressed, or hopeless: not at all Feel stressed/tense/nervous/anxious/difficulty sleeping: not at all Do you think of yourself as: straight/heterosexual Exam Narrative Exam Narrative: General:?Alert, oriented, ambulatory HEENT:?Normocephalic, atraumatic Neuro:?No focal deficits, cranial nerves intact Cardiac:?Regular rate and rhythm, no murmurs Respiratory:?Clear to auscultation Abdomen:?Soft, non-tender Extremities:?No edema Skin:?No rash Constitutional Vital Signs, click to edit/add: Last Vital Signs Temp 98.0 F 02/17/25 12:00 Pulse 62 02/17/25 14:24 Resp 13 02/17/25 14:24 BP 109/71 02/17/25 14:24 Pulse Ox 98 02/17/25 14:24 O2 Del Method Room Air 02/17/25 14:24 Course Vital Signs Vital signs: Vital Signs Temperature 98.0 F 02/17/25 12:00 Pulse Rate 59 L 02/17/25 12:00 Respiratory Rate 16 02/17/25 12:00 Blood Pressure 130/74 02/17/25 12:00 Pulse Oximetry 100 02/17/25 12:00 Oxygen Delivery Method Room Air 02/17/25 12:00 Temperature 98.0 F 02/17/25 12:00 Pulse Rate 62 02/17/25 14:24 Respiratory Rate 13 02/17/25 14:24 Blood Pressure 109/71 02/17/25 14:24 Pulse Oximetry 98 02/17/25 14:24 Oxygen Delivery Method Room Air 02/17/25 14:24 MDM - Weakness MDM Narrative Medical decision making narrative: This is a 34-year-old female presenting with near syncope, right-sided chest pressure, and a new-onset frontal headache following an episode of standing from a seated position at work. She reported no prior history of similar events, no recent illness, trauma, or head injury, and no significant past medical history aside from resolved depression. She is currently menstruating and had not eaten breakfast, which is her baseline. On evaluation, she was slightly orthostatic but otherwise hemodynamically stable. Her ECG showed sinus bradycardia without ischemic changes. Laboratory studies were unremarkable, including a negative D-dimer and troponin, and her urinalysis findings were consistent with menses. Imaging (CT head and chest X-ray) was normal. The patient?s symptoms improved significantly with IV fluids and Toradol, suggesting dehydration and possible orthostatic hypotension as contributing factors, likely exacerbated by fasting and menstruation. There were no concerning features for acute coronary syndrome, pulmonary embolism, intracranial pathology, or infection. After thorough evaluation and symptomatic improvement, she was deemed safe for discharge with appropriate return precautions and follow-up instructions. Case discussed with the ED attending. Assessment: Near syncope, likely multifactorial (possible orthostatic hypotension, dehydration, menstruation, and fasting) Headache, post-syncopal, improved with Toradol Chest pressure, non-cardiac, resolved with hydration Mild orthostatic hypotension Plan: Discharge home with return precautions (worsening symptoms, chest pain, shortness of breath, syncope, persistent headache, or new neurological symptoms) Encourage oral hydration and regular meals Rest as needed Follow up with primary care provider as needed Work note provided for today Medical Records Attestation: I reviewed the patient's medical records. Lab Data Attestation: I reviewed the patient's lab results. Labs: Lab Results 02/17/25 02/17/25 Range/Units 12:27 13:33 WBC 6.3 (4.0-11.0) 10^3/uL RBC 3.85 L (4.20-5.40) 10^6/uL Hgb 11.9 L (12.0-16.0) g/dL Hct 34.4 L (36.0-48.0) % MCV 89.4 (81.0-99.0) fL MCH 30.9 (26.7-34.0) pg MCHC 34.6 (29.9-35.2) g/dL RDW 13.2 (11.0-15.0) % Plt Count 229 (150-450) 10^3/uL MPV 9.7 (9.5-13.5) fL Neut % (Auto) 58.4 (43.0-75.0) % Lymph % (Auto) 33.1 (20.5-60.0) % Reeves % (Auto) 6.4 (1.7-12.0) % Eos % (Auto) 1.3 (0.9-7.0) % Baso % (Auto) 0.5 (0.2-2.0) % Neut # (Auto) 3.7 (1.4-6.5) 10^3/uL Lymph # (Auto) 2.1 (1.2-3.8) 10^3/uL Reeves # (Auto) 0.4 (0.3-0.8) 10^3/uL Eos # (Auto) 0.1 (0.0-0.7) 10^3/uL Baso # (Auto) 0.0 (0.0-0.1) 10^3/uL Abs Immat Gran (auto) 0.02 (0.00-0.03) 10^3/uL Imm/Tot Granulo (auto) 0.3 (0.0-0.5) % D-Dimer 0.33 (<=0.59) mg/L FEU Sodium 142 (136-145) mmol/L Potassium 3.6 (3.5-5.1) mmol/L Chloride 107 (98-107) mmol/L Carbon Dioxide 26.7 (21.0-32.0) mmol/L Anion Gap 11.9 BUN 10.0 (7.0-18.0) mg/dL Creatinine 0.39 L (0.55-1.02) mg/dL Est GFR ( Amer) >60 (>=60 mL/min/1.73m^2) Est GFR (Non-Af Amer) >60 (>=60 mL/min/1.73m^2) BUN/Creatinine Ratio 25.6 Glucose 81 (74-106) mg/dL Calcium 8.8 (8.5-10.1) mg/dL Troponin I High Sens <4.0 L (4.0-51.3) pg/mL Urine Color Lt. yellow (YELLOW) Urine Clarity Clear (CLEAR) Urine pH 6.0 (5.0-9.0) Ur Specific [place] 1.025 (1.005-1.025) Urine Protein Negative (NEG/TRACE) mg/dL Urine Glucose (UA) Negative (NEGATIVE) mg/dL Urine Ketones Negative (NEGATIVE) mg/dL Urine Occult Blood Large A (NEGATIVE) Urine Nitrite Negative (NEGATIVE) Urine Bilirubin Negative (NEGATIVE) Urine Urobilinogen 0.2 (0.2-1.0) EU/dL Ur Leukocyte Esterase Negative (NEGATIVE) Urine RBC 2-5 A (0-2) #/HPF Urine WBC 2-5 A (NONE SEEN) #/HPF Ur Squamous Epith Cells Few A (NONE/RARE) #/LPF Urine Crystals None seen (None Seen) #/HPF Urine Bacteria Large A (NONE SEEN) #/HPF Urine Casts None seen (NONE SEEN) #/LPF Urine Mucus None seen (NONE SEEN) Ur Culture Indicated? Yes-[facility] Urine HCG, Qual Negative (NEGATIVE) Imaging Data Chest x-ray: Attestation: I have reviewed the pertinent imaging results. Radiologist's impression: ITS Impressions Chest X-Ray 02/17/25 12:48 IMPRESSION: No acute cardiopulmonary pathology. Impression dictated by: Carlos Wiggins M.D. 02/17/2025 12:55 PM Dictation Location: [facility] Electronically authenticated by: [id number] Y Date: 02/17/2025 12:[address] 02/17/25 12:52 IMPRESSION: Normal noncontrasted CT brain. Impression dictated by: Carlos Wiggins M.D. 02/17/2025 12:57 PM Dictation Location: [facility] Electronically authenticated by: [id number] Y Date: 02/17/2025 12:57 ECG Data Attestation: ?I have reviewed the pertinent ECG results. ECG interpretation date: 02/17/25 ECG interpretation time: 13:02 Prior ECG tracings: not available for review Interpretation: ECG (27009): Ventricular rate 58, sinus rhythm No ST depression/elevation NC 156, QRS 90, QT/QTc 420/417 No prior ECG for comparison Signed off by ED attending. Discharge Plan Discharge Chief Complaint: Weakness Clinical Impression: Near syncope Patient Disposition: Home, Self-Care Time of Disposition Decision: 14:13 Condition: Good Mode of Transportation: Private Vehicle Prescriptions / Home Meds: No Action No Known Home Medications Print Language: Turkmen Instructions: Near Syncope (ED) Referrals: Physician,Non-Staff, MD [Primary Care Provider] - 1 week Referral Note: Follow up with your PCP this week. Return to ED if worsen or any acute concerns. Discharge Date/Time: 02/17/25 14:26
[2025-02-17] MEDS: KETOROLAC TROMETHAMINE 30 MG/ML VIAL 15 MG IVP (12:35)
[2025-02-17 12:38] LABS: Hematocrit 34.4 % (36.0-48.0); Hemoglobin 11.9 g/dL (12.0-16.0); Immature Granulocytes Abs Auto 0.02 10^3/uL (0.00-0.03); Immature Granulocytes Pct Auto 0.3 % (0.0-0.5); Lymphocytes Absolute Auto 2.1 10^3/uL (1.2-3.8); Mean Corpuscular HGB Conc 34.6 g/dL (29.9-35.2); Mean Corpuscular Hemoglobin 30.9 pg (26.7-34.0); Mean Corpuscular Volume 89.4 fL (81.0-99.0); Platelet Count 229 10^3/uL (150-450); Red Blood Count 3.85 10^6/uL (4.20-5.40); White Blood Count 6.3 10^3/uL (4.0-11.0)
--- NOTE | 2025-02-17 12:40 | ECG_ITS ---
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 Measurements Intervals [place] Rate: 58 P: 35 AL: 156 QRS: 92 QRSD: 90 T: 41 QT: 420 QTc: 417 Interpretive Statements 1100 Sinus rhythm 7102 Moderate right axis deviation Borderline ECG No previous ECG available for comparison Electronically Signed On 02-17-2025 18:29:20 EDT by AMALIA ACEVEDO M.D.
--- NOTE | 2025-02-17 12:48 | XR_ITS ---
The [place] [id number] Patient Name: OLIVERIO CARDONA MRN: [id number] date: 1990 Sex: F Assigned Patient Location: ER Current Patient Location: ER Accession/Order Number: [id number] Exam Date: 02/17/2025 12:45 Report Date: 02/17/2025 12:55 At the request of: LISA GUEVARA Procedure: XR chest 1V XR chest 1V 02/17/2025 12:49 PM SIGNS AND SYMPTOMS: ^chest pressure PROTOCOL: Frontal radiograph of the chest COMPARISON: None FINDINGS: The trachea is midline. The heart and mediastinal structures are within normal limits. The lung parenchyma is clear. The bony thorax is intact. XR/XR chest 1V IMPRESSION: No acute cardiopulmonary pathology. Impression dictated by: Carlos Wiggins M.D. 02/17/2025 12:55 PM Dictation Location: [place] [address] Electronically authenticated by: [id number] Y Date: 02/17/2025 12:55
--- NOTE | 2025-02-17 12:52 | CT_ITS ---
The [address] [address] Patient Name: OLIVERIO CARDONA MRN: [id number] date: 1990 Sex: F Assigned Patient Location: ER Current Patient Location: ER Accession/Order Number: [id number] Exam Date: 02/17/2025 12:45 Report Date: 02/17/2025 12:57 At the request of: LISA GUEVARA Procedure: CT head/brain wo con CT head/brain wo con 02/17/2025 12:52 PM SIGNS AND SYMPTOMS: ^headache near syncope TECHNIQUE:Multi-detector CT axial slices of the brain were obtained without IV contrast. CT was performed with one or more of the following dose reduction techniques: Automated exposure control, adjustment of the mA and/or kV according to patient size, or use of iterative reconstruction technique. COMPARISON: None. FINDINGS: There is no shift of the midline structures, acute intracranial bleeding, mass effects, or evidence of acute ischemia. The ventricular system is normal in size. The brainstem and the cerebellum are unremarkable. The visualized intraorbital contents, the visualized paranasal sinuses, and the infratemporal soft tissues show no acute abnormality. The osseous structures in the skull base and the calvarium show no abnormality. CT/CT head/brain wo con IMPRESSION: Normal noncontrasted CT brain. Impression dictated by: Carlos Wiggins M.D. 02/17/2025 12:57 PM Dictation Location: [place] [address] Electronically authenticated by: [id number] Y Date: 02/17/2025 12:57
[2025-02-17 12:54] LABS: Anion Gap 11.9; Blood Urea Nitrogen 10.0 mg/dL (7.0-18.0); Calcium 8.8 mg/dL (8.5-10.1); Carbon Dioxide 26.7 mmol/L (21.0-32.0); Chloride 107 mmol/L (98-107); Estimated GFR (African America >60 (>=60 mL/min/1.73m^2); Estimated GFR (Non-African Ame >60 (>=60 mL/min/1.73m^2); Glucose 81 mg/dL (74-106); Potassium 3.6 mmol/L (3.5-5.1); Sodium 142 mmol/L (136-145)
[2025-02-17 13:46] LABS: Glucose Urine UA NEGATIVE (NEGATIVE)
[2025-02-17 13:48] LABS: HCG Qualitative Urine* NEGATIVE (NEGATIVE)
[2025-02-17 13:51] LABS: Cast Seen? NONE SEEN #/LPF (NONE SEEN); Crystals Seen? None Seen #/HPF (None Seen); Urine Culture Indicated YES-FRMC
== END 2025-02-17 14:26 | disposition home or self-care (01) ==
PROVIDERS: Physician Assistant; Emergency Provider Emergency Medicine
DX: R55 Syncope and collapse (principal); R07.89 Other chest pain
CPT/HCPCS: 36415; 70450; 71045; 80048; 81001; 84484; 84703; 85025; 85378; 87086; 87088; 87186; 93005; 96374; 99285; J1885